=== PATIENT | female | born 1940 | race Caucasian/White ===

== ENCOUNTER 2016-06-19 08:39 | Inpatient (IN) | payer OTHER ==
[~2016-06-19] VITALS: Ht 160 cm; Wt 59.0 kg
[~2016-06-19 08:39] MED LIST: ADVAIR DISKUS1 UNIT INH; ALBUTEROL 3 ML3 ML INH; ALBUTEROL0.09 MG/A1 INH; AMLODIPINE10 MG PO; ASPIRIN81 M1 PO; ASPIRIN81 M4 PO; ATIVAN0.5 MG PO; AVELOX400 MG PO; AZITHROMYCIN250 MG PO; BOOST PO; CARDIZEM CD 12120 MG PO; CARDIZEM CD240 MG PO; COUMADIN 3 MG TA3 MG PO; COUMADIN 5 MG TA5 MG PO; COZAAR100 M1 PO; DILTIAZEM ER120 M2 PO; HYDROCHLOROTHIA25 M1 PO; HYDROCODONE BIT1 T22 PO; LASIX20 MG PO; LEVOFLOXACIN500 MG PO; LOSARTAN POTASS50 M1 PO; MULTI VITAMINS1 TAB PO; Oxygen INH; PAROXETINE HYDR10 MG PO; PAXIL20 MG PO; PERCOCET 325 MG1 TA2 PO; PREDNISONE 10MG10 M1 PO; PREDNISONE 20MG20 MG PO; PREDNISONE10 M2 PO; PREDNISONE10 MG PO; SPIRIVA 18 MCG18 MCG INH; VICODIN 5-3001 EACH PO
[2016-06-19] MEDS ORDERED: FERROUS SULFAT325 M3 PO (08:42)
[2016-06-19] MEDS ORDERED: LYRICA50 M1 PO (08:44)
--- NOTE | 2016-06-19 08:47 | NUR ---
75 Y/O FEMALE BIBA FROM HOME FOR DIFFICULTY BREATHING AND HX OF COPD AND EMPHYSEMA. PT STS SHE AWOKE THIS MORNING AND WAS HAVING DIFFICULTY BREATHIING. PT WAS RECENTLY SEEN HERE AND HAD A LOW H/H AND WAS TO BE ADMITTED BUT REFUSED AND WENT HOME. PT ARRIVES TODAY A/O X2 WITH SOME DROWSINESS AND OXYGEN ON 4L NC AND SATURAING AT 78-82%. PT PLACED ON A 100% NONE REBREATHER AND SATURAING AT 99%. PT DENIES ANY OTHER COMPLAINTS AND NOTED TO BE SPEAKING VERY LOW
[2016-06-19] MEDS ORDERED: AMITRIPTYLINE H25 M2 PO (08:48)
[2016-06-19] MEDS ORDERED: ATORVASTATIN CA10 M1 PO (08:49)
[2016-06-19] MEDS ORDERED: OS-CAL 500+D31 EAC1 PO (08:50)
[2016-06-19] MEDS ORDERED: DILTIAZEM 24HR360 MG PO (08:51)
[2016-06-19] MEDS ORDERED: CYANOCOBAL1000 MCG/2 IM (08:51)
[2016-06-19] MEDS ORDERED: BENADRYL25 MG PO (08:52)
[2016-06-19] MEDS ORDERED: FAMOTIDINE20 M1 PO (08:53)
[2016-06-19] MEDS ORDERED: PAROXETINE HCL40 M1 PO (08:54)
[2016-06-19] MEDS ORDERED: PREDNISONE2.5 M1 PO (08:54)
[2016-06-19] MEDS ORDERED: PREDNISONE10 M2 PO (08:55)
--- NOTE | 2016-06-19 09:01 | ED DYSPNEA/ASTHMA COMPLAINT ---
History of Present Illness General Chief Complaint: Dyspnea (COPD, CHF, Other) Stated Complaint: BIBA FOR SOB Source: patient, old records, EMS Exam Limitations: clinical condition, poor historian Vital Signs & Intake/Output Vital Signs & Intake/Output Vital Signs Date Time Temp Pulse Resp B/P Pulse O2 O2 Flow FiO2 Ox Delivery Rate 06/24 0905 90 170/70 06/24 0821 95 Nasal 2.5L Cannula 06/24 0544 97.9 97 20 176/70 96 Nasal 2.0L Cannula 06/24 0336 92 98 06/24 0116 90 97 06/24 0000 97 BIPAP 35% 06/23 2145 95 98 06/23 2130 98.3 99 22 160/80 97 Nasal Cannula 06/23 2026 98 Nasal 2.5L Cannula 06/23 1703 142/62 06/23 1600 Nasal 3.0L Cannula 06/23 1407 98.4 86 24 176/60 96 Nasal 3.0L Cannula 06/23 1136 92 180/60 ED Intake and Output 06/24 0000 06/23 1200 Intake Total 960 240 Output Total Balance 960 240 Intake, IV 50 Intake, Oral 910 240 Number 0 Bowel Movements Patient 130 lb Weight Allergies Coded Allergies: bacitracin (From NEOSPORIN ([id number])) (rash 09/23/15) neomycin (From NEOSPORIN ([id number])) (rash 09/23/15) penicillin V (SWELLING ALL OVER AND ITCHING 09/23/15) polymyxin B (From NEOSPORIN ([id number])) (rash 09/23/15) cortisone (THRUSH 09/23/15) duloxetine (GI DISTRESS 09/23/15) moxifloxacin (From AVELOX) (STOMACH SICK 09/23/15) Reconcile Medications Albuterol Sulfate (Albuterol Sulfate Hfa) 0.09 MG/Actuation CHELSEA 2 PUFF INH PRN COPD (Reported) 90 MCG PER PUFF Albuterol Sulfate (Proventil) 2.5 MG/3 ML NEB 3 ML INH EVERY 4 HRS/AWAKE PRN COPD Amitriptyline HCl 25 MG TABLET 1 TAB PO QPM UNKNOWN (Reported) Amlodipine Besylate 5 MG TABLET 5 MG PO DAILY blood pressure Aspirin (Aspirin*) 81 MG TAB.CHEW 81 MG PO DAILY HEART HEALTH Atorvastatin Calcium 10 MG TABLET 1 TAB PO DAILY CHOLESTEROL (Reported) Azithromycin 250 MG TABLET 1 TAB PO DAILY copd Calcium Carbonate/Vitamin D3 (Os-Napoleon 500+D3 Caplet) 500 MG-200 TABLET 1 TAB PO BID SUPPLEMENT (Reported) Cyanocobalamin (Vitamin B-12) (Cyanocobalamin Injection) 1,000 MCG/ML VIAL 1 ML IM Q30D SUPPLEMENT (Reported) Diltiazem HCl (Diltiazem 24HR ER) 360 MG CAP.ER.24H 1 CAP PO DAILY HEART ( Reported) Diphenhydramine HCl (Benadryl) 25 MG CAPSULE 1 CAP PO QPM SLEEP (Reported) Famotidine 20 MG TABLET 1 TAB PO BID GI (Reported) Ferrous Sulfate 325 MG (65 MG IRON) TABLET 1 TAB PO DAILY ANEMIA (Reported) Fluticasone-Salmeterol (Advair 500-50 Diskus) 1 UNIT UNIT 1 PUF INH BID COPD (Reported) Hydrochlorothiazide 25 MG TABLET 1 TAB PO DAILY WATER PILL (Reported) Hydrocodone/Acetaminophen (Vicodin 5-300 MG Tablet) 1 EACH TABLET 1 TAB PO DAILY PRN PAIN (Reported) Lorazepam (Ativan) 0.5 MG TAB 1 TAB PO BID ANXIETY (Reported) Losartan (Cozaar) 100 MG TABLET 100 MG PO DAILY HIGH BLOOD PRESSURE Multivitamin (One Daily Multivitamin) 1 TAB TAB 1 TAB PO DAILY SUPPLEMENT ( Reported) Paroxetine HCl 40 MG TABLET 1 TAB PO AT BEDTIME DEPRESSION (Reported) PAROXETINE HCL (Paroxetine Hydrochloride) 10 MG TAB 2 TAB PO DAILY MENTAL HEALTH (Reported) TAKES 20 MG PO Prednisone 2.5 MG TABLET 1 TAB PO DAILY STEROID (Reported) Prednisone 10 MG TABLET 1 TAB PO DAILY STEROID (Reported) Prednisone 10 MG TABLET 1 TAB PO SEE ADMIN CRITERIA copd take 3 TABS X 2 DAYS 2 TABS X 2 DAYS tHEN CONTINUE WITH 10 MG(1 TAB) OF PREDNISONE DAILY FOR copd Pregabalin (Lyrica) 50 MG CAPSULE 0.5 CAP PO BID PAIN (Reported) Stop lyrica on 06/28/16 Tiotropium [place] (Spiriva) 18 MCG CAP 1 CAP INH DAILY COPD (Reported) Triage Nurses Notes Reviewed? yes HPI: Patient presents for evaluation of severe constant and worsening dyspnea that began yesterday. The patient herself is a very poor historian and is able to state only that she is having trouble breathing since yesterday. According to the patient's family she has had altered mental status and dyspnea over that time. Upon arrival the paramedics noted she was hypoxic on 4 L nasal cannula and placed her on 100% nonrebreather and gave her a DuoNeb. Apparently the patient was evaluated at [facility] for low hematocrit and hemoglobin but she refused to to be hospitalized. Past History Travel History Traveled to [place] past 21 day No Medical History Any Pertinent Medical History? see below for history Neurological: NONE EENT: NONE Cardiovascular: PVD, hypertension diastolic dysfunction Respiratory: COPD, bilateral pulmonary nodules HOME 02 DEPENDENT Gastrointestinal: NONE Hepatic: NONE Renal: nephrolithiasis Musculoskeletal: osteomyelitis Psychiatric: anxiety Endocrine: NONE Blood Disorders: NONE Cancer(s): NONE MEAL COOKER/Reproductive: HYSTERECTOMY History of MRSA: No History of VRE: No History of CDIFF: No Pneumonia Vaccine: 05/24/06 Surgical History Surgical History: Right hip ORIF 04/2015 Left 5th toe amputation Left eye lens implant Left hip ORIF Mar 2002 Psychosocial History Who do you live with Patient/Self Services at Home visiting nurse What is your primary language Syriac Family History Family History, If Any: MOTHER FH: diabetes mellitus Hx Contributory? No Review of Systems Review of Systems Constitutional: Reports: no symptoms. EENTM: Reports: no symptoms. Respiratory: Reports: see HPI. Cardiovascular: Reports: no symptoms. GI: Reports: no symptoms. Genitourinary: Reports: no symptoms. Musculoskeletal: Reports: no symptoms. Skin: Reports: no symptoms. Neurological/Psychological: Reports: no symptoms. Hematologic/Endocrine: Reports: no symptoms. Immunologic/Allergic: Reports: no symptoms. All Other Systems: Reviewed and Negative Physical Exam Physical Exam Respiratory: SEE BELOW Comments: Gen.: Well-nourished, well-developed, no acute respiratory distress. Head: Normocephalic, atraumatic. Eyes: Normal inspection bilaterally Ears: Normal inspection bilaterally Nose: Normal inspection Throat/mouth : Moist mucosa Neck: Supple, full range of motion, no goiter Heart: Regular rate and rhythm, no murmurs rubs or gallops Lungs: Decreased air entry over the left chest, and expiratory wheezing and prolonged expiratory phase on the right chest Chest: Nontender Back: Normal range of motion Abdomen: Soft, nontender, nondistended, normal bowel sounds Extremities: Normal range of motion grossly, equal radial pulses, no cyanosis, bilateral lower extremity pitting edema right greater than left, dressings in place for chronic wounds. Calves nontender. Neurologic: Cranial nerves grossly intact, speech is clear Skin: warm and dry, chronic skin changes of the lower extremities Psychiatric: Calm, cooperative, no apparent delusions or hallucinations Core Measures ACS in differential dx? No Severe Sepsis Present: No Septic Shock Present: No Progress Differential Diagnosis: copd/EMPHYSEMA WITH HYPERCARBIA, PNEUMONIA, CONGESTIVE HEART FAILURE, EFFUSION, ANEMIA, OCCULT INFECTION, ELECTROLYTE ABNORMALITY Plan of Care: Orders Procedure Date/time Status Lab Add-on Test 06/24 0907 Active House Staff 06/24 0715 Active MAGNESIUM 06/24 0615 Complete CBC WITHOUT DIFFERENTIAL 06/24 06 Complete BASIC ELECTROLYTES PLUS BUN&CR 06/24 0600 Complete Therapeutic Activities 06/24 UNK Complete Gait Training 06/24 UNK Complete CHF Diet 06/23 D Active AEROSOL CHG 06/23 UNK Complete OXYGEN 06/23 UNK Complete OXYGEN DAILY CHARGE 06/23 UNK Complete CONTIN. POS. AIRWAY PRESS. CHG 06/23 UNK Complete Diet Message 06/23 UNK Active PSYCHIATRIC CONSULT 06/23 UNK Active Current Medications Sig/Roge Start time Last Medication Dose Stop Time Status Admin Amlodipine Besylate 5 MG DAILY 06/24 1000 AC (Norvasc) Acetaminophen 1,000 MG Q6P PRN 06/19 1145 AC (Ofirmev) Laboratory Tests 06/24/16 0615: Anion Gap 4 L, Estimated GFR > 60, BUN/Creatinine Ratio 32.2 H, Magnesium 2.2, CBC w Diff NO MAN DIFF REQ, RBC 3.16 L, MCV 96.6, MCH 30.2, RDW 15.2 H, MPV 8.1, Gran % 87.6 H, Lymphocytes % 5.5 L, Monocytes % 6.8, Eosinophils % 0.1, Basophils % 0 L, Absolute Granulocytes 14.7 H, Absolute Lymphocytes 0.9 L, Absolute Monocytes 1.1 H, Absolute Eosinophils 0, Absolute Basophils 0, PUBS MCHC 31.3 L Diagnostic Imaging: Discussed w/RAD: Radiology Read. Initial ED EKG: NSR, rate (89) Prior EKG: unchanged Comments: 06/19/2016 9:13:49 AM patient desaturated into the upper 80s on nasal cannula at 4 L. We will apply a Ventimask. 06/19/2016 10:05:28 AM 7.34/79/77/93% on [address] the patient on BiPAP. Departure Departure Disposition: STILL A PATIENT Condition: Stable Clinical Impression Primary Impression: COPD exacerbation Referrals: NATALIIA DELVALLE,KAREN Kay (PCP/Family) Departure Forms: Customer Survey General Discharge Information Prescriptions: Current Visit Scripts Amlodipine Besylate 5 MG PO DAILY #30 Azithromycin 1 TAB PO DAILY #1 Prednisone 1 TAB PO SEE ADMIN CRITERIA 30 Days take 3 TABS X 2 DAYS 2 TABS X 2 DAYS tHEN CONTINUE WITH 10 MG(1 TAB) OF PREDNISONE DAILY FOR copd Admission Note Spoke With: SARITA THOMAS MD Documentation of Exam: Documentation of any treatments & extenuating circumstances including Concerns Regarding Discharge (functional status, medication knowledge or non-compliance, living conditions, etc.) that warrant an admission rather than observation: pt is experiencing a copd exacerbation placing her at high risk of resp failure and . she become hypoxic even at rest and requieres o2 supplementation. she now requires treatment with bipap to support ventilation and oxygenation, close monitoring of vital signs and o2 saturations and respiratory effort. given her hypoxia, she would not be able to comply with outpt treatment without placing her at even greater risk of severe hypoxia and resp failure. she will require a multiple day hospitalization. Critical Care Note Critical Care Note Critical Care Time: 30-74 min
--- NOTE | 2016-06-19 09:15 | NUR ---
TWO ATTEMPTS TO ESTABLISHE IV AND NO SUCCESS PT KEEPS HAVE INVOLUNTARY MOVEMENT ANOTHE NURSE WILL ATTEMPT
--- NOTE | 2016-06-19 09:53 | RADIOLOGY REPORT ---
EXAMINATION: XR PORTABLE CHEST CLINICAL INFORMATION: Decreased left-sided breath sounds, wheezing on right COMPARISON: 02/18/2016 TECHNIQUE: Portable view of the chest was obtained. FINDINGS: Lung volumes are symmetric. Upper lung zone emphysema is noted. There are small bilateral pleural effusions with streaky bibasilar opacities. There is mild interstitial prominence bilaterally. No evidence of pneumothorax or overt pulmonary edema. Cardiac size is within normal limits. Calcification is present at the aortic arch. No acute osseous findings are seen. IMPRESSION: Small bilateral pleural effusions with streaky bibasilar opacities suggesting atelectasis; superimposed developing consolidation is difficult to exclude in the proper clinical setting. Mild bilateral interstitial prominence may reflect developing vascular congestion.
[2016-06-19 10:00] LABS: ABSOLUTE BASOPHIL COUNT 0 /CUMM (0.0-0.2); ABSOLUTE EOSINOPHIL COUNT 0.2 /CUMM (0.0-0.7); ABSOLUTE GRANULOCYTE CT 12.9 /CUMM (1.4-6.5); ABSOLUTE LYMPH COUNT 0.8 /CUMM (1.2-3.4); ABSOLUTE MONOCYTE COUNT 1.3 /CUMM (0.10-0.60); BASOPHIL % 0.2 % (0.0-2.0); EOSINOPHIL % 1.4 % (0-5); GRANULOCYTE % 84.9 % (42.2-75.2); HEMATOCRIT 23.3 % (37-47); MEAN CORPUSCULAR HGB 30.3 PG (27.0-31.0); MEAN CORPUSCULAR HGB CONC 31.3 G/DL (33.0-37.0); MEAN CORPUSCULAR VOLUME 96.8 FL (81.0-99.0); MEAN PLATELET VOLUME 7.7 FL (7.4-10.4); PLATELET COUNT 338 /CUMM (130-400); RBC DISTRIBUTION WIDTH 15.1 % (11.5-14.5); WHITE BLOOD CELL COUNT 15.2 /CUMM (4.8-10.8)
--- NOTE | 2016-06-19 10:13 | NUR ---
CRITICAL TEST RESULTS [id number] LILA GRIFFIN 75 F TESTS AND RESULTS: HGB 7.3, HCT 23.3 Results received and read back by: KATARINA PITTS Results received date and time: 06/19/16 1014 The following provider was notified of the results, and read the results back: DR. BALES Notified date and time: 06/19/16 at 1014
--- NOTE | 2016-06-19 10:15 | NUR ---
IV FINALLY ESTABLISHED AND PT MEDICATED ORDERED AND PT PLACED ON BIPAP
--- NOTE | 2016-06-19 11:10 | NUR ---
ASSUMED CARE OF PT AT THIS TIME, PT SLEEPING AT THIS TIME. REG RESP RATE NOTED. PT REMAINS ON BIPAP. SATS 97%. WILL CTM
--- NOTE | 2016-06-19 11:35 | History & Physical ---
See Addendum General Information and HPI MD Statement: I have seen and personally examined LILA GRIFFIN and documented this H&P. The patient is a 75 year old F who presented with a patient stated chief complaint of worsening shortness of breath Source of Information: family, EMS Exam Limitations: not alert/orientated, clinical condition, confusion, poor historian, intoxication History of Present Illness: Patient is a 75-year-old woman with a past medical history significant for stage I diastolic dysfunction, chronic respiratory failure due to end-stage COPD on( prednisone 10 g daily, 2-3 L of oxygen) at baseline, history of alcohol dependence, hypertension, vertigo, PVD, right femoral neck fracture status post mechanical fall status requiring arthroplasty April 2015, left fifth toe amputation due to osteomyelitis, nephrolithiasis of the right requiring ESWL, osteoporosis, and anxiety was brought to the ER for the evaluation of worsening shortness of breath since yesterday. At the time of examination patient was on BiPAP, responding to some of the questions ,so most of the history was obtained from ED staff and son (Kevin: Cell number [phone]). As per Son, patient was having trouble breathing since yesterday both at rest and on ambulation. Denied any chest discomfort/palpitations. Over the course of time she became more dyspneic and altered. The patient fell from her bed today without hitting her head. 911 was called in. Upon arrival the paramedics noted she was hypoxic on 4 L nasal cannula and placed her on 100% nonrebreather and gave her a DuoNeb and was brought to the ER for further assessment. In the ER patient desaturated to 80s on 4 L, was put on Ventimask. ABG done showed pH of 7.34 with PCO2 of 79 and PO2 of 77 and she was put on BiPAP. Patient was seen by Dr. Juarez as an outpatient and she was sent here yesterday to get the blood work done, H&H done on 06/18/2016 was 7.06/14, but endoscopy was postponed until Wednesday06/22/2016 due to her worsening respiratory status In the ER, she was supposed to get blood transfusion but the patient refused it. Allergies/Medications Allergies: Coded Allergies: bacitracin (From NEOSPORIN ([id number])) (rash 09/23/15) neomycin (From NEOSPORIN ([id number])) (rash 09/23/15) penicillin V (SWELLING ALL OVER AND ITCHING 09/23/15) polymyxin B (From NEOSPORIN ([id number])) (rash 09/23/15) cortisone (THRUSH 09/23/15) duloxetine (GI DISTRESS 09/23/15) moxifloxacin (From AVELOX) (STOMACH SICK 09/23/15) Home Med list Albuterol Sulfate (Albuterol Sulfate Hfa) 0.09 MG/Actuation CHELSEA 2 PUFF INH PRN COPD (Reported) 90 MCG PER PUFF Albuterol Sulfate (Proventil) 2.5 MG/3 ML NEB 3 ML INH EVERY 4 HRS/AWAKE PRN COPD Amitriptyline HCl 25 MG TABLET 1 TAB PO QPM UNKNOWN (Reported) Aspirin (Aspirin*) 81 MG TAB.CHEW 81 MG PO DAILY HEART HEALTH Atorvastatin Calcium 10 MG TABLET 1 TAB PO DAILY CHOLESTEROL (Reported) Calcium Carbonate/Vitamin D3 (Os-Napoleon 500+D3 Caplet) 500 MG-200 TABLET 1 TAB PO BID SUPPLEMENT (Reported) Cyanocobalamin (Vitamin B-12) (Cyanocobalamin Injection) 1,000 MCG/ML VIAL 1 ML IM Q30D SUPPLEMENT (Reported) Diltiazem HCl (Diltiazem 24HR ER) 360 MG CAP.ER.24H 1 CAP PO DAILY HEART ( Reported) Diphenhydramine HCl (Benadryl) 25 MG CAPSULE 1 CAP PO QPM SLEEP (Reported) Famotidine 20 MG TABLET 1 TAB PO BID GI (Reported) Ferrous Sulfate 325 MG (65 MG IRON) TABLET 1 TAB PO BID SUPPLEMENT (Reported) Fluticasone-Salmeterol (Advair 500-50 Diskus) 1 UNIT UNIT 1 PUF INH BID COPD (Reported) Hydrochlorothiazide 25 MG TABLET 1 TAB PO DAILY WATER PILL (Reported) Hydrocodone/Acetaminophen (Vicodin 5-300 MG Tablet) 1 EACH TABLET 1 TAB PO DAILY PRN PAIN (Reported) Lorazepam (Ativan) 0.5 MG TAB 1 TAB PO BID ANXIETY (Reported) Losartan (Cozaar) 100 MG TABLET 100 MG PO DAILY HIGH BLOOD PRESSURE Multivitamin (One Daily Multivitamin) 1 TAB TAB 1 TAB PO DAILY SUPPLEMENT ( Reported) PAROXETINE HCL (Paroxetine Hydrochloride) 10 MG TAB 2 TAB PO DAILY MENTAL HEALTH (Reported) TAKES 20 MG PO Paroxetine HCl 40 MG TABLET 1 TAB PO DAILY MENTAL HEALTH (Reported) Prednisone 2.5 MG TABLET 1 TAB PO DAILY STEROID (Reported) Prednisone 10 MG TABLET 1 TAB PO DAILY STEROID (Reported) Pregabalin (Lyrica) 50 MG CAPSULE 1 CAP PO BID PAIN (Reported) Tiotropium [place] (Spiriva) 18 MCG CAP 1 CAP INH DAILY COPD (Reported) Past History Travel History Traveled to [place] past 21 day No Medical History Neurological: NONE EENT: NONE Cardiovascular: PVD, hypertension diastolic dysfunction Respiratory: COPD, bilateral pulmonary nodules HOME 02 DEPENDENT Gastrointestinal: NONE Hepatic: NONE Renal: nephrolithiasis Musculoskeletal: osteomyelitis Psychiatric: anxiety Endocrine: NONE Blood Disorders: NONE Cancer(s): NONE DIRECTOR CLIENT SERVICES/Reproductive: HYSTERECTOMY History of MRSA: No History of VRE: No History of CDIFF: No Pneumonia Vaccine: 05/24/06 Surgical History Surgical History: Right hip ORIF 04/2015 Left 5th toe amputation Left eye lens implant Left hip ORIF Mar 2002 Past Family/Social History Family History Relations & Conditions if any MOTHER FH: diabetes mellitus Psychosocial History Who Do You Live With? self Services at Home: visiting nurse Primary Language: Georgian ETOH Use: denies use Illicit Drug Use: denies illicit drug use Living Will? In progress Power of Duralumin Metalworker/HCP? yes Name of POA/HCP: Marco and Kevin Gunter of the 3sons. Functional Ability ADLs Independent: dressing, eating, toileting, bathing. Ambulation: Rolling walker with sit IADLs Independent: telephone. Needs Assist: shopping, housework, finances, food prep, transportation, medication admin. Review of Systems Review of Systems Constitutional: Denies: see HPI. EENTM: Denies: see HPI. Cardiovascular: Denies: see HPI. Respiratory: Denies: see HPI. GI: Denies: see HPI. Genitourinary: Denies: see HPI. Musculoskeletal: Denies: see HPI. Skin: Denies: see HPI. Neurological/Psychological: Denies: see HPI. Hematologic/Endocrine: Denies: see HPI. Immunologic/Allergic: Denies: see HPI. Exam & Diagnostic Data Last 24 Hrs of Vital Signs/I&O Vital Signs Date Time Temp Pulse Resp B/P Pulse O2 O2 Flow FiO2 Ox Delivery Rate 06/19 1131 76 24 147/67 95 BIPAP 06/19 1035 95 BIPAP 35% 06/19 1026 91 92 06/19 1000 96 Nasal 3.0L Cannula 06/19 09 98 Nasal 4.0L Cannula 06/19 0921 97.1 90 19 164/70 98 Nasal 4.0L Cannula Intake & Output 06/19 1600 06/19 0800 06/19 0000 Intake Total Output Total Balance Patient 130 lb Weight Physical Exam General Appearance Mild Distress, not oriented in time place and person Skin No Rashes, No Breakdown Cardiovascular systolic murmur in the second right sternal space Lungs clear to auscultation with some crackles at the bases Abdomen Normal Bowel Sounds, Soft, No Tenderness Neurological Normal Speech, Strength at 5/5 X4 Ext, Normal Tone Extremities No Clubbing, No Cyanosis, No Edema Last 24 Hrs of Labs/Gt: Laboratory Tests 06/19/16 0945: pH 7.34 L, pCO2 79 *H, pO2 77 L, HCO3 42 H, ABG O2 Sat (Measured) 93.0 L, P- 50 (Temp Corrected) N, Carboxyhemoglobin 0.8 L, O2 Concentration % 3LPM, O2 Delivery Method NC, Phlebotomy Draw Site LEFT RADIAL 06/19/16 0940: Anion Gap 8, Estimated GFR > 60, BUN/Creatinine Ratio 31.1 H, Glucose 98, Calcium 9.3, Troponin I 0.07, Vfa-B-Rwuvquuynpe Pept 913 H, CBC w Diff MAN DIFF ORDERED, RBC 2.40 L, MCV 96.8, MCH 30.3, RDW 15.1 H, MPV 7.7, Gran % 84.9 H, Lymphocytes % 5.1 L, Monocytes % 8.4, Eosinophils % 1.4, Basophils % 0.2, Absolute Granulocytes 12.9 H, Absolute Lymphocytes 0.8 L, Absolute Monocytes 1.3 H, Absolute Eosinophils 0.2, Absolute Basophils 0, Platelet Estimate VERIFIED BY SMEAR, Polychromasia 1+, Hypochromic-Microcytic 2+, Poikilocytosis 2 +, Anisocytosis 1+, Ovalocytes 1+, Stomatocytes 2+, PUBS MCHC 31.3 L Assessment/Plan Assessment: Patient is a 75-year-old woman with a past medical history significant for stage I diastolic dysfunction, end-stage COPD on 2-3 L of oxygen at baseline, history of alcohol dependence, hypertension, vertigo, PVD, right femoral neck fracture status post mechanical fall status requiring arthroplasty April 2015, left fifth toe amputation due to osteomyelitis, nephrolithiasis of the right requiring ESWL, osteoporosis, and anxiety was brought to the ER for any evidence for the evaluation of worsening shortness of breath since yesterday. Vitals on admission temperature 97.1, pulse 90, respiratory rate 19, blood pressure 164/70 on 4 L, Now on BiPAP. Pertinent labs on admission: Leukocytosis 15.2 without any bandemia H&H low 7.3/23.3(baseline 10.3/32.8), MCV 96.8, sodium 136, BUN/creatinine 2 8/0.9. Elevated proBNP 913. ABG done showed pH of 7.34 with PCO2 of 79 and PO2 of 77 and she was put on BiPAP. First troponin 0.07 with EKG showed normal sinus rhythm VT interval of 156 QTC 458. Chest x-ray: Small bilateral pleural effusions with streaky bibasilar opacities suggesting atelectasis; superimposed developing consolidation is difficult to exclude in the proper clinical setting. Mild bilateral interstitial prominence may reflect developing vascular congestion. Echo done in November 2015 : Showed Normal size left ventricle. Mild concentric left ventricular hypertrophy. No obvious regional wall motion abnormalities. Normal left ventricular ejection fraction visually estimated at > 55 %. Normal left ventricular diastolic filling pattern for age. Assessment and plan 1.Acute hypoxic hypercarbic respiratory failure due to chronic respiratory failure from end-stage COPD: * We'll admit the patient to telemetry for continuous pulse ox * Continue with BiPAP * Repeat ABG in 1 hr * Pathology consult Dr. Morataya has been obtained. * Leukocytosis with Chest x-ray is inconsistent with a developing infiltrate we' ll start the patient empirically on antibiotics to cover for community acquired pneumonia ceftriaxone and azithromycin. * Send pancultures. * Start the patient on IV Solu-Medrol 40 mg every 8. * Continue TRC nebs * Continue Spiriva and Symbicort * Watch for any hemodynamic instability 2. Acute on chronic blood loss anemia(guaiac positive possible GI bleed): * Patient was seen by Dr. Juarez as an outpatient and she was sent here yesterday to get the blood work done, H&H done on 06/18/2016 was 7.1/22, but endoscopy was postponed until Wednesday06/22/2016 due to her worsening respiratory status. * H&H today is 7.08/13, will check iron studies including ferritin, iron, TIBC, reticulocyte count. * We'll transfuse her 1 unit of packed RBCs. * Hold aspirin for now * Repeat H&H later during the day * Watch for any active signs of bleeding * We talked to Dr. Ríos was allied health professional today, hopefully her respiratory status will improve within 24-48 ours after getting IV antibiotics and steroids and will plan for possible endoscopy on Wednesday. Keep her nothing by mouth Wednesday night. * Hold omeprazole 40 mg and famotidine before dinner, continue with IV Protonix 40 mg daily 3. History of stage I diastolic heart failure: * Continue with hydrochlorothiazide 25 mg daily and losartan 100 mg daily. 4. History of peripheral vascular disease, hypertension and hyperlipidemia * Continue atorvastatin 10 mg daily, Cardizem 360 mg daily. 5. History of mood disorder * Continue paroxetine 40 mg daily, pregabalin, amitriptyline. 6. DVT prophylaxis with Alps due to acute GI bleed 7. Mild pain pathway with Tylenol 8. Patient is full code As Ranked By This Provider Problem List: 1. Acute and chronic respiratory failure Core Measures/Miscellaneous Acute Coronary Syndrome ACS Diagnosis: No Cerebrovascular Accident CVA/TIA Diagnosis: No Congestive Heart Failure CHF Diagnosis: No Venous Thromboembolism VTE Risk Factors: Acute medical illness, Age > 40 VTE Prophylaxis Ordered Inpt: Mechanical (ALPS/TEDS) No Mech VTE prophylaxis d/t: No contraindications No VTE Pharm Prophylaxis d/t: No contraindications VTE Diagnosis: No VTE Type: NONE VTE Confirmed by (Test): NONE Severe Sepsis Severe Sepsis Present: No Septic Shock Septic Shock Present: No Miscellaneous Documentation Attending Case Discussed With: MARTHA DELVALLE,SARITA Brown Primary Care Physician: NATALIIA DELVALLE,KAREN Kay Patient sees these Specialists Dr. Larry Forrest Level of Patient Care: Telemetry
--- NOTE | 2016-06-19 11:42 | NUR ---
HOSUE STAFF AT BEDSIDE
--- NOTE | 2016-06-19 12:00 | NUR ---
DR SAUNDERS AT BEDSIDE AT THIS TIME
--- NOTE | 2016-06-19 12:10 | Cons- Pulmonary ---
General Information and HPI Consulting Request Date of Consult: 06/19/16 Requested By: Caroline Reason for Consult: Respiratory failure History of Present Illness: Patient is 75-year-old with end-stage oxygen-dependent COPD seen in the emergency room for weakness shortness breath and found to be profoundly anemic however refused admission she returns today with increasing shortness of breath and found to be in chronic hypercapnic respiratory failure. She is placed on BiPAP and is presently awake alert and saturating well on 35% FiO2. She denies chest pain or hemoptysis fevers or chills. Allergies/Medications Allergies: Coded Allergies: bacitracin (From NEOSPORIN ([id number])) (rash 09/23/15) neomycin (From NEOSPORIN ([id number])) (rash 09/23/15) penicillin V (SWELLING ALL OVER AND ITCHING 09/23/15) polymyxin B (From NEOSPORIN ([id number])) (rash 09/23/15) cortisone (THRUSH 09/23/15) duloxetine (GI DISTRESS 09/23/15) moxifloxacin (From AVELOX) (STOMACH SICK 09/23/15) Home Med List: Albuterol Sulfate (Albuterol Sulfate Hfa) 0.09 MG/Actuation CHELSEA 2 PUFF INH PRN COPD (Reported) 90 MCG PER PUFF Albuterol Sulfate (Proventil) 2.5 MG/3 ML NEB 3 ML INH EVERY 4 HRS/AWAKE PRN COPD Amitriptyline HCl 25 MG TABLET 1 TAB PO QPM UNKNOWN (Reported) Aspirin (Aspirin*) 81 MG TAB.CHEW 81 MG PO DAILY HEART HEALTH Atorvastatin Calcium 10 MG TABLET 1 TAB PO DAILY CHOLESTEROL (Reported) Calcium Carbonate/Vitamin D3 (Os-Napoleon 500+D3 Caplet) 500 MG-200 TABLET 1 TAB PO BID SUPPLEMENT (Reported) Cyanocobalamin (Vitamin B-12) (Cyanocobalamin Injection) 1,000 MCG/ML VIAL 1 ML IM Q30D SUPPLEMENT (Reported) Diltiazem HCl (Diltiazem 24HR ER) 360 MG CAP.ER.24H 1 CAP PO DAILY HEART ( Reported) Diphenhydramine HCl (Benadryl) 25 MG CAPSULE 1 CAP PO QPM SLEEP (Reported) Famotidine 20 MG TABLET 1 TAB PO BID GI (Reported) Ferrous Sulfate 325 MG (65 MG IRON) TABLET 1 TAB PO BID SUPPLEMENT (Reported) Fluticasone-Salmeterol (Advair 500-50 Diskus) 1 UNIT UNIT 1 PUF INH BID COPD (Reported) Hydrochlorothiazide 25 MG TABLET 1 TAB PO DAILY WATER PILL (Reported) Hydrocodone/Acetaminophen (Vicodin 5-300 MG Tablet) 1 EACH TABLET 1 TAB PO DAILY PRN PAIN (Reported) Lorazepam (Ativan) 0.5 MG TAB 1 TAB PO BID ANXIETY (Reported) Losartan (Cozaar) 100 MG TABLET 100 MG PO DAILY HIGH BLOOD PRESSURE Multivitamin (One Daily Multivitamin) 1 TAB TAB 1 TAB PO DAILY SUPPLEMENT ( Reported) PAROXETINE HCL (Paroxetine Hydrochloride) 10 MG TAB 2 TAB PO DAILY MENTAL HEALTH (Reported) TAKES 20 MG PO Paroxetine HCl 40 MG TABLET 1 TAB PO DAILY MENTAL HEALTH (Reported) Prednisone 2.5 MG TABLET 1 TAB PO DAILY STEROID (Reported) Prednisone 10 MG TABLET 1 TAB PO DAILY STEROID (Reported) Pregabalin (Lyrica) 50 MG CAPSULE 1 CAP PO BID PAIN (Reported) Tiotropium [place] (Spiriva) 18 MCG CAP 1 CAP INH DAILY COPD (Reported) Review of Systems Review of Systems Constitutional: Reports: weakness. Denies: chills, fever. Cardiovascular: Denies: chest pain, peripheral edema. Respiratory: Reports: cough, short of breath, wheezing. Denies: hemoptysis. GI: Denies: abdominal pain, diarrhea. Past History Travel History Traveled to [place] past 21 day No Medical History Neurological: NONE EENT: NONE Cardiovascular: PVD, hypertension diastolic dysfunction Respiratory: COPD, bilateral pulmonary nodules HOME 02 DEPENDENT Gastrointestinal: NONE Hepatic: NONE Renal: nephrolithiasis Musculoskeletal: osteomyelitis Psychiatric: anxiety Endocrine: NONE Blood Disorders: NONE Cancer(s): NONE SIGNAL MECHANIC/Reproductive: HYSTERECTOMY Surgical History Surgical History: Right hip ORIF 04/2015 Left 5th toe amputation Left eye lens implant Left hip ORIF Mar 2002 Family History Relations & Conditions If Any: MOTHER FH: diabetes mellitus Psychosocial History Who Do You Live With? self Services at Home: visiting nurse Primary Language: Hungarian ETOH Use: denies use Illicit Drug Use: denies illicit drug use Living Will? In progress Power of Mortgage Counselor/HCP? yes Name of POA/HCP: Marco and Kevin Gunter of the 3sons. Functional Ability ADLs Independent: dressing, eating, toileting, bathing. Ambulation: Rolling walker with sit IADLs Independent: telephone. Needs Assist: shopping, housework, finances, food prep, transportation, medication admin. Exam & Diagnostic Data Last 24 Hrs of Vital Signs/I&O Vital Signs Date Time Temp Pulse Resp B/P Pulse O2 O2 Flow FiO2 Ox Delivery Rate 06/19 1131 76 24 147/67 95 BIPAP 06/19 1035 95 BIPAP 35% 06/19 1026 91 92 06/19 1000 96 Nasal 3.0L Cannula 06/19 0923 98 Nasal 4.0L Cannula 06/19 0921 97.1 90 19 164/70 98 Nasal 4.0L Cannula Intake & Output 06/19 1600 06/19 0800 06/19 0000 Intake Total Output Total Balance Patient 130 lb Weight Oxygen saturation FiO2 35% 94% patient appears chronically ill and cachectic exam for chest shows faint expiratory wheezing cardiac exam shows a regular S1 and S2 abdominal exam is soft nontender extremities without edema but there are multiple evidence of skin tears and Last 48 Hrs of Labs/Gt: Laboratory Tests 06/19/16 0945: pH 7.34 L, pCO2 79 *H, pO2 77 L, HCO3 42 H, ABG O2 Sat (Measured) 93.0 L, P- 50 (Temp Corrected) N, Carboxyhemoglobin 0.8 L, O2 Concentration % 3LPM, O2 Delivery Method NC, Phlebotomy Draw Site LEFT RADIAL 06/19/16 0940: Anion Gap 8, Estimated GFR > 60, BUN/Creatinine Ratio 31.1 H, Glucose 98, Calcium 9.3, Troponin I 0.07, Ynx-A-Vzczfltbgcj Pept 913 H, CBC w Diff MAN DIFF ORDERED, RBC 2.40 L, MCV 96.8, MCH 30.3, RDW 15.1 H, MPV 7.7, Gran % 84.9 H, Lymphocytes % 5.1 L, Monocytes % 8.4, Eosinophils % 1.4, Basophils % 0.2, Absolute Granulocytes 12.9 H, Absolute Lymphocytes 0.8 L, Absolute Monocytes 1.3 H, Absolute Eosinophils 0.2, Absolute Basophils 0, Platelet Estimate VERIFIED BY SMEAR, Polychromasia 1+, Hypochromic-Microcytic 2+, Poikilocytosis 2 +, Anisocytosis 1+, Ovalocytes 1+, Stomatocytes 2+, PUBS MCHC 31.3 L Assessment/Plan Impression/Plan: 75-year-old with end-stage COPD chronic hypercapnic respiratory failure based on bicarbonate 41 with acute hypoxic respiratory failure. Chest x-ray suggests possible early infiltrates and patient is profoundly anemic leukocytosis Recommendations: Fully culture begin empiric antibiotics continue BiPAP repeat ABGs in 1 hour Taper FiO2 his saturations allow IV Solu-Medrol 40 mg every 8 hours valuate for marked anemia. Once patient's mental status and acute status has improved will pursue discussions regarding goals of care Consult Acknowledgment - Thank you for your consult request.
--- NOTE | 2016-06-19 12:17 | NUR ---
BED 185-1
--- NOTE | 2016-06-19 12:36 | NUR ---
REPORT GIVEN TO FLOOR.
--- NOTE | 2016-06-19 13:01 | NUR ---
RESP AT BEDSIDE FOR REPEAT ABG.
--- NOTE | 2016-06-19 13:30 | NUR ---
PT OFF BIPAP AND PLACED ON 3LPM NC O2 SATS 87%, FIO2 INCREASE TO 6LPM NC O2 SATS 91%. PER DR. ORELLANA OK TO TAKE PT OFF BIPAP. PT TRANSPORTED TO [facility]. PT BECAME SOB UPON ARRIVAL TO ROOM. PT PLACED BACK ON BIPAP
--- NOTE | 2016-06-19 13:57 | Admission Certification ---
Admission Certification Certification Statement - As attending physician, I certify that at the time of - admission, based on clinical presentation, severity of - symptoms, need for further diagnostic testing and - therapeutic interventions, and risk of adverse outcomes - without in-hospital treatment, in my clinical assessment, - this patient requires an acute hospital stay for a minimum - of two nights or longer. I have also considered psychsocial - factors such as support system, advanced age, financial - issues, cognitive issues, and failed out-patient treatments, - past re-admission history, safety of patient, and lack of - compliance as applicable. Specific rationale supporting this admission is: Acute hypoxemic and hypercapnic respiratory failure with severe anemia.
--- NOTE | 2016-06-19 14:00 | PN- Att Addend ---
Attending Addendum Attending Brief Note 75-year-old female with severe end-stage COPD on chronic steroid therapy and chronic O2 therapy. She has chronic respiratory failure and peripheral vascular disease with carotid disease with stage I diastolic dysfunction. She is here with severe acute on chronic hypercapnic respiratory failure and profound anemia. She is guaiac positive and had seen Dr. Carmine Lawson yesterday with gotten blood work. Because of her very fragile respiratory status the tentative plan was an endoscopy on Wednesday. I spoke to Dr. Ríos and explained that I think we should be able to optimize his respiratory status by Wednesday and will keep her tentatively nothing by mouth after midnight on Wednesday night for an endoscopy and Wednesday to evaluate the anemia. We'll add on iron and TIBC reticulocyte count to her blood work and transfuse her 1 unit of blood slowly over 4 hours and closely watch her H&H. We'll hold the aspirin for now put Alps for DVT prophylaxis. Appreciate pulmonary eval and will give IV steroids, IV antibiotics, TRC with nebs. And will check a flu swab. Follow up on the ABG closely.
[2016-06-19 14:02] VITALS: BP 170/60
[2016-06-19 15:42] VITALS: BP 150/62
[2016-06-19 22:27] VITALS: BP 168/54
--- NOTE | 2016-06-20 06:43 | PN- Housestaff ---
ANTONIA ULRICH 06/20/16 0638: Subjective Follow-up For: Acute hypoxic hypercarbic respiratory failure due to chronic respiratory failure from end-stage COPD Acute on chronic blood loss anemia(guaiac positive possible GI bleed) Tele-Events Since Last Visit: Normal sinus rhythm no overnight events Subjective: Patient seen and examined today seems slightly better, on BiPAP. Vitals are stable overnight. Breathing is getting better, we'll repeat ABG in the morning. Patient received 1 unit of packed RBC yesterday, monitor H&H in the morning was very active signs of BLEED. Review of Systems Constitutional: Denies: chills, diaphoresis. EENTM: Denies: blurred vision. Cardiovascular: Denies: chest pain, edema, orthopena. Respiratory: Denies: cough, hemoptysis, orthopnea. Gastrointestinal: Denies: abdominal pain, constipation, diarrhea. Objective Last 24 Hrs of Vital Signs/I&O Vital Signs Date Time Temp Pulse Resp B/P Pulse O2 O2 Flow FiO2 Ox Delivery Rate 06/20 0541 90 93 06/20 0337 79 95 06/20 0133 79 95 06/20 0000 BIPAP 06/19 2227 99.1 87 24 168/54 94 BIPAP 06/19 2129 Nasal 3.0L Cannula 06/19 1600 BIPAP 06/19 1542 98.5 80 22 150/62 94 BIPAP 06/19 1438 BIPAP 35% 06/19 1402 98.3 86 24 170/60 92 BIPAP 35% 06/19 1353 77 92 06/19 1313 98.6 82 26 136/84 96 BIPAP 35% 06/19 1250 88 94 06/19 1131 76 24 147/67 95 BIPAP 06/19 1035 95 BIPAP 35% 06/19 1026 91 92 06/19 1000 96 Nasal 3.0L Cannula 06/19 0923 98 Nasal 4.0L Cannula 06/19 0921 97.1 90 19 164/70 98 Nasal 4.0L Cannula Intake & Output 06/20 0800 06/20 0000 06/19 1600 Intake Total Output Total Balance Patient 130 lb Weight Physical Exam General Appearance: Alert, Oriented X3 Skin: No Rashes, No Breakdown Cardiovascular: SYSTOLIC MURMUR Lungs: Clear to Auscultation Assessment/Plan Assessment: Patient is a 75-year-old woman with a past medical history significant for stage I diastolic dysfunction, end-stage COPD on 2-3 L of oxygen at baseline, history of alcohol dependence, hypertension, vertigo, PVD, right femoral neck fracture status post mechanical fall status requiring arthroplasty April 2015, left fifth toe amputation due to osteomyelitis, nephrolithiasis of the right requiring ESWL, osteoporosis, and anxiety was brought to the ER for any evidence for the evaluation of worsening shortness of breath since yesterday. Vitals on admission temperature 97.1, pulse 90, respiratory rate 19, blood pressure 164/70 on 4 L, Now on BiPAP. Pertinent labs on admission: Leukocytosis 15.2 without any bandemia H&H low 7.3/23.3(baseline 10.3/32.8), MCV 96.8, sodium 136, BUN/creatinine 2 8/0.9. Elevated proBNP 913. ABG done showed pH of 7.34 with PCO2 of 79 and PO2 of 77 and she was put on BiPAP. First troponin 0.07 with EKG showed normal sinus rhythm KS interval of 156 QTC 458. Chest x-ray: Small bilateral pleural effusions with streaky bibasilar opacities suggesting atelectasis; superimposed developing consolidation is difficult to exclude in the proper clinical setting. Mild bilateral interstitial prominence may reflect developing vascular congestion. Echo done in November 2015 : Showed Normal size left ventricle. Mild concentric left ventricular hypertrophy. No obvious regional wall motion abnormalities. Normal left ventricular ejection fraction visually estimated at > 55 %. Normal left ventricular diastolic filling pattern for age. Assessment and plan 1.Acute hypoxic hypercarbic respiratory failure due to chronic respiratory failure from end-stage COPD: * Continue to monitor on telemetry for continuous pulse ox * Continue with BiPAP * Repeat ABG in the mornings are pending * Pathology consult Dr. Morataya has been obtained. * Leukocytosis with Chest x-ray is inconsistent with a developing infiltrate , continue ceftriaxone and azithromycin for community-acquired pneumonia. * pancultures. Pending * Continue with IV Solu-Medrol 40 mg every 8. * Continue TRC nebs * Continue Spiriva and Symbicort * Watch for any hemodynamic instability 2. Acute on chronic blood loss anemia(guaiac positive possible GI bleed): * Patient was seen by Dr. Juarez as an outpatient and she was sent here yesterday to get the blood work done, H&H done on 06/18/2016 was 7.06/14, but endoscopy was postponed until Wednesday06/22/2016 due to her worsening respiratory status. * H&H today is 7.08/13, will check iron studies including ferritin, iron, TIBC, reticulocyte count. * We'll transfuse her 1 unit of packed RBCs. * Hold aspirin for now * Repeat H&H later during the day * Watch for any active signs of bleeding * We talked to Dr. Ríos was reproduction production manager today, hopefully her respiratory status will improve within 24-48 ours after getting IV antibiotics and steroids and will plan for possible endoscopy on Wednesday. Keep her nothing by mouth Wednesday night. * Hold omeprazole 40 mg and famotidine before dinner, continue with IV Protonix 40 mg daily 3. History of stage I diastolic heart failure: * Continue with hydrochlorothiazide 25 mg daily and losartan 100 mg daily. 4. History of peripheral vascular disease, hypertension and hyperlipidemia * Continue atorvastatin 10 mg daily, Cardizem 360 mg daily. 5. History of mood disorder * Continue paroxetine 40 mg daily, pregabalin, amitriptyline. 6. DVT prophylaxis with Alps due to acute GI bleed 7. Mild pain pathway with Tylenol 8. Patient is full code Problem List: 1. COPD (chronic obstructive pulmonary disease) 2. Hypertension Pain Ratin Pain Location: NO PAIN this time Pain Goal: Remain pain free Pain Plan: When necessary Tylenol Tomorrow's Labs & Rationales: CBC and BEP tomorrow BRIAN GANDHI MD 06/20/16 2208: Attending Review Statement Attending Statement Attending MD Statement: examined this patient, discuss w/resident/PA/NEON SIGN ERECTOR, agreed w/resident/PA/NEON SIGN ERECTOR, reviewed EMR data (avail), discussed with nursing, amended to note Attending Assessment/Plan: The patient was seen and discussed with house staff. Appreciate pulmonary input. Improved ABG's noted on nasal oxygen.
[2016-06-20 09:00] VITALS: BP 170/52
[2016-06-20 10:19] LABS: ABSOLUTE BASOPHIL COUNT 0 /CUMM (0.0-0.2); ABSOLUTE EOSINOPHIL COUNT 0 /CUMM (0.0-0.7); ABSOLUTE GRANULOCYTE CT 18.5 /CUMM (1.4-6.5); ABSOLUTE LYMPH COUNT 0.8 /CUMM (1.2-3.4); ABSOLUTE MONOCYTE COUNT 0.6 /CUMM (0.10-0.60); BASOPHIL % 0 % (0.0-2.0); EOSINOPHIL % 0 % (0-5); HEMATOCRIT 26.6 % (37-47); MEAN CORPUSCULAR HGB CONC 32.4 G/DL (33.0-37.0); MEAN CORPUSCULAR VOLUME 95.5 FL (81.0-99.0); MEAN PLATELET VOLUME 8.2 FL (7.4-10.4); PLATELET COUNT 324 /CUMM (130-400); RBC DISTRIBUTION WIDTH 15.4 % (11.5-14.5); RED BLOOD CELL CT 2.78 /CUMM (4.20-5.40); WHITE BLOOD CELL COUNT 19.8 /CUMM (4.8-10.8)
[2016-06-20 11:17] LABS: GRANULOCYTE % 93.3 % (42.2-75.2)
--- NOTE | 2016-06-20 14:11 | PN- Pulmonary ---
Subjective HPI/Critical Care Issues: The patient is awake and alert. She is now off BiPAP. She reports that her breathing is better however she continues to have ongoing shortness of breath. She also has an ongoing cough. She is having difficulty with expectoration. She remains the most concern over the fact that she has difficulty walking. Objective Current Medications: Current Medications Sig/Roge Start time Last Medication Dose Route Stop Time Status Admin Acetaminophen 650 MG Q6P PRN 06/19 1145 AC PO Acetaminophen 1,000 MG Q6P PRN 06/19 1145 AC IV Albuterol Sulfate 3 ML TID 06/19 1600 AC 06/20 INH 1330 Amitriptyline HCl 25 MG QPM 06/19 2200 AC 06/19 PO 2111 Atorvastatin Calcium 10 MG DAILY@1700 06/19 1700 AC 06/19 PO 1751 Azithromycin 500 MG DAILY 06/19 1345 AC 06/20 Dextrose/Water 250 ML IV 0901 Budesonide/ 2 PUF BID 06/19 1403 AC 06/20 Formoterol Fumarate INH 0902 Ceftriaxone Sodium 1,000 MG DAILY 06/19 1343 DC IV Diltiazem HCl 360 MG DAILY 06/20 1000 AC 06/20 PO 0903 Ferrous Sulfate 325 MG BID 06/20 1145 AC 06/20 PO 1321 Hydrochlorothiazide 25 MG DAILY 06/20 1000 AC 06/20 PO 0903 Lorazepam 0.5 MG BID 06/19 2200 AC 06/20 PO 06/26 2159 0905 Losartan Potassium 100 MG DAILY 06/20 1000 AC 06/20 PO 0903 Methylprednisolone 40 MG Q8 06/19 1345 AC 06/20 IV 1321 Pantoprazole Sodium 40 MG DAILY 06/19 1430 AC 06/20 IV 0902 Paroxetine HCl 40 MG DAILY 06/20 1000 AC 06/20 PO 0902 Paroxetine HCl 20 MG 0800 06/20 0800 CAN PO Polyethylene Glycol 17 GM DAILY PRN 06/20 1330 DC PO Polyethylene Glycol 17 GM DAILY PRN 06/20 1330 AC PO Pregabalin 50 MG BID 06/19 2200 AC 06/20 PO 0905 Vital Signs & I&O Last 24 Hrs of Vitals and I&O: Vital Signs Date Time Temp Pulse Resp B/P Pulse O2 O2 Flow FiO2 Ox Delivery Rate 06/20 1334 93 Nasal 4.0L Cannula 06/20 0903 101 166/60 06/20 0900 98.8 101 22 170/52 91 Nasal 3.0L Cannula 06/20 0800 94 Nasal 3.0L Cannula 06/20 0754 94 Nasal 3.0L Cannula 06/20 0541 90 93 06/20 0337 79 95 06/20 0133 79 95 06/20 0000 BIPAP 06/19 2227 99.1 87 24 168/54 94 BIPAP 06/19 2129 Nasal 3.0L Cannula 06/19 1600 BIPAP 06/19 1542 98.5 80 22 150/62 94 BIPAP 06/19 1438 BIPAP 35% 06/19 1402 98.3 86 24 170/60 92 BIPAP 35% Intake & Output 06/20 1600 06/20 0800 06/20 0000 Intake Total 100 Output Total Balance 100 Intake, Oral 100 Patient 130 lb Weight Exam General Appearance: comfortable, chronically ill-appearing Head: atraumatic, normal appearance Neck: supple Respiratory: quiet respiration, faint expiratory wheezes heard Cardiovascular: regular rate/rhythm (systolic murmur present) Abdomen: normal bowel sounds, soft, non-tender Extremities: no edema Skin: intact, warm/dry Results Last 24 Hrs of Lab Results: Laboratory Tests 06/20/16 1000: pH 7.53 H, pCO2 45, pO2 55 L, HCO3 36 H, ABG O2 Sat (Measured) 89.0 L, Carboxyhemoglobin 0.7 L, O2 Concentration % 3L, O2 Delivery Method NC, Phlebotomy Draw Site LEFT RADIAL 06/20/16 0850: CBC w Diff NO MAN DIFF REQ, RBC 2.78 L, MCV 95.5, MCH 31.0, RDW 15.4 H, MPV 8.2, Gran % 93.3 H, Lymphocytes % 3.9 L, Monocytes % 2.8, Eosinophils % 0, Basophils % 0 L, Absolute Granulocytes 18.5 H, Absolute Lymphocytes 0.8 L, Absolute Monocytes 0.6, Absolute Eosinophils 0, Absolute Basophils 0, PUBS MCHC 32.4 L 06/20/16 0700: Anion Gap 9, Estimated GFR 54 L, BUN/Creatinine Ratio 30.0 H, Phosphorus 3.0, Magnesium 1.9 Impression/Plan Impression/Plan Impression/Plan: 1. Acute exacerbation of COPD. 2. Acute respiratory failure, improved. 3. Possible multifocal pneumonia. 4. Anemia with guaiac positive stools, status post transfusion. Recommendations: * Check urine for strep pneumo and Legionella. * Continue BiPAP at night, and as needed during the daytime. * No need for Diamox at present. * Continue nebs/TRC, and Symbicort. * Continue IV Solu-Medrol. * Follow-up cultures. * Continue empiric antibiotics - would continue azithromycin and resume ceftriaxone, noting the patient's chest x-ray demonstrates bilateral opacities. * Chest x-ray tomorrow morning. * DVT prophylaxis.
[2016-06-20 15:30] VITALS: BP 138/58
--- NOTE | 2016-06-20 15:45 | Cons- Gastroenterology ---
General Information and HPI Consulting Request Date of Consult: 06/20/16 Requested By: SARITA THOMAS MD Reason for Consult: Iron deficiency anemia. 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 Interview was slightly limited because the patient was seen in nebulizer but she could make herself understood. GI perspective she was seen by Dr. Juarez on June 18 because of shortness of breath and was found to be anemic. Dr. Juarez asked her to go to the ER for further evaluation and transfusion but the patient refused to do so on that day. She did however come to the ER the following day on primarily because of her respiratory symptoms. She does not have any nausea vomiting abdominal discomfort dysphagia odynophagia reflux. She does not have any bright red blood per rectum, but has brown stool that is guaiac-positive. Allergies/Medications Allergies: Coded Allergies: bacitracin (From NEOSPORIN ([id number])) (rash 09/23/15) neomycin (From NEOSPORIN ([id number])) (rash 09/23/15) penicillin V (SWELLING ALL OVER AND ITCHING 09/23/15) polymyxin B (From NEOSPORIN ([id number])) (rash 09/23/15) cortisone (THRUSH 09/23/15) duloxetine (GI DISTRESS 09/23/15) moxifloxacin (From AVELOX) (STOMACH SICK 09/23/15) Home Med List: Albuterol Sulfate (Albuterol Sulfate Hfa) 0.09 MG/Actuation CHELSEA 2 PUFF INH PRN COPD (Reported) 90 MCG PER PUFF Albuterol Sulfate (Proventil) 2.5 MG/3 ML NEB 3 ML INH EVERY 4 HRS/AWAKE PRN COPD Amitriptyline HCl 25 MG TABLET 1 TAB PO QPM UNKNOWN (Reported) Aspirin (Aspirin*) 81 MG TAB.CHEW 81 MG PO DAILY HEART HEALTH Atorvastatin Calcium 10 MG TABLET 1 TAB PO DAILY CHOLESTEROL (Reported) Calcium Carbonate/Vitamin D3 (Os-Napoleon 500+D3 Caplet) 500 MG-200 TABLET 1 TAB PO BID SUPPLEMENT (Reported) Cyanocobalamin (Vitamin B-12) (Cyanocobalamin Injection) 1,000 MCG/ML VIAL 1 ML IM Q30D SUPPLEMENT (Reported) Diltiazem HCl (Diltiazem 24HR ER) 360 MG CAP.ER.24H 1 CAP PO DAILY HEART ( Reported) Diphenhydramine HCl (Benadryl) 25 MG CAPSULE 1 CAP PO QPM SLEEP (Reported) Famotidine 20 MG TABLET 1 TAB PO BID GI (Reported) Ferrous Sulfate 325 MG (65 MG IRON) TABLET 1 TAB PO BID SUPPLEMENT (Reported) Fluticasone-Salmeterol (Advair 500-50 Diskus) 1 UNIT UNIT 1 PUF INH BID COPD (Reported) Hydrochlorothiazide 25 MG TABLET 1 TAB PO DAILY WATER PILL (Reported) Hydrocodone/Acetaminophen (Vicodin 5-300 MG Tablet) 1 EACH TABLET 1 TAB PO DAILY PRN PAIN (Reported) Lorazepam (Ativan) 0.5 MG TAB 1 TAB PO BID ANXIETY (Reported) Losartan (Cozaar) 100 MG TABLET 100 MG PO DAILY HIGH BLOOD PRESSURE Multivitamin (One Daily Multivitamin) 1 TAB TAB 1 TAB PO DAILY SUPPLEMENT ( Reported) PAROXETINE HCL (Paroxetine Hydrochloride) 10 MG TAB 2 TAB PO DAILY MENTAL HEALTH (Reported) TAKES 20 MG PO Paroxetine HCl 40 MG TABLET 1 TAB PO DAILY MENTAL HEALTH (Reported) Prednisone 2.5 MG TABLET 1 TAB PO DAILY STEROID (Reported) Prednisone 10 MG TABLET 1 TAB PO DAILY STEROID (Reported) Pregabalin (Lyrica) 50 MG CAPSULE 1 CAP PO BID PAIN (Reported) Tiotropium [place] (Spiriva) 18 MCG CAP 1 CAP INH DAILY COPD (Reported) Past History Travel History Traveled to [place] past 21 day No Medical History Blood Transfusion Hx: Yes Neurological: NONE EENT: NONE Cardiovascular: PVD, hypertension diastolic dysfunction Respiratory: COPD, bilateral pulmonary nodules HOME 02 DEPENDENT Gastrointestinal: NONE Hepatic: NONE Renal: nephrolithiasis Musculoskeletal: osteomyelitis Psychiatric: anxiety Endocrine: NONE Blood Disorders: NONE Cancer(s): NONE 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 Home Who Do You Live With? self Services at Home: visiting nurse Primary Language: Malagasy Smoking Status: Former Smoker ETOH Use: denies use Illicit Drug Use: denies illicit drug use Living Will? In progress Power of Security Messenger/HCP? yes Name of POA/HCP: Marco and Kevin Gunter of the 3sons. Functional Ability ADLs Independent: dressing, eating, toileting, bathing. Ambulation: Rolling walker with sit IADLs Independent: telephone. Needs Assist: shopping, housework, finances, food prep, transportation, medication admin. Review of Systems Review of Systems: Shortness of breath palpitations. No fever chills right goers. No chest pain. Exam & Diagnostic Data Vital Signs and I&O Vital Signs Date Time Temp Pulse Resp B/P Pulse O2 O2 Flow FiO2 Ox Delivery Rate 06/20 1334 93 Nasal 4.0L Cannula 06/20 0903 101 166/60 06/20 0900 98.8 101 22 170/52 91 Nasal 3.0L Cannula 06/20 0800 94 Nasal 3.0L Cannula 06/20 0754 94 Nasal 3.0L Cannula 06/20 0541 90 93 06/20 0337 79 95 06/20 0133 79 95 06/20 0000 BIPAP 06/19 2227 99.1 87 24 168/54 94 BIPAP 06/19 2129 Nasal 3.0L Cannula 06/19 1600 BIPAP Intake & Output 06/20 1600 06/20 0400 06/19 1600 06/19 0400 06/18 1600 06/18 0400 Intake Total 340 Output Total Balance 340 Intake, Oral 340 Patient 130 lb Weight General Appearance Mild Distress, not oriented in time place and person Skin No Rashes, No Breakdown Cardiovascular systolic murmur in the second right sternal space Lungs clear to auscultation with some crackles at the bases Abdomen Normal Bowel Sounds, Soft, No Tenderness Neurological Normal Speech, Strength at 5/5 X4 Ext, Normal Tone Extremities No Clubbing, No Cyanosis, No Edema Assessment/Plan Assessment/Recommendations: In summary we have a 75-year-old lady with severe COPD on steroids. In addition to her respiratory problem she is also presenting with an iron deficiency anemia. There are no localizing symptoms but this is most likely a chronic upper GI bleed likely contributed to by her steroids. We will plan for an upper endoscopy on Wednesday morning. Please keep her nothing by mouth from Alvaro night. He still be finely evaluated on Wednesday morning and will be dependent on her respiratory status. Consult Acknowledgment - Thank you for your consult request.
[2016-06-20 23:23] VITALS: BP 136/52
--- NOTE | 2016-06-21 07:45 | PN- Housestaff ---
Assessment/Plan Assessment: Patient is a 75-year-old woman with a past medical history significant for stage I diastolic dysfunction, end-stage COPD on 2-3 L of oxygen at baseline, history of alcohol dependence, hypertension, vertigo, PVD, right femoral neck fracture status post mechanical fall status requiring arthroplasty April 2015, left fifth toe amputation due to osteomyelitis, nephrolithiasis of the right requiring ESWL, osteoporosis, and anxiety was brought to the ER for any evidence for the evaluation of worsening shortness of breath since yesterday. Vitals on admission temperature 97.1, pulse 90, respiratory rate 19, blood pressure 164/70 on 4 L, Now on BiPAP. Pertinent labs on admission: Leukocytosis 15.2 without any bandemia H&H low 7.3/23.3(baseline 10.3/32.8), MCV 96.8, sodium 136, BUN/creatinine 2 8/0.9. Elevated proBNP 913. ABG done showed pH of 7.34 with PCO2 of 79 and PO2 of 77 and she was put on BiPAP. First troponin 0.07 with EKG showed normal sinus rhythm IL interval of 156 QTC 458. Chest x-ray: Small bilateral pleural effusions with streaky bibasilar opacities suggesting atelectasis; superimposed developing consolidation is difficult to exclude in the proper clinical setting. Mild bilateral interstitial prominence may reflect developing vascular congestion. Echo done in November 2015 : Showed Normal size left ventricle. Mild concentric left ventricular hypertrophy. No obvious regional wall motion abnormalities. Normal left ventricular ejection fraction visually estimated at > 55 %. Normal left ventricular diastolic filling pattern for age. Assessment and plan 1.Acute hypoxic hypercarbic respiratory failure due to chronic respiratory failure from end-stage COPD: * Continue to monitor on telemetry for continuous pulse ox * Continue with BiPAP * Repeat ABG in the mornings are pending * Pathology consult Dr. Morataya has been obtained. * Leukocytosis with Chest x-ray is inconsistent with a developing infiltrate , continue ceftriaxone and azithromycin for community-acquired pneumonia. * pancultures. Pending * Continue with IV Solu-Medrol 40 mg every 8. * Continue TRC nebs * Continue Spiriva and Symbicort * Watch for any hemodynamic instability 2. Acute on chronic blood loss anemia(guaiac positive possible GI bleed): * Patient was seen by Dr. Juarez as an outpatient and she was sent here yesterday to get the blood work done, H&H done on 06/18/2016 was 7.06/14, but endoscopy was postponed until Wednesday06/22/2016 due to her worsening respiratory status. * H&H today is 7.08/13, will check iron studies including ferritin, iron, TIBC, reticulocyte count. * We'll transfuse her 1 unit of packed RBCs. * Hold aspirin for now * Repeat H&H later during the day * Watch for any active signs of bleeding * We talked to Dr. Ríos was automation software engineer today, hopefully her respiratory status will improve within 24-48 ours after getting IV antibiotics and steroids and will plan for possible endoscopy on Wednesday. Keep her nothing by mouth Wednesday night. * Hold omeprazole 40 mg and famotidine before dinner, continue with IV Protonix 40 mg daily 3. History of stage I diastolic heart failure: * Continue with hydrochlorothiazide 25 mg daily and losartan 100 mg daily. 4. History of peripheral vascular disease, hypertension and hyperlipidemia * Continue atorvastatin 10 mg daily, Cardizem 360 mg daily. 5. History of mood disorder * Continue paroxetine 40 mg daily, pregabalin, amitriptyline. 6. DVT prophylaxis with Alps due to acute GI bleed 7. Mild pain pathway with Tylenol 8. Patient is full code
[2016-06-21 08:14] VITALS: BP 124/78; BP 150/82
[2016-06-21 08:30] LABS: ABSOLUTE BASOPHIL COUNT 0 /CUMM (0.0-0.2); ABSOLUTE EOSINOPHIL COUNT 0 /CUMM (0.0-0.7); ABSOLUTE GRANULOCYTE CT 25.2 /CUMM (1.4-6.5); ABSOLUTE LYMPH COUNT 0.6 /CUMM (1.2-3.4); ABSOLUTE MONOCYTE COUNT 0.8 /CUMM (0.10-0.60); BASOPHIL % 0 % (0.0-2.0); EOSINOPHIL % 0 % (0-5); HEMATOCRIT 27.4 % (37-47); MEAN CORPUSCULAR HGB 31.1 PG (27.0-31.0); MEAN CORPUSCULAR HGB CONC 32.5 G/DL (33.0-37.0); MEAN CORPUSCULAR VOLUME 95.7 FL (81.0-99.0); MEAN PLATELET VOLUME 8.2 FL (7.4-10.4); PLATELET COUNT 325 /CUMM (130-400); RBC DISTRIBUTION WIDTH 15.2 % (11.5-14.5); RED BLOOD CELL CT 2.87 /CUMM (4.20-5.40); WHITE BLOOD CELL COUNT 26.6 /CUMM (4.8-10.8)
[2016-06-21 09:23] LABS: GRANULOCYTE % 94.8 % (42.2-75.2)
--- NOTE | 2016-06-21 10:35 | PN- Pulmonary ---
Subjective HPI/Critical Care Issues: The patient is awake and alert. She is feeling better overall. She is less short of breath. She continues to have a congestive cough however this has improved as well. She tolerated BiPAP overnight with no issues. She denies any new complaints today. Objective Current Medications: Current Medications Sig/Roge Start time Last Medication Dose Route Stop Time Status Admin Acetaminophen 650 MG Q6P PRN 06/19 1145 AC PO Acetaminophen 1,000 MG Q6P PRN 06/19 1145 AC IV Albuterol Sulfate 3 ML TID 06/19 1600 AC 06/21 INH 0902 Amitriptyline HCl 25 MG QPM 06/19 2200 AC 06/20 PO 2131 Atorvastatin Calcium 10 MG DAILY@1700 06/19 1700 AC 06/20 PO 1650 Azithromycin 500 MG DAILY 06/19 1345 AC 06/20 Dextrose/Water 250 ML IV 0901 Budesonide/ 2 PUF BID 06/19 1403 AC 06/20 Formoterol Fumarate INH 2132 Ceftriaxone Sodium 1,000 MG DAILY@1800 06/20 1800 AC 06/20 IV 1940 Diltiazem HCl 360 MG DAILY 06/20 1000 AC 06/20 PO 0903 Ferrous Sulfate 325 MG BID 06/20 1145 AC 06/20 PO 2131 Hydrochlorothiazide 25 MG DAILY 06/20 1000 AC 06/20 PO 0903 Lorazepam 0.5 MG BID 06/19 2200 AC 06/20 PO 06/26 2159 2132 Losartan Potassium 100 MG DAILY 06/20 1000 AC 06/20 PO 0903 Methylprednisolone 40 MG Q8 06/19 1345 AC 06/21 IV 0502 Pantoprazole Sodium 40 MG DAILY 06/19 1430 AC 06/20 IV 0902 Paroxetine HCl 40 MG DAILY 06/20 1000 AC 06/20 PO 0902 Polyethylene Glycol 17 GM DAILY PRN 06/20 1330 DC PO Polyethylene Glycol 17 GM DAILY PRN 06/20 1330 AC 06/20 PO 1441 Pregabalin 50 MG BID 06/19 2200 AC 06/20 PO 2132 Vital Signs & I&O Last 24 Hrs of Vitals and I&O: Vital Signs Date Time Temp Pulse Resp B/P Pulse O2 O2 Flow FiO2 Ox Delivery Rate 06/21 0904 92 Nasal 3.5L Cannula 06/21 0814 98.2 92 24 124/78 100 Nasal 4.0L Cannula 06/21 0800 92 Nasal 3.5L Cannula 06/21 0002 75 94 06/21 0000 BIPAP 06/20 2323 98.0 73 24 136/52 95 BIPAP 35% 06/20 2229 85 92 06/20 1825 93 Nasal 4.0L Cannula 06/20 1600 92 Nasal 4.0L Cannula 06/20 1530 98.3 86 20 138/58 90 Nasal 4.0L Cannula 06/20 1334 93 Nasal 4.0L Cannula Intake & Output 06/21 1600 06/21 0800 06/21 0000 Intake Total 252 400 Output Total 300 Balance 252 100 Intake, IV 12 Intake, Oral 240 400 Output, Urine 300 Exam General Appearance: comfortable, chronically ill-appearing Head: atraumatic, normal appearance Neck: supple Respiratory: quiet respiration, faint expiratory wheezes heard Cardiovascular: regular rate/rhythm (systolic murmur present) Abdomen: normal bowel sounds, soft, non-tender Extremities: no edema Skin: intact, warm/dry Results Last 24 Hrs of Lab Results: Laboratory Tests 06/21/16 0640: Anion Gap 6, Estimated GFR 36 L, BUN/Creatinine Ratio 26.4 H, CBC w Diff NO MAN DIFF REQ, RBC 2.87 L, MCV 95.7, MCH 31.1 H, RDW 15.2 H, MPV 8.2, Gran % 94.8 H, Lymphocytes % 2.1 L, Monocytes % 3.1, Eosinophils % 0, Basophils % 0 L, Absolute Granulocytes 25.2 H, Absolute Lymphocytes 0.6 L, Absolute Monocytes 0.8 H, Absolute Eosinophils 0, Absolute Basophils 0, PUBS MCHC 32.5 L Impression/Plan Impression/Plan Impression/Plan: 1. Acute exacerbation of COPD with increased bicarb. 2. Acute respiratory failure, improved. 3. Possible multifocal pneumonia. 4. Anemia with guaiac positive stools, status post transfusion. 5. Increased leukocytosis, likely secondary to steroids. 6. Increased BUN and creatinine, likely prerenal. Recommendations: * Continue BiPAP at night, and as needed during the daytime. * Give Diamox 250 mg today. * Continue nebs/TRC, and Symbicort. * Continue IV Solu-Medrol. * Follow-up cultures. * Continue azithromycin and ceftriaxone, follow up cultures. * Follow up CXR results. * DVT prophylaxis.
--- NOTE | 2016-06-21 14:17 | PN- Gastroenterology ---
Assessment/Plan Assessment/Recommendations: Relatively uneventful night. Some improvement in shortness of breath and cough. No abdominal pain or visible GI blood loss. Subjective Subjective: Shortness of breath. Mildly productive cough. No abdominal pain diarrhea chest pain nausea vomiting Objective Vital Signs and I&Os Vital Signs Date Time Temp Pulse Resp B/P Pulse O2 O2 Flow FiO2 Ox Delivery Rate 06/21 1036 101 172/70 06/21 0904 92 Nasal 3.5L Cannula 06/21 0814 98.2 92 24 124/78 100 Nasal 4.0L Cannula 06/21 0800 92 Nasal 3.5L Cannula 06/21 0002 75 94 06/21 0000 BIPAP 06/20 2323 98.0 73 24 136/52 95 BIPAP 35% 06/20 2229 85 92 06/20 1825 93 Nasal 4.0L Cannula 06/20 1600 92 Nasal 4.0L Cannula 06/20 1530 98.3 86 20 138/58 90 Nasal 4.0L Cannula Intake & Output 06/21 1600 06/21 0400 06/20 1600 06/20 0400 06/19 1600 06/19 0400 Intake Total 982 400 340 Output Total 450 300 Balance 532 100 340 Intake, IV 262 Intake, Oral 720 400 340 Number 1 Bowel Movements Output, Urine 450 300 Patient 130 lb Weight Exam General Appearance: Chronically ill-appearing. Wearing BiPAP mask Head: atraumatic, normal appearance Neck: supple Respiratory: quiet respiration, faint expiratory wheezes heard Cardiovascular: regular rate/rhythm (systolic murmur present) Abdomen: normal bowel sounds, soft, non-tender Extremities: no edema Skin: intact, warm/dry In summary we have a 75-year-old lady with severe COPD on steroids. In addition to her respiratory problem she is also presenting with an iron deficiency anemia. There are no localizing symptoms but this is most likely a chronic upper GI bleed likely contributed to by her steroids. We will plan for an upper endoscopy on Wednesday morning. Please keep her nothing by mouth from Wednesday night. There is no urgency to the upper endoscopy and this could certainly be delayed for a few days or more. Appreciate recommendations from respiratory team regarding timing of upper endoscopy in relation to improvement in her current COPD exacerbation. Results Pertinent Lab Results: Laboratory Tests 06/21 06/20 0640 1000 Blood Gas pH (7.35 - 7.45 PH) 7.53 H pCO2 (35 - 45 TORR) 45 pO2 (80 - 100 TORR) 55 L HCO3 (21 - 28 MEQ/L) 36 H ABG O2 Sat (Measured) (>96.0 %) 89.0 L Carboxyhemoglobin (1.5 - 5.0 %) 0.7 L O2 Concentration % 3L O2 Delivery Method NC Chemistry Sodium (137 - 145 mmol/L) 134 L Potassium (3.5 - 5.1 mmol/L) 3.8 Chloride (98 - 107 mmol/L) 85 L Carbon Dioxide (22 - 30 mmol/L) 43 H Anion Gap (5 - 16) 6 BUN (7 - 17 mg/dL) 37 H Creatinine (0.5 - 1.0 mg/dL) 1.4 H Estimated GFR (>60 ml/min) 36 L BUN/Creatinine Ratio (7 - 25 %) 26.4 H Hematology CBC w Diff NO MAN DIFF REQ WBC (4.8 - 10.8 /CUMM) 26.6 H RBC (4.20 - 5.40 /CUMM) 2.87 L Hgb (12.0 - 16.0 G/DL) 8.9 L Hct (37 - 47 %) 27.4 L MCV (81.0 - 99.0 FL) 95.7 MCH (27.0 - 31.0 PG) 31.1 H RDW (11.5 - 14.5 %) 15.2 H Plt Count (130 - 400 /CUMM) 325 MPV (7.4 - 10.4 FL) 8.2 Gran % (42.2 - 75.2 %) 94.8 H Lymphocytes % (20.5 - 51.1 %) 2.1 L Monocytes % (1.7 - 9.3 %) 3.1 Eosinophils % (0 - 5 %) 0 Basophils % (0.0 - 2.0 %) 0 L Absolute Granulocytes (1.4 - 6.5 /CUMM) 25.2 H Absolute Lymphocytes (1.2 - 3.4 /CUMM) 0.6 L Absolute Monocytes (0.10 - 0.60 /CUMM) 0.8 H Absolute Eosinophils (0.0 - 0.7 /CUMM) 0 Absolute Basophils (0.0 - 0.2 /CUMM) 0 PUBS MCHC (33.0 - 37.0 G/DL) 32.5 L Miscellaneous Phlebotomy Draw Site LEFT RADIAL 01/28 01/28 01/27 0850 0700 1255 Blood Gas pH (7.35 - 7.45 PH) 7.41 pCO2 (35 - 45 TORR) 61 *H pO2 (80 - 100 TORR) 76 L HCO3 (21 - 28 MEQ/L) 39 H ABG O2 Sat (Measured) (>96.0 %) 94.0 L P-50 (Temp Corrected) N Carboxyhemoglobin (1.5 - 5.0 %) 1.3 L O2 Concentration % 35% Respiration Rate (BPM) 24 O2 Delivery Method BIPAP Vent Mode ST Expiratory Pressure (CM H2O P) 6 Inspiratory Pressure (CM H2O P) 14 Chemistry Sodium (137 - 145 mmol/L) 135 L Potassium (3.5 - 5.1 mmol/L) 3.9 Chloride (98 - 107 mmol/L) 86 L Carbon Dioxide (22 - 30 mmol/L) 40 H Anion Gap (5 - 16) 9 BUN (7 - 17 mg/dL) 30 H Creatinine (0.5 - 1.0 mg/dL) 1.0 Estimated GFR (>60 ml/min) 54 L BUN/Creatinine Ratio (7 - 25 %) 30.0 H Phosphorus (2.5 - 4.5 mg/dL) 3.0 Magnesium (1.6 - 2.3 mg/dL) 1.9 Hematology CBC w Diff NO MAN DIFF REQ WBC (4.8 - 10.8 /CUMM) 19.8 H RBC (4.20 - 5.40 /CUMM) 2.78 L Hgb (12.0 - 16.0 G/DL) 8.6 L Hct (37 - 47 %) 26.6 L MCV (81.0 - 99.0 FL) 95.5 MCH (27.0 - 31.0 PG) 31.0 RDW (11.5 - 14.5 %) 15.4 H Plt Count (130 - 400 /CUMM) 324 MPV (7.4 - 10.4 FL) 8.2 Gran % (42.2 - 75.2 %) 93.3 H Lymphocytes % (20.5 - 51.1 %) 3.9 L Monocytes % (1.7 - 9.3 %) 2.8 Eosinophils % (0 - 5 %) 0 Basophils % (0.0 - 2.0 %) 0 L Absolute Granulocytes (1.4 - 6.5 /CUMM) 18.5 H Absolute Lymphocytes (1.2 - 3.4 /CUMM) 0.8 L Absolute Monocytes (0.10 - 0.60 /CUMM) 0.6 Absolute Eosinophils (0.0 - 0.7 /CUMM) 0 Absolute Basophils (0.0 - 0.2 /CUMM) 0 PUBS MCHC (33.0 - 37.0 G/DL) 32.4 L Miscellaneous Phlebotomy Draw Site LEFT RADIAL 06/19 06/19 0971 0940 Blood Gas pH (7.35 - 7.45 PH) 7.34 L pCO2 (35 - 45 TORR) 79 *H pO2 (80 - 100 TORR) 77 L HCO3 (21 - 28 MEQ/L) 42 H ABG O2 Sat (Measured) (>96.0 %) 93.0 L P-50 (Temp Corrected) N Carboxyhemoglobin (1.5 - 5.0 %) 0.8 L O2 Concentration % 3LPM O2 Delivery Method NC Chemistry Sodium (137 - 145 mmol/L) 136 L Potassium (3.5 - 5.1 mmol/L) 4.3 Chloride (98 - 107 mmol/L) 87 L Carbon Dioxide (22 - 30 mmol/L) 41 H Anion Gap (5 - 16) 8 BUN (7 - 17 mg/dL) 28 H Creatinine (0.5 - 1.0 mg/dL) 0.9 Estimated GFR (>60 ml/min) > 60 BUN/Creatinine Ratio (7 - 25 %) 31.1 H Glucose (65 - 99 mg/dL) 98 Calcium (8.4 - 10.2 mg/dL) 9.3 Iron (37 - 170 ug/dL) 26 L TIBC (265 - 497 ug/dL) 343 Ferritin (11.1 - 264 ng/mL) 55.0 Troponin I (< 0.11 ng/ml) 0.07 Gri-L-Aogakjjlabe Pept (<125 pg/mL) 913 H Hematology CBC w Diff MAN DIFF ORDERED WBC (4.8 - 10.8 /CUMM) 15.2 H RBC (4.20 - 5.40 /CUMM) 2.40 L Hgb (12.0 - 16.0 G/DL) 7.3 *L Hct (37 - 47 %) 23.3 L MCV (81.0 - 99.0 FL) 96.8 MCH (27.0 - 31.0 PG) 30.3 RDW (11.5 - 14.5 %) 15.1 H Plt Count (130 - 400 /CUMM) 338 MPV (7.4 - 10.4 FL) 7.7 Gran % (42.2 - 75.2 %) 84.9 H Lymphocytes % (20.5 - 51.1 %) 5.1 L Monocytes % (1.7 - 9.3 %) 8.4 Eosinophils % (0 - 5 %) 1.4 Basophils % (0.0 - 2.0 %) 0.2 Absolute Granulocytes (1.4 - 6.5 /CUMM) 12.9 H Absolute Lymphocytes (1.2 - 3.4 /CUMM) 0.8 L Absolute Monocytes (0.10 - 0.60 /CUMM) 1.3 H Absolute Eosinophils (0.0 - 0.7 /CUMM) 0.2 Absolute Basophils (0.0 - 0.2 /CUMM) 0 Platelet Estimate (ADEQUATE) VERIFIED BY SMEAR Polychromasia 1+ Hypochromic-Microcytic 2+ Poikilocytosis 2+ Anisocytosis 1+ Ovalocytes 1+ Stomatocytes 2+ PUBS MCHC (33.0 - 37.0 G/DL) 31.3 L Retic Count (0.5 - 2.0 %) 4.45 H Miscellaneous Phlebotomy Draw Site LEFT RADIAL
[2016-06-21 15:30] VITALS: BP 116/72
--- NOTE | 2016-06-21 17:14 | RADIOLOGY REPORT ---
EXAMINATION: XR CHEST CLINICAL INFORMATION: Shortness of breath and cough. Evaluate for pneumonia. COMPARISON: Chest x-ray 06/19/2016. TECHNIQUE: PA and lateral views of the chest were obtained. FINDINGS: PA and lateral views of the chest demonstrate mild pulmonary hypoinflation. Interval improved aeration of the bilateral lung bases, suggestive of interval decrease in size of the previously visualized bilateral pleural effusions. Cardiac and mediastinal contours are stable. No pneumothoraces. No acute osseous or soft tissue abnormality. IMPRESSION: Interval improved aeration of the bilateral lung bases, which may be secondary to interval decrease in size of the previously identified small bilateral pleural effusions. Right basilar opacification is likely secondary to atelectasis although superimposed infection cannot be excluded in the appropriate clinical setting.
--- NOTE | 2016-06-21 19:47 | PN- Att Addend ---
Attending Addendum Attending Brief Note S: The patient states she is feeling better. Improvement in breathing- on nasal oxygen. Is OOB at present in chair and appears comfortable. O: VS: Vital Signs Date Time Temp Pulse Resp B/P Pulse O2 O2 Flow FiO2 Ox Delivery Rate 06/21 1600 92 Nasal 3.5L Cannula 06/21 1530 97.3 89 20 116/72 94 Nasal 3.5L Cannula 06/21 1036 101 172/70 06/21 0904 92 Nasal 3.5L Cannula 06/21 0814 98.2 92 24 124/78 100 Nasal 4.0L Cannula 06/21 0800 92 Nasal 3.5L Cannula 06/21 0002 75 94 06/21 0000 BIPAP 06/20 2323 98.0 73 24 136/52 95 BIPAP 35% 06/20 2229 85 92 Intake & Output 06/21 1600 06/21 0800 06/21 0000 Intake Total 730 252 400 Output Total 450 300 Balance 280 252 100 Intake, IV 250 12 Intake, Oral 480 240 400 Number 1 Bowel Movements Output, Urine 450 300 Physical Exam: HEENT: irineo- dry mucosa Neck: supple w/o JVD or bruits Chest: diffuse severely diminished breath sounds Cor: RRR, nl S1, S2 w/o murm Abd: BS+, soft NT Ext: no edema Labs: Laboratory Tests 06/21/16 0640: Anion Gap 6, Estimated GFR 36 L, BUN/Creatinine Ratio 26.4 H, CBC w Diff NO MAN DIFF REQ, RBC 2.87 L, MCV 95.7, MCH 31.1 H, RDW 15.2 H, MPV 8.2, Gran % 94.8 H, Lymphocytes % 2.1 L, Monocytes % 3.1, Eosinophils % 0, Basophils % 0 L, Absolute Granulocytes 25.2 H, Absolute Lymphocytes 0.6 L, Absolute Monocytes 0.8 H, Absolute Eosinophils 0, Absolute Basophils 0, PUBS MCHC 32.5 L Microbiology 06/20 2109 URINE ROUT: Legionella Antigen - COMP 06/20 2109 URINE ROUT: Streptococcus pneumoniae Antigen (M - COMP Impression/Plan: #Acute on Chronic Hypoxic & Hypercarbic Respiratory Failure/COPD- some improvement with current therapy. Now on nasal oxygen. Pulmonary input appreciated. Plan: * Continue to monitor on telemetry for continuous pulse ox * Continue with BiPAP if needed * Continue with IV Solu-Medrol 40 mg & nebs . #CAP- no infiltrate on CXR, however treating as CAP. Plan: Continue Ceftriaxone/Zithromax. #Acute on chronic blood loss anemia(guaiac positive possible GI bleed)- H/H stable. Plan: * Patient to have EGD tomorrow. * Hold omeprazole 40 mg and famotidine before dinner, continue with IV Protonix 40 mg daily #Leukocytosis- WBC increasing and is 26.6 today. Possibly secondary to steroids. Plan: Continue Antibiotics (Ceftriaxone/Zitrhomax) and follow-up WBC. #History of stage I diastolic heart failure- stable Plan: Will hold hydrochlorothiazide 25 mg daily. #H/O peripheral vascular disease, hypertension and hyperlipidemia. Stable. Plan: Continue atorvastatin 10 mg daily, Cardizem 360 mg daily. #History of mood disorder- stable Plan: Continue paroxetine 40 mg daily, pregabalin, amitriptyline. Problem List: 1. COPD (chronic obstructive pulmonary disease) 2. Hypertension
[2016-06-22 00:28] VITALS: BP 120/72
--- NOTE | 2016-06-22 08:05 | PN- Housestaff ---
ANTONIA ULRICH 06/22/16 0758: Subjective Follow-up For: Acute hypoxic hypercarbic respiratory failure due to chronic respiratory failure from end-stage COPD Acute on chronic blood loss anemia(guaiac positive possible GI bleed) Tele-Events Since Last Visit: Normal sinus rhythm heart rate in the range of 80s to 90s, with some PACs and PVCs overnight. No acute events Subjective: Patient is seen and examined today, seems better slept well overnight. Breathing improved, Off BiPAP, saturating more than 92% on nasal cannula. Denies any chest discomfort or palpitations. H&H improved after getting 1 unit of packed RBC. Patient is nothing by mouth for endoscopy in the morning. Discontinue court recording monitor, once patient comes back from endoscopy research the patient to by mouth prednisone Review of Systems Constitutional: Denies: chills, diaphoresis, fever, malaise. EENTM: Denies: blurred vision, double vision, visual changes, eye pain, eye drainage. Cardiovascular: Denies: chest pain, edema, orthopena. Respiratory: Denies: cough, hemoptysis, orthopnea. Gastrointestinal: Denies: abdominal pain, bloating, constipation, diarrhea. Genitourinary: Denies: discharge, dysuria, frequency. Musculoskeletal: Denies: back pain, gout, joint pain. Skin: Denies: cysts, change in hair/nails, dryness. Neurological/Psychological: Denies: anxiety, ataxia, cognitive dysfunction, confusion. Objective Last 24 Hrs of Vital Signs/I&O Vital Signs Date Time Temp Pulse Resp B/P Pulse O2 O2 Flow FiO2 Ox Delivery Rate 06/22 0554 98 93 06/22 0254 96 92 06/22 0028 97.8 94 20 120/72 96 CPAP 06/22 0017 81 94 06/22 0000 Nasal 3.0L Cannula 06/21 2234 92 93 06/21 2130 96 Nasal 3.5L Cannula 06/21 1600 92 Nasal 3.5L Cannula 06/21 1530 97.3 89 20 116/72 94 Nasal 3.5L Cannula 06/21 1036 101 172/70 06/21 0904 92 Nasal 3.5L Cannula 06/21 0814 98.2 92 24 124/78 100 Nasal 4.0L Cannula Intake & Output 06/22 1600 06/22 0800 06/22 0000 Intake Total 100 450 Output Total 150 300 Balance -50 150 Intake, Oral 100 450 Output, Urine 150 300 Physical Exam General Appearance: Alert, Oriented X3 Skin: No Rashes, No Breakdown HEENT: Atraumatic, PERRLA Neck: No JVD, No thryomegaly Cardiovascular: Regular Rate, Normal S1, Normal S2 Lungs: Clear to Auscultation Abdomen: Normal Bowel Sounds, Soft, No Tenderness Neurological: Normal Speech, Strength at 5/5 X4 Ext, Normal Tone Extremities: No Clubbing, No Cyanosis, No Edema Current Medications: Current Medications Sig/Roge Start time Last Medication Dose Route Stop Time Status Admin Acetaminophen 650 MG Q6P PRN 06/19 1145 AC PO Acetaminophen 1,000 MG Q6P PRN 06/19 1145 AC IV Acetazolamide 250 MG ONCE ONE 06/21 1130 DC 06/21 PO 06/21 1131 1221 Albuterol Sulfate 3 ML TID 06/19 1600 AC 06/21 INH 2130 Amitriptyline HCl 25 MG QPM 06/19 2200 AC 06/21 PO 2153 Atorvastatin Calcium 10 MG DAILY@1700 06/19 1700 AC 06/21 PO 1914 Azithromycin 500 MG DAILY 06/19 1345 AC 06/21 Dextrose/Water 250 ML IV 1034 Budesonide/ 2 PUF BID 06/19 1403 AC 06/21 Formoterol Fumarate INH 2205 Ceftriaxone Sodium 1,000 MG DAILY@1800 06/20 1800 AC 06/21 IV 1949 Diltiazem HCl 360 MG DAILY 06/20 1000 AC 06/21 PO 1033 Ferrous Sulfate 325 MG BID 06/20 1145 AC 06/21 PO 2153 Hydrochlorothiazide 25 MG DAILY 06/20 1000 DC 06/21 PO 1034 Lorazepam 0.5 MG BID 06/19 2200 AC 06/21 PO 06/26 2159 2154 Losartan Potassium 100 MG DAILY 06/20 1000 DC 06/21 PO 1036 Methylprednisolone 40 MG Q8 06/19 1345 AC 06/22 IV 0528 Pantoprazole Sodium 40 MG DAILY 06/19 1430 AC 06/21 IV 1034 Paroxetine HCl 40 MG DAILY 06/20 1000 AC 06/21 PO 1034 Polyethylene Glycol 17 GM DAILY PRN 06/20 1330 AC 06/20 PO 1441 Pregabalin 50 MG BID 06/19 2200 AC 06/21 PO 2154 Assessment/Plan Assessment: Patient is a 75-year-old woman with a past medical history significant for stage I diastolic dysfunction, end-stage COPD on 2-3 L of oxygen at baseline, history of alcohol dependence, hypertension, vertigo, PVD, right femoral neck fracture status post mechanical fall status requiring arthroplasty April 2015, left fifth toe amputation due to osteomyelitis, nephrolithiasis of the right requiring ESWL, osteoporosis, and anxiety was brought to the ER for any evidence for the evaluation of worsening shortness of breath since yesterday. Vitals on admission temperature 97.1, pulse 90, respiratory rate 19, blood pressure 164/70 on 4 L, Now on BiPAP. Pertinent labs on admission: Leukocytosis 15.2 without any bandemia H&H low 7.3/23.3(baseline 10.3/32.8), MCV 96.8, sodium 136, BUN/creatinine 2 8/0.9. Elevated proBNP 913. ABG done showed pH of 7.34 with PCO2 of 79 and PO2 of 77 and she was put on BiPAP. First troponin 0.07 with EKG showed normal sinus rhythm CA interval of 156 QTC 458. Chest x-ray: Small bilateral pleural effusions with streaky bibasilar opacities suggesting atelectasis; superimposed developing consolidation is difficult to exclude in the proper clinical setting. Mild bilateral interstitial prominence may reflect developing vascular congestion. Echo done in November 2015 : Showed Normal size left ventricle. Mild concentric left ventricular hypertrophy. No obvious regional wall motion abnormalities. Normal left ventricular ejection fraction visually estimated at > 55 %. Normal left ventricular diastolic filling pattern for age. Assessment and plan 1.Acute hypoxic hypercarbic respiratory failure due to chronic respiratory failure from end-stage COPD: * Off BiPAP * No acute events we'll discontinue court recording monitor. * We'll switch the patient to by mouth prednisone taper dose until 10 mg daily * WBC count trending up most likely due to steroids . * continue ceftriaxone and azithromycin for community-acquired pneumonia. * Continue TRC nebs * Continue Spiriva and Symbicort * Watch for any hemodynamic instability 2. Acute on chronic blood loss anemia(guaiac positive possible GI bleed): * H&H improved after getting 1 unit of packed RBC. * Respiratory status stable .Patient is currently nothing by mouth for endoscopy. * Hold aspirin for now * Hold omeprazole 40 mg and famotidine before dinner, continue with IV Protonix 40 mg daily 3. History of stage I diastolic heart failure: * Continue with hydrochlorothiazide 25 mg daily and losartan 100 mg daily. 4. History of peripheral vascular disease, hypertension and hyperlipidemia * Continue atorvastatin 10 mg daily, Cardizem 360 mg daily. 5. History of mood disorder * Continue paroxetine 40 mg daily, pregabalin, amitriptyline. 6. DVT prophylaxis with Alps due to acute GI bleed 7. Mild pain pathway with Tylenol 8. Patient is full code Problem List: 1. Anemia 2. Atypical pneumonia Pain Ratin Pain Location: When necessary Tylenol Pain Goal: Remain pain free Pain Plan: Tylenol Tomorrow's Labs & Rationales: CBC BEP tomorrow SARITA THOMAS MD 06/22/16 1121: Attending MD Review Statement Attending Statement Attending MD Statement: examined this patient, discuss w/resident/PA/SURVEILLANCE OBSERVER, agreed w/resident/PA/SURVEILLANCE OBSERVER, reviewed EMR data (avail), discussed with nursing, discussed with case mgmt Attending Assessment/Plan: Patient appears much better today than on Wednesday. She is 76-year-old with severe end-stage COPD who is here with acute on chronic hypercapnic respiratory failure and hypoxic respiratory failure with anemia. We transfused her. Her crit is stable and the plan is endoscopy today. We've weaned her down to 3 L of oxygen and after the endoscopy will likely start tapering the by mouth prednisone. Needs a PT eval and follow-up.
--- NOTE | 2016-06-22 08:17 | PN- Pulmonary ---
Subjective HPI/Critical Care Issues: Patient is awake alert comfortable on nasal oxygen off BiPAP hypercapnia has resolved Objective Current Medications: Current Medications Sig/Roge Start time Last Medication Dose Route Stop Time Status Admin Acetaminophen 650 MG Q6P PRN 06/19 1145 AC PO Acetaminophen 1,000 MG Q6P PRN 06/19 1145 AC IV Acetazolamide 250 MG ONCE ONE 06/21 1130 DC 06/21 PO 06/21 1131 1221 Albuterol Sulfate 3 ML TID 06/19 1600 AC 06/21 INH 2130 Amitriptyline HCl 25 MG QPM 06/19 2200 AC 06/21 PO 2153 Atorvastatin Calcium 10 MG DAILY@1700 06/19 1700 AC 06/21 PO 1914 Azithromycin 500 MG DAILY 06/19 1345 AC 06/21 Dextrose/Water 250 ML IV 1034 Budesonide/ 2 PUF BID 06/19 1403 AC 06/21 Formoterol Fumarate INH 2205 Ceftriaxone Sodium 1,000 MG DAILY@1800 06/20 1800 AC 06/21 IV 1949 Diltiazem HCl 360 MG DAILY 06/20 1000 AC 06/21 PO 1033 Ferrous Sulfate 325 MG BID 06/20 1145 AC 06/21 PO 2153 Hydrochlorothiazide 25 MG DAILY 06/20 1000 DC 06/21 PO 1034 Lorazepam 0.5 MG BID 06/19 2200 AC 06/21 PO 06/26 2159 2154 Losartan Potassium 100 MG DAILY 06/20 1000 DC 06/21 PO 1036 Methylprednisolone 40 MG Q8 06/19 1345 AC 06/22 IV 0528 Pantoprazole Sodium 40 MG DAILY 06/19 1430 AC 06/21 IV 1034 Paroxetine HCl 40 MG DAILY 06/20 1000 AC 06/21 PO 1034 Polyethylene Glycol 17 GM DAILY PRN 06/20 1330 AC 06/20 PO 1441 Pregabalin 50 MG BID 06/19 2200 AC 06/21 PO 2154 Vital Signs & I&O Last 24 Hrs of Vitals and I&O: Vital Signs Date Time Temp Pulse Resp B/P Pulse O2 O2 Flow FiO2 Ox Delivery Rate 06/22 0554 98 93 06/22 0254 96 92 06/22 0028 97.8 94 20 120/72 96 CPAP 06/22 0017 81 94 06/22 0000 Nasal 3.0L Cannula 06/21 2234 92 93 06/21 2130 96 Nasal 3.5L Cannula 06/21 1600 92 Nasal 3.5L Cannula 06/21 1530 97.3 89 20 116/72 94 Nasal 3.5L Cannula 06/21 1036 101 172/70 06/21 0904 92 Nasal 3.5L Cannula Intake & Output 06/22 1600 06/22 0800 06/22 0000 Intake Total 100 450 Output Total 150 300 Balance -50 150 Intake, Oral 100 450 Output, Urine 150 300 Action saturation 3 L 93% exam for chest shows diminished breath sounds and wheezes cardiac exam showed regular S1 and S2 without murmurs Impression/Plan Impression/Plan Impression/Plan: 75-year-old with end-stage COPD chronic hypercapnic respiratory failure .pt is improved endoscopy pending Recommendations: post endoscopy transition to po steroids antibiotics pt eval taoer O2 as sats allow
[2016-06-22 08:24] VITALS: BP 180/80
[2016-06-22 09:15] LABS: ABSOLUTE BASOPHIL COUNT 0 /CUMM (0.0-0.2); ABSOLUTE EOSINOPHIL COUNT 0 /CUMM (0.0-0.7); ABSOLUTE GRANULOCYTE CT 20.2 /CUMM (1.4-6.5); ABSOLUTE LYMPH COUNT 0.2 /CUMM (1.2-3.4); ABSOLUTE MONOCYTE COUNT 0.8 /CUMM (0.10-0.60); BASOPHIL % 0 % (0.0-2.0); EOSINOPHIL % 0.1 % (0-5); HEMATOCRIT 29.3 % (37-47); MEAN CORPUSCULAR HGB 30.5 PG (27.0-31.0); MEAN CORPUSCULAR HGB CONC 31.8 G/DL (33.0-37.0); MEAN CORPUSCULAR VOLUME 95.8 FL (81.0-99.0); MEAN PLATELET VOLUME 8.2 FL (7.4-10.4); PLATELET COUNT 345 /CUMM (130-400); RBC DISTRIBUTION WIDTH 15.5 % (11.5-14.5); RED BLOOD CELL CT 3.05 /CUMM (4.20-5.40); WHITE BLOOD CELL COUNT 21.2 /CUMM (4.8-10.8)
[2016-06-22 10:00] VITALS: BP 160/80
[2016-06-22 10:17] LABS: GRANULOCYTE % 95.4 % (42.2-75.2)
--- NOTE | 2016-06-22 13:16 | NUR ---
REPORT GIVEN TO HUE, PT GOING TO BE TRANSFERRED TO [facility] AFTER EGD, GI INFORMED PT GOING TO [facility], NOT TELE AFTER EGD, [facility]INGINGS SENT TO RM 230
--- NOTE | 2016-06-22 13:57 | Discharge Summary ---
See Addendum Visit Information Visit Dates Admission Date: 06/19/16 Discharge Date: 06/25/16 Hospital Course Course Attending Physician: MARTHA DELVALLE,SARITA Brown Primary Care Phys[facility] Patient is a 75-year-old woman with a past medical history significant for stage I diastolic dysfunction, chronic respiratory failure due to end-stage COPD on( prednisone 10 g daily, 2-3 L of oxygen) at baseline, history of alcohol dependence, hypertension, vertigo, PVD, right femoral neck fracture status post mechanical fall status requiring arthroplasty April 2015, left fifth toe amputation due to osteomyelitis, nephrolithiasis of the right requiring ESWL, osteoporosis, and anxiety was brought to the ER for the evaluation of worsening shortness of breath. Vitals on admission temperature 97.1, pulse 90, respiratory rate 19, blood pressure 164/70 on 4 L, Now on BiPAP. Pertinent labs on admission: Leukocytosis 15.2 without any bandemia H&H low 7.3/23.3(baseline 10.3/32.8), MCV 96.8, sodium 136, BUN/creatinine 2 8/0.9. Elevated proBNP 913. ABG done showed pH of 7.34 with PCO2 of 79 and PO2 of 77 and she was put on BiPAP. First troponin 0.07 with EKG showed normal sinus rhythm VA interval of 156 QTC 458. Chest x-ray: Small bilateral pleural effusions with streaky bibasilar opacities suggesting atelectasis; superimposed developing consolidation is difficult to exclude in the proper clinical setting. Mild bilateral interstitial prominence may reflect developing vascular congestion. Echo done in November 2015 : Showed Normal size left ventricle. Mild concentric left ventricular hypertrophy. No obvious regional wall motion abnormalities. Normal left ventricular ejection fraction visually estimated at > 55 %. Normal left ventricular diastolic filling pattern for age. Following problems were addressed while patient was admitted to telemetry floor: 1.Acute hypoxic hypercarbic respiratory failure due to chronic respiratory failure from end-stage COPD: Patient was admitted to telemetry floor for continuous pulse ox. BiPAP was continued. Pulmonology consult was obtained as per recommendations patient was started on IV steroids that were later transitioned to by mouth prednisone. Also she received IV antibiotics including ceftriaxone and azithromycin with a concern of possible developing infiltrate. TRC nebs were continued . Her respiratory status improved within 24-48 hours. She was weaned off BiPAP and was back to her baseline(that is 2-3 L of oxygen). Blood cultures came negative strep pneumo and Legionella antigens were negative. IV ceftriaxone was discontinued, and patient was switched to by mouth azithromycin for a total of 5 days. 2. Acute on chronic blood loss anemia(guaiac positive possible GI bleed): H&H improved after getting 1 unit of packed RBC on admission. IV Protonix were continued. Aspirin was held on admission. Iron studies showed low iron with normal ferritin and TIBC levels. Once her respiratory status was stable patient had endoscopy done that showed atrophic gastritis without any evidence of active bleed. Biopsies were taken at the time of procedure Oral ferrous sulfate and oral omeprazole was resumed. Patient was advised to follow-up for pathology results and small bowel PillCam for further evaluation of anemia as an outpatient. As per physical therapy recommendations patient was discharged to short-term rehabilitation. Advised to get CBC done within 1 week after discharge. 3. History of stage I diastolic heart failure: Home dose of hydrochlorothiazide and losartan were continued in the hospital. 4. History of peripheral vascular disease, hypertension and hyperlipidemia Atorvastatin 10 mg daily and Cardizem 360 mg daily for continued. Aspirin 81 mg daily was continued on discharge. 5. History of mood disorder. Paroxetine pregabalin and amitriptyline were continued. 6. DVT prophylaxis with Alps due to GI bleed 7. Mild pain pathway with Tylenol 8. Patient is full code 9. Norvasc 5 mg daily by mouth was added for high blood pressures. Can increase to 10mg as needed for BP control 10. She will be tapered off the Lyrica and she should discontinue it on 06/28/16 as per CMR 11. Chronic constipation - Pt goes every 2-3 days, encourage fluids and bowel regimen Allergies: Coded Allergies: bacitracin (From NEOSPORIN ([id number])) (rash 09/23/15) neomycin (From NEOSPORIN ([id number])) (rash 09/23/15) penicillin V (SWELLING ALL OVER AND ITCHING 09/23/15) polymyxin B (From NEOSPORIN ([id number])) (rash 09/23/15) cortisone (THRUSH 09/23/15) duloxetine (GI DISTRESS 09/23/15) moxifloxacin (From AVELOX) (STOMACH SICK 09/23/15) Significant Procedures: Medical History: unchanged (see meditech consult) Mental Status: alert/oriented Heart/Lung Eval Prior to Sedation: within normal limits Candidate for Sedation? Yes Procedure Date: 06/22/16 Procedure Type: EGD w/biopsy Artist Relationship Manager: Sruthi Devi MD ASA Classification: IV Indications: Unexplained iron deficiency anemia. Instrument: diagnostic gastroscope Meds Received: MAC Patient's Tolerance: good Complications: none Extent Reached: second part of duodenum Procedure: After getting written informed consent the patient was placed in the left lateral decubitus position with pulse oximetry, cardiac monitoring, and supplemental oxygen given. A bite block was inserted and IV sedation was given until the desired effect was achieved. A high definition upper Olympus endoscope was then inserted into the mouth and advanced to the second portion of the duodenum with little difficulty. Retroflexed views and photodocumentation was obtained. Findings: Esophagus: The esophageal mucosa was grossly normal in appearance and there was a normal-appearing Z line at 40 cm from the incisors. Stomach: The gastric mucosa was diffusely erythematous and atrophic in appearance, but there were no ulcers, erosions, or masses appreciated. Distention and peristalsis of the stomach appeared normal. Retroflexed views were normal and did not reveal a significant hiatal hernia. Random biopsies were obtained from the antrum with cold biopsy forceps and were sent to pathology for further evaluation. Duodenum: The duodenal bulb, sweep, and folds were grossly normal in appearance. There was bile appreciated throughout to the second portion of the duodenum and there were no AVMs appreciated within the duodenum. Random biopsies were obtained from the second portion of the duodenum and were sent to pathology for further evaluation. Impression: 1. Atrophic gastritis status post gastric biopsies. 2. Grossly normal small bowel folds status post random biopsies. Recommendations: 1. She should use H2 RA's or [id number] PPIs as needed for dyspeptic symptoms or heartburn. 2. She should avoid NSAIDs. 3. She should follow up the pathology results with me as an outpatient. 4. She should resume oral iron supplementation. 5. She should follow-up as an outpatient for a small bowel PillCam for further evaluation of her anemia. CC: KAREN WILLIAM MD DICTATED BY: SRUTHI DEVI MD DATE/TIME DICTATED:01/[id number] MORNING SHOW HOST:KIMI DATE/TIME TRANSCRIBED:06/22/161403 REPORT NUMBER:[id number] CONFIDENTIAL, DO NOT COPY WITHOUT APPROPRIATE AUTHORIZATION. CC: Report Status: Draft Report #: [id number] Page[p pg] Disposition Summary Disposition Principal Diagnosis: Acute hypoxic hypercarbic respiratory failure due to chronic respiratory failure from end-stage COPD: Additional Diagnosis: 2. Acute on chronic blood loss anemia(guaiac positive possible GI bleed) Discharge Disposition: SNF Discharge Instructions General Discharge Information Code Status: Full Code Patient's Diet: Heart healthy diet Patient's Activity: As tolerated Follow-Up Instructions/Appts: 1. Please follow-up with your PCP within 1-2 weeks after discharge 2. Please follow-up with your train operations manager for path report results and small bowel PillCam for further evaluation of anemia as an outpatient. 3 follow-up CBC within 1 week 4. Avoid narcotics/sedatives 5 Return to the ER if symtoms get worse after discharge. Medications at Discharge Discharge Medications: Stop taking the following medications: PAROXETINE HCL (Paroxetine Hydrochloride) 10 MG TAB ORAL DAILY Qty = 90 Hydrocodone/Acetaminophen (Vicodin 5-300 MG Tablet) 1 EACH TABLET ORAL DAILY as needed for PAIN Diphenhydramine HCl (Benadryl) 25 MG CAPSULE ORAL Every night Famotidine (Famotidine) 20 MG TABLET ORAL TWICE DAILY Prednisone (Prednisone) 2.5 MG TABLET ORAL DAILY Qty = 30 Prednisone (Prednisone) 10 MG TABLET ORAL DAILY Continue taking these medications: Fluticasone-Salmeterol (Advair 500-50 Diskus) 1 UNIT UNIT 1 Puff Inhale through mouth TWICE DAILY Qty = 60 Comments: SYMBICORT GIVEN 07/11/15 @1000AM Tiotropium [place] (Spiriva) 18 MCG CAP 1 Capsule Inhale through mouth DAILY Qty = 30 Comments: Last Taken: 07/11/15 Time: 1000AM Hydrochlorothiazide (Hydrochlorothiazide) 25 MG TABLET 1 Tablet ORAL DAILY Comments: Last Taken:06/24/16 Time:0900 Lorazepam (Ativan) 0.5 MG TAB 1 Tablet ORAL TWICE DAILY Qty = 180 Comments: Last Taken: 07/11/15 Time: 1000AM Albuterol Sulfate (Albuterol Sulfate Hfa) 0.09 MG/Actuation CHELSEA 2 PUFF Inhale through mouth as needed for COPD Qty = 9 Instructions: 90 MCG PER PUFF Comments: NOT GIVEN IN HOSPITAL Multivitamin (One Daily Multivitamin) 1 TAB TAB 1 Tablet ORAL DAILY Comments: Last Taken: 07/11/15 Time: 1000AM Albuterol Sulfate (Proventil) 2.5 MG/3 ML NEB 3 Milliliters Inhale through mouth EVERY 4 HRS WHILE AWAKE as needed for COPD Days = 30 Comments: Last Taken: 07/11/15 Time: 0800AM Aspirin (Aspirin*) 81 MG TAB.CHEW 81 Milligram ORAL DAILY Days = 30 Comments: Last Taken: NOT GIVEN IN HOSPITAL Time: Losartan (Cozaar) 100 MG TABLET 100 Milligram ORAL DAILY Days = 30 Comments: Last Taken:NOT GIVEN IN HOSPITAL Time: Ferrous Sulfate (Ferrous Sulfate) 325 MG (65 MG IRON) TABLET 1 Tablet ORAL DAILY Comments: Last Taken:06/24/16 Time:0900 Pregabalin (Lyrica) 50 MG CAPSULE 0.5 Capsule ORAL TWICE DAILY Qty = 60 Instructions: Stop lyrica on 06/28/16 Comments: Last Taken:06/24/16 Time:0900 Amitriptyline HCl (Amitriptyline HCl) 25 MG TABLET 1 Tablet ORAL Every night Qty = 30 Comments: Last Taken:06/23/16 Time:205 Atorvastatin Calcium (Atorvastatin Calcium) 10 MG TABLET 1 Tablet ORAL DAILY Qty = 30 Comments: Last Taken:06/23/16 Time:1614 Calcium Carbonate/Vitamin D3 (Os-Napoleon 500+D3 Caplet) 500 MG-200 TABLET 1 Tablet ORAL TWICE DAILY Comments: Last Taken:NOT GIVEN IN HOSPITAL Time: Cyanocobalamin (Vitamin B-12) (Cyanocobalamin Injection) 1,000 MCG/ML VIAL 1 Milliliters INTRAMUSC ONCE A MONTH Qty = 3 Comments: Last Taken:NOT GIVEN IN HOSPITAL Time: Diltiazem HCl (Diltiazem 24HR ER) 360 MG CAP.ER.24H 1 Capsule ORAL DAILY Qty = 90 Comments: Last Taken:06/24/16 Time:0900 Paroxetine HCl (Paroxetine HCl) 40 MG TABLET 1 Tablet ORAL AT BEDTIME Qty = 90 Comments: Last Taken:06/24/16 Time:0900 Start taking the following new medications: Prednisone (Prednisone) 10 MG TABLET 1 Tablet ORAL SEE INSTRUCTIONS Days = 30 No Refills Instructions: take 3 TABS X 2 DAYS 2 TABS X 2 DAYS tHEN CONTINUE WITH 10 MG(1 TAB) OF PREDNISONE DAILY FOR copd Comments: Last Taken:06/24/16 Time:0900 Omeprazole (Omeprazole) 20 MG CAPSULE.DR 1 Capsule ORAL DAILY Qty = 30 No Refills Comments: Last Taken:NOT GIVEN IN HOSPITAL Time: Amlodipine Besylate (Amlodipine Besylate) 5 MG TABLET 5 Milligram ORAL DAILY Qty = 30 No Refills Comments: Last Taken:06/24/16 Time:1130 Copies To: REYNA DELVALLE,GIRISH Scott; SRUTHI DEVI MD; KAREN WILLIAM MD Copies To: KAREN WILLIAM MD
--- NOTE | 2016-06-22 14:05 | Proc Note Endoscopy ---
Endoscopy Procedure Medical History: unchanged (see meditech consult) Mental Status: alert/oriented Heart/Lung Eval Prior to Sedation: within normal limits Candidate for Sedation? Yes Procedure Date: 06/22/16 Procedure Type: EGD w/biopsy Buildings Painter: Juni Devi MD ASA Classification: IV Indications: Unexplained iron deficiency anemia. Instrument: diagnostic gastroscope Meds Received: MAC Patient's Tolerance: good Complications: none Extent Reached: second part of duodenum Procedure: After getting written informed consent the patient was placed in the left lateral decubitus position with pulse oximetry, cardiac monitoring, and supplemental oxygen given. A bite block was inserted and IV sedation was given until the desired effect was achieved. A high definition upper Olympus endoscope was then inserted into the mouth and advanced to the second portion of the duodenum with little difficulty. Retroflexed views and photodocumentation was obtained. Findings: Esophagus: The esophageal mucosa was grossly normal in appearance and there was a normal-appearing Z line at 40 cm from the incisors. Stomach: The gastric mucosa was diffusely erythematous and atrophic in appearance, but there were no ulcers, erosions, or masses appreciated. Distention and peristalsis of the stomach appeared normal. Retroflexed views were normal and did not reveal a significant hiatal hernia. Random biopsies were obtained from the antrum with cold biopsy forceps and were sent to pathology for further evaluation. Duodenum: The duodenal bulb, sweep, and folds were grossly normal in appearance. There was bile appreciated throughout to the second portion of the duodenum and there were no AVMs appreciated within the duodenum. Random biopsies were obtained from the second portion of the duodenum and were sent to pathology for further evaluation. Impression: 1. Atrophic gastritis status post gastric biopsies. 2. Grossly normal small bowel folds status post random biopsies. Recommendations: 1. She should use H2 RA's or [id number] PPIs as needed for dyspeptic symptoms or heartburn. 2. She should avoid NSAIDs. 3. She should follow up the pathology results with me as an outpatient. 4. She should resume oral iron supplementation. 5. She should follow-up as an outpatient for a small bowel PillCam for further evaluation of her anemia. CC: NATALIIA DELVALLE,KAREN Kay
[2016-06-22 15:05] VITALS: BP 162/72
--- NOTE | 2016-06-22 15:25 | Patient Discharge Instructions ---
Discharge Instructions General Discharge Information You were seen/treated for: Acute hypoxic hypercarbic respiratory failure due to chronic respiratory failure from end-stage COPD: Acute on chronic blood loss anemia(guaiac positive possible GI bleed Special Instructions: 1. Please follow-up with your PCP within 1-2 weeks after discharge 2. Please follow-up with your dinkey press operator Dr Devi for path report results and small bowel PillCam for further evaluation of anemia as an outpatient. 3 follow-up CBC within 1 week 4. Avoid narcotics/sedatives 5 F/U with Dr Rangel 6. Return to the erythematous symptoms get worse after discharge. Diet Recommended Diet: Heart Healthy Activity Activity Self Limited: Yes Acute Coronary Syndrome Inclusion Criteria At DC or during hospital stay patient has or had the following: ACS DIAGNOSIS No Discharge Core Measures Meds if any: Prescribed or Continued at Discharge Meds if any: NOT Prescribed or Continued at Discharge Congestive Heart Failure Inclusion Criteria At DC or during hospital stay patient has or had the following: CHF DIAGNOSIS No Discharge Core Measures Meds if any: Prescribed or Continued at Discharge Meds if any: NOT Prescribed or Continued at Discharge Cerebrovascular accident Inclusion Criteria At DC or during hospital stay patient has or had the following: CVA/TIA Diagnosis No Discharge Core Measures Meds if any: Prescribed or Continued at Discharge Meds if any: NOT Prescribed or Continued at Discharge Venous thromboembolism Inclusion Criteria VTE Diagnosis No VTE Type NONE VTE Confirmed by (Test) NONE Discharge Core Measures - Per Current guidelines, there needs to be overlap - treatment for the first 5 days of Warfarin therapy. - If discharged on Warfarin prior to 5 days of - overlap therapy, the patient will need to be - assessed for post discharge needs including - *Post discharge parental anticoagulation - *Warfarin and/or parental anticoagulation education - *Follow up date to check INR post discharge At least 5 days overlap therapy as Inpatient No Meds if any: Prescribed or Continued at Discharge Note: Overlap Therapy is Warfarin and Anticoagulant Meds if any: NOT Prescribed or Continued at Discharge
[2016-06-22] MEDS ORDERED: AZITHROMYCIN250 M1 PO (15:28)
[2016-06-22] MEDS ORDERED: PREDNISONE10 M2 PO (15:31)
[2016-06-22] MEDS ORDERED: OMEPRAZOLE20 M2 PO (15:31)
--- NOTE | 2016-06-22 18:00 | Event Note ---
Event Note Event Note: Notified by the nursing staff about the hematoma wound that opened up. Noted by the nursing staff after the patient arrived to the floor s/p the endoscopy today. Patient was seen and examined. She has a 3 x 8 cm wound in the proximal RUE with an incision and controlled bleeding. No active hemorrhage or drainage. Patient denies any tenderness. Discontinued aspirin for now as per GI rec. Pressure packing and coag studies ordered.
[2016-06-22 19:27] LABS: PT 10.8 SEC (9.4-12.5); PTT 24 SEC (25-37)
--- NOTE | 2016-06-22 20:25 | NUR ---
15:05- PT ARRIVED TO FLOOR VIA STRETCHER FROM GI. REPORT REC'D FROM HONG RN/TELE WELL HINA RN/ GI. PT HAD EGD WITH 4 BIOPSIES WITH NO EVIDENCE OF BLEED. PT WENT FROM TELE TO GI SUITE AND NOW TO FLOOR. PER HINA IN GI, R FOREARM HEMATOMA OPENED UP IN GI SUITE AND WAS COVERED WITH DRESSING. DRESSING REMOVED AND REVEALED 4CM OPENING TO HEMATOMA WITH 2 CM SMALLER SLITS IN HEMATOMA WITH THICK COAGULATED BLOOD PRESENT. NO ACTIVE BLEEDING. ABOVE REPORTED TO DR. PEACOCK, WHO WILL ASSESS AT BEDSIDE. VSS. PT ON 3L NC WITH BIPAP AT NIGHT. MULTIPLE SKIN TEARS ON EXTREMITIES WITH DRESSINGS TO BLE. BED ALARM IN PLACE. ORIENTED TO ROOM AND CALL LIGHT.
[2016-06-22 22:43] VITALS: BP 190/72
[2016-06-23 06:56] VITALS: BP 190/74
--- NOTE | 2016-06-23 07:22 | PN- Housestaff ---
ANTONIA ULRICH 06/23/16 0722: Subjective Follow-up For: 1. Acute hypoxic hypercarbic respiratory failure due to chronic respiratory failure from end-stage COPD 2.Acute on chronic blood loss anemia(guaiac positive possible GI bleed) Subjective: Patient seen and examined today, seems better slept well overnight. Blood pressure in the morning elevated 190/74, hydrochlorothiazide has been resumed. Today's labs are pending if creatinine improved Will restart her home dose of losartan 100 mg daily. EGD done yesterday did not reveal any acute evidence of bleeding except for atrophic gastritis patient will follow-up as an outpatient for pathology results and small bowel pill cam studies. Patient will work with physical therapy today, will follow-up the recommendations. If stable will be discharged today. Review of Systems Constitutional: Denies: chills, diaphoresis, fever, malaise. EENTM: Denies: blurred vision, double vision, visual changes, eye pain. Cardiovascular: Denies: chest pain, edema, orthopena, palpitations. Respiratory: Reports: short of breath. Denies: cough, hemoptysis. Gastrointestinal: Denies: abdominal pain, bloating, constipation. Genitourinary: Denies: discharge, dysuria, frequency. Musculoskeletal: Denies: back pain, gout, joint pain. Skin: Denies: change in skin color, change in hair/nails, dryness, erythema. Neurological/Psychological: Denies: anxiety, ataxia, cognitive dysfunction. Objective Last 24 Hrs of Vital Signs/I&O Vital Signs Date Time Temp Pulse Resp B/P Pulse O2 O2 Flow FiO2 Ox Delivery Rate 06/23 0656 97.6 100 22 190/74 93 Nasal Cannula 06/23 0339 95 96 06/23 0143 88 98 06/23 0000 BIPAP 06/22 2243 98.2 95 24 190/72 95 BIPAP 06/22 2138 97 98 06/22 1830 97 Nasal 3.0L Cannula 06/22 1600 96 Nasal 3.0L Cannula 06/22 1505 98.1 88 20 162/72 93 Nasal 3.0L Cannula 06/22 1000 160/80 Intake & Output 06/23 1600 06/23 0800 06/23 0000 Intake Total 240 240 Output Total 400 Balance 240 -160 Intake, Oral 240 240 Output, Urine 400 Physical Exam General Appearance: Alert, Oriented X3 Skin: No Rashes, No Breakdown Cardiovascular: Regular Rate, Normal S1, Normal S2 Lungs: Clear to Auscultation, Normal Air Movement Neurological: Normal Speech, Strength at 5/5 X4 Ext, Normal Tone Extremities: No Clubbing, No Cyanosis Current Medications: Current Medications Sig/Roge Start time Last Medication Dose Route Stop Time Status Admin Acetaminophen 650 MG Q6P PRN 06/19 1145 AC 06/23 PO 0611 Acetaminophen 1,000 MG Q6P PRN 06/19 1145 AC IV Albuterol Sulfate 3 ML TID 06/19 1600 AC 06/22 INH 1830 Amitriptyline HCl 25 MG QPM 06/19 2200 AC 06/22 PO 2111 Aspirin 81 MG DAILY 06/23 1000 CAN PO Atorvastatin Calcium 10 MG DAILY@1700 06/19 1700 AC 06/22 PO 1715 Azithromycin 250 MG DAILY 06/23 1000 AC PO Azithromycin 500 MG DAILY 06/19 1345 DC 06/22 Dextrose/Water 250 ML IV 0821 Benzocaine 1 GEOVANY .STK-MED ONE 06/22 1434 DC TOP 06/22 1435 Budesonide/ 2 PUF BID 06/19 1403 AC 06/22 Formoterol Fumarate INH 0820 Ceftriaxone Sodium 1,000 MG DAILY@1800 06/20 1800 DC 06/21 IV 1949 Chlorhexidine 1 GM .STK-MED ONE 06/22 1434 DC Gluconate TOP 06/22 1435 Diltiazem HCl 360 MG DAILY 06/20 1000 AC 06/22 PO 0820 Ferrous Sulfate 325 MG BID 06/20 1145 AC 06/22 PO 2111 Hydrochlorothiazide 25 MG DAILY 06/22 1530 AC 06/23 PO 0427 Lorazepam 0.5 MG BID 06/19 2200 AC 06/22 PO 06/26 2159 2111 Losartan Potassium 100 MG DAILY 06/23 0800 AC PO Methylprednisolone 40 MG Q8 06/19 1345 DC 06/22 IV 06/22 2300 2111 Pantoprazole Sodium 40 MG DAILY 06/19 1430 AC 06/22 IV 0820 Paroxetine HCl 40 MG DAILY 06/20 1000 AC 06/22 PO 0820 Polyethylene Glycol 17 GM DAILY PRN 06/20 1330 AC 06/20 PO 1441 Potassium Chloride 20 MEQ ONCE ONE 06/22 1200 DC 06/22 PO 06/22 1201 1528 Prednisone 40 MG DAILY 06/23 1000 AC PO Pregabalin 75 MG .STK-MED ONE 06/22 2106 DC PO 06/22 2107 Pregabalin 50 MG BID 06/19 2199 AC 06/22 PO 2110 Last 24 Hrs of Lab/Gt Results Last 24 Hrs of Labs/Mics: Laboratory Tests 06/23/16 0650: CBC w Diff Pending, WBC Pending, RBC Pending, Hgb Pending, Hct Pending, MCV Pending, MCH Pending, RDW Pending, Plt Count Pending, MPV Pending, PUBS MCHC Pending 06/22/16 1900: PT 10.8, INR 1.03, APTT 24 L Assessment/Plan Assessment: Patient is a 75-year-old woman with a past medical history significant for stage I diastolic dysfunction, end-stage COPD on 2-3 L of oxygen at baseline, history of alcohol dependence, hypertension, vertigo, PVD, right femoral neck fracture status post mechanical fall status requiring arthroplasty April 2015, left fifth toe amputation due to osteomyelitis, nephrolithiasis of the right requiring ESWL, osteoporosis, and anxiety was brought to the ER for any evidence for the evaluation of worsening shortness of breath since yesterday. Vitals on admission temperature 97.1, pulse 90, respiratory rate 19, blood pressure 164/70 on 4 L, Now on BiPAP. Pertinent labs on admission: Leukocytosis 15.2 without any bandemia H&H low 7.3/23.3(baseline 10.3/32.8), MCV 96.8, sodium 136, BUN/creatinine 2 8/0.9. Elevated proBNP 913. ABG done showed pH of 7.34 with PCO2 of 79 and PO2 of 77 and she was put on BiPAP. First troponin 0.07 with EKG showed normal sinus rhythm VT interval of 156 QTC 458. Chest x-ray: Small bilateral pleural effusions with streaky bibasilar opacities suggesting atelectasis; superimposed developing consolidation is difficult to exclude in the proper clinical setting. Mild bilateral interstitial prominence may reflect developing vascular congestion. Echo done in November 2015 : Showed Normal size left ventricle. Mild concentric left ventricular hypertrophy. No obvious regional wall motion abnormalities. Normal left ventricular ejection fraction visually estimated at > 55 %. Normal left ventricular diastolic filling pattern for age. Assessment and plan 1.Acute hypoxic hypercarbic respiratory failure due to chronic respiratory failure from end-stage COPD: * Off BiPAP * [facility] * IV Solu-Medrol has been discontinued patient has been started on a taper to prednisone dose till 10 mg daily for her COPD. * Continue by mouth azithromycin for a total of 5 days * Continue TRC nebs * Continue Spiriva and Symbicort * Watch for any hemodynamic instability 2. Acute on chronic blood loss anemia(guaiac positive possible GI bleed): * H&H improved after 1 unit of packed RBC * Endoscopy done that showed atrophic gastritis without any evidence of active bleed. Biopsies were taken at the time of procedure * Oral ferrous sulfate and oral omeprazole has been resumed. * Patient has been advised to follow-up for pathology results and small bowel PillCam for further evaluation of anemia as an outpatient. 3. History of stage I diastolic heart failure: * Continue with hydrochlorothiazide 25 mg daily. * Resume losartan once creatinine improves losartan 100 mg daily. 4. History of peripheral vascular disease, hypertension and hyperlipidemia * Continue atorvastatin 10 mg daily, Cardizem 360 mg daily. 5. History of mood disorder * Continue paroxetine 40 mg daily, pregabalin, amitriptyline. 6. DVT prophylaxis with Alps due to acute GI bleed 7. Mild pain pathway with Tylenol 8. Patient is full code Problem List: 1. Anemia 2. Acute and chronic respiratory failure Pain Ratin Pain Location: No pain at this time Pain Goal: Remain pain free Pain Plan: When necessary Tylenol Tomorrow's Labs & Rationales: Need of labs as patient will be discharged today MARTHA DELVALLE,SARITA 06/23/16 1340: Attending MD Review Statement Attending Statement Attending MD Statement: examined this patient, discuss w/resident/PA/MACHINE II COREMAKER, agreed w/resident/PA/MACHINE II COREMAKER, discussed with family, reviewed EMR data (avail), discussed with nursing, reviewed images Attending Assessment/Plan: Overall patient is doing okay. We sat down and spoke to her daughter at length was very concerned about her mentation and the need for rehabilitation. We explained her end-stage COPD, acute hypoxic and hypercapnic respiratory failure, profound anemia with the endoscopy showing atrophic gastritis. We also highly recommended changing the CODE STATUS given her end-stage COPD. The daughter agrees but wants to talk to her brothers and will give us a decision soon. She is very concerned that the Lyrica is contributing to her change in mentation so we are going to taper this off. We've minimized sedatives and hypnotics to the minimum amount and we are looking for and STR bed.
--- NOTE | 2016-06-23 08:09 | PN- Pulmonary ---
Subjective HPI/Critical Care Issues: Patient is awake alert tolerated endoscopy shortness breath is improved Objective Current Medications: Current Medications Sig/Roge Start time Last Medication Dose Route Stop Time Status Admin Acetaminophen 650 MG Q6P PRN 06/19 1145 AC 06/23 PO 0611 Acetaminophen 1,000 MG Q6P PRN 06/19 1145 AC IV Albuterol Sulfate 3 ML TID 06/19 1600 AC 06/22 INH 1830 Amitriptyline HCl 25 MG QPM 06/19 2200 AC 06/22 PO 2111 Aspirin 81 MG DAILY 06/23 1000 CAN PO Atorvastatin Calcium 10 MG DAILY@1700 06/19 1700 AC 06/22 PO 1715 Azithromycin 250 MG DAILY 06/23 1000 AC PO Azithromycin 500 MG DAILY 06/19 1345 DC 06/22 Dextrose/Water 250 ML IV 0821 Benzocaine 1 GEOVANY .STK-MED ONE 06/22 1434 DC TOP 06/22 1435 Budesonide/ 2 PUF BID 06/19 1403 AC 06/22 Formoterol Fumarate INH 0820 Ceftriaxone Sodium 1,000 MG DAILY@1800 06/20 1800 DC 06/21 IV 1949 Chlorhexidine 1 GM .STK-MED ONE 06/22 1434 DC Gluconate TOP 06/22 1435 Diltiazem HCl 360 MG DAILY 06/20 1000 AC 06/22 PO 0820 Ferrous Sulfate 325 MG BID 06/20 1145 AC 06/22 PO 2111 Hydrochlorothiazide 25 MG DAILY 06/22 1530 AC 06/23 PO 0427 Lorazepam 0.5 MG BID 06/19 2200 AC 06/22 PO 06/26 2159 2111 Losartan Potassium 100 MG DAILY 06/23 0800 UNVr PO Methylprednisolone 40 MG Q8 06/19 1345 DC 06/22 IV 06/22 2300 2111 Pantoprazole Sodium 40 MG DAILY 06/19 1430 AC 06/22 IV 0820 Paroxetine HCl 40 MG DAILY 06/20 1000 AC 06/22 PO 0820 Polyethylene Glycol 17 GM DAILY PRN 06/20 1330 AC 06/20 PO 1441 Potassium Chloride 20 MEQ ONCE ONE 06/22 1200 DC 06/22 PO 06/22 1201 1528 Prednisone 40 MG DAILY 06/23 1000 AC PO Pregabalin 75 MG .STK-MED ONE 06/22 2107 DC PO 06/22 2108 Pregabalin 50 MG BID 06/19 2200 AC 06/22 PO 2111 Vital Signs & I&O Last 24 Hrs of Vitals and I&O: Vital Signs Date Time Temp Pulse Resp B/P Pulse O2 O2 Flow FiO2 Ox Delivery Rate 06/23 0656 97.6 100 22 190/74 93 Nasal Cannula 06/23 0339 95 96 06/23 0143 88 98 06/23 0000 BIPAP 06/22 2243 98.2 95 24 190/72 95 BIPAP 06/22 2138 97 98 06/22 1830 97 Nasal 3.0L Cannula 06/22 1600 96 Nasal 3.0L Cannula 06/22 1505 98.1 88 20 162/72 93 Nasal 3.0L Cannula 06/22 1000 160/80 06/22 0824 98.3 98 20 180/80 95 Nasal 3.0L Cannula 06/22 0822 94 Nasal 3.5L Cannula Intake & Output 06/23 1600 06/23 0800 06/23 0000 Intake Total 240 240 Output Total 400 Balance 240 -160 Intake, Oral 240 240 Output, Urine 400 Oxygen saturation on 3 L 93% exam for chest shows diminished breath sounds are no wheezes or crackles heard cardiac exam shows normal S1 and S2 without murmurs Impression/Plan Impression/Plan Impression/Plan: 75-year-old with end-stage COPD chronic hypercapnic respiratory failure respiratory status improved but she continues to appear weak and would likely benefit from short-term rehabilitation Recommendations: Slow steroid taper. Evaluate for short-term rehabilitation. Complete course of antibiotics.
[2016-06-23 09:00] VITALS: BP 180/80
[2016-06-23 09:04] LABS: ABSOLUTE BASOPHIL COUNT 0 /CUMM (0.0-0.2); ABSOLUTE EOSINOPHIL COUNT 0.2 /CUMM (0.0-0.7); ABSOLUTE GRANULOCYTE CT 14.8 /CUMM (1.4-6.5); ABSOLUTE LYMPH COUNT 0.7 /CUMM (1.2-3.4); ABSOLUTE MONOCYTE COUNT 0.5 /CUMM (0.10-0.60); BASOPHIL % 0 % (0.0-2.0); EOSINOPHIL % 0.9 % (0-5); HEMATOCRIT 29.8 % (37-47); MEAN CORPUSCULAR HGB 30.4 PG (27.0-31.0); MEAN CORPUSCULAR HGB CONC 31.9 G/DL (33.0-37.0); MEAN CORPUSCULAR VOLUME 95.5 FL (81.0-99.0); MEAN PLATELET VOLUME 8.1 FL (7.4-10.4); PLATELET COUNT 325 /CUMM (130-400); RBC DISTRIBUTION WIDTH 14.8 % (11.5-14.5); RED BLOOD CELL CT 3.12 /CUMM (4.20-5.40); WHITE BLOOD CELL COUNT 16.3 /CUMM (4.8-10.8)
[2016-06-23 10:24] LABS: GRANULOCYTE % 91.3 % (42.2-75.2)
[2016-06-23 14:07] VITALS: BP 176/60
--- NOTE | 2016-06-23 14:55 | NUR ---
WOUND CARE: REQUESTED BY NURSING TO EVALUATE PT FOR SKIN TEAR WITH HEMATOMA TO RIGHT POSTERIOR FOREARM - PT UNABLE TO RECALL ETIOLOGY - 7.5 X 4.5 CM OPEN HEMATOMA WITH THICK COAGULATED BLOOD AT SURFACE - NO INDURATION OR UNDERMINING - PT ALSO NOTED WITH MULTIPLE SKIN TEARS TO BLE WTIH SLOUGH COVERING BASE - RIGHT ANTERIOR LEG 5 X 2.5 CM, AND LEFT LEG 2.5 X 1 CM AND 1X1 CM SUPERIFICIAL SLOUGH THROUGHOUT RECOMMENDATION: CLEANSE ALL WOUNDS WITH NS FB ADAPTIC TELFA AND KERLIX DAILY - IF FAILURE TO IMPROVE CONSIDER SURGICAL CONSULT TO EVACUATE HEMATOMA
[2016-06-23] MEDS ORDERED: PREDNISONE10 M2 PO (15:18)
[2016-06-23 17:03] VITALS: BP 142/62
--- NOTE | 2016-06-23 17:04 | NUR ---
PT BP 142/62, MD ULRICH AWARE. WILL CONTINUE TO MONITOR.
[2016-06-23 21:30] VITALS: BP 160/80
[2016-06-24 05:44] VITALS: BP 176/70
--- NOTE | 2016-06-24 07:25 | PN- Housestaff ---
See Addendum RICHIE DELVALLE,OLIVER 06/24/16 0716: Subjective Follow-up For: Hypercarbic respiratory failure from end-stage COPD GI bleed leading to anemia Complaints: no complaints Subjective: Patient seen and examined at bedside this morning. States that she slept well overnight, offers no complaints. Continues to work with physical therapy, likely discharge to [facility] today if bed available. Review of Systems Constitutional: Reports: see HPI. Objective Last 24 Hrs of Vital Signs/I&O Vital Signs Date Time Temp Pulse Resp B/P Pulse O2 O2 Flow FiO2 Ox Delivery Rate 06/24 0544 97.9 97 20 176/70 96 Nasal 2.0L Cannula 06/24 0336 92 98 06/24 0116 90 97 06/23 2145 95 98 06/23 2130 98.3 99 22 160/80 97 Nasal Cannula 06/23 2026 98 Nasal 2.5L Cannula 06/23 1703 142/62 06/23 1600 Nasal 3.0L Cannula 06/23 1407 98.4 86 24 176/60 96 Nasal 3.0L Cannula 06/23 1136 92 180/60 06/23 1033 Nasal 2.5L Cannula 06/23 0900 100 180/80 06/23 0841 95 Nasal 2.5L Cannula 06/23 0800 93 Nasal 3.0L Cannula Intake & Output 06/24 0800 06/24 0000 06/23 1600 Intake Total 360 600 Output Total Balance 360 600 Intake, IV 50 Intake, Oral 360 550 Number 0 Bowel Movements Patient 130 lb Weight Physical Exam General Appearance: Alert, Oriented X3, Cooperative Skin: No Rashes, No Breakdown HEENT: Atraumatic, PERRLA Cardiovascular: Regular Rate, Normal S1, Normal S2 Lungs: decreased air entry b/l Abdomen: Normal Bowel Sounds, Soft, No Tenderness Extremities: multiple ecchymoses on b/l LE, ulcer on RUE Current Medications: Current Medications Sig/Roge Start time Last Medication Dose Route Stop Time Status Admin Acetaminophen 650 MG Q6P PRN 06/19 1145 AC 06/23 PO 0611 Acetaminophen 1,000 MG Q6P PRN 06/19 1145 AC IV Albuterol Sulfate 3 ML TID 06/19 1600 AC 06/23 INH 2023 Amitriptyline HCl 25 MG QPM 06/19 2199 AC 06/23 PO 2052 Atorvastatin Calcium 10 MG DAILY@1700 06/19 1700 AC 06/23 PO 1614 Azithromycin 250 MG DAILY 06/23 1000 AC 06/23 PO 0902 Budesonide/ 2 PUF BID 06/19 1403 AC 06/23 Formoterol Fumarate INH 2053 Diltiazem HCl 360 MG DAILY 06/20 1000 AC 06/23 PO 0903 Ferrous Sulfate 325 MG BID 06/20 1145 AC 06/23 PO 205 Hydrochlorothiazide 25 MG DAILY 06/22 1530 AC 06/23 PO 0427 Lorazepam 0.5 MG BID 06/19 2200 AC 06/23 PO 06/26 2159 205 Losartan Potassium 100 MG DAILY 06/23 0800 AC 06/23 PO 1136 Pantoprazole Sodium 40 MG DAILY 06/19 1430 AC 06/23 IV 0902 Paroxetine HCl 40 MG DAILY 06/20 1000 AC 06/23 PO 0903 Patient Medication 1 ED .STK-MED ONE 06/23 1409 DC Teaching ED 06/23 1410 Polyethylene Glycol 17 GM DAILY PRN 06/20 1330 AC 06/20 PO 1441 Potassium Chloride 40 MEQ ONCE ONE 06/23 1215 DC 06/23 PO 06/23 1216 1405 Potassium Chloride 10 MEQ ONCE ONE 06/23 1115 DC 06/23 IV 06/23 1116 1158 Prednisone 40 MG DAILY 06/23 1000 AC 06/23 PO 0903 Pregabalin 25 MG BID 06/23 2200 AC 06/23 PO 2052 Pregabalin 50 MG BID 06/19 2200 DC 06/23 PO 0902 Last 24 Hrs of Lab/Gt Results Last 24 Hrs of Labs/Mics: Laboratory Tests 06/24/16 0615: Sodium Pending, Potassium Pending, Chloride Pending, Carbon Dioxide Pending, Anion Gap Pending, BUN Pending, Creatinine Pending, BUN/Creatinine Ratio Pending , CBC w Diff Pending, WBC Pending, RBC Pending, Hgb Pending, Hct Pending, MCV Pending, MCH Pending, RDW Pending, Plt Count Pending, MPV Pending, PUBS MCHC Pending Assessment/Plan Assessment: 75-year-old woman with a past medical history significant for stage I diastolic dysfunction, end-stage, end stage COPD on 2-3 L of oxygen at baseline, hx of alcohol dependence, hypertension, was admitted for worsening shortness of breath thought to be secondary to her end-stage COPD. Subsequently she was also found to be anemic, underwent an endoscopy showing erosive gastritis. Transfused 1 unit PRBC. On BiPAP overnight, currently on 2 L nasal cannula saturating well. Assessment- 1. Acute hypoxic and hypercarbic respiratory failure secondary to end-stage COPD 2. Acute on chronic blood loss anemia 3. Diastolic heart failure 4. Hypertension 5. Hyperlipidemia 6. Mood disorder Plan- IV antibiotics and Solu-Medrol have been discontinued; continue slow prednisone taper and by mouth azithromycin, cultures have been negative Continue oxygen supplementation through nasal cannula, BiPAP at night Status post endoscopy in 1 unit PRBC transfusion, continue antireflux regimen and iron supplements, avoid NSAIDs Continue losartan and hydrochlorothiazide given that her creatinine has improved Continue statin Continue Cardizem Awaiting family's decision on CODE STATUS and their wishes in terms of rehospitalization Continue to taper off Lyrica, continue Ativan Awaiting bed placement at [facility] Problem List: 1. Anemia 2. Atypical pneumonia 3. Acute and chronic respiratory failure 4. Hypertension Pain Ratin Pain Location: none Pain Goal: Remain pain free Pain Plan: per emr Tomorrow's Labs & Rationales: none
--- NOTE | 2016-06-24 07:55 | PN- Pulmonary ---
Subjective HPI/Critical Care Issues: Patient continues to slowly improve is agreeable to short-term rehabilitation Objective Current Medications: Current Medications Sig/Roge Start time Last Medication Dose Route Stop Time Status Admin Acetaminophen 650 MG Q6P PRN 06/19 1145 AC 06/23 PO 0611 Acetaminophen 1,000 MG Q6P PRN 06/19 1145 AC IV Albuterol Sulfate 3 ML TID 06/19 1600 AC 06/23 INH 2024 Amitriptyline HCl 25 MG QPM 06/19 2200 AC 06/23 PO 2053 Atorvastatin Calcium 10 MG DAILY@1700 06/19 1700 AC 06/23 PO 1614 Azithromycin 250 MG DAILY 06/23 1000 AC 06/23 PO 0902 Budesonide/ 2 PUF BID 06/19 1403 AC 06/23 Formoterol Fumarate INH 2052 Diltiazem HCl 360 MG DAILY 06/20 1000 AC 06/23 PO 0903 Ferrous Sulfate 325 MG BID 06/20 1145 AC 06/23 PO 2052 Hydrochlorothiazide 25 MG DAILY 06/22 1530 AC 06/23 PO 0427 Lorazepam 0.5 MG BID 06/19 2200 AC 06/23 PO 06/26 215 205 Losartan Potassium 100 MG DAILY 06/23 0800 AC 06/23 PO 1136 Pantoprazole Sodium 40 MG DAILY 06/19 1430 AC 06/23 IV 0902 Paroxetine HCl 40 MG DAILY 06/20 1000 AC 06/23 PO 0903 Patient Medication 1 ED .STK-MED ONE 06/23 1409 DC Teaching ED 06/23 1410 Polyethylene Glycol 17 GM DAILY PRN 06/20 1330 AC 06/20 PO 1441 Potassium Chloride 40 MEQ ONCE ONE 06/23 1215 DC 06/23 PO 06/23 1216 1405 Potassium Chloride 10 MEQ ONCE ONE 06/23 1115 DC 06/23 IV 06/23 1116 1158 Prednisone 40 MG DAILY 06/23 1000 AC 06/23 PO 0903 Pregabalin 25 MG BID 06/23 2200 AC 06/23 PO 205 Pregabalin 50 MG BID 06/19 2200 DC 06/23 PO 0902 Vital Signs & I&O Last 24 Hrs of Vitals and I&O: Vital Signs Date Time Temp Pulse Resp B/P Pulse O2 O2 Flow FiO2 Ox Delivery Rate 06/24 0544 97.9 97 20 176/70 96 Nasal 2.0L Cannula 06/24 0336 92 98 06/24 0116 90 97 06/23 2145 95 98 06/23 2130 98.3 99 22 160/80 97 Nasal Cannula 06/23 2026 98 Nasal 2.5L Cannula 06/23 1703 142/62 06/23 1600 Nasal 3.0L Cannula 06/23 1407 98.4 86 24 176/60 96 Nasal 3.0L Cannula 06/23 1136 92 180/60 06/23 1033 Nasal 2.5L Cannula 06/23 0900 100 180/80 06/23 0841 95 Nasal 2.5L Cannula 06/23 08 93 Nasal 3.0L Cannula Intake & Output 06/24 0800 06/24 0000 06/23 1600 Intake Total 360 600 Output Total Balance 360 600 Intake, IV 50 Intake, Oral 360 550 Number 0 Bowel Movements Patient 130 lb Weight Oxygen saturation 2 L 9698% exam for chest shows diminished breath sounds there are no wheezes cardiac exam shows regular S1 and S2 without murmurs Impression/Plan Impression/Plan Impression/Plan: 75-year-old with end-stage COPD chronic hypercapnic respiratory failure respiratory status improved but she continues to appear weak and would likely benefit from short-term rehabilitation Recommendations: Slow steroid taper. Evaluate for short-term rehabilitation. Complete course of antibiotics. Patient will be seen in follow-up after discharge from short-term rehabilitation
[2016-06-24 08:10] LABS: ABSOLUTE BASOPHIL COUNT 0 /CUMM (0.0-0.2); ABSOLUTE EOSINOPHIL COUNT 0 /CUMM (0.0-0.7); ABSOLUTE GRANULOCYTE CT 14.7 /CUMM (1.4-6.5); ABSOLUTE LYMPH COUNT 0.9 /CUMM (1.2-3.4); ABSOLUTE MONOCYTE COUNT 1.1 /CUMM (0.10-0.60); BASOPHIL % 0 % (0.0-2.0); EOSINOPHIL % 0.1 % (0-5); HEMATOCRIT 30.5 % (37-47); MEAN CORPUSCULAR HGB 30.2 PG (27.0-31.0); MEAN CORPUSCULAR HGB CONC 31.3 G/DL (33.0-37.0); MEAN CORPUSCULAR VOLUME 96.6 FL (81.0-99.0); MEAN PLATELET VOLUME 8.1 FL (7.4-10.4); PLATELET COUNT 313 /CUMM (130-400); RBC DISTRIBUTION WIDTH 15.2 % (11.5-14.5); RED BLOOD CELL CT 3.16 /CUMM (4.20-5.40); WHITE BLOOD CELL COUNT 16.8 /CUMM (4.8-10.8)
[2016-06-24 09:05] LABS: GRANULOCYTE % 87.6 % (42.2-75.2)
[2016-06-24] MEDS ORDERED: AMLODIPINE BESYL5 M1 PO (09:27)
[2016-06-24 14:22] VITALS: BP 122/68
[2016-06-24 16:01] VITALS: BP 122/68
[2016-06-24 22:28] VITALS: BP 190/70
[2016-06-25 01:21] VITALS: BP 186/70
[2016-06-25 06:48] VITALS: BP 180/60
--- NOTE | 2016-06-25 07:22 | PN- Housestaff ---
RICHIE DELVALLE,OLIVER 06/25/16 0714: Subjective Follow-up For: Hypercarbic respiratory failure from end-stage COPD GI bleed leading to anemia Complaints: no complaints Subjective: Patient seen and examined at bedside this morning. Offers no complaints today, states she slept well. Is looking forward to being discharged today. Bed search to [facility] is pending. Review of Systems Constitutional: Reports: see HPI. Objective Last 24 Hrs of Vital Signs/I&O Vital Signs Date Time Temp Pulse Resp B/P Pulse O2 O2 Flow FiO2 Ox Delivery Rate 06/25 0648 97.8 97 23 180/60 97 Nasal 2.0L Cannula 06/25 0212 101 98 06/25 0121 100 186/70 97 Nasal 2.0L Cannula 06/25 0004 190/70 06/25 0000 Nasal 2.0L Cannula 06/24 2302 103 97 06/24 2228 98.0 97 24 190/70 97 Nasal 2.0L Cannula 06/24 1900 97 Nasal 2.5L Cannula 06/24 1601 98.2 80 20 122/68 06/24 1600 Nasal 2.5L Cannula 06/24 1422 98.2 80 20 122/68 95 02/01 1128 88 174/80 02/ 1044 Nasal 2.5L Cannula 06/24 0905 90 170/70 06/24 0821 95 Nasal 2.5L Cannula 06/24 0800 96 Nasal 2.5L Cannula Intake & Output 06/25 0800 06/25 0000 06/24 1600 Intake Total 120 450 600 Output Total 350 Balance 120 450 250 Intake, Oral 120 450 600 Output, Urine 350 Physical Exam General Appearance: Alert, Oriented X3, Cooperative, No Acute Distress Skin: multiple ecchymoses on b/l LE, right upper forearm healing wound, wrapped in dry sterile bandage HEENT: Atraumatic, PERRLA, EOMI Cardiovascular: Regular Rate, Normal S1, Normal S2 Lungs: decreased air entry b/l Abdomen: Normal Bowel Sounds, Soft, No Tenderness Extremities: No Clubbing, No Cyanosis, No Edema Current Medications: Current Medications Sig/Roge Start time Last Medication Dose Route Stop Time Status Admin Acetaminophen 650 MG .STK-MED ONE 06/24 181 DC PO 06/24 181 Acetaminophen 650 MG Q6P PRN 06/19 1145 AC 06/24 PO 1819 Acetaminophen 1,000 MG Q6P PRN 06/19 1145 AC IV Albuterol Sulfate 3 ML TID 06/19 1600 AC 06/24 INH 1900 Amitriptyline HCl 25 MG QPM 06/19 2200 AC 06/24 PO 2216 Amlodipine Besylate 5 MG ONCE ONE 06/24 2315 DC 06/25 PO 06/24 2316 0004 Amlodipine Besylate 5 MG DAILY 06/24 1000 AC 06/24 PO 1128 Atorvastatin Calcium 10 MG DAILY@1700 06/19 1700 AC 06/24 PO 1819 Azithromycin 250 MG DAILY 06/23 1000 DC 06/24 PO 0906 Budesonide/ 2 PUF BID 06/19 1403 AC 06/24 Formoterol Fumarate INH 2218 Diltiazem HCl 360 MG DAILY 06/20 1000 AC 06/24 PO 0905 Ferrous Sulfate 325 MG BID 06/20 1145 AC 06/24 PO 2216 Hydrochlorothiazide 25 MG DAILY 06/22 1530 AC 06/24 PO 0905 Ibuprofen 400 MG ONCE ONE 06/24 1030 DC 06/24 PO 06/24 1031 1049 Lorazepam 0.5 MG BID 06/19 2200 AC 06/24 PO 06/26 2159 2216 Losartan Potassium 100 MG DAILY 06/23 0800 AC 06/24 PO 0905 Pantoprazole Sodium 40 MG DAILY 06/19 1430 AC 06/24 IV 0906 Paroxetine HCl 40 MG DAILY 06/20 1000 AC 06/24 PO 0905 Patient Medication 1 ED .STK-MED ONE 06/24 1404 DC Teaching ED 06/24 1405 Polyethylene Glycol 17 GM DAILY PRN 06/20 1330 AC 06/24 PO 2216 Potassium Chloride 40 MEQ ONCE ONE 06/24 0915 DC 06/24 PO 06/24 0916 0916 Prednisone 40 MG DAILY 06/23 1000 AC 06/24 PO 0906 Pregabalin 25 MG BID 06/23 2200 AC 06/24 PO 2216 Assessment/Plan Assessment: 75-year-old woman with a history significant for CHF, end stage COPD on 2-3 L of oxygen at baseline, hypertension, was admitted for worsening shortness of breath thought to be secondary to her end-stage COPD. Subsequently she was also found to be anemic, underwent an endoscopy showing erosive gastritis. Transfused 1 unit PRBC. On BiPAP overnight, currently on 2 L nasal cannula saturating well. Assessment- 1. Acute hypoxic and hypercarbic respiratory failure secondary to end-stage COPD 2. Acute on chronic blood loss anemia 3. Diastolic heart failure 4. Hypertension 5. Hyperlipidemia 6. Mood disorder Plan- IV antibiotics and Solu-Medrol have been discontinued; continue slow prednisone taper Completed 5 day course of Azithromysin Continue oxygen supplementation through nasal cannula, BiPAP at night Status post endoscopy in 1 unit PRBC transfusion, continue antireflux regimen and iron supplements, avoid NSAIDs Continue losartan and hydrochlorothiazide given that her creatinine has improved Yesterday during the day, we started her on 5 mg of Norvasc, her blood pressure did improve on it. The team and night had to give her another 5 mg of Norvasc due to systolic blood pressure in the 170s Continue statin Continue Cardizem Continue to taper off Lyrica, d/c on 06/28/16 Awaiting bed placement at [facility] Problem List: 1. Anemia 2. Atypical pneumonia 3. Hypokalemia 4. Hypertension 5. Chronic pain Pain Ratin Pain Location: none Pain Goal: Remain pain free Pain Plan: per emr Tomorrow's Labs & Rationales: none Attending MD Review Statement Attending Statement Attending MD Statement: examined this patient, discuss w/resident/PA/DAT INSTRUCTOR, agreed w/resident/PA/DAT INSTRUCTOR, reviewed EMR data (avail), discussed with nursing, discussed with case mgmt Attending Assessment/Plan: Pt is doing okay. Earlier today she had an episode of hypertension but after she got her meds she is doing okay. She is on hydrochlorothiazide with losartan and we recently added Norvasc and have clearly stated in the discharge summary that the Norvasc can be titrated upwards for hypertension. She is a right posterior forearm hematoma that was seen by wound care and we are going to continue with Xeroform dressings there and to her lower extremities she has a follow-up wound care appointment. She is going to get nocturnal BiPAP, slow prednisone taper and is stable for discharge to [facility] with close outpatient follow -up. MARTHA DELVALLE,SARITA 06/25/16 1444: Attending MD Review Statement Attending Statement Attending MD Statement: examined this patient, discuss w/resident/PA/DAT INSTRUCTOR, agreed w/resident/PA/DAT INSTRUCTOR, reviewed EMR data (avail), discussed with nursing, discussed with case mgmt, reviewed images
--- NOTE | 2016-06-25 08:40 | PN- Pulmonary ---
Subjective HPI/Critical Care Issues: Patient continues to slowly improve awaiting discharged to short-term rehabilitation Objective Current Medications: Current Medications Sig/Roge Start time Last Medication Dose Route Stop Time Status Admin Acetaminophen 650 MG .STK-MED ONE 06/24 1815 DC PO 06/24 1816 Acetaminophen 650 MG Q6P PRN 06/19 1145 AC 06/24 PO 1819 Acetaminophen 1,000 MG Q6P PRN 06/19 1145 AC IV Albuterol Sulfate 3 ML TID 06/19 1600 AC 06/24 INH 1900 Amitriptyline HCl 25 MG QPM 06/19 2200 AC 06/24 PO 2216 Amlodipine Besylate 5 MG ONCE ONE 06/24 2315 DC 06/25 PO 06/24 2316 0004 Amlodipine Besylate 5 MG DAILY 06/24 1000 AC 06/25 PO 0834 Atorvastatin Calcium 10 MG DAILY@1700 06/19 1700 AC 06/24 PO 1819 Azithromycin 250 MG DAILY 06/23 1000 DC 06/24 PO 0906 Budesonide/ 2 PUF BID 06/19 1403 AC 06/25 Formoterol Fumarate INH 0831 Diltiazem HCl 360 MG DAILY 06/20 1000 AC 06/25 PO 0833 Ferrous Sulfate 325 MG BID 06/20 1145 AC 06/25 PO 0834 Hydrochlorothiazide 25 MG DAILY 06/22 1530 AC 06/25 PO 0834 Ibuprofen 400 MG ONCE ONE 06/24 1030 DC 06/24 PO 06/24 1031 1049 Lorazepam 0.5 MG BID 06/19 2200 AC 06/25 PO 06/26 2159 0831 Losartan Potassium 100 MG DAILY 06/23 0800 AC 06/25 PO 0833 Pantoprazole Sodium 40 MG DAILY 06/19 1430 AC 06/25 IV 0829 Paroxetine HCl 40 MG DAILY 06/20 1000 AC 06/25 PO 0834 Patient Medication 1 ED .STK-MED ONE 06/24 1404 DC Teaching ED 06/24 1405 Polyethylene Glycol 17 GM DAILY PRN 06/20 1330 AC 06/24 PO 2216 Potassium Chloride 40 MEQ ONCE ONE 06/24 0915 DC 06/24 PO 06/24 0916 0916 Prednisone 40 MG DAILY 06/23 1000 AC 06/25 PO 0835 Pregabalin 25 MG BID 06/23 2200 AC 06/25 PO 0831 Vital Signs & I&O Last 24 Hrs of Vitals and I&O: Vital Signs Date Time Temp Pulse Resp B/P Pulse O2 O2 Flow FiO2 Ox Delivery Rate 06/25 0834 100 184/62 02 0833 100 184/62 06/25 0648 97.8 97 23 180/60 97 Nasal 2.0L Cannula 06/25 0212 101 98 06/25 0121 100 186/70 97 Nasal 2.0L Cannula 06/25 0004 190/70 06/25 0000 Nasal 2.0L Cannula 06/24 2302 103 97 06/24 2228 98.0 97 24 190/70 97 Nasal 2.0L Cannula 06/24 1900 97 Nasal 2.5L Cannula 06/24 1601 98.2 80 20 122/68 02/ 1600 Nasal 2.5L Cannula 06/24 1422 98.2 80 20 122/68 95 02/ 1128 88 174/80 02/ 1044 Nasal 2.5L Cannula 06/24 0905 90 170/70 Intake & Output 06/25 1600 06/25 0800 06/25 0000 Intake Total 120 450 Output Total Balance 120 450 Intake, Oral 120 450 Ox and saturation 2 L 97% exam for chest shows diminished breath sounds are no wheezes or crackles cardiac exam shows normal S1 and S2 without murmurs Impression/Plan Impression/Plan Impression/Plan: 75-year-old with end-stage COPD chronic hypercapnic respiratory failure respiratory status improved but she continues to appear weak and would likely benefit from short-term rehabilitation Recommendations: Slow steroid taper. Await placement to short-term rehabilitation. Complete course of antibiotics. Patient will be seen in follow-up after discharge from short-term rehabilitation
[2016-06-25 11:53] VITALS: BP 186/62
[2016-06-25 13:38] VITALS: BP 156/68
[2016-06-25 14:50] VITALS: BP 122/68
[2016-06-25 15:19] VITALS: BP 160/60
== END 2016-06-25 16:07 | DRG 189 ==
LOC: ENRESERVDT → ENRESERVTM → ERH 08:39 → 1NO 11:12 → ENPENDDIS 11:12 → ERHI 11:12 → DELPENDDIS 11:12 → 1NO 13:37 → 2NA 06-22 13:28
PROVIDERS: Emergency Medicine; Student in an Organized Health Care Education/Training Program; ADMIT Internal Medicine
PROC: 0DB68ZX Excision of Stomach, Via Natural or Artificial Opening Endoscopic, Diagnostic (ICD-10-PCS; principal; 2016-06-22)
PROC: 0DB98ZX Excision of Duodenum, Via Natural or Artificial Opening Endoscopic, Diagnostic (ICD-10-PCS; principal; 2016-06-22)
DX: J96.21 Acute and chronic respiratory failure with hypoxia (principal); K92.2 Gastrointestinal hemorrhage, unspecified; J44.1 Chronic obstructive pulmonary disease with (acute) exacerbation; I11.0 Hypertensive heart disease with heart failure; I50.32 Chronic diastolic (congestive) heart failure; D62 Acute posthemorrhagic anemia; Z99.81 Dependence on supplemental oxygen; J96.22 Acute and chronic respiratory failure with hypercapnia; I73.9 Peripheral vascular disease, unspecified; M81.0 Age-related osteoporosis without current pathological fracture; F41.9 Anxiety disorder, unspecified; E78.5 Hyperlipidemia, unspecified
CPT/HCPCS: 1NSP; 2NASP; 36415; 82436; 86920; 87040; 87070; 87086; 87449; 87450; 87804; 87804-59; 88305; 88312; 93005; 93010; 96374; 97001-GP; 97116-GO; 97162-GP; 97530-GO; 99291; J0131; J0456; J0696; J2920; J2930; J3490; J7060; P9016

== ENCOUNTER 2016-06-28 23:07 | Emergency (ER) | payer OTHER ==
[~2016-06-28] VITALS: Ht 160 cm; Wt 56.2 kg
[~2016-06-28 23:07] MED LIST changes: +AMITRIPTYLINE H25 M2 PO; +AMLODIPINE BESYL5 M1 PO; +ATORVASTATIN CA10 M1 PO; +AZITHROMYCIN250 M1 PO; +BENADRYL25 MG PO; +CYANOCOBAL1000 MCG/2 IM; +DILTIAZEM 24HR360 MG PO; +FAMOTIDINE20 M1 PO; +FERROUS SULFAT325 M3 PO; +LYRICA50 M1 PO; +OMEPRAZOLE20 M2 PO; +OS-CAL 500+D31 EAC1 PO; +PAROXETINE HCL40 M1 PO; +PREDNISONE2.5 M1 PO
--- NOTE | 2016-06-28 23:32 | ED UPPER/LOWER EXTREMITY COMPL ---
History of Present Illness General Chief Complaint: Lower Extremity Problems Stated Complaint: BIBA LEG PAIN, R/O DVT Source: patient Exam Limitations: no limitations Vital Signs & Intake/Output Vital Signs & Intake/Output Vital Signs Date Time Temp Pulse Resp B/P Pulse O2 O2 Flow FiO2 Ox Delivery Rate 06/28 2312 97.4 90 18 163/53 95 Nasal 2.0L Cannula ED Intake and Output 06/29 0000 06/28 1200 Intake Total Output Total Balance Patient 124 lb Weight Allergies Coded Allergies: bacitracin (From NEOSPORIN ([id number])) (rash 09/23/15) neomycin (From NEOSPORIN ([id number])) (rash 09/23/15) penicillin V (SWELLING ALL OVER AND ITCHING 09/23/15) polymyxin B (From NEOSPORIN ([id number])) (rash 09/23/15) cortisone (THRUSH 09/23/15) duloxetine (GI DISTRESS 09/23/15) moxifloxacin (From AVELOX) (STOMACH SICK 09/23/15) Reconcile Medications Albuterol Sulfate (Albuterol Sulfate Hfa) 0.09 MG/Actuation CHELSEA 2 PUFF INH PRN COPD (Reported) 90 MCG PER PUFF Albuterol Sulfate (Proventil) 2.5 MG/3 ML NEB 3 ML INH EVERY 4 HRS/AWAKE PRN COPD Amitriptyline HCl 25 MG TABLET 1 TAB PO QPM UNKNOWN (Reported) Amlodipine Besylate 5 MG TABLET 5 MG PO DAILY blood pressure Aspirin (Aspirin*) 81 MG TAB.CHEW 81 MG PO DAILY HEART HEALTH Atorvastatin Calcium 10 MG TABLET 1 TAB PO DAILY CHOLESTEROL (Reported) Calcium Carbonate/Vitamin D3 (Os-Napoleon 500+D3 Caplet) 500 MG-200 TABLET 1 TAB PO BID SUPPLEMENT (Reported) Cyanocobalamin (Vitamin B-12) (Cyanocobalamin Injection) 1,000 MCG/ML VIAL 1 ML IM Q30D SUPPLEMENT (Reported) Diltiazem HCl (Diltiazem 24HR ER) 360 MG CAP.ER.24H 1 CAP PO DAILY HEART ( Reported) Ferrous Sulfate 325 MG (65 MG IRON) TABLET 1 TAB PO DAILY ANEMIA (Reported) Fluticasone-Salmeterol (Advair 500-50 Diskus) 1 UNIT UNIT 1 PUF INH BID COPD (Reported) Hydrochlorothiazide 25 MG TABLET 1 TAB PO DAILY WATER PILL (Reported) Lorazepam (Ativan) 0.5 MG TAB 1 TAB PO BID ANXIETY (Reported) Losartan (Cozaar) 100 MG TABLET 100 MG PO DAILY HIGH BLOOD PRESSURE Multivitamin (One Daily Multivitamin) 1 TAB TAB 1 TAB PO DAILY SUPPLEMENT ( Reported) Omeprazole 20 MG CAPSULE.DR 1 CAP PO DAILY HEARTBURN Paroxetine HCl 40 MG TABLET 1 TAB PO AT BEDTIME DEPRESSION (Reported) Prednisone 10 MG TABLET 1 TAB PO SEE ADMIN CRITERIA copd take 3 TABS X 2 DAYS 2 TABS X 2 DAYS tHEN CONTINUE WITH 10 MG(1 TAB) OF PREDNISONE DAILY FOR copd Pregabalin (Lyrica) 50 MG CAPSULE 0.5 CAP PO BID PAIN (Reported) Stop lyrica on 06/28/16 Tiotropium Mellen (Spiriva) 18 MCG CAP 1 CAP INH DAILY COPD (Reported) Triage Note: [facility] TO [facility]. C/O PAIN TO R SALDANA ON PALPATION, R SALDANA WARM TO TOUCH. HX OF HTN,PVD,COPD. PT ON O2 3L NC AT BASELINE, O2SAT 95% ON 2L NC IN TRIAGE. VSS. ALSO PT HAS WOUND TO R FOREARM COVERED WITH DRESSING. PT WOULD LIKE TO GET IT CHECKED. Triage Nurses Notes Reviewed? yes Onset: Gradual Duration: day(s): Timing: recent history Severity: mild Pain/Injury Location: Right: Leg. Method of Injury: unknown Modifying Factors: Improves With: rest. HPI: 76-year-old woman history of peripheral vascular disease and chronic home oxygen , presents with right leg pain for the past 3 weeks. She does not note any trauma, swelling, redness. She notes, "the pain comes and goes for the past few weeks." She is otherwise well and has no other concerns. Past History Travel History Traveled to [place] past 21 day No Medical History Any Pertinent Medical History? see below for history Neurological: NONE EENT: NONE Cardiovascular: PVD, hypertension diastolic dysfunction Respiratory: COPD, bilateral pulmonary nodules HOME 02 DEPENDENT Gastrointestinal: NONE Hepatic: NONE Renal: nephrolithiasis Musculoskeletal: osteomyelitis Psychiatric: anxiety Endocrine: NONE Blood Disorders: NONE Cancer(s): NONE EXCAVATOR OPERATOR/Reproductive: HYSTERECTOMY History of MRSA: No History of VRE: No History of CDIFF: No Surgical History Surgical History: Right hip ORIF 04/2015 Left 5th toe amputation Left eye lens implant Left hip ORIF Mar 2002 SAMUEL HIP REPLACEMENTS Psychosocial History Who do you live with Patient/Self Services at Home visiting nurse What is your primary language Romanian Tobacco Use: Quit >30 days ago Family History Family History, If Any: MOTHER FH: diabetes mellitus Hx Contributory? No Review of Systems Review of Systems Constitutional: Reports: no symptoms. EENTM: Reports: no symptoms. Respiratory: Reports: no symptoms. Cardiovascular: Reports: no symptoms. Gastrointestinal/Abdominal: Reports: no symptoms. Genitourinary: Reports: no symptoms. Musculoskeletal: Reports: no symptoms. Skin: Reports: no symptoms. Neurological/Psychological: Reports: no symptoms. Hematologic/Endocrine: Reports: no symptoms. Immunological: Reports: no symptoms. All Other Systems: Reviewed and Negative Physical Exam Physical Exam General Appearance: well developed/nourished, mild distress Head: atraumatic Eyes: Bilateral: normal appearance. Ears, Nose, Throat: normal pharynx, normal ENT inspection, hearing grossly normal Neck: normal inspection, supple Cardiovascular/Respiratory: regular rate/rhythm Back: normal inspection Leg Right: multiple ecchymoses. No edema bilaterally. Both legs are warm distally with 1-2+ distal pulses bilaterally. Range of motion is normal. There is mild muscle spasm in the right calf muscles. Negative Homans sign Skin: intact, normal color, warm/dry Lymphatic: no anterior cervical radha Progress Differential Diagnosis: contusion, DVT, sprain Plan of Care: Bedside ultrasound by EDMD does not reveal any obvious DVT. I discussed this with the patient. I referred her to have a radiologic Doppler ultrasound in the department later on this morning. Departure Departure Disposition: HOME OR SELF CARE Condition: Stable Clinical Impression Primary Impression: Muscle spasm Secondary Impressions: Right leg pain Referrals: NATALIIA DELVALLE,KAREN Kay (PCP/Family) Departure Forms: Customer Survey General Discharge Information
[2016-06-29 01:50] VITALS: BP 156/60
== END 2016-06-29 02:05 ==
LOC: ERH 23:07
DX: M62.838 Other muscle spasm (principal); M79.604 Pain in right leg

== ENCOUNTER 2016-07-07 10:36 | Inpatient (IN) | payer OTHER ==
[~2016-07-07] VITALS: Ht 160 cm; Wt 58.1 kg
--- NOTE | 2016-07-07 10:53 | ED DYSPNEA/ASTHMA COMPLAINT ---
History of Present Illness General Chief Complaint: Dyspnea (COPD, CHF, Other) Stated Complaint: SOB Source: patient, family, old records Exam Limitations: no limitations Vital Signs & Intake/Output Vital Signs & Intake/Output Vital Signs Date Time Temp Pulse Resp B/P Pulse O2 O2 Flow FiO2 Ox Delivery Rate 07/07 1747 98.1 112 24 96 Nasal 3.0L Cannula 07/07 1706 Nasal 3.0L Cannula 07/07 1705 120 24 144/68 97 Venti Mask 40% 07/07 1345 94 26 145/86 93 Nasal 3.0L Cannula 07/07 1319 100.2 124 18 92 Nasal 3.0L Cannula 07/07 1149 98 Nasal 3.5L Cannula 07/07 1051 98.8 125 20 193/80 95 Room Air Allergies Coded Allergies: bacitracin (From NEOSPORIN ([id number])) (rash 09/23/15) neomycin (From NEOSPORIN ([id number])) (rash 09/23/15) penicillin V (SWELLING ALL OVER AND ITCHING 09/23/15) polymyxin B (From NEOSPORIN ([id number])) (rash 09/23/15) cortisone (THRUSH 09/23/15) duloxetine (GI DISTRESS 09/23/15) moxifloxacin (From AVELOX) (STOMACH SICK 09/23/15) Triage Nurses Notes Reviewed? yes Onset: Gradual Duration: getting worse Timing: recent history Severity: severe Activities at Onset: none Prior Episodes/Possible Cause: frequent episodes, chronic episodes HPI: Patient is a 76-year-old female with a past medical history of COPD currently on 4 L of oxygen at all times, diastolic stage I CHF, chronic respiratory failure, alcohol dependency, hypertension, peripheral vascular disease, vertigo, nephrolithiasis, who is a former smoker who presents to emergency room with concerns of dyspnea fevers chills and cough. Patient presents from [facility] for concerns of hypoxia noted to be shaking using accessory muscles to breathe heart rate 130s oxygen saturation 85% on 4 L nebulizer treatment improved SPO2 however patient still has continued dyspnea. Patient complains of productive yellow green cough. Chills and fevers. Denies any chest pain arm pain jaw pain nausea vomiting leg swelling hemoptysis. (TINO MARLEY,ELIEZER) Reconcile Medications Albuterol Sulfate (Albuterol Sulfate Hfa) 0.09 MG/Actuation CHELSEA 2 PUFF INH PRN COPD (Reported) 90 MCG PER PUFF Albuterol Sulfate (Proventil) 2.5 MG/3 ML NEB 3 ML INH EVERY 4 HRS/AWAKE PRN COPD Amitriptyline HCl 25 MG TABLET 1 TAB PO QPM depression (Reported) Amlodipine Besylate 5 MG TABLET 5 MG PO DAILY blood pressure Aspirin (Aspirin*) 81 MG TAB.CHEW 81 MG PO DAILY HEART HEALTH Atorvastatin Calcium 10 MG TABLET 1 TAB PO DAILY CHOLESTEROL (Reported) Calcium Carbonate/Vitamin D3 (Os-Napoleon 500+D3 Caplet) 500 MG-200 TABLET 1 TAB PO BID SUPPLEMENT (Reported) Cyanocobalamin (Vitamin B-12) (Cyanocobalamin Injection) 1,000 MCG/ML VIAL 1 ML IM Q30D SUPPLEMENT (Reported) Diltiazem HCl (Diltiazem 24HR ER) 360 MG CAP.ER.24H 1 CAP PO DAILY HEART ( Reported) Ferrous Sulfate 325 MG (65 MG IRON) TABLET 1 TAB PO DAILY ANEMIA (Reported) Fluticasone-Salmeterol (Advair 500-50 Diskus) 1 UNIT UNIT 1 PUF INH BID COPD (Reported) Hydrochlorothiazide 25 MG TABLET 1 TAB PO DAILY WATER PILL (Reported) Lorazepam (Ativan) 0.5 MG TAB 1 TAB PO BID ANXIETY (Reported) Losartan (Cozaar) 100 MG TABLET 100 MG PO DAILY HIGH BLOOD PRESSURE Multivitamin (One Daily Multivitamin) 1 TAB TAB 1 TAB PO DAILY SUPPLEMENT ( Reported) Omeprazole 20 MG CAPSULE.DR 1 CAP PO DAILY HEARTBURN Paroxetine HCl 40 MG TABLET 1 TAB PO AT BEDTIME DEPRESSION (Reported) Prednisone 10 MG TABLET 1 TAB PO SEE ADMIN CRITERIA copd take 3 TABS X 2 DAYS 2 TABS X 2 DAYS tHEN CONTINUE WITH 10 MG(1 TAB) OF PREDNISONE DAILY FOR copd Pregabalin (Lyrica) 50 MG CAPSULE 0.5 CAP PO BID PAIN (Reported) Stop lyrica on 06/28/16 Tiotropium [place] (Spiriva) 18 MCG CAP 1 CAP INH DAILY COPD (Reported) (WASHINGTON CORREA DO) Past History Travel History Traveled to [place] past 21 day No Medical History Any Pertinent Medical History? 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 No (ELIEZER GUAMAN) Review of Systems Review of Systems Constitutional: Reports: no symptoms. EENTM: Reports: no symptoms. Respiratory: Reports: see HPI, short of breath, wheezing. Cardiovascular: Reports: no symptoms. GI: Reports: no symptoms. Genitourinary: Reports: no symptoms. Musculoskeletal: Reports: no symptoms. Skin: Reports: no symptoms. Neurological/Psychological: Reports: no symptoms. Hematologic/Endocrine: Reports: no symptoms. Immunologic/Allergic: Reports: no symptoms. All Other Systems: Reviewed and Negative (ELIEZER GUAMAN) Physical Exam Physical Exam General Appearance: cachetic, mild distress Respiratory: respiratory distress (MILD) Comments: HEENT: Normal EENT exam, Neck: Supple, no lymphadenopathy, normal range of motion without pain or tenderness Back: Nontender, no CVA tenderness. Cardiovascular: Tachycardia no murmurs rubs or gallops, normal JVP Abdomen: Soft, nontender nondistended, no appreciable organomegaly. Normal bowel sounds. No ascites Extremity: No edema, no calf tenderness to palpation, normal and equal pulses. Neuro: Alert oriented x3, motor sensory normal, Skin: No appreciable rash on exposed skin, skin is warm and dry. Psych: Mood and affect is normal, memory and judgment is normal. Core Measures ACS in differential dx? No Severe Sepsis Present: No Septic Shock Present: No (ELIEZER GUAMAN) Progress Differential Diagnosis: asthma, AMI, bronchitis, costochondritis, CHF, COPD, musculoskeletal pain, pericarditis, pulmonary embolism, pneumonia, pneumothorax, rib fracture, unstable angina Plan of Care: Orders Procedure Date/time Status CBC WITHOUT DIFFERENTIAL 07/08 06 Active BASIC ELECTROLYTES PLUS BUN&CR 07/08 599 Active Heart Healthy Diet 07/07 D Active Pathway - chart 02/14 1717 Active RT: Evaluation 07/07 1705 Active TRC EVALUATION (GEN) 07/07 1459 Complete Pathway - chart 07/07 1453 Active URINALYSIS 07/07 1453 Active Admit to inpatient 07/07 1436 Active Vital Signs 07/07 1436 Active Code Status 07/07 1436 Active Patient Data 07/07 1352 Active Telemetry/Applications Support Analyst 07/07 1055 Active RAPID VIRAL INFLUENZA A 07/07 1054 Active LOWER RESPIRATORY CULTURE 07/07 1054 Active BLOOD CULTURE 07/07 1054 Active B-TYPE NATRIURETIC PEP (BNP) 07/07 1052 Complete TROPONIN LEVEL 07/07 1037 Complete COMPREHENSIVE METABOLIC PANEL 07/07 1037 Complete CBC WITHOUT DIFFERENTIAL 07/07 1037 Complete EKG 07/07 1037 Active THERAPIST ORDERS 07/07 UNK Complete House Staff 07/07 UNK Active VTE Mechanical Prophylaxis 07/07 UNK Active Intake & Output 07/07 UNK Active PHYSICIAN CONSULT 07/07 UNK Active Current Medications Sig/Roge Start time Last Medication Dose Stop Time Status Admin Amlodipine Besylate 5 MG DAILY 07/08 1000 UNVr (Norvasc) Aspirin 81 MG DAILY 07/08 1000 UNVr (Aspirin) Atorvastatin Calcium 10 MG DAILY 07/08 1000 UNVr (Lipitor) Azithromycin 500 MG DAILY 07/08 1000 AC (Zithromax) Dextrose/Water 250 ML (D5W) Ceftriaxone Sodium 1,000 MG DAILY 07/08 1000 CAN (Rocephin) Diltiazem HCl 360 MG DAILY 07/08 1000 UNVr (Cardizem CD) Enoxaparin Sodium 40 MG DAILY 07/08 1000 AC (Lovenox) Ferrous Sulfate 325 MG DAILY 07/08 1000 UNVr (Feosol) Losartan Potassium 100 MG DAILY 07/08 1000 UNVr (Cozaar) Multivitamins 1 TAB DAILY 07/08 1000 UNVr Therapeutic (Theragran-M Vitamins Tabs) Omeprazole 20 MG DAILY 07/08 1000 UNVr (Prilosec) Tiotropium [place] 1 PUF DAILY 07/08 1000 UNVr (Spiriva) Methylprednisolone 40 MG Q8 07/08 0600 AC (Solumedrol) Amitriptyline HCl 25 MG QPM 07/07 2200 UNVr (Elavil 25 Mg. Tablet) Calcium/Vitamin D 1 TAB BID 07/07 2200 UNVr (Caltrate 600 + D) Paroxetine HCl 40 MG AT BEDTIME 02/14 2200 UNVr (Paxil) Pregabalin 25 MG BID 07/07 2199 UNVr (Lyrica) Albuterol Sulfate 3 ML EVERY 4 HRS/AWAKE 07/07 1999 UNV (Proventil) Acetaminophen 650 MG Q6P PRN 07/07 173 UNVr (Tylenol) Ibuprofen 600 MG Q6P PRN 07/07 173 UNVr (Motrin) Oxycodone/ 1 TAB Q6P PRN 07/07 173 UNVr Acetaminophen (Percocet) Lorazepam 0.5 MG BID PRN 07/07 171 UNVr (Ativan) 07/14 1713 Albuterol Sulfate 3 ML EVERY 4 HRS/AWAKE .. 07/07 1530 AC (Proventil) Budesonide/ 2 PUF BID 07/07 1518 AC Formoterol Fumarate (Symbicort) Laboratory Tests 07/07/16 1054: Zvf-M-Khjmgwqurft Pept Cancelled 07/07/16 1052: Anion Gap 8, Estimated GFR > 60, BUN/Creatinine Ratio 44.3 H, Glucose 103 H, Calcium 8.6, Total Bilirubin 0.3, AST 35, ALT 34, Alkaline Phosphatase 67, Troponin I 0.06, Bts-L-Gbvinmcwwbp Pept 845 H, Total Protein 6.0 L, Albumin 3.6, Globulin 2.4, Albumin/Globulin Ratio 1.5, CBC w Diff NO MAN DIFF REQ, RBC 2.70 L, MCV 94.1, MCH 30.0, RDW 14.5, MPV 8.1, Gran % 84.3 H, Lymphocytes % 7.9 L, Monocytes % 6.3, Eosinophils % 1.5, Basophils % 0 L, Absolute Granulocytes 6.6 H, Absolute Lymphocytes 0.6 L, Absolute Monocytes 0.5, Absolute Eosinophils 0.1, Absolute Basophils 0, PUBS MCHC 31.9 L Microbiology 07/07 1119 BLOOD: Blood Culture - RECD 07/07 1054 LOWER RESP: Respiratory Culture - ORD 07/07 1054 LOWER RESP: Gram Stain - ORD 07/07 1052 BLOOD: Blood Culture - RECD Patient initially presented with mild respiratory distress and significant wheezing noted. Patient was given nebulizer treatments and steroids with no resolution high flow oxygen was administered at 6 L patient's oxygen saturation was 89% in which patient did respond to 92%. Patient will be admitted for concerns of COPD exacerbation with concerns of bronchitis. Outpatient treatment at this time would be medically harmful due to failed outpatient treatment of steroids and nebulizer treatments and concerns of comorbidities. (ELIEZER GUAMAN) Diagnostic Imaging: Viewed by Me: Radiology Read. Radiology Impression: SEE COMMENTS Initial ED EKG: SINUS TACHYCARDIA 112 BPM Comments: PATIENT: LILA GRIFFIN PRESENT AGE: 76 PATIENT ACCOUNT NO: [id number] : 38 LOCATION: [facility] ORDERING PHYSICIAN: ELIEZER MARLEY SERVICE DATE: 07/07/16 EXAM TYPE: RAD - XRY-PORTABLE CHEST XRAY EXAMINATION: XR PORTABLE CHEST CLINICAL INFORMATION: Shortness of breath. COMPARISON: 06/21/2016 TECHNIQUE: AP portable upright view of the chest FINDINGS: Lungs are hyperexpanded. Small pleural effusions are again likely present with adjacent atelectasis. Superimposed consolidation is possible. Cardiac silhouette remains prominent, unchanged. There is pulmonary venous congestion without dominique pulmonary edema. No pneumothorax. Bones are osteopenic. Chronic changes of a right rotator cuff tear are evident. IMPRESSION: 1. Pulmonary venous congestion, small pleural effusions and mild bibasilar atelectasis. No significant pulmonary edema. Superimposed consolidation in the lung bases is possible. 2. Hyperexpanded lungs, unchanged. (ELIEZER GUAMAN) Departure Departure Disposition: STILL A PATIENT Condition: Guarded Clinical Impression Primary Impression: COPD (chronic obstructive pulmonary disease) Secondary Impressions: Bronchitis Referrals: ISELA NATION MD (PCP/Family) Departure Forms: Customer Survey General Discharge Information Admission Note Spoke With: DANIEL MUNSON MD Documentation of Exam: Documentation of any treatments & extenuating circumstances including Concerns Regarding Discharge (functional status, medication knowledge or non-compliance, living conditions, etc.) that warrant an admission rather than observation: [ Discussed patient with Dr. DERAS who agrees with general medicine admission for this is COPD and bronchitis. Patient requires IV steroids, nebulizer treatments , pulmonary consultation IV antibiotics and repeat labs. Outpatient treatment at this time due to comorbidities and respiratory distress and failed outpatient treatment of COPD would be medically harmful] (ELIEZER GUAMAN) PA/POWER DIGGER OPERATOR Co-Sign Statement Statement: ED Attending supervision documentation- [X] I saw and evaluated the patient. I have also reviewed all the pertinent lab results and diagnostic results. I agree with the findings and the plan of care as documented in the PA's/POWER DIGGER OPERATOR's documentation. [] I have reviewed the ED Record and agree with the PA's/POWER DIGGER OPERATOR's documentation. [] Additions or exceptions (if any) to the PAs/POWER DIGGER OPERATOR's note and plan are summarized below: [] (MADELINE WISE,WASHINGTON Gutierrez) Critical Care Note Critical Care Note Critical Care Time: 30-74 min (ELIEZER GUAMAN)
[2016-07-07 11:07] LABS: ABSOLUTE BASOPHIL COUNT 0 /CUMM (0.0-0.2); ABSOLUTE EOSINOPHIL COUNT 0.1 /CUMM (0.0-0.7); ABSOLUTE GRANULOCYTE CT 6.6 /CUMM (1.4-6.5); ABSOLUTE LYMPH COUNT 0.6 /CUMM (1.2-3.4); ABSOLUTE MONOCYTE COUNT 0.5 /CUMM (0.10-0.60); BASOPHIL % 0 % (0.0-2.0); EOSINOPHIL % 1.5 % (0-5); GRANULOCYTE % 84.3 % (42.2-75.2); MEAN CORPUSCULAR HGB CONC 31.9 G/DL (33.0-37.0); MEAN CORPUSCULAR VOLUME 94.1 FL (81.0-99.0); MEAN PLATELET VOLUME 8.1 FL (7.4-10.4); PLATELET COUNT 199 /CUMM (130-400); RBC DISTRIBUTION WIDTH 14.5 % (11.5-14.5); WHITE BLOOD CELL COUNT 7.9 /CUMM (4.8-10.8)
[2016-07-07 11:25] LABS: HEMATOCRIT 25.4 % (37-47)
--- NOTE | 2016-07-07 12:20 | RADIOLOGY REPORT ---
EXAMINATION: XR PORTABLE CHEST CLINICAL INFORMATION: Shortness of breath. COMPARISON: 06/21/2016 TECHNIQUE: AP portable upright view of the chest FINDINGS: Lungs are hyperexpanded. Small pleural effusions are again likely present with adjacent atelectasis. Superimposed consolidation is possible. Cardiac silhouette remains prominent, unchanged. There is pulmonary venous congestion without dominique pulmonary edema. No pneumothorax. Bones are osteopenic. Chronic changes of a right rotator cuff tear are evident. IMPRESSION: 1. Pulmonary venous congestion, small pleural effusions and mild bibasilar atelectasis. No significant pulmonary edema. Superimposed consolidation in the lung bases is possible. 2. Hyperexpanded lungs, unchanged.
--- NOTE | 2016-07-07 14:58 | History & Physical ---
SHAUNNA MARTINEZ 07/07/16 1458: General Information and HPI MD Statement: I have seen and personally examined LILA HAYS and documented this H&P. The patient is a 76 year old F who presented with a patient stated chief complaint of shortness of breath, fever, chills, cough Source of Information: patient, old records Exam Limitations: no limitations History of Present Illness: Mrs. Hays is a 76-year-old woman who was known to be in her usual state of health until 3 days ago. She has a past medical history of COPD (3 L home oxygen), HFpEF, peripheral vascular disease, osteoporosis, anxiety, recent admission to [facility] approximately 2 weeks ago for COPD exacerbation. She was brought from [facility] with a chief concern of shortness of breath, fever, cough 2-3 days. As per the patient, she did not have any complaints after she was discharged from [facility] to [facility]. Approximately 3 days ago, she developed acute onset of shortness of breath on exertion (walking indoors) which progressed to shortness of breath at rest. Also was concerned about cough (chronic), productive, noted color change recently from colorless to yellow-green. Reported fever (recorded temperature 99.2), associated with chills. Reported decreased by mouth intake. No abdominal pain, no change in bowel or bladder habits. No nausea or vomiting. Reports sick contacts. No chest pain, palpitation. No malnea, No brbpr. As per ER notes, oxygen saturation (recorded) was 85% on 4 L and heart rate 130 at [facility] this am, and hence the patient was brought to the emergency room for evaluation. Former smoker. Sees Dr. Forrest (cardiology), Dr. Alfaro (pulmonology), Dr Oviedo (vascular), Dr Hernandez (PCP). Allergies/Medications Allergies: Coded Allergies: bacitracin (From NEOSPORIN ([id number])) (rash 09/23/15) neomycin (From NEOSPORIN ([id number])) (rash 09/23/15) penicillin V (SWELLING ALL OVER AND ITCHING 09/23/15) polymyxin B (From NEOSPORIN ([id number])) (rash 09/23/15) cortisone (THRUSH 09/23/15) duloxetine (GI DISTRESS 09/23/15) moxifloxacin (From AVELOX) (STOMACH SICK 09/23/15) Home Med list Albuterol Sulfate (Albuterol Sulfate Hfa) 0.09 MG/Actuation CHELSEA 2 PUFF INH PRN COPD (Reported) 90 MCG PER PUFF Albuterol Sulfate (Proventil) 2.5 MG/3 ML NEB 3 ML INH EVERY 4 HRS/AWAKE PRN COPD Amitriptyline HCl 25 MG TABLET 1 TAB PO QPM depression (Reported) Amlodipine Besylate 5 MG TABLET 5 MG PO DAILY blood pressure Aspirin (Aspirin*) 81 MG TAB.CHEW 81 MG PO DAILY HEART HEALTH Atorvastatin Calcium 10 MG TABLET 1 TAB PO DAILY CHOLESTEROL (Reported) Calcium Carbonate/Vitamin D3 (Os-Napoleon 500+D3 Caplet) 500 MG-200 TABLET 1 TAB PO BID SUPPLEMENT (Reported) Cyanocobalamin (Vitamin B-12) (Cyanocobalamin Injection) 1,000 MCG/ML VIAL 1 ML IM Q30D SUPPLEMENT (Reported) Diltiazem HCl (Diltiazem 24HR ER) 360 MG CAP.ER.24H 1 CAP PO DAILY HEART ( Reported) Ferrous Sulfate 325 MG (65 MG IRON) TABLET 1 TAB PO DAILY ANEMIA (Reported) Fluticasone-Salmeterol (Advair 500-50 Diskus) 1 UNIT UNIT 1 PUF INH BID COPD (Reported) Hydrochlorothiazide 25 MG TABLET 1 TAB PO DAILY WATER PILL (Reported) Lorazepam (Ativan) 0.5 MG TAB 1 TAB PO BID ANXIETY (Reported) Losartan (Cozaar) 100 MG TABLET 100 MG PO DAILY HIGH BLOOD PRESSURE Multivitamin (One Daily Multivitamin) 1 TAB TAB 1 TAB PO DAILY SUPPLEMENT ( Reported) Omeprazole 20 MG CAPSULE.DR 1 CAP PO DAILY HEARTBURN Paroxetine HCl 40 MG TABLET 1 TAB PO AT BEDTIME DEPRESSION (Reported) Prednisone 10 MG TABLET 1 TAB PO SEE ADMIN CRITERIA copd take 3 TABS X 2 DAYS 2 TABS X 2 DAYS tHEN CONTINUE WITH 10 MG(1 TAB) OF PREDNISONE DAILY FOR copd Pregabalin (Lyrica) 50 MG CAPSULE 0.5 CAP PO BID PAIN (Reported) Stop lyrica on 06/28/16 Tiotropium [place] (Spiriva) 18 MCG CAP 1 CAP INH DAILY COPD (Reported) Past History Travel History Traveled to [place] past 21 day No Medical History Neurological: NONE EENT: NONE Cardiovascular: CAD, diastolic CHF, PVD, hypertension diastolic dysfunction Respiratory: COPD, bilateral pulmonary nodules HOME 02 DEPENDENT Gastrointestinal: NONE Hepatic: NONE Renal: nephrolithiasis (s/p ESWL) Musculoskeletal: osteomyelitis, osteoporosis Psychiatric: anxiety Endocrine: NONE Blood Disorders: NONE Cancer(s): NONE DOCUMENTATION SPEC/Reproductive: HYSTERECTOMY History of MRSA: No History of VRE: No History of CDIFF: No Surgical History Surgical History: Right hip ORIF Left 5th toe amputation Left eye lens implant Left hip ORIF Mar 2002 SAMUEL HIP REPLACEMENTS Past Family/Social History Family History Relations & Conditions if any MOTHER FH: diabetes mellitus Psychosocial History Who Do You Live With? self Services at Home: visiting nurse Primary Language: Paraguayan Living Will? In progress Power of Chocolate Packer/HCP? yes Name of POA/HCP: Marco and Kevin Gunter of the 3sons. Functional Ability ADLs Independent: dressing, eating, toileting, bathing. Ambulation: Rolling walker with sit IADLs Independent: telephone. Needs Assist: shopping, housework, finances, food prep, transportation, medication admin. Review of Systems Review of Systems Constitutional: Reports: see HPI, chills, fever. EENTM: Denies: visual changes. Cardiovascular: Denies: chest pain, edema, palpitations, syncope. Respiratory: Reports: cough. Denies: hemoptysis, orthopnea. GI: Denies: abdominal pain, diarrhea, melena, nausea, bloody stool. Genitourinary: Denies: dysuria. Musculoskeletal: Denies: back pain, muscle pain. Skin: Denies: jaundice. Neurological/Psychological: Reports: anxiety. Denies: headache, paresthesia. Hematologic/Endocrine: Denies: bruising, bleeding. Exam & Diagnostic Data Last 24 Hrs of Vital Signs/I&O Vital Signs Date Time Temp Pulse Resp B/P Pulse O2 O2 Flow FiO2 Ox Delivery Rate 07/07 1706 Nasal 3.0L Cannula 07/07 1705 120 24 144/68 97 Venti Mask 40% 07/07 1345 94 26 145/86 93 Nasal 3.0L Cannula 07/07 1319 100.2 124 18 92 Nasal 3.0L Cannula 07/07 1149 98 Nasal 3.5L Cannula 07/07 1051 98.8 125 20 193/80 95 Room Air Intake & Output 07/07 1600 07/07 0800 07/07 0000 Intake Total 250 Output Total Balance 250 Intake, IV 250 Physical Exam General Appearance Alert, Oriented X3, Cooperative, Mild Distress Skin No Rashes HEENT Atraumatic, PERRLA, EOMI, Mucous Membr. moist/pink Neck Supple, No JVD, No thryomegaly, +2 Carotid Pulse wo Bruit Lymphatic Cervical nl Cardiovascular Regular Rate, Normal S1, Normal S2, No Murmurs, tachycardia Lungs decreased air entry b/l ronchi both inspiratory and expiratory rales b/l, accessory muscle use Abdomen Normal Bowel Sounds, Soft, No Tenderness, No Hepatospenomegaly, No Masses Neurological Normal Gait, Normal Speech, Strength at 5/5 X4 Ext, Normal Tone, Sensation Intact, Cranial Nerves 3-12 NL, Reflexes 2+ Extremities No Clubbing, No Cyanosis, No Edema, Normal Pulses Vascular ABSENT PULSES B/L DORSALIS PEDIS Body Front and Back (Adult) 1) ulcer on the lower extremity 2) echymoses Diagnostic Data EKG Results Pulse rate-112, MN interval 136, QTC 443, no ST-T wave changes. CXR Results RAD - XRY-PORTABLE CHEST XRAY 1. Pulmonary venous congestion, small pleural effusions and mild bibasilar atelectasis. No significant pulmonary edema. Superimposed consolidation in the lung bases is possible. 2. Hyperexpanded lungs, unchanged. Other Results CAT - CT CHEST WO IV CONTRAST 1. Emphysematous change of lung. 2. Bibasilar atelectasis. Reticular and tree-in-bud opacities in the lung bases bilaterally consistent with endobronchial disease. 3. Stable bilateral calcified granuloma and small lung nodules. Assessment/Plan Assessment: She is an older woman with a past history of COPD (end-stage),HFpEF, peripheral vascular disease is being evaluated for acute onset of shortness of breath, cough and fever. Found to be hypoxemic-85% on 4 L prior to admission. At the time of admission, vitals-temperature 98.8, pulse rate 125 (improved to 94), respiratory rate 20, blood pressure 193/80 (improved to 144/68), on lung examination-low air entry bilaterally, associated with bilateral rhonchi and rales. Lab findings indicated WBC 7.9, hemoglobin 8.1 (9.7-lymoannz-xvhblf anemia of chronic disease), platelets 199 (baseline 300), normal electrolytes-sodium 139, potassium 3.5, bicarbonate 38 (baseline 40-likely because of metabolic compensation due to COPD), normal renal function-BU and 31, serum creatinine 0.7. Urine function test-AST 35, AST 34, alkaline phosphatase 67, normal cardiac enzymes troponin 0.01, proBNP 845-slightly elevated (913 baseline). Iron 19, ferritin 71.9, TIBC 288, MCV-94.1 (normocytic normochromic anemia). Radiological findings-chest x-ray reviewed pulmonary venous congestion, small pleural effusion with superimposed consolidation and hyperexpanded lungs. CT chest revealed emphysematous changes, likely endobronchial disease pattern, calcified granuloma. Last echocardiogram done in 2016 deviate left ventricular ejection fraction of 55% and right ventricular pressure of 34. EKG revealed normal sinus rhythm, pulse rate 112, QTc 443, no ST-T wave changes were noted. Differential diagnosis: #1 COPD exacerbation #2 infections bronchiolitis Below the problem list and plan: #1 shortness of breath, cough-acute hypoxic respiratory failure, physical examination findings and CT findings are suggestive of COPD exacerbation and or infective bronchiolitis. Patient has been started on intravenous steroids-Solu- Medrol. Change to 40 mg every 8 in the a.m. Continue azithromycin IV. TRC nebs. Sputum cultures, blood cultures. Pulmonary consult to be obtained in the a.m. for advice. Elevated bicarbonate, continue to monitor. Oral prednisone on hold. #2 lower extremity ulcers-likely due to peripheral vascular disease. May consider getting bilateral lower extremity arterial Dopplers. Wound care consult. Patient currently on 10 mg Lipitor, which could be increased to high- intensity statin. Continue aspirin low-dose. Consider evaluation by vascular surgeon, after reviewing the results. #3 hypertension-continue losartan, and Cardizem 360 mg by mouth daily (unsure of the reason for choice of Cardizem, likely explanation is to avoid a beta dev perhaps). Hydrochlorothiazide held at this time. #4 anemia-likely anemia of chronic disease. Low iron, ferritin, normal TIBC with normal reticulocyte count. MCV 94. Patient has been taking iron supplement. #5 DVT prophylaxis-Lovenox. As Ranked By This Provider Problem List: 1. COPD (chronic obstructive pulmonary disease) 2. Hypertension 3. Bronchitis 4. Anemia Core Measures/Miscellaneous Acute Coronary Syndrome ACS Diagnosis: No Cerebrovascular Accident CVA/TIA Diagnosis: No Congestive Heart Failure CHF Diagnosis: No Venous Thromboembolism VTE Risk Factors: Acute medical illness, Age > 40 VTE Prophylaxis Ordered Inpt: Pharm- Lovenox No Mech VTE prophylaxis d/t: No contraindications No VTE Pharm Prophylaxis d/t: No contraindications VTE Diagnosis: No VTE Type: NONE VTE Confirmed by (Test): NONE Severe Sepsis Severe Sepsis Present: No Septic Shock Septic Shock Present: No Miscellaneous Documentation Attending Case Discussed With: DANIEL MUNSON MD Primary Care Physician: ISELA NATION MD Patient sees these Specialists Dr. Rangel Level of Patient Care: General Medicine PAO DELVALLE,YONI 07/07/16 2306: Resident Review Statement Resident Statement: examined this patient, discussed with planner internship, agreed with planner internship, discussed with family, reviewed EMR data (avail), discussed with nursing , discussed with case mgmt, reviewed images, amended to note Other Findings: 76 yo female with pmh of end-stage COPD on 3L oxygen with chronic prednisone 10mg, diastolic HF (EF 55%), HTN, PVD, anxiety, vertigo who was recently discharged to [facility] on 06/25 after treated with COPD exacerbation came from [facility] due to shortness of breath for 2 days and profound hypoxia 88% on 3L at [facility]. She c/o fever/chills, yellowish sputum and dyspnea on rest for 2 days. She had mild fever of 100.2F in ED, lung sounds bilaterall wheezing with corase breathing sound, chest x-ray shows pulmonary venous congestion, small pleural effusions, possible consolidation. Will admit pt to [facility] for acute on chronic resp. failure likely secondary to COPD exacerbation, check CT chest to evaluate pulmonary congestions and possible pneumonia. Continue IV azithromycin, IV solumedrol 40mg Q8 for COPD exacerbation management. Consider IV lasix, if CT chest shows any pulmonary contestion/effusion. Add IV ceftriaxone if CT chest shows evidence of pneumonia. F/U sputum/blood cultures, check UA. She has known anemia with EGD showing gastritis/duodenitis. f/u CBC, Pulmonary/wound care consult in AM. DVT ppx: SC lovenox, full code. CELIA DELVALLE,CHAPARRO 07/08/16 1143: Attending MD Review Statement Attending Statement Attending MD Statement: examined this patient, discuss w/resident/PA/PRODUCT SAFETY CONSULTANT, agreed w/resident/PA/PRODUCT SAFETY CONSULTANT, reviewed EMR data (avail), discussed with nursing, reviewed images, amended to note Attending Assessment/Plan: See my addendum.
--- NOTE | 2016-07-07 16:23 | PN- Att Addend ---
Attending Addendum Attending Brief Note 76 y/o F with pmh sig for stage I diastolic dysfunction, chronic respiratory failure due to end-stage COPD on(prednisone 10 g daily, 2-3 L of oxygen) at baseline, history of alcohol dependence, hypertension, vertigo, PVD, right femoral neck fracture status post mechanical fall status requiring arthroplasty April 2015, left fifth toe amputation due to osteomyelitis, nephrolithiasis of the right requiring ESWL, osteoporosis, and anxiety, recent admission to [facility] with acute resp failure, [facility] to having difficulty breathing. Patient claims that she has been feeling short of breath for last couple of days but this morning she just could not breathe. According to the report from the emergency room physician veterinary assistant technician she had an anxiety attack also at that time. In the emergency room patient was found to be hypoxic and required increased amount of oxygen. Her chest x-ray shows pleural effusions, possible consolidation. She also has a low -grade fever in ER. Vital Signs Date Time Temp Pulse Resp B/P Pulse O2 O2 Flow FiO2 Ox Delivery Rate 07/07 1345 94 26 145/86 93 Nasal 3.0L Cannula 07/07 1319 100.2 124 18 92 Nasal 3.0L Cannula 07/07 1149 98 Nasal 3.5L Cannula 07/07 1051 98.8 125 20 193/80 95 Room Air on exam; aox3, mild- mod distress 2/2 to sob. cv; s1,s2, rrr, tachycardic. resp; + wheeze with decreased bs b/l bases with mild crackles, positive use of accessory muscles. abd; soft, nt, bs+ ext; no edema skin: multiple bruising and bones likely secondary to peripheral vascular disease. Laboratory Tests 07/07 07/07 1054 1052 Chemistry Sodium (137 - 145 mmol/L) 139 Potassium (3.5 - 5.1 mmol/L) 3.5 Chloride (98 - 107 mmol/L) 93 L Carbon Dioxide (22 - 30 mmol/L) 38 H Anion Gap (5 - 16) 8 BUN (7 - 17 mg/dL) 31 H Creatinine (0.5 - 1.0 mg/dL) 0.7 Estimated GFR (>60 ml/min) > 60 BUN/Creatinine Ratio (7 - 25 %) 44.3 H Glucose (65 - 99 mg/dL) 103 H Calcium (8.4 - 10.2 mg/dL) 8.6 Total Bilirubin (0.2 - 1.3 mg/dL) 0.3 AST (14 - 36 U/L) 35 ALT (9 - 52 U/L) 34 Alkaline Phosphatase (<127 U/L) 67 Troponin I (< 0.11 ng/ml) 0.06 Jxe-I-Pdibozjgfks Pept (<125 pg/mL) Cancelled 845 H Total Protein (6.3 - 8.2 g/dL) 6.0 L Albumin (3.5 - 5.0 g/dL) 3.6 Globulin (1.9 - 4.2 gm/dL) 2.4 Albumin/Globulin Ratio (1.1 - 2.2 %) 1.5 Hematology CBC w Diff NO MAN DIFF REQ WBC (4.8 - 10.8 /CUMM) 7.9 RBC (4.20 - 5.40 /CUMM) 2.70 L Hgb (12.0 - 16.0 G/DL) 8.1 L Hct (37 - 47 %) 25.4 L MCV (81.0 - 99.0 FL) 94.1 MCH (27.0 - 31.0 PG) 30.0 RDW (11.5 - 14.5 %) 14.5 Plt Count (130 - 400 /CUMM) 199 MPV (7.4 - 10.4 FL) 8.1 Gran % (42.2 - 75.2 %) 84.3 H Lymphocytes % (20.5 - 51.1 %) 7.9 L Monocytes % (1.7 - 9.3 %) 6.3 Eosinophils % (0 - 5 %) 1.5 Basophils % (0.0 - 2.0 %) 0 L Absolute Granulocytes (1.4 - 6.5 /CUMM) 6.6 H Absolute Lymphocytes (1.2 - 3.4 /CUMM) 0.6 L Absolute Monocytes (0.10 - 0.60 /CUMM) 0.5 Absolute Eosinophils (0.0 - 0.7 /CUMM) 0.1 Absolute Basophils (0.0 - 0.2 /CUMM) 0 PUBS MCHC (33.0 - 37.0 G/DL) 31.9 L EKG>>> sinus tachycardia. CXR: IMPRESSION: 1. Pulmonary venous congestion, small pleural effusions and mild bibasilar atelectasis. No significant pulmonary edema. Superimposed consolidation in the lung bases is possible. 2. Hyperexpanded lungs, unchanged. A/P: 76 y/o F with pmh sig for stage I diastolic dysfunction, chronic respiratory failure due to end-stage COPD on(prednisone 10 g daily, 2-3 L of oxygen) at baseline, history of alcohol dependence, hypertension, vertigo, PVD, right femoral neck fracture status post mechanical fall status requiring arthroplasty April 2015, left fifth toe amputation due to osteomyelitis, nephrolithiasis of the right requiring ESWL, osteoporosis, and anxiety, recent admission to [facility] with acute resp failure admitted a can with acute on chronic respiratory failure possibly secondary to acute bronchitis or pneumonia. Also we need to consider the possibility off fluid overload. Patient admitted to medicine. Will obtain a dry CT of the chest to exactly assess for pneumonia or fluid overload. Patient will be started on azithromycin and IV steroids. We'll decide about adding ceftriaxone after we get the CT chest. Please obtain sputum cultures. Will also decide about the diurese his after weak at the CT chest. Patient will be seen by pulmonology in the morning. Will also consult Dr. Morataya for the wound care. Patient be started on TRC nebs as well as continue her inhalers. Patient also has chronic anemia. Last admission she had an endoscopy done which showed atrophic gastritis as well as duodenitis. H&H will be monitored and PPI should be continued. Can continue aspirin if it was already [facility]. DVT prophylaxis: Lovenox and monitoring of H&H closely. Patient is full code.
--- NOTE | 2016-07-07 17:38 | CT SCAN REPORT ---
EXAMINATION: CT CHEST WITHOUT CONTRAST CLINICAL INFORMATION: Acute on chronic respiratory failure. COPD exacerbation. Concern for pneumonia. COMPARISON: Portable chest 07/07/2016. CT of the chest 11/27/2015, CT chest 05/21/2015. TECHNIQUE: Multidetector volumetric CT imaging of the chest was done. Axial MIP volume rendering provided. Sagittal and coronal reformatted images were obtained. DLP: 191.26 mGy-cm FINDINGS: LUNGS: There is severe ballesteros emphysematous changes of lung primarily effecting upper lobes . There is bibasilar consolidation/atelectasis. This is not as severe as the CAT scan of 11/27/2015. There are scattered reticular and tree-in-bud opacities in the anterior lingula and at both lung bases greater on right than left consistent with endobronchial disease. Multiple calcified granuloma; superior segment left lower lobe, image 147 (4), left upper lobe image 56, left upper lobe image 105. Stable 3 mm nodule left upper lobe image 8 (63). This is unchanged since CAT scan 05/21/2015. There is an irregular linear nodule right upper lobe measuring 6 x 2 x 3 mm image 70 (4), sagittal image 72. This is unchanged since CAT scan of 11/27/2015. Linear morphology suggests this is scar. This has retracted in size since the CAT scan of 05/21/2015, image 9 (3). No new lung nodules. MEDIASTINUM: Small subcentimeter lymph nodes in the pretracheal retrovascular space and AP window and subcarinal. No bulky lymphadenopathy. Heavy vascular calcification of the thoracic aorta and coronary arteries. No aneurysm of the aorta. Calcification of the splenic artery in the upper abdomen PLEURA: There is no pleural effusion. No pleural mass or thickening. AXILLA: No lymphadenopathy. UPPER ABDOMEN: Multiple small nonobstructive renal calculi in both kidneys. Pedunculated small cyst at the upper pole left kidney. Several small calcified granuloma within the spleen. Stable small hepatic cyst at dome of liver. OSSEOUS STRUCTURES: There is multilevel compression deformities throughout the thoracic and upper lumbar spine IMPRESSION: 1. Emphysematous change of lung. 2. Bibasilar atelectasis. Reticular and tree-in-bud opacities in the lung bases bilaterally consistent with endobronchial disease. 3. Stable bilateral calcified granuloma and small lung nodules.
[2016-07-07 18:33] VITALS: BP 138/60
[2016-07-07 21:51] VITALS: BP 136/60
[2016-07-08 06:31] VITALS: BP 150/80
[2016-07-08 07:50] LABS: ABSOLUTE BASOPHIL COUNT 0 /CUMM (0.0-0.2); ABSOLUTE EOSINOPHIL COUNT 0 /CUMM (0.0-0.7); ABSOLUTE GRANULOCYTE CT 5.8 /CUMM (1.4-6.5); ABSOLUTE LYMPH COUNT 0.6 /CUMM (1.2-3.4); ABSOLUTE MONOCYTE COUNT 0.7 /CUMM (0.10-0.60); BASOPHIL % 0 % (0.0-2.0); EOSINOPHIL % 0.1 % (0-5); GRANULOCYTE % 81.6 % (42.2-75.2); HEMATOCRIT 24.9 % (37-47); MEAN CORPUSCULAR HGB 30.7 PG (27.0-31.0); MEAN CORPUSCULAR HGB CONC 32.5 G/DL (33.0-37.0); MEAN CORPUSCULAR VOLUME 94.2 FL (81.0-99.0); MEAN PLATELET VOLUME 8.3 FL (7.4-10.4); PLATELET COUNT 213 /CUMM (130-400); RBC DISTRIBUTION WIDTH 15.2 % (11.5-14.5); RED BLOOD CELL CT 2.65 /CUMM (4.20-5.40); WHITE BLOOD CELL COUNT 7.1 /CUMM (4.8-10.8)
--- NOTE | 2016-07-08 07:59 | PN- Housestaff ---
SHAUNNA MARTINEZ 07/08/16 0758: Subjective Follow-up For: COPD exacerbation Subjective: She remained afebrile overnight. Has been requiring 3 L oxygen, to maintain oxygen saturation above 92%. She appeared in moderate distress when I walked into her room this morning. She was more comfortable after she received nebulization. Had a conversation with her family, and discussed with them about the prognosis. Review of Systems Constitutional: Reports: see HPI. Objective Last 24 Hrs of Vital Signs/I&O Vital Signs Date Time Temp Pulse Resp B/P Pulse O2 O2 Flow FiO2 Ox Delivery Rate 07/08 0631 98.1 111 20 150/80 95 Nasal 3.0L Cannula 07/08 0144 92 Nasal 3.0L Cannula 07/08 0000 92 Nasal 3.0L Cannula 07/07 2151 97.6 103 20 136/60 96 Nasal Cannula 07/07 1850 Nasal 3.0L Cannula 07/07 1833 98.8 117 22 138/60 93 Nasal Cannula 07/07 1747 98.1 112 24 96 Nasal 3.0L Cannula 07/07 1706 Nasal 3.0L Cannula 07/07 1705 120 24 144/68 97 Venti Mask 40% 07/07 1345 94 26 145/86 93 Nasal 3.0L Cannula 07/07 1319 100.2 124 18 92 Nasal 3.0L Cannula 07/07 1149 98 Nasal 3.5L Cannula 07/07 1051 98.8 125 20 193/80 95 Room Air Intake & Output 07/08 0800 07/08 0000 07/07 1600 Intake Total 0 480 250 Output Total 250 Balance -250 480 250 Intake, IV 0 250 Intake, Oral 0 480 Number 0 Bowel Movements Output, Urine 250 Patient 128 lb Weight Physical Exam General Appearance: No Acute Distress Other Physical Findings: General Exam: AAOx3, mild distress, Skin: No rashes, ulcers on left lower extremity. HEENT: PERRLA, EOMI Neck: Supple, No JVD No cervical lymphadenopathy CVS: Reg Rate, Normal S1,S2, No MGR Resp: Low air entry bilaterally, rhonchi and rales bilateral chest. Abdomen: Soft, No tenderness, Normal Bowel Sounds Neuro: Normal Speech, Strength 5/5 b/l x 4 extremities, Sensation intact, CN III -XII NL, Reflexes 2+ Extremities: No cyanosis, pedal edema, no dorsalis pedis or posterior tibialis pulses found. Current Medications: Current Medications Sig/Roge Start time Last Medication Dose Route Stop Time Status Admin Acetaminophen 650 MG Q6P PRN 07/07 1730 AC PO Albuterol Sulfate 3 ML EVERY 4 HRS/AWAKE 07/07 2000 AC 07/08 INH 0118 Albuterol Sulfate 3 ML EVERY 4 HRS/AWAKE .. 07/07 1530 AC INH Albuterol Sulfate 3 ML ONCE ONE 07/07 1100 DC 07/07 INH 07/07 1101 1111 Amitriptyline HCl 25 MG QPM 07/07 2200 AC 07/07 PO 2043 Amlodipine Besylate 5 MG DAILY 07/08 1000 AC PO Aspirin 81 MG DAILY 07/08 1000 AC PO Atorvastatin Calcium 10 MG DAILY@1700 07/08 1700 AC PO Azithromycin 500 MG DAILY 07/08 1000 AC Dextrose/Water 250 ML IV Azithromycin 500 MG ONCE ONE 07/07 1100 DC 07/07 Dextrose/Water 250 ML IV 07/07 1159 1205 Budesonide/ 2 PUF BID 07/07 1518 AC 07/07 Formoterol Fumarate INH 2044 Calcium/Vitamin D 1 TAB BID 07/07 2200 AC 07/07 PO 2043 Ceftriaxone Sodium 1,000 MG DAILY 07/08 1000 CAN IV Diltiazem HCl 360 MG DAILY 07/08 1000 AC PO Enoxaparin Sodium 40 MG DAILY 07/08 1000 AC SC Ferrous Sulfate 325 MG DAILY 07/08 1000 AC PO Ibuprofen 600 MG Q6P PRN 07/07 1730 AC PO Ipratropium Yolyn 2.5 ML ONCE ONE 07/07 1100 DC 07/07 INH 07/07 1101 1111 Lorazepam 0.5 MG BID PRN 07/07 1715 AC 07/07 PO 07/14 1714 2044 Losartan Potassium 100 MG DAILY 07/08 1000 AC PO Melatonin 3 MG ONCE ONE 07/08 0115 DC PO 07/08 0116 Methylprednisolone 40 MG Q8 07/08 0600 AC 07/08 IV 0658 Methylprednisolone 0 .STK-MED ONE 07/07 1155 DC .ROUTE Methylprednisolone 125 MG ONCE ONE 07/07 1100 DC 07/07 IV 07/07 1101 1205 Multivitamins 1 TAB DAILY 07/08 1000 AC Therapeutic PO Omeprazole 20 MG DAILY AC 07/08 0700 AC 07/08 PO 0658 Oxycodone/ 1 TAB Q6P PRN 07/07 1730 AC Acetaminophen PO Paroxetine HCl 40 MG AT BEDTIME 07/07 2199 AC 07/07 PO 2042 Pregabalin 25 MG BID 07/07 2199 AC 07/07 PO 2042 Pregabalin 25 MG .STK-MED ONE 07/07 2038 DC PO 07/07 2039 Tiotropium Yolyn 1 PUF DAILY 07/08 1000 AC INH Last 24 Hrs of Lab/Gt Results Last 24 Hrs of Labs/Mics: Laboratory Tests 07/08/16 0645: Sodium Pending, Potassium Pending, Chloride Pending, Carbon Dioxide Pending, Anion Gap Pending, BUN Pending, Creatinine Pending, BUN/Creatinine Ratio Pending , CBC w Diff NO MAN DIFF REQ, RBC 2.65 L, MCV 94.2, MCH 30.7, RDW 15.2 H, MPV 8.3, Gran % 81.6 H, Lymphocytes % 8.4 L, Monocytes % 9.9 H, Eosinophils % 0.1 , Basophils % 0 L, Absolute Granulocytes 5.8, Absolute Lymphocytes 0.6 L, Absolute Monocytes 0.7 H, Absolute Eosinophils 0, Absolute Basophils 0, PUBS MCHC 32.5 L 07/07/16 1054: Kau-A-Owvivafvlpk Pept Cancelled 07/07/16 1052: Anion Gap 8, Estimated GFR > 60, BUN/Creatinine Ratio 44.3 H, Glucose 103 H, Calcium 8.6, Iron 19 L, TIBC 288, Ferritin 71.9, Total Bilirubin 0.3, AST 35, ALT 34, Alkaline Phosphatase 67, Troponin I 0.06, Aoo-K-Mfuxnatmooy Pept 845 H, Total Protein 6.0 L, Albumin 3.6, Globulin 2.4, Albumin/Globulin Ratio 1.5, CBC w Diff NO MAN DIFF REQ, RBC 2.70 L, MCV 94.1, MCH 30.0, RDW 14.5, MPV 8.1, Gran % 84.3 H, Lymphocytes % 7.9 L, Monocytes % 6.3, Eosinophils % 1.5, Basophils % 0 L, Absolute Granulocytes 6.6 H, Absolute Lymphocytes 0.6 L, Absolute Monocytes 0.5, Absolute Eosinophils 0.1, Absolute Basophils 0, PUBS MCHC 31.9 L , Retic Count 1.34 Microbiology 07/07 2344 LOWER RESP: Respiratory Culture - RECD 07/07 2344 LOWER RESP: Gram Stain - RECD 07/07 1119 BLOOD: Blood Culture - RECD 07/07 1052 BLOOD: Blood Culture - RECD Assessment/Plan Assessment: She is an older woman with a past history of COPD (end-stage),HFpEF, peripheral vascular disease is being evaluated for acute onset of shortness of breath, cough and fever. Found to be hypoxemic-85% on 4 L prior to admission. Radiological findings-chest x-ray reviewed pulmonary venous congestion, small pleural effusion with superimposed consolidation and hyperexpanded lungs. CT chest revealed emphysematous changes, likely endobronchial disease pattern, calcified granuloma. Differential diagnosis: #1 COPD exacerbation #2 infections bronchiolitis Below the problem list and plan: #1 shortness of breath, cough-acute hypoxic respiratory failure, physical examination findings and CT findings are suggestive of COPD exacerbation and or infective bronchiolitis. Continue on intravenous oagrmote-Rkfi-Razybh 40 mg every 8. TRC. Continue azithromycin. Lower respiratory cultures and blood cultures-pending at this time. Oral prednisone on hold. Bicarbonate improving. #2 lower extremity ulcers-likely due to peripheral vascular disease. May consider getting bilateral lower extremity arterial Dopplers. Wound care consult. Patient currently on 10 mg Lipitor, which could be increased to high- intensity statin. Continue aspirin low-dose. #3 hypertension-continue losartan, and Cardizem 360 mg by mouth daily (unsure of the reason for choice of Cardizem, likely explanation is to avoid a beta dev perhaps). Hydrochlorothiazide held at this time. #4 anemia-likely anemia of chronic disease. Low iron, ferritin, normal TIBC with normal reticulocyte count. MCV 94. Patient has been taking iron supplement. #5 DVT prophylaxis-Lovenox. Problem List: 1. Bronchitis 2. Right leg pain 3. Muscle spasm 4. Anemia Pain Ratin Pain Location: None Pain Goal: Pain 4 or less Pain Plan: Tylenol when necessary Oxycodone Ibuprofen Tomorrow's Labs & Rationales: No labs necessary. Patient currently stable. CELIA DELVALLE,CHAPARRO 07/08/16 1144: Attending Review Statement Attending Statement Attending Statement: examined this patient, discuss w/resident/PA/TRACK DRESSER, agreed w/resident/PA/TRACK DRESSER, reviewed EMR data (avail), discussed with nursing, discussed with case mgmt, reviewed images, amended to note Attending Assessment/Plan: Patient seen and examined, not feeling much better. Still very wheezy and short of breath. Chest CT was consistent with extensive emphysematous changes and bronchitis. Vital Signs Date Time Temp Pulse Resp B/P Pulse O2 O2 Flow FiO2 Ox Delivery Rate 07/08 0931 112 140/80 07/08 0931 112 140/80 07/08 0834 86 Nasal 3.0L Cannula 07/08 0800 93 Nasal 4.0L Cannula 07/08 0631 98.1 111 20 150/80 95 Nasal 3.0L Cannula 07/08 0144 92 Nasal 3.0L Cannula 07/08 0000 92 Nasal 3.0L Cannula 07/07 2151 97.6 103 20 136/60 96 Nasal Cannula 07/07 1850 Nasal 3.0L Cannula 07/07 1833 98.8 117 22 138/60 93 Nasal Cannula 07/07 1747 98.1 112 24 96 Nasal 3.0L Cannula 07/07 1706 Nasal 3.0L Cannula 07/07 1705 120 24 144/68 97 Venti Mask 40% 07/07 1345 94 26 145/86 93 Nasal 3.0L Cannula 07/07 1319 100.2 124 18 92 Nasal 3.0L Cannula 07/07 1149 98 Nasal 3.5L Cannula on exam; aox3, mild- mod distress cv; s1,s2 rrr resp; b/l wheeze. abd; soft, nt, bs+ ext; no edema, Laboratory Tests 07/08 07/08 1045 0645 Blood Gas pH (7.35 - 7.45 PH) 7.43 pCO2 (35 - 45 TORR) 49 H pO2 (80 - 100 TORR) 64 L HCO3 (21 - 28 MEQ/L) 32 H ABG O2 Sat (Measured) (>96.0 %) 91.0 L Carboxyhemoglobin (1.5 - 5.0 %) 0.6 L O2 Concentration % 4L O2 Delivery Method NC Chemistry Sodium (137 - 145 mmol/L) 142 Potassium (3.5 - 5.1 mmol/L) 3.8 Chloride (98 - 107 mmol/L) 94 L Carbon Dioxide (22 - 30 mmol/L) 37 H Anion Gap (5 - 16) 11 BUN (7 - 17 mg/dL) 27 H Creatinine (0.5 - 1.0 mg/dL) 0.7 Estimated GFR (>60 ml/min) > 60 BUN/Creatinine Ratio (7 - 25 %) 38.6 H Hematology CBC w Diff NO MAN DIFF REQ WBC (4.8 - 10.8 /CUMM) 7.1 RBC (4.20 - 5.40 /CUMM) 2.65 L Hgb (12.0 - 16.0 G/DL) 8.1 L Hct (37 - 47 %) 24.9 L MCV (81.0 - 99.0 FL) 94.2 MCH (27.0 - 31.0 PG) 30.7 RDW (11.5 - 14.5 %) 15.2 H Plt Count (130 - 400 /CUMM) 213 MPV (7.4 - 10.4 FL) 8.3 Gran % (42.2 - 75.2 %) 81.6 H Lymphocytes % (20.5 - 51.1 %) 8.4 L Monocytes % (1.7 - 9.3 %) 9.9 H Eosinophils % (0 - 5 %) 0.1 Basophils % (0.0 - 2.0 %) 0 L Absolute Granulocytes (1.4 - 6.5 /CUMM) 5.8 Absolute Lymphocytes (1.2 - 3.4 /CUMM) 0.6 L Absolute Monocytes (0.10 - 0.60 /CUMM) 0.7 H Absolute Eosinophils (0.0 - 0.7 /CUMM) 0 Absolute Basophils (0.0 - 0.2 /CUMM) 0 PUBS MCHC (33.0 - 37.0 G/DL) 32.5 L Miscellaneous Phlebotomy Draw Site LEFT RADIAL A/P; 76 y/o F with pmh sig for stage I diastolic dysfunction, chronic respiratory failure due to end-stage COPD on(prednisone 10 g daily, 2-3 L of oxygen) at baseline, history of alcohol dependence, hypertension, vertigo, PVD, right femoral neck fracture status post mechanical fall status requiring arthroplasty April 2015, left fifth toe amputation due to osteomyelitis, nephrolithiasis of the right requiring ESWL, osteoporosis, and anxiety, recent admission to [facility] with acute resp failure admitted a can with acute on chronic respiratory failure secondary to acute bronchitis and COPD exacerbation. Appreciate pulmonology input. Will check blood gas and if shows hypercarbia patient will require BiPAP. Next line continue same dose of steroids and azithromycin for now. Continue other inhalers and TRC nebs. The asked the patient about her peripheral vascular disease as well as chronic wounds. Patient will need a wound consult but she mentions that she has a vascular surgeon Dr. Oviedo and the patient and her vascular doctor have decided not to perform any procedures 2/2 to high risk due to her end-stage COPD. Patient on two CCBs, please clarify with the patient's primary care doctor geological manager. Continue all other current medications. Please obtain a PT consult. For DVT prophylaxis patient is on Lovenox
--- NOTE | 2016-07-08 08:29 | Cons- Pulmonary ---
General Information and HPI Consulting Request Date of Consult: 07/08/16 Requested By: azael Reason for Consult: Exacerbation of COPD History of Present Illness: Patient is 76-year-old with advanced oxygen-dependent COPD congestive heart failure frequent hospital admissions admitted to the hospital with increased shortness of breath tachycardia and low-grade fever. She denies any significant sputum production or chest pain. BMP is elevated but lower than previous. She remains dyspneic. She has been hypercarbic in the past. Allergies/Medications Allergies: Coded Allergies: bacitracin (From NEOSPORIN ([id number])) (rash 09/23/15) neomycin (From NEOSPORIN ([id number])) (rash 09/23/15) penicillin V (SWELLING ALL OVER AND ITCHING 09/23/15) polymyxin B (From NEOSPORIN ([id number])) (rash 09/23/15) cortisone (THRUSH 09/23/15) duloxetine (GI DISTRESS 09/23/15) moxifloxacin (From AVELOX) (STOMACH SICK 09/23/15) Home Med List: Albuterol Sulfate (Albuterol Sulfate Hfa) 0.09 MG/Actuation CHELSEA 2 PUFF INH PRN COPD (Reported) 90 MCG PER PUFF Albuterol Sulfate (Proventil) 2.5 MG/3 ML NEB 3 ML INH EVERY 4 HRS/AWAKE PRN COPD Amitriptyline HCl 25 MG TABLET 1 TAB PO QPM depression (Reported) Amlodipine Besylate 5 MG TABLET 5 MG PO DAILY blood pressure Aspirin (Aspirin*) 81 MG TAB.CHEW 81 MG PO DAILY HEART HEALTH Atorvastatin Calcium 10 MG TABLET 1 TAB PO DAILY CHOLESTEROL (Reported) Calcium Carbonate/Vitamin D3 (Os-Napoleon 500+D3 Caplet) 500 MG-200 TABLET 1 TAB PO BID SUPPLEMENT (Reported) Cyanocobalamin (Vitamin B-12) (Cyanocobalamin Injection) 1,000 MCG/ML VIAL 1 ML IM Q30D SUPPLEMENT (Reported) Diltiazem HCl (Diltiazem 24HR ER) 360 MG CAP.ER.24H 1 CAP PO DAILY HEART ( Reported) Ferrous Sulfate 325 MG (65 MG IRON) TABLET 1 TAB PO DAILY ANEMIA (Reported) Fluticasone-Salmeterol (Advair 500-50 Diskus) 1 UNIT UNIT 1 PUF INH BID COPD (Reported) Hydrochlorothiazide 25 MG TABLET 1 TAB PO DAILY WATER PILL (Reported) Lorazepam (Ativan) 0.5 MG TAB 1 TAB PO BID ANXIETY (Reported) Losartan (Cozaar) 100 MG TABLET 100 MG PO DAILY HIGH BLOOD PRESSURE Multivitamin (One Daily Multivitamin) 1 TAB TAB 1 TAB PO DAILY SUPPLEMENT ( Reported) Omeprazole 20 MG CAPSULE.DR 1 CAP PO DAILY HEARTBURN Paroxetine HCl 40 MG TABLET 1 TAB PO AT BEDTIME DEPRESSION (Reported) Prednisone 10 MG TABLET 1 TAB PO SEE ADMIN CRITERIA copd take 3 TABS X 2 DAYS 2 TABS X 2 DAYS tHEN CONTINUE WITH 10 MG(1 TAB) OF PREDNISONE DAILY FOR copd Pregabalin (Lyrica) 50 MG CAPSULE 0.5 CAP PO BID PAIN (Reported) Stop lyrica on 06/28/16 Tiotropium [place] (Spiriva) 18 MCG CAP 1 CAP INH DAILY COPD (Reported) Review of Systems Review of Systems Constitutional: Reports: chills. Denies: fever. Cardiovascular: Denies: chest pain, peripheral edema. Respiratory: Reports: cough, short of breath, sputum production, wheezing. GI: Denies: abdominal pain, diarrhea, melena. Genitourinary: Denies: dysuria, frequency. Past History Travel History Traveled to [place] past 21 day No Medical History Neurological: NONE EENT: NONE Cardiovascular: CAD, diastolic CHF, PVD, hypertension diastolic dysfunction Respiratory: COPD, bilateral pulmonary nodules HOME 02 DEPENDENT Gastrointestinal: NONE Hepatic: NONE Renal: nephrolithiasis (s/p ESWL) Musculoskeletal: osteomyelitis osteoporosis Psychiatric: anxiety Endocrine: NONE Blood Disorders: NONE Cancer(s): NONE VOICE AND DATA TECHNICIAN/Reproductive: HYSTERECTOMY Surgical History Surgical History: Right hip ORIF Left 5th toe amputation Left eye lens implant Left hip ORIF Mar 2002 SAMUEL HIP REPLACEMENTS Family History Relations & Conditions If Any: MOTHER FH: diabetes mellitus Psychosocial History Where Do You Live? [facility] Who Do You Live With? self Services at Home: visiting nurse Primary Language: Vietnamese Smoking Status: Former Smoker Living Will? In progress Power of Wire Weaver/HCP? yes Name of POA/HCP: Marco and Kevin Gunter of the 3sons. Functional Ability ADLs Independent: dressing, eating, toileting, bathing. Ambulation: Rolling walker with sit IADLs Independent: telephone. Needs Assist: shopping, housework, finances, food prep, transportation, medication admin. Exam & Diagnostic Data Last 24 Hrs of Vital Signs/I&O Vital Signs Date Time Temp Pulse Resp B/P Pulse O2 O2 Flow FiO2 Ox Delivery Rate 07/08 0631 98.1 111 20 150/80 95 Nasal 3.0L Cannula 07/08 0144 92 Nasal 3.0L Cannula 07/08 0000 92 Nasal 3.0L Cannula 07/07 2151 97.6 103 20 136/60 96 Nasal Cannula 07/07 1850 Nasal 3.0L Cannula 07/07 1833 98.8 117 22 138/60 93 Nasal Cannula 07/07 1747 98.1 112 24 96 Nasal 3.0L Cannula 07/07 1706 Nasal 3.0L Cannula 07/07 1705 120 24 144/68 97 Venti Mask 40% 07/07 1345 94 26 145/86 93 Nasal 3.0L Cannula 07/07 1319 100.2 124 18 92 Nasal 3.0L Cannula 07/07 1149 98 Nasal 3.5L Cannula 07/07 1051 98.8 125 20 193/80 95 Room Air Intake & Output 07/08 1600 07/08 0800 07/08 0000 Intake Total 0 480 Output Total 250 Balance -250 480 Intake, IV 0 Intake, Oral 0 480 Number 0 Bowel Movements Output, Urine 250 Patient 128 lb Weight Oxygen saturation 3 L 95% exam for chest shows occasional expiratory wheezes markedly diminished breath sounds cardiac exam shows regular S1 and S2 without murmurs abdominal exam soft nontender extremities have audible areas of bruising and scabs right arm has evidence of the skin Tear approximately 5 x 3 cm Last 48 Hrs of Labs/Gt: Laboratory Tests 07/08/16 0645: Anion Gap 11, Estimated GFR > 60, BUN/Creatinine Ratio 38.6 H, CBC w Diff NO MAN DIFF REQ, RBC 2.65 L, MCV 94.2, MCH 30.7, RDW 15.2 H, MPV 8.3, Gran % 81.6 H, Lymphocytes % 8.4 L, Monocytes % 9.9 H, Eosinophils % 0.1, Basophils % 0 L, Absolute Granulocytes 5.8, Absolute Lymphocytes 0.6 L, Absolute Monocytes 0.7 H, Absolute Eosinophils 0, Absolute Basophils 0, PUBS MCHC 32.5 L 07/07/16 1054: Byf-R-Fwgvudnwjbh Pept Cancelled 07/07/16 1052: Anion Gap 8, Estimated GFR > 60, BUN/Creatinine Ratio 44.3 H, Glucose 103 H, Calcium 8.6, Iron 19 L, TIBC 288, Ferritin 71.9, Total Bilirubin 0.3, AST 35, ALT 34, Alkaline Phosphatase 67, Troponin I 0.06, Mkp-G-Mcjciznlzmm Pept 845 H, Total Protein 6.0 L, Albumin 3.6, Globulin 2.4, Albumin/Globulin Ratio 1.5, CBC w Diff NO MAN DIFF REQ, RBC 2.70 L, MCV 94.1, MCH 30.0, RDW 14.5, MPV 8.1, Gran % 84.3 H, Lymphocytes % 7.9 L, Monocytes % 6.3, Eosinophils % 1.5, Basophils % 0 L, Absolute Granulocytes 6.6 H, Absolute Lymphocytes 0.6 L, Absolute Monocytes 0.5, Absolute Eosinophils 0.1, Absolute Basophils 0, PUBS MCHC 31.9 L , Retic Count 1.34 Assessment/Plan Impression/Plan: 76-year-old woman with advanced COPD history congestive heart failure admitted with increasing shortness of breath. This likely represents COPD exacerbation though evidence of small pleural effusions would be atypical indicate possible concomitant cardiac component. Recommendations: Continue IV steroids and antibiotics. Obtain arterial blood gas. If she is hypercarbic BiPAP can be instituted. Await CT chest results. Taper FiO2 to saturation approximately 92%. Obtain sputum C&S. Assess quick flow. Conversation regarding CODE STATUS was initiated and will be continued Consult Acknowledgment - Thank you for your consult request.
[2016-07-08 14:39] VITALS: BP 120/54
[2016-07-08 22:17] VITALS: BP 130/60
--- NOTE | 2016-07-09 05:50 | PN- Housestaff ---
SHAUNNA MARTINEZ 07/09/16 0549: Subjective Follow-up For: - COPD exacerbation Subjective: She was comfortable this morning when he saw her. Oxygen saturation ranged in between 94-96% on 2 L. Vitals were stable this morning. After she was moved from the bed to chair, she became extremely short of breath after which oxygen saturations dropped in between 86-88%. She was put on Ventimask and high flow oxygen. Oxygen saturations maintained around 96-98%. She was ordered one-time dose of IV furosemide, as per Dr. Acosta recommendation. Since she had acute decompensation, CBC and chest x-ray were ordered. Also arrangements were made for 2 units of blood transfusion, followed by 1 time dose of furosemide IV. Review of Systems Constitutional: Reports: see HPI. Objective Last 24 Hrs of Vital Signs/I&O Vital Signs Date Time Temp Pulse Resp B/P Pulse O2 O2 Flow FiO2 Ox Delivery Rate 07/09 0000 Nasal 3.0L Cannula 07/08 2217 98.0 84 20 130/60 99 Nasal Cannula 07/08 2040 99 Nasal 4.0L Cannula 07/08 1600 Nasal 4.0L Cannula 07/08 1439 98.4 97 20 120/54 97 Nasal 5.0L Cannula 07/08 0931 112 140/80 07/08 0931 112 140/80 07/08 0834 86 Nasal 3.0L Cannula 07/08 0800 93 Nasal 4.0L Cannula 07/08 0631 98.1 111 20 150/80 95 Nasal 3.0L Cannula Intake & Output 07/09 0800 07/09 0000 07/08 1600 Intake Total 480 800 Output Total 500 Balance -20 800 Intake, IV 250 Intake, Oral 480 550 Number 2 Bowel Movements Output, Urine 500 Physical Exam General Appearance: No Acute Distress Other Physical Findings: General Exam: AAOx3, No acute distress, Skin: No rashes, no breakdown HEENT: PERRLA, EOMI Neck: Supple, No JVD No cervical lymphadenopathy CVS: Reg Rate, Normal S1,S2, No MGR Resp: Decreased air entry bilaterally, rhonchi/rales bilaterally. Abdomen: Soft, No tenderness, Normal Bowel Sounds Neuro: Normal Speech, Strength 5/5 b/l x 4 extremities, Sensation intact, CN III -XII NL, Reflexes 2+ Extremities: No cyanosis, no pedal edema, no JVD Current Medications: Current Medications Sig/Roge Start time Last Medication Dose Route Stop Time Status Admin Acetaminophen 650 MG Q6P PRN 07/07 1730 AC PO Albuterol Sulfate 3 ML EVERY 4 HRS/AWAKE 07/07 2000 AC 07/08 INH 2040 Albuterol Sulfate 3 ML EVERY 4 HRS/AWAKE .. 07/07 1530 AC 07/08 INH 1444 Amitriptyline HCl 25 MG QPM 07/07 2200 AC 07/08 PO 2119 Amlodipine Besylate 5 MG DAILY 07/08 1000 AC 07/08 PO 0931 Aspirin 81 MG DAILY 07/08 1000 AC 07/08 PO 0930 Atorvastatin Calcium 10 MG DAILY@1700 07/08 1700 AC 07/08 PO 1629 Azithromycin 500 MG DAILY 07/08 1000 AC 07/08 Dextrose/Water 250 ML IV 0932 Budesonide/ 2 PUF BID 07/07 1518 AC 07/08 Formoterol Fumarate INH 2123 Calcium/Vitamin D 1 TAB BID 07/07 2200 AC 07/08 PO 2119 Diltiazem HCl 360 MG DAILY 07/08 1000 AC 07/08 PO 0930 Enoxaparin Sodium 40 MG DAILY 07/08 1000 AC 07/08 SC 0931 Ferrous Sulfate 325 MG DAILY 07/08 1000 AC 07/08 PO 0931 Ibuprofen 600 MG Q6P PRN 07/07 1730 AC PO Lorazepam 0.5 MG BID PRN 07/07 1715 AC 07/07 PO 07/14 1714 2044 Losartan Potassium 100 MG DAILY 07/08 1000 AC 07/08 PO 0931 Methylprednisolone 40 MG Q8 07/08 0600 AC 07/09 IV 0538 Multivitamins 1 TAB DAILY 07/08 1000 AC 07/08 Therapeutic PO 0931 Omeprazole 20 MG DAILY AC 07/08 0700 AC 07/09 PO 0538 Oxycodone/ 1 TAB Q6P PRN 07/07 1730 AC Acetaminophen PO Paroxetine HCl 40 MG AT BEDTIME 07/07 2200 AC 07/08 PO 211 Patient Medication 1 ED .STK-MED ONE 07/08 1406 DC Teaching ED 07/08 140 Pregabalin 25 MG BID 07/08 2200 AC 07/08 PO 2127 Pregabalin 25 MG .STK-MED ONE 07/08 0814 DC PO 07/08 914 Pregabalin 25 MG BID 07/07 2200 DC 07/08 PO 0931 Tiotropium [place] 1 PUF DAILY 07/08 1000 AC 07/08 INH 0930 Last 24 Hrs of Lab/Gt Results Last 24 Hrs of Labs/Mics: Laboratory Tests 07/08/16 1045: pH 7.43, pCO2 49 H, pO2 64 L, HCO3 32 H, ABG O2 Sat (Measured) 91.0 L, Carboxyhemoglobin 0.6 L, O2 Concentration % 4L, O2 Delivery Method NC, Phlebotomy Draw Site LEFT RADIAL 07/08/16 0645: Anion Gap 11, Estimated GFR > 60, BUN/Creatinine Ratio 38.6 H, CBC w Diff NO MAN DIFF REQ, RBC 2.65 L, MCV 94.2, MCH 30.7, RDW 15.2 H, MPV 8.3, Gran % 81.6 H, Lymphocytes % 8.4 L, Monocytes % 9.9 H, Eosinophils % 0.1, Basophils % 0 L, Absolute Granulocytes 5.8, Absolute Lymphocytes 0.6 L, Absolute Monocytes 0.7 H, Absolute Eosinophils 0, Absolute Basophils 0, PUBS MCHC 32.5 L Assessment/Plan Assessment: She is an older woman with a past history of COPD (end-stage),HFpEF, peripheral vascular disease is being evaluated for acute onset of shortness of breath, cough and fever. Found to be hypoxemic-85% on 4 L prior to admission. Radiological findings-chest x-ray reviewed pulmonary venous congestion, small pleural effusion with superimposed consolidation and hyperexpanded lungs. CT chest revealed emphysematous changes, likely endobronchial disease pattern, calcified granuloma. Differential diagnosis: #1 COPD exacerbation #2 infections bronchiolitis Below the problem list and plan: #1 shortness of breath, cough-acute hypoxic respiratory failure, physical examination findings and CT findings are suggestive of COPD exacerbation and or infective bronchiolitis. Continue on intravenous szisejcf-Jnvq-Gxindc 40 mg every 8 x 3d. TRC. Continue azithromycin. Lower respiratory cultures-shows growth of Staphylococcus aureus (sensitivities to follow), and until then treat with one-time dose of vancomycin-presuming it's MRSA. #2 lower extremity ulcers-likely due to peripheral vascular disease. May consider getting bilateral lower extremity arterial Dopplers. Wound care consult. Patient currently on 10 mg Lipitor, which could be increased to high- intensity statin. Continue aspirin low-dose. #3 hypertension-continue losartan, and Cardizem 360 mg by mouth daily (as per Dr. Forrest, the patient to be continued on Cardizem. No beta blockers, as the patient has severe COPD). Hydrochlorothiazide held at this time. #4 anemia-likely anemia of chronic disease. Low iron, ferritin, normal TIBC with normal reticulocyte count. MCV 94. Guaiac test positive (CASSANDRA done this p.m). 2 units of PRBCs transfused. Lasix 1 pre and post transfusion to avoid fluid overload. GI consult for advice, as the patient had unexplained iron deficiency anemia. Aspirin has been discontinued. #5 DVT prophylaxis-Lovenox. Problem List: 1. Bronchitis 2. Anemia 3. Acute and chronic respiratory failure Pain Ratin Pain Location: Tylenol when necessary Pain Goal: Pain 4 or less Pain Plan: Tylenol when necessary Tomorrow's Labs & Rationales: CBC-to check for H&H. Patient is being transfused with 2 units of PRBCs [facility]5: Attending MD Review Statement Attending Statement Attending MD Statement: examined this patient, discuss w/resident/PA/INVENTORY CONTROL SUPERVISOR, agreed w/resident/PA/INVENTORY CONTROL SUPERVISOR, reviewed EMR data (avail), discussed with nursing, discussed with case mgmt, reviewed images, amended to note Attending Assessment/Plan: Patient seen and examined, not doing well this morning. Requiring high flow oxygen. Still feeling very short of breath. Vital Signs Date Time Temp Pulse Resp B/P Pulse O2 O2 Flow FiO2 Ox Delivery Rate 07/09 1053 98.6 88 24 168/60 07/09 1051 98.9 88 24 168/60 07/09 0814 93 Nasal 4.0L Cannula 07/09 0800 Nasal 4.0L Cannula 07/09 0652 98.5 85 20 140/70 96 Nasal 2.0L Cannula 07/09 0000 Nasal 3.0L Cannula 07/08 2217 98.0 84 20 130/60 99 Nasal Cannula 07/08 2040 99 Nasal 4.0L Cannula 07/08 1600 Nasal 4.0L Cannula 07/08 1439 98.4 97 20 120/54 97 Nasal 5.0L Cannula on exam: aox3, mild-mod distress. cv; s1,s2 rrr. resp; b/l exp wheeze. abd; soft, nt, bs+ ext; no edema skin; multiple wounds and bruising on b/l le 2/2 to PVD. no labs today. 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 Patient is not looking improved at all. She still very wheezy. She is on high flow oxygen with BiPAP off and on for the relief of her work of breathing. ABG did not show evidence off see hypercarbia yesterday and she is welcome when seated with her pH at 7.43. At this point we will continue the oxygen, TRC nebs , continue steroids at present dose as well as azithromycin. She should be continued on her inhalers. I spoke with patient's son over the phone and both patient and family would want her to remain full code. Please confirm with patient's research leader why she is on two CCBs? DVT Px: lovenox
[2016-07-09 06:52] VITALS: BP 140/70
--- NOTE | 2016-07-09 08:30 | PN- Pulmonary ---
Subjective HPI/Critical Care Issues: Patient remains short of breath to the point she has difficulty talking. She is now mildly hypercarbic indicative of hypoxic and hypercarbic respiratory failure. I did discuss with her goals of care reports her son is power of coal cager and he will be calling me Objective Current Medications: Current Medications Sig/Roge Start time Last Medication Dose Route Stop Time Status Admin Acetaminophen 650 MG Q6P PRN 07/07 1730 AC PO Albuterol Sulfate 3 ML EVERY 4 HRS/AWAKE 07/07 2000 AC 07/09 INH 0813 Albuterol Sulfate 3 ML EVERY 4 HRS/AWAKE .. 07/07 1530 AC 07/08 INH 1444 Amitriptyline HCl 25 MG QPM 07/07 2200 AC 07/08 PO 2119 Amlodipine Besylate 5 MG DAILY 07/08 1000 AC 07/08 PO 0931 Aspirin 81 MG DAILY 07/08 1000 AC 07/08 PO 0930 Atorvastatin Calcium 10 MG DAILY@1700 07/08 1700 AC 07/08 PO 1629 Azithromycin 500 MG DAILY 07/08 1000 AC 07/08 Dextrose/Water 250 ML IV 0932 Budesonide/ 2 PUF BID 07/07 1518 AC 07/08 Formoterol Fumarate INH 2123 Calcium/Vitamin D 1 TAB BID 07/07 2200 AC 07/08 PO 2119 Diltiazem HCl 360 MG DAILY 07/08 1000 AC 07/08 PO 0930 Enoxaparin Sodium 40 MG DAILY 07/08 1000 AC 07/08 SC 0931 Ferrous Sulfate 325 MG DAILY 07/08 1000 AC 07/08 PO 0931 Ibuprofen 600 MG Q6P PRN 07/07 1730 AC PO Lorazepam 0.5 MG BID PRN 07/07 1715 AC 07/07 PO 07/14 1714 2044 Losartan Potassium 100 MG DAILY 07/08 1000 AC 07/08 PO 0931 Methylprednisolone 40 MG Q8 07/08 0600 AC 07/09 IV 0538 Multivitamins 1 TAB DAILY 07/08 1000 AC 07/08 Therapeutic PO 0931 Omeprazole 20 MG DAILY AC 07/08 0700 AC 07/09 PO 0538 Oxycodone/ 1 TAB Q6P PRN 07/07 1730 AC Acetaminophen PO Paroxetine HCl 40 MG AT BEDTIME 07/07 2200 AC 07/08 PO 2119 Patient Medication 1 ED .STK-MED ONE 07/08 1406 DC Teaching ED 07/08 1407 Pregabalin 25 MG BID 07/080 AC 07/08 PO 2127 Pregabalin 25 MG .STK-MED ONE 07/08 09 DC PO 07/08 914 Pregabalin 25 MG BID 07/070 DC 07/08 PO 0931 Tiotropium [place] 1 PUF DAILY 07/08 1000 AC 07/08 INH 0930 Vital Signs & I&O Last 24 Hrs of Vitals and I&O: Vital Signs Date Time Temp Pulse Resp B/P Pulse O2 O2 Flow FiO2 Ox Delivery Rate 07/09 08 93 Nasal 4.0L Cannula 07/09 0652 98.5 85 20 140/70 96 Nasal 2.0L Cannula 07/09 0000 Nasal 3.0L Cannula 07/08 2217 98.0 84 20 130/60 99 Nasal Cannula 07/08 2040 99 Nasal 4.0L Cannula 07/08 1600 Nasal 4.0L Cannula 07/08 1439 98.4 97 20 120/54 97 Nasal 5.0L Cannula 07/08 0931 112 140/80 07/08 0931 112 140/80 07/08 0834 86 Nasal 3.0L Cannula Intake & Output 07/09 1600 07/09 0800 07/09 0000 Intake Total 100 480 Output Total 500 Balance 100 -20 Intake, Oral 100 480 Number 2 Bowel Movements Output, Urine 500 Oxygen saturation 4 L 93% exam for chest shows scattered expiratory wheezes cardiac exam shows a regular S1 and S2 without murmurs Impression/Plan Impression/Plan Impression/Plan: 76-year-old woman with advanced COPD history congestive heart failure admitted with increasing shortness of breath. This likely represents COPD exacerbation though evidence of small pleural effusions would be atypical indicate possible concomitant cardiac component. Patient has end-stage COPD and will continue discussions regarding goals of care Recommendations: Continue IV steroids and antibiotics. Can use BiPAP for relief of work of breathing and hypercarbia. Give 1 dose of Lasix 20 mg. Follow-up sputum C&S. Discussion regarding goals of care to be pursued with her son power of coal cager
[2016-07-09 13:50] LABS: ABSOLUTE BASOPHIL COUNT 0 /CUMM (0.0-0.2); ABSOLUTE EOSINOPHIL COUNT 0 /CUMM (0.0-0.7); BASOPHIL % 0 % (0.0-2.0); EOSINOPHIL % 0 % (0-5)
[2016-07-09 13:54] LABS: ABSOLUTE GRANULOCYTE CT 13.9 /CUMM (1.4-6.5); ABSOLUTE LYMPH COUNT 0.5 /CUMM (1.2-3.4); ABSOLUTE MONOCYTE COUNT 0.9 /CUMM (0.10-0.60); GRANULOCYTE % 91.2 % (42.2-75.2); HEMATOCRIT 20.1 % (37-47); MEAN CORPUSCULAR HGB 30.5 PG (27.0-31.0); MEAN CORPUSCULAR HGB CONC 32.3 G/DL (33.0-37.0); MEAN CORPUSCULAR VOLUME 94.4 FL (81.0-99.0); MEAN PLATELET VOLUME 8.4 FL (7.4-10.4); PLATELET COUNT 222 /CUMM (130-400); RED BLOOD CELL CT 2.13 /CUMM (4.20-5.40)
[2016-07-09 13:58] LABS: WHITE BLOOD CELL COUNT 15.2 /CUMM (4.8-10.8)
[2016-07-09 14:00] VITALS: BP 152/80
--- NOTE | 2016-07-09 14:15 | RADIOLOGY REPORT ---
EXAMINATION: XR PORTABLE CHEST CLINICAL INFORMATION: COPD. Being treated for pneumonia. COMPARISON: Chest x-rays from 02/18/2016 and 07/07/2016. CT of the chest done on 07/07/2016. TECHNIQUE: Portable AP portable semierect view of the chest was obtained. FINDINGS: Emphysematous changes are again seen involving upper lobes. This results in some crowding of the bronchovascular structures of the lower lobes. The heart is prominent in size for a patient with COPD. There are persistent small bilateral pleural effusions and some minimal atelectasis in the left lower lobe. IMPRESSION: Emphysema. Minimal atelectasis, left lower lobe. Small effusions.
[2016-07-09 17:30] VITALS: BP 100/70
--- NOTE | 2016-07-09 18:56 | Discharge Summary ---
Visit Information Visit Dates Admission Date: 07/07/16 Discharge Date: 07/14/16 Hospital Course Course Attending Physician: MARTHA DELVALLE,SARITA Brown Primary Care Physician: CHAPIS DELVALLE,[place] Hospital Course: Mrs. Hays is a 76-year-old woman a past medical history of COPD (3 L home oxygen), HFpEF, peripheral vascular disease, osteoporosis, anxiety, recent admission to [facility] approximately 2 weeks ago for COPD exacerbation, was evaluated for acute onset of shortness of breath, cough and fever. Found to be hypoxemic-85% on 4 L prior to admission. At the time of admission, vitals-temperature 98.8, pulse rate 125 (improved to 94), respiratory rate 20, blood pressure 193/80 (improved to 144/68), on lung examination-low air entry bilaterally, associated with bilateral rhonchi and rales. Lab findings indicated WBC 7.9, hemoglobin 8.1 (9.1-ajryjzls-grgzhf anemia of chronic disease), platelets 199 (baseline 300), normal electrolytes-sodium 139, potassium 3.5, bicarbonate 38 (baseline 40-likely because of metabolic compensation due to COPD), normal renal function-BU and 31, serum creatinine 0.7. Urine function test-AST 35, AST 34, alkaline phosphatase 67, normal cardiac enzymes troponin 0.01, proBNP 845-slightly elevated (913 baseline). Iron 19, ferritin 71.9, TIBC 288, MCV-94.1 (normocytic normochromic anemia). Radiological findings-chest x-ray reviewed pulmonary venous congestion, small pleural effusion with superimposed consolidation and hyperexpanded lungs. CT chest revealed emphysematous changes, likely endobronchial disease pattern, calcified granuloma. Last echocardiogram done in 2016 deviate left ventricular ejection fraction of 55% and right ventricular pressure of 34. EKG revealed normal sinus rhythm, pulse rate 112, QTc 443, no ST-T wave changes were noted. Differential diagnosis: #1 COPD exacerbation #2 infections bronchiolitis Below the problem list and plan: #1 shortness of breath, cough-acute hypoxic respiratory failure, physical examination findings and CT findings were suggestive of COPD exacerbation. Patient was started on intravenous dytrheha-Nlem-Iyprkf which was continued during the stay in the hospital. She was initially started on Azithromycin, and was changed to Vacomycin; when LRC showed growth of MRSA. Vancomycin trough was checked to ensure adequate levals. She was also started on BiPAP. She remained extremely anxious during the stay in the hospital, and could not keep the BiPAP mask in place. Considering her severe COPD, and deteriorating clinical condition , even while on antibiotics, steroids and IPPV- Dr. Rangel advised on addressing the goals of care with the family. After reviewing the risks vs benefits, it was deemed prudent to pursue a more coservative approach and, pt was made comfort care. Hospice evaluation was obtained, after a long discussion between hospice team, attending physician and Dr. Rangel. #2 lower extremity ulcers-likely due to peripheral vascular disease. She was continued on aspirin and lipitor, and no further investigation was done to address this at this time. #3 hypertension-continue losartan, Cardizem, and amlodipine. Hydrochlorothiazide held. She was not on any beta blockers. #4 anemia-likely anemia of chronic disease and acute blood loss anemia. She was transfused w/ one unit of PRBC's without any complications. Hemoccult test was positive, likely a GI bleed. Since, previous investigations- UGD did not reveal any clear sources of GI bleed in the past, the pt was closely watched w/ conservative management(iv protonix). H&H remained stable. #5 DVT prophylaxis- Anticoagulants and anti-platelets were discontinued after an evidence of GI bleed was found. Allergies: Coded Allergies: bacitracin (From NEOSPORIN ([id number])) (rash 09/23/15) neomycin (From NEOSPORIN ([id number])) (rash 09/23/15) penicillin V (SWELLING ALL OVER AND ITCHING 09/23/15) polymyxin B (From NEOSPORIN ([id number])) (rash 09/23/15) cortisone (THRUSH 09/23/15) duloxetine (GI DISTRESS 09/23/15) moxifloxacin (From AVELOX) (STOMACH SICK 09/23/15) Pertinent Lab Results: CAT - CT CHEST WO IV CONTRAST 07/07/16- 1. Emphysematous change of lung. 2. Bibasilar atelectasis. Reticular and tree-in-bud opacities in the lung bases bilaterally consistent with endobronchial disease. 3. Stable bilateral calcified granuloma and small lung nodules. RAD - XRY-PORTABLE CHEST XRAY 07/07/16-1055 1. Pulmonary venous congestion, small pleural effusions and mild bibasilar atelectasis. No significant pulmonary edema. Superimposed consolidation in the lung bases is possible. 2. Hyperexpanded lungs, unchanged. RAD - XRY-PORTABLE CHEST XRAY 07/09/16-1310 Emphysema. Minimal atelectasis, left lower lobe. Small effusions. RAD - XRY-PORTABLE CHEST XRAY 07/14/16- 1. COPD with chronic lung markings seen. 2. Superimposed bibasilar opacities are noted, subtly progressing when compared to recent chest x-rays, raising the suspicion of superimposed pneumonia. There may be associated trace pleural effusions. Disposition Summary Disposition Principal Diagnosis: COPD exacerbation Additional Diagnosis: MRSA pneumonia Discharge Disposition: hospice - medical facilit Discharge Instructions General Discharge Information Code Status: Hospice Patient's Diet: regular diet Patient's Activity: as tolerated Follow-Up Instructions/Appts: N/A Copies To: CHAPIS DELVALLE,MURUG[place]ILL Attending MD Review Statement Documenting Attending: MARTHA DELVALLE,SARITA Brown
[2016-07-09 20:31] VITALS: BP 152/60
[2016-07-09 21:53] VITALS: BP 138/70
[2016-07-10 00:03] LABS: ABSOLUTE BASOPHIL COUNT 0 /CUMM (0.0-0.2); ABSOLUTE EOSINOPHIL COUNT 0 /CUMM (0.0-0.7); ABSOLUTE GRANULOCYTE CT 15.4 /CUMM (1.4-6.5); ABSOLUTE LYMPH COUNT 0.4 /CUMM (1.2-3.4); ABSOLUTE MONOCYTE COUNT 0.8 /CUMM (0.10-0.60); BASOPHIL % 0 % (0.0-2.0); EOSINOPHIL % 0 % (0-5); MEAN CORPUSCULAR HGB 29.8 PG (27.0-31.0); MEAN CORPUSCULAR HGB CONC 32.1 G/DL (33.0-37.0); MEAN CORPUSCULAR VOLUME 92.9 FL (81.0-99.0); MEAN PLATELET VOLUME 8.6 FL (7.4-10.4); PLATELET COUNT 230 /CUMM (130-400); WHITE BLOOD CELL COUNT 16.6 /CUMM (4.8-10.8)
[2016-07-10 00:11] LABS: HEMATOCRIT 25.3 % (37-47); RED BLOOD CELL CT 2.72 /CUMM (4.20-5.40)
[2016-07-10 06:31] VITALS: BP 170/50
--- NOTE | 2016-07-10 07:19 | PN- Housestaff ---
SHAUNNA MARTINEZ 07/10/16 0717: Subjective Follow-up For: -COPD exacerbation -Acute blood loss anemia -iron deficiency anemia of unclear reason Subjective: Pt was comfortable this am. She still complained to difficulty breathing, and was in mild distress. Vitals were stable overnight. A few hours after the pt was examined, she was found to be hypoxic, and was in severe distress. She was kept on 55% venti mask. Review of Systems Constitutional: Reports: see HPI. Objective Last 24 Hrs of Vital Signs/I&O Vital Signs Date Time Temp Pulse Resp B/P Pulse O2 O2 Flow FiO2 Ox Delivery Rate 07/10 0631 98.3 92 32 170/50 100 Non ReBreather 07/10 0431 94 Venti Mask 55% 07/09 2235 93 Nasal 45% Cannula 07/09 2153 97.9 79 21 138/70 94 Nasal 45% Cannula 07/09 2031 152/60 07/09 1930 95 Nasal 50% Cannula 07/09 1730 97.7 80 24 100/70 07/09 1645 96 Nasal 50% Cannula 07/09 1600 Nasal 50% Cannula 07/09 1542 Nasal 4.0L Cannula 07/09 1400 80 24 152/80 07/09 1053 98.6 88 24 168/60 07/09 1051 98.9 88 24 168/60 07/09 0814 93 Nasal 4.0L Cannula 07/09 0800 Nasal 4.0L Cannula Intake & Output 07/10 0800 07/10 0000 07/09 1600 Intake Total 1000 Output Total 300 Balance -300 1000 Intake, IV 200 Intake, Oral 800 Number 1 Bowel Movements Output, Urine 300 Physical Exam General Appearance: Moderate Distress Other Physical Findings: General Exam: AAOx3, Skin: No rashes, no breakdown HEENT: PERRLA, EOMI Neck: Supple, No JVD No cervical lymphadenopathy CVS: Reg Rate, Normal S1,S2, No MGR Resp: Decreased air entry bilaterally, ronchi and rales + Abdomen: Soft, No tenderness, Normal Bowel Sounds Neuro: Normal Speech, Strength 5/5 b/l x 4 extremities, Sensation intact, CN III -XII NL, Reflexes 2+ Extremities: No cyanosis, pedal edema, ulcers present Current Medications: Current Medications Sig/Roge Start time Last Medication Dose Route Stop Time Status Admin Acetaminophen 650 MG Q6P PRN 07/07 1730 AC PO Albuterol Sulfate 3 ML EVERY 4 HRS/AWAKE 07/07 2000 AC 07/10 INH 0416 Albuterol Sulfate 3 ML EVERY 4 HRS/AWAKE .. 07/07 1530 AC 07/08 INH 1444 Amitriptyline HCl 25 MG QPM 07/07 2200 AC 07/09 PO 2249 Amlodipine Besylate 5 MG DAILY 07/08 1000 AC 07/09 PO 1053 Aspirin 81 MG DAILY 07/08 1000 DC 07/09 PO 1047 Atorvastatin Calcium 10 MG DAILY@1700 07/08 1700 AC 07/09 PO 1650 Azithromycin 500 MG DAILY 07/08 1000 AC 07/09 Dextrose/Water 250 ML IV 1103 Budesonide/ 2 PUF BID 07/07 1518 AC 07/09 Formoterol Fumarate INH 2250 Calcium/Vitamin D 1 TAB BID 07/07 2200 AC 07/09 PO 2249 Diltiazem HCl 360 MG DAILY 07/08 1000 AC 07/09 PO 1049 Enoxaparin Sodium 40 MG DAILY 07/08 1000 AC 07/09 SC 1102 Ferrous Sulfate 325 MG DAILY 07/08 1000 AC 07/09 PO 1051 Furosemide 40 MG .STK-MED ONE 07/09 1537 DC IV 07/09 1538 Furosemide 20 MG ONCE ONE 07/09 1445 DC IV 07/09 1446 Furosemide 20 MG ONCE ONE 07/09 1315 DC IV 07/09 1316 Ibuprofen 600 MG Q6P PRN 07/07 1730 DC PO Lorazepam 0.5 MG BID PRN 07/07 1715 AC 07/10 PO 07/14 1714 0412 Losartan Potassium 100 MG DAILY 07/08 1000 AC 07/09 PO 1051 Methylprednisolone 40 MG BID 07/09 2200 DC IV Methylprednisolone 40 MG TID 07/09 1600 AC 07/09 IV 2250 Methylprednisolone 40 MG Q8 07/08 0600 DC 07/09 IV 0538 Multivitamins 1 TAB DAILY 07/08 1000 AC 07/09 Therapeutic PO 1053 Omeprazole 20 MG DAILY AC 07/08 0700 DC 07/09 PO 0538 Oxycodone/ 1 TAB Q6P PRN 07/07 1730 AC Acetaminophen PO Pantoprazole Sodium 40 MG BID 07/09 2200 AC 07/09 IV 2249 Paroxetine HCl 40 MG AT BEDTIME 07/07 2200 AC 07/09 PO 2249 Pregabalin 25 MG BID 07/080 DC 07/08 PO 2127 Tiotropium [place] 1 PUF DAILY 07/08 1000 AC 07/09 INH 1100 Vancomycin HCl 1,000 MG 2300 07/09 2300 AC 07/10 Dextrose/Water 250 ML IV 0012 Vancomycin HCl 1,000 MG 1500 07/09 1500 DC 07/09 Dextrose/Water 250 ML IV 1707 Vancomycin HCl 1,000 MG Q12 07/09 1431 DC Dextrose/Water 250 ML IV Last 24 Hrs of Lab/Gt Results Last 24 Hrs of Labs/Mics: Laboratory Tests 07/09/16 2310: CBC w Diff NO MAN DIFF REQ, RBC 2.72 L, MCV 92.9, MCH 29.8, RDW 15.0 H, MPV 8.6, Gran % 93.0 H, Lymphocytes % 2.2 L, Monocytes % 4.8, Eosinophils % 0, Basophils % 0 L, Absolute Granulocytes 15.4 H, Absolute Lymphocytes 0.4 L, Absolute Monocytes 0.8 H, Absolute Eosinophils 0, Absolute Basophils 0, PUBS MCHC 32.1 L 07/09/16 1310: CBC w Diff MAN DIFF ORDERED, RBC 2.13 L, MCV 94.4, MCH 30.5, RDW 15.0 H, MPV 8.4, Gran % 91.2 H, Lymphocytes % 3.2 L, Monocytes % 5.6, Eosinophils % 0, Basophils % 0 L, Absolute Granulocytes 13.9 H, Absolute Lymphocytes 0.5 L, Absolute Monocytes 0.9 H, Absolute Eosinophils 0, Absolute Basophils 0, Hypochromic-Microcytic 1+, Anisocytosis 1+, PUBS MCHC 32.3 L Assessment/Plan Assessment: She is an older woman with a past history of COPD (end-stage),HFpEF, peripheral vascular disease is being evaluated for acute onset of shortness of breath, cough and fever. Found to be hypoxemic-85% on 4 L prior to admission. Laboratory findings in the last 24 hours-lower respiratory cultures revealed growth of MRSA. Slightly elevated BUN-44, serum creatinine 1.0. Hemoglobin 8.7 (after 1 PRBC transfusion). Blood gas analysis revealed pH 7.38, PCO2 60, PO2 87. Differential diagnosis: #1 COPD exacerbation #2 infections bronchiolitis Below the problem list and plan: #1 shortness of breath, cough-acute hypoxic respiratory failure, physical examination findings and CT findings are suggestive of COPD exacerbation and or infective bronchiolitis. Continue on intravenous [id number]-Bjyb-Aieikn 40 mg every 8 x 3d. TRC. Continue vancomycin-renal adjusted dosing. Infectious disease recruiting consultant advising. #2 lower extremity ulcers-likely due to peripheral vascular disease. Patient currently on 10 mg Lipitor, which could be increased to high-intensity statin. Continue aspirin low-dose. #3 hypertension-continue losartan, and Cardizem 360 mg by mouth daily (as per Dr. Forrest, the patient to be continued on Cardizem. No beta blockers, as the patient has severe COPD). Hydrochlorothiazide held at this time. #4 anemia-likely anemia of chronic disease. Low iron, ferritin, normal TIBC with normal reticulocyte count. MCV 94. Guaiac test positive (CASSANDRA done this p.m). 1 units of PRBCs transfused. Lasix 1 pre and post transfusion to avoid fluid overload, which was not administered .GI consult for advice, as the patient had unexplained iron deficiency anemia. Aspirin and Lovenox have been discontinued. #5 DVT prophylaxis-Lovenox. Problem List: 1. Bronchitis 2. Anemia 3. Acute and chronic respiratory failure Pain Ratin Pain Location: Back pain Pain Goal: Pain 4 or less Pain Plan: Tylenol when necessary Tomorrow's Labs & Rationales: Basic electrolyte panel-to monitor for bicarbonate and serum creatinine, BUN. CBC-to monitor H&H. Patient had unexplained iron deficiency anemia. CELIA DELVALLE,[facility] 07/10/16 1218: Attending MD Review Statement Attending Statement Attending Statement: examined this patient, discuss w/resident/PA/BODY BUMPER, agreed w/resident/PA/BODY BUMPER, reviewed EMR data (avail), discussed with nursing, discussed with case mgmt, reviewed images, amended to note Attending Assessment/Plan: Patient seen and examined, not doing well. Very short of breath, ABG now showing worseining hypercarbia. Pt cannot even talk now. Vital Signs Date Time Temp Pulse Resp B/P Pulse O2 O2 Flow FiO2 Ox Delivery Rate 07/10 1115 98 94 07/10 1100 100 164/72 07/10 0823 97 Venti Mask 55% 07/10 0631 98.3 92 32 170/50 100 Non ReBreather 07/10 0431 94 Venti Mask 55% 07/10 0000 Nasal 45% Cannula 07/09 2234 93 Nasal 45% Cannula 07/09 2153 97.9 79 21 138/70 94 Nasal 45% Cannula 07/09 2031 152/60 07/09 1930 95 Nasal 50% Cannula 07/09 1730 97.7 80 24 100/70 07/09 1645 96 Nasal 50% Cannula 07/09 1600 Nasal 50% Cannula 07/09 1542 Nasal 4.0L Cannula 07/09 1400 80 24 152/80 on exam; awake, she is in moderate distress secondary to respiratory distress. cv; s1, s2, rrr. resp; very decreased breath sounds, I did not hear any crackles. abd; soft, nt, bs+ ext; no edema. Laboratory Tests 07/10 07/10 1053 0745 Blood Gas pH (7.35 - 7.45 PH) 7.38 pCO2 (35 - 45 TORR) 60 *H pO2 (80 - 100 TORR) 87 HCO3 (21 - 28 MEQ/L) 34 H ABG O2 Sat (Measured) (>96.0 %) 97.0 P-50 (Temp Corrected) YES Carboxyhemoglobin (1.5 - 5.0 %) 1.0 L O2 Concentration % 6L Temperature (97.0 - 100.0 FARH) 98.3 O2 Delivery Method NEBULIZER Chemistry Sodium (137 - 145 mmol/L) 139 Potassium (3.5 - 5.1 mmol/L) 4.0 Chloride (98 - 107 mmol/L) 95 L Carbon Dioxide (22 - 30 mmol/L) 39 H Anion Gap (5 - 16) 6 BUN (7 - 17 mg/dL) 44 H Creatinine (0.5 - 1.0 mg/dL) 1.0 Estimated GFR (>60 ml/min) 54 L BUN/Creatinine Ratio (7 - 25 %) 44.0 H Hematology CBC w Diff MAN DIFF ORDERED WBC (4.8 - 10.8 /CUMM) 17.7 H RBC (4.20 - 5.40 /CUMM) 2.86 L Hgb (12.0 - 16.0 G/DL) 8.7 L Hct (37 - 47 %) 26.7 L MCV (81.0 - 99.0 FL) 93.3 MCH (27.0 - 31.0 PG) 30.4 RDW (11.5 - 14.5 %) 15.0 H Plt Count (130 - 400 /CUMM) 245 MPV (7.4 - 10.4 FL) 8.4 Gran % (42.2 - 75.2 %) 93.5 H Lymphocytes % (20.5 - 51.1 %) 1.7 L Monocytes % (1.7 - 9.3 %) 4.8 Eosinophils % (0 - 5 %) 0 Basophils % (0.0 - 2.0 %) 0 L Absolute Granulocytes (1.4 - 6.5 /CUMM) 16.5 H Segmented Neutrophils (42.2 - 75.2 %) 86 H Band Neutrophils (0.0 - 5.0 %) 7 H Absolute Lymphocytes (1.2 - 3.4 /CUMM) 0.3 L Lymphocytes (20.5 - 51.1 %) 1 L Monocytes (1.7 - 9.3 %) 6 Absolute Monocytes (0.10 - 0.60 /CUMM) 0.9 H Absolute Eosinophils (0.0 - 0.7 /CUMM) 0 Absolute Basophils (0.0 - 0.2 /CUMM) 0 Platelet Estimate (ADEQUATE) ADEQUATE Polychromasia Hypochromic-Microcytic 1+ Anisocytosis 1+ Ovalocytes FEW PUBS MCHC (33.0 - 37.0 G/DL) 32.6 L Miscellaneous Phlebotomy Draw Site RIGHT RADIAL 07/09 07/09 2310 1310 Hematology CBC w Diff NO MAN DIFF REQ MAN DIFF ORDERED WBC (4.8 - 10.8 /CUMM) 16.6 H 15.2 H RBC (4.20 - 5.40 /CUMM) 2.72 L 2.13 L Hgb (12.0 - 16.0 G/DL) 8.1 L 6.5 *L Hct (37 - 47 %) 25.3 L 20.1 L MCV (81.0 - 99.0 FL) 92.9 94.4 MCH (27.0 - 31.0 PG) 29.8 30.5 RDW (11.5 - 14.5 %) 15.0 H 15.0 H Plt Count (130 - 400 /CUMM) 230 222 MPV (7.4 - 10.4 FL) 8.6 8.4 Gran % (42.2 - 75.2 %) 93.0 H 91.2 H Lymphocytes % (20.5 - 51.1 %) 2.2 L 3.2 L Monocytes % (1.7 - 9.3 %) 4.8 5.6 Eosinophils % (0 - 5 %) 0 0 Basophils % (0.0 - 2.0 %) 0 L 0 L Absolute Granulocytes (1.4 - 6.5 /CUMM) 15.4 H 13.9 H Absolute Lymphocytes (1.2 - 3.4 /CUMM) 0.4 L 0.5 L Absolute Monocytes (0.10 - 0.60 /CUMM) 0.8 H 0.9 H Absolute Eosinophils (0.0 - 0.7 /CUMM) 0 0 Absolute Basophils (0.0 - 0.2 /CUMM) 0 0 Hypochromic-Microcytic 1+ Anisocytosis 1+ PUBS MCHC (33.0 - 37.0 G/DL) 32.1 L 32.3 L A/P: 76 y/o F with pmh sig for stage I diastolic dysfunction, chronic respiratory failure due to end-stage COPD on(prednisone 10 g daily, 2-3 L of oxygen) at baseline, history of alcohol dependence, hypertension, vertigo, PVD, right femoral neck fracture status post mechanical fall status requiring arthroplasty April 2015, 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 Patient also had developed acute blood loss anemia yesterday secondary to likely GI blood loss as her stool guaiac was positive. At this point H&H is stable after transfusion. GI consult will be obtained. Patient is now developing hypercarbic in addition to hypoxic respiratory failure. She has been started on vancomycin as of yesterday. I checked with pharmacy, she is on the right dose. Her respiratory status is getting worse. We'll start her on BiPAP. I had discussed with patient's son yesterday about the goals of care and he wanted everything to be done. At this point will obtain infectious disease consult. Continue vancomycin, steroids IV as well as TRC nebs and inhalers. Patient has been started on IV PPI. At this point I'm going to hold her Lovenox daily make sure that her H&H remains stable and there is no evidence of active bleed. She can be started on ALPS for DVT prophylaxis. Prognosis is gaurded.
--- NOTE | 2016-07-10 07:59 | PN- Pulmonary ---
Subjective HPI/Critical Care Issues: Patient continues to be dyspneic and congested sputum growing staph aureus sensitivity pending. She refused BiPAP. Chest x-rays without evidence pneumonia elevated white count likely related to steroids. Objective Current Medications: Current Medications Sig/Roge Start time Last Medication Dose Route Stop Time Status Admin Acetaminophen 650 MG Q6P PRN 07/07 1730 AC PO Albuterol Sulfate 3 ML EVERY 4 HRS/AWAKE 07/07 2000 AC 07/10 INH 0416 Albuterol Sulfate 3 ML EVERY 4 HRS/AWAKE .. 07/07 1530 AC 07/08 INH 1444 Amitriptyline HCl 25 MG QPM 07/07 2200 AC 07/09 PO 2249 Amlodipine Besylate 5 MG DAILY 07/08 1000 AC 07/09 PO 1053 Aspirin 81 MG DAILY 07/08 1000 DC 07/09 PO 1047 Atorvastatin Calcium 10 MG DAILY@1700 07/08 1700 AC 07/09 PO 1650 Azithromycin 500 MG DAILY 07/08 1000 AC 07/09 Dextrose/Water 250 ML IV 1103 Budesonide/ 2 PUF BID 07/07 1518 AC 07/09 Formoterol Fumarate INH 2250 Calcium/Vitamin D 1 TAB BID 07/07 2200 AC 07/09 PO 2249 Diltiazem HCl 360 MG DAILY 07/08 1000 AC 07/09 PO 1049 Enoxaparin Sodium 40 MG DAILY 07/08 1000 AC 07/09 SC 1102 Ferrous Sulfate 325 MG DAILY 07/08 1000 AC 07/09 PO 1051 Furosemide 40 MG .STK-MED ONE 07/09 1537 DC IV 07/09 1538 Furosemide 20 MG ONCE ONE 07/09 1445 DC IV 07/09 1446 Furosemide 20 MG ONCE ONE 07/09 1315 DC IV 07/09 1316 Ibuprofen 600 MG Q6P PRN 07/07 1730 DC PO Lorazepam 0.5 MG BID PRN 07/07 1715 AC 07/10 PO 07/14 1714 0412 Losartan Potassium 100 MG DAILY 07/08 1000 AC 07/09 PO 1051 Methylprednisolone 40 MG BID 07/09 2200 DC IV Methylprednisolone 40 MG TID 07/09 1600 AC 07/09 IV 2250 Methylprednisolone 40 MG Q8 07/08 0600 DC 07/09 IV 0538 Multivitamins 1 TAB DAILY 07/08 1000 AC 07/09 Therapeutic PO 1053 Omeprazole 20 MG DAILY AC 07/08 0700 DC 07/09 PO 0538 Oxycodone/ 1 TAB Q6P PRN 07/07 1730 AC Acetaminophen PO Pantoprazole Sodium 40 MG BID 07/09 2200 AC 07/09 IV 2249 Paroxetine HCl 40 MG AT BEDTIME 07/07 2200 AC 07/09 PO 2249 Pregabalin 25 MG BID 07/08 2200 DC 07/08 PO 2127 Tiotropium [place] 1 PUF DAILY 07/08 1000 AC 07/09 INH 1100 Vancomycin HCl 1,000 MG 2300 07/09 2300 AC 07/10 Dextrose/Water 250 ML IV 0012 Vancomycin HCl 1,000 MG 1500 07/09 1500 DC 07/09 Dextrose/Water 250 ML IV 1707 Vancomycin HCl 1,000 MG Q12 07/09 1431 DC Dextrose/Water 250 ML IV Vital Signs & I&O Last 24 Hrs of Vitals and I&O: Vital Signs Date Time Temp Pulse Resp B/P Pulse O2 O2 Flow FiO2 Ox Delivery Rate 07/10 0631 98.3 92 32 170/50 100 Non ReBreather 07/10 0431 94 Venti Mask 55% 07/09 2235 93 Nasal 45% Cannula 07/09 2153 97.9 79 21 138/70 94 Nasal 45% Cannula 07/09 2031 152/60 07/09 1930 95 Nasal 50% Cannula 07/09 1730 97.7 80 24 100/70 07/09 1645 96 Nasal 50% Cannula 07/09 1600 Nasal 50% Cannula 07/09 1542 Nasal 4.0L Cannula 07/09 1400 80 24 152/80 07/09 1053 98.6 88 24 168/60 07/09 1051 98.9 88 24 168/60 07/09 0814 93 Nasal 4.0L Cannula 07/09 0800 Nasal 4.0L Cannula Intake & Output 07/10 0800 07/10 0000 07/09 1600 Intake Total 1000 Output Total 300 Balance -300 1000 Intake, IV 200 Intake, Oral 800 Number 1 Bowel Movements Output, Urine 300 FiO2 0.55 saturation 100% exam for chest shows scattered rhonchi cardiac breath sounds cardiac exam regular S1 and S2 without murmurs Impression/Plan Impression/Plan Impression/Plan: 76-year-old woman with advanced COPD history congestive heart failure admitted with increasing shortness of breath. This likely represents COPD exacerbation though evidence of small pleural effusions would be atypical indicate possible concomitant cardiac component. Patient has end-stage COPD and will continue discussions regarding goals of care. Patient is deferred decision to her son who reportedly has power of check grader Recommendations: Continue IV steroids and antibiotics. Spiro remains poor for significant functional recovery. We'll contact her son regarding direction of care
[2016-07-10 09:04] LABS: ABSOLUTE BASOPHIL COUNT 0 /CUMM (0.0-0.2); ABSOLUTE EOSINOPHIL COUNT 0 /CUMM (0.0-0.7); ABSOLUTE GRANULOCYTE CT 16.5 /CUMM (1.4-6.5); ABSOLUTE LYMPH COUNT 0.3 /CUMM (1.2-3.4); ABSOLUTE MONOCYTE COUNT 0.9 /CUMM (0.10-0.60); BASOPHIL % 0 % (0.0-2.0); EOSINOPHIL % 0 % (0-5); GRANULOCYTE % 93.5 % (42.2-75.2); HEMATOCRIT 26.7 % (37-47); MEAN CORPUSCULAR HGB 30.4 PG (27.0-31.0); MEAN CORPUSCULAR HGB CONC 32.6 G/DL (33.0-37.0); MEAN CORPUSCULAR VOLUME 93.3 FL (81.0-99.0); MEAN PLATELET VOLUME 8.4 FL (7.4-10.4); PLATELET COUNT 245 /CUMM (130-400); RED BLOOD CELL CT 2.86 /CUMM (4.20-5.40); WHITE BLOOD CELL COUNT 17.7 /CUMM (4.8-10.8)
--- NOTE | 2016-07-10 12:46 | RADIOLOGY REPORT ---
EXAMINATION: XR PORTABLE CHEST CLINICAL INFORMATION: 76-year-old female with history of severe COPD. No fever or leukocytosis. Evaluate for pneumonia versus atelectasis. COMPARISON: Chest radiograph 07/09/[address] chest 08/04/2016 TECHNIQUE: Portable AP view of the chest was obtained. FINDINGS: Stable cardiomediastinal silhouette. Emphysematous changes are again noted, primarily involving the upper lobes. Slightly increased vascular markings are noted in the lower lobes, unchanged. There is no focal consolidation. Minimal bibasilar atelectasis. No gross pleural effusions or pneumothorax. Osseous structures are intact. IMPRESSION: 1. No significant interval change. No focal consolidation. Slightly increased markings at the lung bases are likely related to crowding of the bronchovascular structures and atelectasis. Follow-up is recommended if there is concern for developing pneumonia. 2. Emphysema.
--- NOTE | 2016-07-10 13:06 | Cons- Infect Disease ---
General Information and HPI Consulting Request Date of Consult: 07/10/16 Requested By: CHAPARRO YANG MD Reason for Consult: antibiotic advice Source of Information: patient, primary team Exam Limitations: clinical condition History of Present Illness: 76-year-old woman formaer smoker, F resident known with past medical history of COPD (3 L home oxygen), HFpEF, peripheral vascular disease, osteoporosis, anxiety, recent admission to [facility] for COPD exacerbation, was brought to the ED on 07/07/16 with worsening shortness of breath, fever, cough for 2-3 prior to admission.. She described developing acute onset of shortness of breath on exertion (walking indoors) which progressed to shortness of breath at rest. Also was concerned about cough (chronic), productive, noted color change recently from clear to yellow-green sputum. Reported feeling feverish, chills, and decreased oral intake. Denies abdominal pain, change in bowel, nausea or vomiting, chest pain, palpitation or urinary symptoms. As per ED notes, oxygen saturation (recorded) was 85% on 4 L and heart rate 130. While in the hospital patient afebrile, has persistent SOB and congested sputum (growing MRSA sputum cx 07/07/16). Patient requiring BiPAP; rapid response called this afternoon. Allergies/Medications Allergies: Coded Allergies: bacitracin (From NEOSPORIN ([id number])) (rash 09/23/15) neomycin (From NEOSPORIN ([id number])) (rash 09/23/15) penicillin V (SWELLING ALL OVER AND ITCHING 09/23/15) polymyxin B (From NEOSPORIN ([id number])) (rash 09/23/15) cortisone (THRUSH 09/23/15) duloxetine (GI DISTRESS 09/23/15) moxifloxacin (From AVELOX) (STOMACH SICK 09/23/15) Home Med List: Albuterol Sulfate (Albuterol Sulfate Hfa) 0.09 MG/Actuation CHELSEA 2 PUFF INH PRN COPD (Reported) 90 MCG PER PUFF Albuterol Sulfate (Proventil) 2.5 MG/3 ML NEB 3 ML INH EVERY 4 HRS/AWAKE PRN COPD Amitriptyline HCl 25 MG TABLET 1 TAB PO QPM depression (Reported) Amlodipine Besylate 5 MG TABLET 5 MG PO DAILY blood pressure Aspirin (Aspirin*) 81 MG TAB.CHEW 81 MG PO DAILY HEART HEALTH Atorvastatin Calcium 10 MG TABLET 1 TAB PO DAILY CHOLESTEROL (Reported) Calcium Carbonate/Vitamin D3 (Os-Napoleon 500+D3 Caplet) 500 MG-200 TABLET 1 TAB PO BID SUPPLEMENT (Reported) Cyanocobalamin (Vitamin B-12) (Cyanocobalamin Injection) 1,000 MCG/ML VIAL 1 ML IM Q30D SUPPLEMENT (Reported) Diltiazem HCl (Diltiazem 24HR ER) 360 MG CAP.ER.24H 1 CAP PO DAILY HEART ( Reported) Ferrous Sulfate 325 MG (65 MG IRON) TABLET 1 TAB PO DAILY ANEMIA (Reported) Fluticasone-Salmeterol (Advair 500-50 Diskus) 1 UNIT UNIT 1 PUF INH BID COPD (Reported) Hydrochlorothiazide 25 MG TABLET 1 TAB PO DAILY WATER PILL (Reported) Lorazepam (Ativan) 0.5 MG TAB 1 TAB PO BID ANXIETY (Reported) Losartan (Cozaar) 100 MG TABLET 100 MG PO DAILY HIGH BLOOD PRESSURE Multivitamin (One Daily Multivitamin) 1 TAB TAB 1 TAB PO DAILY SUPPLEMENT ( Reported) Omeprazole 20 MG CAPSULE.DR 1 CAP PO DAILY HEARTBURN Paroxetine HCl 40 MG TABLET 1 TAB PO AT BEDTIME DEPRESSION (Reported) Prednisone 10 MG TABLET 1 TAB PO SEE ADMIN CRITERIA copd take 3 TABS X 2 DAYS 2 TABS X 2 DAYS tHEN CONTINUE WITH 10 MG(1 TAB) OF PREDNISONE DAILY FOR copd Pregabalin (Lyrica) 50 MG CAPSULE 0.5 CAP PO BID PAIN (Reported) Stop lyrica on 06/28/16 Tiotropium [place] (Spiriva) 18 MCG CAP 1 CAP INH DAILY COPD (Reported) Current Medications: Current Medications Sig/Roge Start time Last Medication Dose Route Stop Time Status Admin Acetaminophen 650 MG Q6P PRN 07/07 1730 AC PO Albuterol Sulfate 3 ML EVERY 4 HRS/AWAKE 07/07 2000 AC 07/10 INH 1046 Albuterol Sulfate 3 ML EVERY 4 HRS/AWAKE .. 07/07 1530 AC 07/08 INH 1444 Amitriptyline HCl 25 MG QPM 07/07 2200 AC 07/09 PO 2249 Amlodipine Besylate 5 MG DAILY 07/08 1000 AC 07/10 PO 1253 Aspirin 81 MG DAILY 07/08 1000 DC 07/09 PO 1047 Atorvastatin Calcium 10 MG DAILY@1700 07/08 1700 AC 07/09 PO 1650 Azithromycin 500 MG DAILY 07/08 1000 AC 07/10 Dextrose/Water 250 ML IV 1059 Budesonide/ 2 PUF BID 07/07 1518 AC 07/09 Formoterol Fumarate INH 2250 Calcium/Vitamin D 1 TAB BID 07/07 2200 AC 07/10 PO 1059 Diltiazem HCl 360 MG DAILY 07/08 1000 AC 07/10 PO 1059 Enoxaparin Sodium 40 MG DAILY 07/08 1000 DC 07/10 SC 1100 Ferrous Sulfate 325 MG DAILY 07/08 1000 AC 07/10 PO 1100 Furosemide 40 MG .STK-MED ONE 07/09 1537 DC IV 07/09 1538 Furosemide 20 MG ONCE ONE 07/09 1445 DC IV 07/09 1446 Furosemide 20 MG ONCE ONE 07/09 1315 DC IV 07/09 1316 Ibuprofen 600 MG Q6P PRN 07/07 1730 DC PO Lorazepam 0.5 MG BID PRN 07/07 1715 AC 07/10 PO 07/14 1714 0412 Losartan Potassium 100 MG DAILY 07/08 1000 AC 07/10 PO 1100 Methylprednisolone 40 MG BID 07/10 2200 DC IV Methylprednisolone 40 MG TID 07/10 1600 AC IV Methylprednisolone 40 MG TID 07/09 1600 DC 07/09 IV 2250 Multivitamins 1 TAB DAILY 07/08 1000 AC 07/10 Therapeutic PO 1100 Omeprazole 20 MG DAILY AC 07/08 0700 DC 07/09 PO 0538 Oxycodone/ 1 TAB Q6P PRN 07/07 1730 AC Acetaminophen PO Pantoprazole Sodium 40 MG BID 07/09 2200 AC 07/10 IV 1058 Paroxetine HCl 40 MG AT BEDTIME 07/07 2200 AC 07/09 PO 2249 Pregabalin 25 MG BID 07/08 2200 DC 07/08 PO 2127 Tiotropium [place] 1 PUF DAILY 07/08 1000 AC 07/09 INH 1100 Vancomycin HCl 1,000 MG 2300 07/09 2300 AC 07/10 Dextrose/Water 250 ML IV 0012 Vancomycin HCl 1,000 MG 1500 07/09 1500 DC 07/09 Dextrose/Water 250 ML IV 1707 Vancomycin HCl 1,000 MG Q12 07/09 1431 DC Dextrose/Water 250 ML IV Past History Travel History Traveled to [place] past 21 day No Medical History Neurological: NONE EENT: NONE Cardiovascular: CAD, diastolic CHF, PVD, hypertension diastolic dysfunction Respiratory: COPD, bilateral pulmonary nodules HOME 02 DEPENDENT Gastrointestinal: NONE Hepatic: NONE Renal: nephrolithiasis (s/p ESWL) Musculoskeletal: osteomyelitis osteoporosis Psychiatric: anxiety Endocrine: NONE Blood Disorders: NONE Cancer(s): NONE CONTROL CHEMIST/Reproductive: HYSTERECTOMY History of MRSA: No History of VRE: No History of CDIFF: No Isolation History: Standard Surgical History Surgical History: Right hip ORIF Left 5th toe amputation Left eye lens implant Left hip ORIF Mar 2002 SAMUEL HIP REPLACEMENTS Family History Relations & Conditions If Any: MOTHER FH: diabetes mellitus Psychosocial History Where Do You Live? Jail Facility Who Do You Live With? self Services at Home: visiting nurse Primary Language: French Smoking Status: Former Smoker Living Will? In progress Power of Imaging Aide/HCP? yes Name of POA/HCP: Marco and Kevin Gunter of the 3sons. Functional Ability ADLs Independent: dressing, eating, toileting, bathing. Ambulation: Rolling walker with sit IADLs Independent: telephone. Needs Assist: shopping, housework, finances, food prep, transportation, medication admin. Review of Systems Comments 12 points reviewed as noted, otherwise negative. Exam & Diagnostic Data Last 24 Hrs of Vital Signs/I&O Vital Signs Date Time Temp Pulse Resp B/P Pulse O2 O2 Flow FiO2 Ox Delivery Rate 07/10 1253 98 164/72 07/10 1115 98 94 07/10 1100 100 164/72 07/10 0823 97 Venti Mask 55% 07/10 0800 94 Venti Mask 55% 07/10 0631 98.3 92 32 170/50 100 Non ReBreather 07/10 0431 94 Venti Mask 55% 07/10 0000 Nasal 45% Cannula 07/09 2235 93 Nasal 45% Cannula 07/09 2153 97.9 79 21 138/70 94 Nasal 45% Cannula 07/09 2031 152/60 07/09 1930 95 Nasal 50% Cannula 07/09 1730 97.7 80 24 100/70 07/09 1645 96 Nasal 50% Cannula 07/09 1600 Nasal 50% Cannula 07/09 1542 Nasal 4.0L Cannula 07/09 1400 80 24 152/80 Intake & Output 07/10 1600 07/10 0800 07/10 0000 Intake Total 350 450 Output Total 300 Balance 350 150 Intake, Blood 350 Product Intake, IV 300 50 Intake, Oral 50 50 Output, Urine 300 Physical Exam Other Physical Findings: General Appearance Alert, Oriented X3, Cooperative, Mild Distress, improved on BiPAP Skin No Rashes, brusing LE's. HEENT Atraumatic, PERRLA, EOMI, Mucous Membr. moist/pink Neck Supple, No JVD, No thryomegaly, +2 Carotid Pulse wo Bruit Lymphatic Cervical nl Cardiovascular Regular Rate, Normal S1, Normal S2, No Murmurs, tachycardia Lungs decreased air entry b/l ronchi Abdomen Normal Bowel Sounds, Soft, No Tenderness Neurological Awake and alert, answering questions appropriately Extremities No Clubbing, No Cyanosis, No Edema Last 24 Hours of Lab Results: Laboratory Tests 07/10 07/10 1053 0745 Blood Gas pH (7.35 - 7.45 PH) 7.38 pCO2 (35 - 45 TORR) 60 *H pO2 (80 - 100 TORR) 87 HCO3 (21 - 28 MEQ/L) 34 H ABG O2 Sat (Measured) (>96.0 %) 97.0 P-50 (Temp Corrected) YES Carboxyhemoglobin (1.5 - 5.0 %) 1.0 L O2 Concentration % 6L Temperature (97.0 - 100.0 FARH) 98.3 O2 Delivery Method NEBULIZER Chemistry Sodium (137 - 145 mmol/L) 139 Potassium (3.5 - 5.1 mmol/L) 4.0 Chloride (98 - 107 mmol/L) 95 L Carbon Dioxide (22 - 30 mmol/L) 39 H Anion Gap (5 - 16) 6 BUN (7 - 17 mg/dL) 44 H Creatinine (0.5 - 1.0 mg/dL) 1.0 Estimated GFR (>60 ml/min) 54 L BUN/Creatinine Ratio (7 - 25 %) 44.0 H Hematology CBC w Diff MAN DIFF ORDERED WBC (4.8 - 10.8 /CUMM) 17.7 H RBC (4.20 - 5.40 /CUMM) 2.86 L Hgb (12.0 - 16.0 G/DL) 8.7 L Hct (37 - 47 %) 26.7 L MCV (81.0 - 99.0 FL) 93.3 MCH (27.0 - 31.0 PG) 30.4 RDW (11.5 - 14.5 %) 15.0 H Plt Count (130 - 400 /CUMM) 245 MPV (7.4 - 10.4 FL) 8.4 Gran % (42.2 - 75.2 %) 93.5 H Lymphocytes % (20.5 - 51.1 %) 1.7 L Monocytes % (1.7 - 9.3 %) 4.8 Eosinophils % (0 - 5 %) 0 Basophils % (0.0 - 2.0 %) 0 L Absolute Granulocytes (1.4 - 6.5 /CUMM) 16.5 H Segmented Neutrophils (42.2 - 75.2 %) 86 H Band Neutrophils (0.0 - 5.0 %) 7 H Absolute Lymphocytes (1.2 - 3.4 /CUMM) 0.3 L Lymphocytes (20.5 - 51.1 %) 1 L Monocytes (1.7 - 9.3 %) 6 Absolute Monocytes (0.10 - 0.60 /CUMM) 0.9 H Absolute Eosinophils (0.0 - 0.7 /CUMM) 0 Absolute Basophils (0.0 - 0.2 /CUMM) 0 Platelet Estimate (ADEQUATE) ADEQUATE Polychromasia Hypochromic-Microcytic 1+ Anisocytosis 1+ Ovalocytes FEW PUBS MCHC (33.0 - 37.0 G/DL) 32.6 L Miscellaneous Phlebotomy Draw Site RIGHT RADIAL 07/09 07/09 2310 1310 Hematology CBC w Diff NO MAN DIFF REQ MAN DIFF ORDERED WBC (4.8 - 10.8 /CUMM) 16.6 H 15.2 H RBC (4.20 - 5.40 /CUMM) 2.72 L 2.13 L Hgb (12.0 - 16.0 G/DL) 8.1 L 6.5 *L Hct (37 - 47 %) 25.3 L 20.1 L MCV (81.0 - 99.0 FL) 92.9 94.4 MCH (27.0 - 31.0 PG) 29.8 30.5 RDW (11.5 - 14.5 %) 15.0 H 15.0 H Plt Count (130 - 400 /CUMM) 230 222 MPV (7.4 - 10.4 FL) 8.6 8.4 Gran % (42.2 - 75.2 %) 93.0 H 91.2 H Lymphocytes % (20.5 - 51.1 %) 2.2 L 3.2 L Monocytes % (1.7 - 9.3 %) 4.8 5.6 Eosinophils % (0 - 5 %) 0 0 Basophils % (0.0 - 2.0 %) 0 L 0 L Absolute Granulocytes (1.4 - 6.5 /CUMM) 15.4 H 13.9 H Absolute Lymphocytes (1.2 - 3.4 /CUMM) 0.4 L 0.5 L Absolute Monocytes (0.10 - 0.60 /CUMM) 0.8 H 0.9 H Absolute Eosinophils (0.0 - 0.7 /CUMM) 0 0 Absolute Basophils (0.0 - 0.2 /CUMM) 0 0 Hypochromic-Microcytic 1+ Anisocytosis 1+ PUBS MCHC (33.0 - 37.0 G/DL) 32.1 L 32.3 L Last 24 Hours of Gt Results: EC #: [id number] ASAEL: 07/07/162345 STATUS: COMP RECD: 07/08/160008 SUBM DR: ELIEZER GUAMAN SOURCE: LOWER RESP ENTR: 07/07/16-[address]: CHAPIS DELVALLE, [facility] SPDESC: SPUTUM ORDERED: LOWER RESPIRATO Procedure Result > GRAM STAIN Final 07/08/16-838 WHITE BLOOD CELLS MANY SQUAMOUS CELLS RARE GRAM POSITIVE COCCI MANY GRAM POSITIVE RODS RARE > LOWER RESPIRATORY CULTURE Final 07/10/16-843 Mixed glen after 2 days with 1. Moderate growth of: METH RESIST STAPH AUREUS 2. Scant growth of: YEAST Called to/Readback by [email or web address] by LAB.GEOK 07/10/16 0838 1. METH RESIST STAPH AUREUS RX ABN ------ --- 1. METH RESIST STAPH AUREUS RX AB ------ -- CEFAZOLIN R AMOXICILLIN/CLAVULINIC ACID R AMPICILLIN/SULBACTAM R TETRACYCLINE S TRIMETHOPRIM/SULFAMETHOXAZOLE S AZITHROMYCIN R CLINDAMYCIN R ERYTHROMYCIN R OXACILLIN R VANCOMYCIN S ATTENTIONATTENTIONPLACE PATIENT ON CONTACT PRECAUTIONS 07/07 x 2 NGTD. Diagnostic Data Recent Imaging Findings: SERVICE DATE: 07/07/16- EXAM TYPE: CAT - CT CHEST WO IV CONTRAST EXAMINATION: CT CHEST WITHOUT CONTRAST CLINICAL INFORMATION: Acute on chronic respiratory failure. COPD exacerbation. Concern for pneumonia. COMPARISON: Portable chest 07/07/2016. CT of the chest 11/27/2015, CT chest 05/21/2015. TECHNIQUE: Multidetector volumetric CT imaging of the chest was done. Axial MIP volume rendering provided. Sagittal and coronal reformatted images were obtained. DLP: 191.26 mGy-cm FINDINGS: LUNGS: There is severe ballesteros emphysematous changes of lung primarily effecting upper lobes . There is bibasilar consolidation/atelectasis. This is not as severe as the CAT scan of 11/27/2015. There are scattered reticular and tree-in-bud opacities in the anterior lingula and at both lung bases greater on right than left consistent with endobronchial disease. Multiple calcified granuloma; superior segment left lower lobe, image 147 (4), left upper lobe image 56, left upper lobe image 105. Stable 3 mm nodule left upper lobe image 8 (63). This is unchanged since CAT scan 05/21/2015. There is an irregular linear nodule right upper lobe measuring 6 x 2 x 3 mm image 70 (4), sagittal image 72. This is unchanged since CAT scan of 11/27/2015. Linear morphology suggests this is scar. This has retracted in size since the CAT scan of 05/21/2015, image 9 (3). No new lung nodules. MEDIASTINUM: Small subcentimeter lymph nodes in the pretracheal retrovascular space and AP window and subcarinal. No bulky lymphadenopathy. Heavy vascular calcification of the thoracic aorta and coronary arteries. No aneurysm of the aorta. Calcification of the splenic artery in the upper abdomen PLEURA: There is no pleural effusion. No pleural mass or thickening. AXILLA: No lymphadenopathy. UPPER ABDOMEN: Multiple small nonobstructive renal calculi in both kidneys. Pedunculated small cyst at the upper pole left kidney. Several small calcified granuloma within the spleen. Stable small hepatic cyst at dome of liver. OSSEOUS STRUCTURES: There is multilevel compression deformities throughout the thoracic and upper lumbar spine IMPRESSION: 1. Emphysematous change of lung. 2. Bibasilar atelectasis. Reticular and tree-in-bud opacities in the lung bases bilaterally consistent with endobronchial disease. 3. Stable bilateral calcified granuloma and small lung nodules. DICTATED BY: CELIA HERRING MD DATE/TIME DICTATED:07/07/161706 COMMUNICATIONS TECHNOLOGIST:SHANNAN DATE/TIME TRANSCRIBED:07/07/161706 SERVICE DATE: 07/10/16 EXAM TYPE: RAD - XRY-PORTABLE CHEST XRAY EXAMINATION: XR PORTABLE CHEST CLINICAL INFORMATION: 76-year-old female with history of severe COPD. No fever or leukocytosis. Evaluate for pneumonia versus atelectasis. COMPARISON: Chest radiograph 07/09/[address] chest 08/04/2016 TECHNIQUE: Portable AP view of the chest was obtained. FINDINGS: Stable cardiomediastinal silhouette. Emphysematous changes are again noted, primarily involving the upper lobes. Slightly increased vascular markings are noted in the lower lobes, unchanged. There is no focal consolidation. Minimal bibasilar atelectasis. No gross pleural effusions or pneumothorax. Osseous structures are intact. IMPRESSION: 1. No significant interval change. No focal consolidation. Slightly increased markings at the lung bases are likely related to crowding of the bronchovascular structures and atelectasis. Follow-up is recommended if there is concern for developing pneumonia. 2. Emphysema. DICTATED BY: DAYAMI CORNELL DO DATE/TIME DICTATED:07/10/161236 COMMUNICATIONS TECHNOLOGIST:SHANNAN DATE/TIME TRANSCRIBED:07/10/161236 Assessment/Plan Assessment/Plan Impression: 76-year-old woman formaer smoker, ECF resident known with past medical history of COPD (3 L home oxygen), HTN. HLD, peripheral vascular disease admitted .OPD exacerbation #2 infections bronchiolitis Acute hypoxic respiratory failure, physical examination findings and CT findings are suggestive of emphysema and infective bronchiolitis. COPD exacerbation Worsening leukocytosis (MRSA lung infection ? developing pneumonia vs bronchitis , also can be related to steroid use). Suggestion: 1. Continue iv Vancomycin started 07/09; f/u vancomycin trough 30 min before 4th dose; goal trough 15-20. 2. Azithromycin 500 mg iv x 3 doses empiric coverage for "atypical organism" ( last dose today)/ 3. Trend CBC, BMP. 4. F/U pulm recom. Case d/w attending physician. Consult Acknowledgment - Thank you for your consult request.
--- NOTE | 2016-07-10 13:43 | Event Note ---
Event Note Event Note: Rapid response was called, when the patient was found to have been off the BiPAP mask. She was in acute distress, when we saw her. Last known to be comfortable , and on BiPAP was at least 5 minutes ago, when she said that she was comfortable. BiPAP mask was placed. Oxygen saturations improved to 96%. ABG was done immediately to assess the response to BiPAP, but since the ABG was done after she had been disconnected from BiPAP, makes me wonder, if the results reflect the right chemistry. Would have to re-evaluate later. Reached out to the family, and discussed in detail with the son, Mr Ayad Hays. He couldnot be physically be present around here, due to his travel, and so the conversation was done over the phone. Explained to him about the worsening respiratory status, and prognosis; and the possibility of intubation. Discussed about the code status, and he wanted to discuss with the other family members before making any decision on code status. He would call back with the decsion as soon as possible in the next few hours.
[2016-07-10 14:57] VITALS: BP 150/70
--- NOTE | 2016-07-10 15:53 | Cons- Gastroenterology ---
General Information and HPI Consulting Request Date of Consult: 07/10/16 Requested By: CHAPARRO YANG MD Reason for Consult: Anemia, Hemoccult positive stool Source of Information: old records Exam Limitations: unable to give history, clinical condition History of Present Illness: Elderly female with known iron deficiency anemia and Hemoccult-positive stool. The patient has end-stage COPD, and is now on BiPAP for respiratory failure, pending further family discussion over goals of care. She has had a drop in hematocrit, and was just transfused 1 unit of packed blood cells. The patient was found to be anemic in May. She denied symptoms such as heartburn, nausea, vomiting, pain, change in bowel habits. There was no evidence of overt bleeding such as melena or bright red blood per rectum. Her stool was Hemoccult positive. She was hospitalized, and underwent EGD demonstrating atrophic gastritis, and no bleeding lesion was identified. Colonoscopy in 2012 demonstrated hyperplastic polyps only, and no potential bleeding lesion. Allergies/Medications Allergies: Coded Allergies: bacitracin (From NEOSPORIN ([id number])) (rash 09/23/15) neomycin (From NEOSPORIN ([id number])) (rash 09/23/15) penicillin V (SWELLING ALL OVER AND ITCHING 09/23/15) polymyxin B (From NEOSPORIN ([id number])) (rash 09/23/15) cortisone (THRUSH 09/23/15) duloxetine (GI DISTRESS 09/23/15) moxifloxacin (From AVELOX) (STOMACH SICK 09/23/15) Home Med List: Albuterol Sulfate (Albuterol Sulfate Hfa) 0.09 MG/Actuation CHELSEA 2 PUFF INH PRN COPD (Reported) 90 MCG PER PUFF Albuterol Sulfate (Proventil) 2.5 MG/3 ML NEB 3 ML INH EVERY 4 HRS/AWAKE PRN COPD Amitriptyline HCl 25 MG TABLET 1 TAB PO QPM depression (Reported) Amlodipine Besylate 5 MG TABLET 5 MG PO DAILY blood pressure Aspirin (Aspirin*) 81 MG TAB.CHEW 81 MG PO DAILY HEART HEALTH Atorvastatin Calcium 10 MG TABLET 1 TAB PO DAILY CHOLESTEROL (Reported) Calcium Carbonate/Vitamin D3 (Os-Napoleon 500+D3 Caplet) 500 MG-200 TABLET 1 TAB PO BID SUPPLEMENT (Reported) Cyanocobalamin (Vitamin B-12) (Cyanocobalamin Injection) 1,000 MCG/ML VIAL 1 ML IM Q30D SUPPLEMENT (Reported) Diltiazem HCl (Diltiazem 24HR ER) 360 MG CAP.ER.24H 1 CAP PO DAILY HEART ( Reported) Ferrous Sulfate 325 MG (65 MG IRON) TABLET 1 TAB PO DAILY ANEMIA (Reported) Fluticasone-Salmeterol (Advair 500-50 Diskus) 1 UNIT UNIT 1 PUF INH BID COPD (Reported) Hydrochlorothiazide 25 MG TABLET 1 TAB PO DAILY WATER PILL (Reported) Lorazepam (Ativan) 0.5 MG TAB 1 TAB PO BID ANXIETY (Reported) Losartan (Cozaar) 100 MG TABLET 100 MG PO DAILY HIGH BLOOD PRESSURE Multivitamin (One Daily Multivitamin) 1 TAB TAB 1 TAB PO DAILY SUPPLEMENT ( Reported) Omeprazole 20 MG CAPSULE.DR 1 CAP PO DAILY HEARTBURN Paroxetine HCl 40 MG TABLET 1 TAB PO AT BEDTIME DEPRESSION (Reported) Prednisone 10 MG TABLET 1 TAB PO SEE ADMIN CRITERIA copd take 3 TABS X 2 DAYS 2 TABS X 2 DAYS tHEN CONTINUE WITH 10 MG(1 TAB) OF PREDNISONE DAILY FOR copd Pregabalin (Lyrica) 50 MG CAPSULE 0.5 CAP PO BID PAIN (Reported) Stop lyrica on 06/28/16 Tiotropium [place] (Spiriva) 18 MCG CAP 1 CAP INH DAILY COPD (Reported) Current Medications: Current Medications Sig/Roge Start time Last Medication Dose Route Stop Time Status Admin Acetaminophen 650 MG Q6P PRN 07/07 1730 AC PO Albuterol Sulfate 3 ML EVERY 4 HRS/AWAKE 07/07 2000 AC 07/10 INH 1046 Albuterol Sulfate 3 ML EVERY 4 HRS/AWAKE .. 07/07 1530 AC 07/08 INH 1444 Amitriptyline HCl 25 MG QPM 07/07 2200 AC 07/09 PO 2249 Amlodipine Besylate 5 MG DAILY 07/08 1000 AC 07/10 PO 1253 Aspirin 81 MG DAILY 07/08 1000 DC 07/09 PO 1047 Atorvastatin Calcium 10 MG DAILY@1700 07/08 1700 AC 07/09 PO 1650 Azithromycin 500 MG DAILY 07/08 1000 DC 07/10 Dextrose/Water 250 ML IV 1059 Budesonide/ 2 PUF BID 07/07 1518 AC 07/09 Formoterol Fumarate INH 2250 Calcium/Vitamin D 1 TAB BID 07/07 2200 AC 07/10 PO 1059 Diltiazem HCl 360 MG DAILY 07/08 1000 AC 07/10 PO 1059 Enoxaparin Sodium 40 MG DAILY 07/08 1000 DC 07/10 SC 1100 Ferrous Sulfate 325 MG DAILY 07/08 1000 AC 07/10 PO 1100 Ipratropium [place] 2.5 ML EVERY 4 HRS/AWAKE 07/10 1600 AC INH Ipratropium [place] 2.5 ML Q4 HRS NEEDED PRN 07/10 1445 DC INH Lorazepam 0.5 MG BID PRN 07/10 1530 AC PO 07/17 1529 Lorazepam 0.25 MG ONCE ONE 07/10 1345 DC 07/10 IV 07/10 1346 1342 Lorazepam 0.5 MG BID PRN 07/07 1715 AC 07/10 PO 07/14 1714 0412 Losartan Potassium 100 MG DAILY 07/08 1000 AC 07/10 PO 1100 Methylprednisolone 40 MG BID 07/10 2200 DC IV Methylprednisolone 40 MG TID 07/10 1600 AC IV Methylprednisolone 40 MG TID 07/09 1600 DC 07/09 IV 2250 Multivitamins 1 TAB DAILY 07/08 1000 AC 07/10 Therapeutic PO 1100 Omeprazole 20 MG DAILY AC 07/08 0700 DC 07/09 PO 0538 Oxycodone/ 1 TAB Q6P PRN 07/07 1730 AC Acetaminophen PO Pantoprazole Sodium 40 MG BID 07/09 2200 AC 07/10 IV 1058 Paroxetine HCl 40 MG AT BEDTIME 07/07 2200 AC 07/09 PO 2249 Tiotropium [place] 1 PUF DAILY 07/08 1000 DC 07/09 INH 1100 Vancomycin HCl 1,000 MG 2300 07/09 2300 AC 07/10 Dextrose/Water 250 ML IV 0012 Vancomycin HCl 1,000 MG 1500 07/09 1500 DC 07/09 Dextrose/Water 250 ML IV 1707 Past History Travel History Traveled to [place] past 21 day No Medical History Neurological: NONE EENT: NONE Cardiovascular: CAD, diastolic CHF, PVD, hypertension diastolic dysfunction Respiratory: COPD, bilateral pulmonary nodules HOME 02 DEPENDENT Gastrointestinal: NONE Hepatic: NONE Renal: nephrolithiasis (s/p ESWL) Musculoskeletal: osteomyelitis osteoporosis Psychiatric: anxiety Endocrine: NONE Blood Disorders: NONE Cancer(s): NONE WIRE WHEELER/Reproductive: HYSTERECTOMY Surgical History Surgical History: Right hip ORIF Left 5th toe amputation Left eye lens implant Left hip ORIF Mar 2002 SAMUEL HIP REPLACEMENTS Family History Relations & Conditions If Any: MOTHER FH: diabetes mellitus Psychosocial History Where Do You Live? Prison Facility Who Do You Live With? self Services at Home: visiting nurse Primary Language: [place] Smoking Status: Former Smoker Living Will? 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 yes Name of POA/HCP: Marco and Kevin Gutner of [employer]. Functional Ability ADLs Independent: dressing, eating, toileting, bathing. Ambulation: Rolling walker with sit IADLs Independent: telephone. Needs Assist: shopping, housework, finances, food prep, transportation, medication admin. Review of Systems Review of Systems: Unobtainable given clinical condition (patient is noncommunicative, and on BiPAP ) Exam & Diagnostic Data Vital Signs and I&O Vital Signs Date Time Temp Pulse Resp B/P Pulse O2 O2 Flow FiO2 Ox Delivery Rate 07/10 1457 98.5 92 29 150/70 93 Non ReBreather 07/10 1415 98 95 07/10 1253 98 164/72 07/10 1115 98 94 07/10 1100 100 164/72 07/10 0823 97 Venti Mask 55% 07/10 0800 94 Venti Mask 55% 07/10 0631 98.3 92 32 170/50 100 Non ReBreather 07/10 0431 94 Venti Mask 55% 07/10 0000 Nasal 45% Cannula 07/09 2235 93 Nasal 45% Cannula 07/09 2153 97.9 79 21 138/70 94 Nasal 45% Cannula 07/09 2031 152/60 07/09 1930 95 Nasal 50% Cannula 07/09 1730 97.7 80 24 100/70 07/09 1645 96 Nasal 50% Cannula 07/09 1600 Nasal 50% Cannula Intake & Output 07/10 1600 07/10 0400 07/09 1600 07/09 0400 07/08 1600 07/08 0400 Intake Total 012 061 2194 480 900 480 Output Total 300 500 200 250 Balance 315 077 1955 -20 700 230 Intake, Blood 350 Product Intake, IV 550 50 200 250 0 Intake, Oral 350 50 900 480 650 480 Number 1 1 2 1 0 Bowel Movements Output, Urine 300 500 200 250 Patient 128 lb Weight Physical Exam: The patient is not communicative. She is on BiPAP. Skin with ecchymoses and abrasions. Sclera anicteric. Positive JVD. Heart with regular rhythm. Lungs with decreased breath sounds, and rhonchi. Abdomen is mildly distended with normal bowel sounds, and without tenderness, mass or organomegaly. No edema. Results Pertinent Lab Results: Laboratory Tests 07/10 07/10 1402 1053 Blood Gas pH (7.35 - 7.45 PH) 7.39 7.38 pCO2 (35 - 45 TORR) 56 H 60 *H pO2 (80 - 100 TORR) 68 L 87 HCO3 (21 - 28 MEQ/L) 33 H 34 H ABG O2 Sat (Measured) (>96.0 %) 92.0 L 97.0 P-50 (Temp Corrected) YES YES Carboxyhemoglobin (1.5 - 5.0 %) 0.7 L 1.0 L O2 Concentration % 35% 6L Temperature (97.0 - 100.0 FARH) 98.3 98.3 Respiration Rate (BPM) 24 O2 Delivery Method BIPAP NEBULIZER Vent Mode ST Expiratory Pressure (CM H2O P) 6 Inspiratory Pressure (CM H2O P) 14 Miscellaneous Phlebotomy Draw Site RIGHT RADIAL RIGHT RADIAL 07/10 07/09 0745 2310 Chemistry Sodium (137 - 145 mmol/L) 139 Potassium (3.5 - 5.1 mmol/L) 4.0 Chloride (98 - 107 mmol/L) 95 L Carbon Dioxide (22 - 30 mmol/L) 39 H Anion Gap (5 - 16) 6 BUN (7 - 17 mg/dL) 44 H Creatinine (0.5 - 1.0 mg/dL) 1.0 Estimated GFR (>60 ml/min) 54 L BUN/Creatinine Ratio (7 - 25 %) 44.0 H Hematology CBC w Diff MAN DIFF ORDERED NO MAN DIFF REQ WBC (4.8 - 10.8 /CUMM) 17.7 H 16.6 H RBC (4.20 - 5.40 /CUMM) 2.86 L 2.72 L Hgb (12.0 - 16.0 G/DL) 8.7 L 8.1 L Hct (37 - 47 %) 26.7 L 25.3 L MCV (81.0 - 99.0 FL) 93.3 92.9 MCH (27.0 - 31.0 PG) 30.4 29.8 RDW (11.5 - 14.5 %) 15.0 H 15.0 H Plt Count (130 - 400 /CUMM) 245 230 MPV (7.4 - 10.4 FL) 8.4 8.6 Gran % (42.2 - 75.2 %) 93.5 H 93.0 H Lymphocytes % (20.5 - 51.1 %) 1.7 L 2.2 L Monocytes % (1.7 - 9.3 %) 4.8 4.8 Eosinophils % (0 - 5 %) 0 0 Basophils % (0.0 - 2.0 %) 0 L 0 L Absolute Granulocytes (1.4 - 6.5 /CUMM) 16.5 H 15.4 H Segmented Neutrophils (42.2 - 75.2 %) 86 H Band Neutrophils (0.0 - 5.0 %) 7 H Absolute Lymphocytes (1.2 - 3.4 /CUMM) 0.3 L 0.4 L Lymphocytes (20.5 - 51.1 %) 1 L Monocytes (1.7 - 9.3 %) 6 Absolute Monocytes (0.10 - 0.60 /CUMM) 0.9 H 0.8 H Absolute Eosinophils (0.0 - 0.7 /CUMM) 0 0 Absolute Basophils (0.0 - 0.2 /CUMM) 0 0 Platelet Estimate (ADEQUATE) ADEQUATE Polychromasia Hypochromic-Microcytic 1+ Anisocytosis 1+ Ovalocytes FEW PUBS MCHC (33.0 - 37.0 G/DL) 32.6 L 32.1 L /16 07/08 1310 1045 Blood Gas pH (7.35 - 7.45 PH) 7.43 pCO2 (35 - 45 TORR) 49 H pO2 (80 - 100 TORR) 64 L HCO3 (21 - 28 MEQ/L) 32 H ABG O2 Sat (Measured) (>96.0 %) 91.0 L Carboxyhemoglobin (1.5 - 5.0 %) 0.6 L O2 Concentration % 4L O2 Delivery Method DE Hematology CBC w Diff MAN DIFF ORDERED WBC (4.8 - 10.8 /CUMM) 15.2 H RBC (4.20 - 5.40 /CUMM) 2.13 L Hgb (12.0 - 16.0 G/DL) 6.5 *L Hct (37 - 47 %) 20.1 L MCV (81.0 - 99.0 FL) 94.4 MCH (27.0 - 31.0 PG) 30.5 RDW (11.5 - 14.5 %) 15.0 H Plt Count (130 - 400 /CUMM) 222 MPV (7.4 - 10.4 FL) 8.4 Gran % (42.2 - 75.2 %) 91.2 H Lymphocytes % (20.5 - 51.1 %) 3.2 L Monocytes % (1.7 - 9.3 %) 5.6 Eosinophils % (0 - 5 %) 0 Basophils % (0.0 - 2.0 %) 0 L Absolute Granulocytes (1.4 - 6.5 /CUMM) 13.9 H Absolute Lymphocytes (1.2 - 3.4 /CUMM) 0.5 L Absolute Monocytes (0.10 - 0.60 /CUMM) 0.9 H Absolute Eosinophils (0.0 - 0.7 /CUMM) 0 Absolute Basophils (0.0 - 0.2 /CUMM) 0 Hypochromic-Microcytic 1+ Anisocytosis 1+ PUBS MCHC (33.0 - 37.0 G/DL) 32.3 L Miscellaneous Phlebotomy Draw Site LEFT RADIAL 07/08 0645 Chemistry Sodium (137 - 145 mmol/L) 142 Potassium (3.5 - 5.1 mmol/L) 3.8 Chloride (98 - 107 mmol/L) 94 L Carbon Dioxide (22 - 30 mmol/L) 37 H Anion Gap (5 - 16) 11 BUN (7 - 17 mg/dL) 27 H Creatinine (0.5 - 1.0 mg/dL) 0.7 Estimated GFR (>60 ml/min) > 60 BUN/Creatinine Ratio (7 - 25 %) 38.6 H Hematology CBC w Diff NO MAN DIFF REQ WBC (4.8 - 10.8 /CUMM) 7.1 RBC (4.20 - 5.40 /CUMM) 2.65 L Hgb (12.0 - 16.0 G/DL) 8.1 L Hct (37 - 47 %) 24.9 L MCV (81.0 - 99.0 FL) 94.2 MCH (27.0 - 31.0 PG) 30.7 RDW (11.5 - 14.5 %) 15.2 H Plt Count (130 - 400 /CUMM) 213 MPV (7.4 - 10.4 FL) 8.3 Gran % (42.2 - 75.2 %) 81.6 H Lymphocytes % (20.5 - 51.1 %) 8.4 L Monocytes % (1.7 - 9.3 %) 9.9 H Eosinophils % (0 - 5 %) 0.1 Basophils % (0.0 - 2.0 %) 0 L Absolute Granulocytes (1.4 - 6.5 /CUMM) 5.8 Absolute Lymphocytes (1.2 - 3.4 /CUMM) 0.6 L Absolute Monocytes (0.10 - 0.60 /CUMM) 0.7 H Absolute Eosinophils (0.0 - 0.7 /CUMM) 0 Absolute Basophils (0.0 - 0.2 /CUMM) 0 PUBS MCHC (33.0 - 37.0 G/DL) 32.5 L Assessment/Plan Assessment/Recommendations: Hemoccult-positive stool, anemia. Appropriate rise in hemoglobin status post transfusion of 1 unit packed red blood cells yesterday. Recent unrevealing EGD. Probable small bowel or colonic lesion. Given the patient's clinical status, there is no role for endoscopy at present. Would continue to monitor CBC and transfuse as necessary to achieve hemoglobin of greater than 8. We will continue to follow with you. Consult Acknowledgment - Thank you for your consult request.
[2016-07-10 22:46] VITALS: BP 140/70
--- NOTE | 2016-07-11 06:00 | PN- Housestaff ---
SHAUNNA MARTINEZ 07/11/16 0559: Subjective Follow-up For: - shortness of breath Subjective: Comfortable this morning. Currently on BiPAP, and signal that she did not have any complaints. Currently on one-to-one sitter. It was ascertained yesterday that, the CODE STATUS of the patient be changed to DNR/DNI. Dr. Frias, discussed with the patient's POA. Overnight, she was stable. Remained afebrile. On BiPAP. Review of Systems Constitutional: Reports: see HPI. Objective Last 24 Hrs of Vital Signs/I&O Vital Signs Date Time Temp Pulse Resp B/P Pulse O2 O2 Flow FiO2 Ox Delivery Rate 07/11 0039 94 92 07/11 0000 92 BIPAP 4.5L 07/10 2246 98.2 98 23 140/70 92 BIPAP 07/10 2214 90 92 07/10 1927 82 91 07/10 1715 91 Nasal 4.5L Cannula 07/10 1615 88 91 07/10 1600 BIPAP 35% 07/10 1457 98.5 92 29 150/70 93 Non ReBreather 07/10 1415 98 95 07/10 1253 98 164/72 07/10 1115 98 94 07/10 1100 100 164/72 07/10 0823 97 Venti Mask 55% 07/10 0800 94 Venti Mask 55% 07/10 0631 98.3 92 32 170/50 100 Non ReBreather Intake & Output 07/11 0800 07/11 0000 07/10 1600 Intake Total 260 550 Output Total Balance 260 550 Intake, IV 20 250 Intake, Oral 240 300 Number 1 Bowel Movements Physical Exam General Appearance: No Acute Distress Other Physical Findings: General Exam: AAOx3, Mild distress, Skin: No rashes, no breakdown HEENT: PERRLA, EOMI Neck: Supple, No JVD No cervical lymphadenopathy CVS: Reg Rate, Normal S1,S2, No MGR Resp: Rales bilaterally. Abdomen: Soft, No tenderness, Normal Bowel Sounds Neuro: Normal Speech, Strength 5/5 b/l x 4 extremities, Reflexes 2+, limited neurological exam. Extremities: No cyanosis, no pedal edema, multiple ulcers on lower extremities. Current Medications: Current Medications Sig/Roge Start time Last Medication Dose Route Stop Time Status Admin Acetaminophen 650 MG Q6P PRN 07/07 1730 AC PO Albuterol Sulfate 3 ML EVERY 4 HRS/AWAKE 07/07 2000 AC 07/10 INH 2035 Albuterol Sulfate 3 ML EVERY 4 HRS/AWAKE .. 07/07 1530 AC 07/08 INH 1444 Amitriptyline HCl 25 MG QPM 07/07 2200 AC 07/10 PO 2135 Amlodipine Besylate 5 MG DAILY 07/08 1000 AC 07/10 PO 1253 Atorvastatin Calcium 10 MG DAILY@1700 07/08 1700 AC 07/10 PO 2135 Azithromycin 500 MG DAILY 07/08 1000 DC 07/10 Dextrose/Water 250 ML IV 1059 Budesonide/ 2 PUF BID 07/07 1518 AC 07/10 Formoterol Fumarate INH 2136 Calcium/Vitamin D 1 TAB BID 07/07 2200 AC 07/10 PO 2135 Diltiazem HCl 360 MG DAILY 07/08 1000 AC 07/10 PO 1059 Enoxaparin Sodium 40 MG DAILY 07/08 1000 DC 07/10 SC 1100 Ferrous Sulfate 325 MG DAILY 07/08 1000 AC 07/10 PO 1100 Ipratropium [place] 2.5 ML EVERY 4 HRS/AWAKE 07/10 1600 AC 07/10 INH 2035 Ipratropium [place] 2.5 ML Q4 HRS NEEDED PRN 07/10 1445 DC INH Lorazepam 0.25 MG BID PRN 07/10 1630 AC 07/11 IV 0207 Lorazepam 0.25 MG .[BIDPRN] 07/10 1615 DC IV Lorazepam 0.5 MG BID PRN 07/10 1530 DC PO 07/17 1529 Lorazepam 0.25 MG ONCE ONE 07/10 1345 DC 07/10 IV 07/10 1346 1342 Lorazepam 0.5 MG BID PRN 07/07 1715 AC 07/10 PO 07/14 1714 0412 Losartan Potassium 100 MG DAILY 07/08 1000 AC 07/10 PO 1100 Methylprednisolone 40 MG BID 07/10 2200 DC IV Methylprednisolone 40 MG TID 07/10 1600 AC 07/10 IV 2132 Methylprednisolone 40 MG TID 07/09 1600 DC 07/09 IV 2250 Morphine Sulfate 1 MG ONCE ONE 07/10 1700 DC 07/10 IV 07/10 1701 2148 Multivitamins 1 TAB DAILY 07/08 1000 AC 07/10 Therapeutic PO 1100 Oxycodone/ 1 TAB Q6P PRN 07/07 1730 AC Acetaminophen PO Pantoprazole Sodium 40 MG BID 07/09 2199 AC 07/10 IV 2132 Paroxetine HCl 40 MG AT BEDTIME 07/07 2199 AC 07/10 PO 213 Tiotropium [place] 1 PUF DAILY 07/08 1000 DC 07/09 INH 1100 Vancomycin HCl 1,000 MG 2300 07/09 2300 AC 07/10 Dextrose/Water 250 ML IV 2224 Last 24 Hrs of Lab/Gt Results Last 24 Hrs of Labs/Mics: Laboratory Tests 07/10/16 1402: pH 7.39, pCO2 56 H, pO2 68 L, HCO3 33 H, ABG O2 Sat (Measured) 92.0 L, P-50 (Temp Corrected) YES, Carboxyhemoglobin 0.7 L, O2 Concentration % 35%, Temperature 98.3, Respiration Rate 24, O2 Delivery Method BIPAP, Vent Mode ST, Expiratory Pressure 6, Inspiratory Pressure 14, Phlebotomy Draw Site RIGHT RADIAL 07/10/16 1053: pH 7.38, pCO2 60 *H, pO2 87, HCO3 34 H, ABG O2 Sat (Measured) 97.0, P-50 (Temp Corrected) YES, Carboxyhemoglobin 1.0 L, O2 Concentration % 6L, Temperature 98.3, O2 Delivery Method NEBULIZER, Phlebotomy Draw Site RIGHT RADIAL 07/10/16 0745: Anion Gap 6, Estimated GFR 54 L, BUN/Creatinine Ratio 44.0 H, CBC w Diff MAN DIFF ORDERED, RBC 2.86 L, MCV 93.3, MCH 30.4, RDW 15.0 H, MPV 8.4, Gran % 93.5 H, Lymphocytes % 1.7 L, Monocytes % 4.8, Eosinophils % 0, Basophils % 0 L, Absolute Granulocytes 16.5 H, Segmented Neutrophils 86 H, Band Neutrophils 7 H, Absolute Lymphocytes 0.3 L, Lymphocytes 1 L, Monocytes 6, Absolute Monocytes 0.9 H, Absolute Eosinophils 0, Absolute Basophils 0, Platelet Estimate ADEQUATE, Polychromasia , Hypochromic-Microcytic 1+, Anisocytosis 1+, Ovalocytes FEW, PUBS MCHC 32.6 L Assessment/Plan Assessment: She is an older woman with a past history of COPD (end-stage),HFpEF, peripheral vascular disease is being evaluated for acute onset of shortness of breath, cough and fever. Found to be hypoxemic-85% on 4 L prior to admission. Differential diagnosis: #1 COPD exacerbation #2 infections bronchiolitis Below the problem list and plan: #1 shortness of breath, cough-acute hypoxic respiratory failure, physical examination findings and CT findings are suggestive of COPD exacerbation and or infective bronchiolitis. Continue on intravenous wocyqzaa-Jcxm-Onyvul 40 mg every 8 x 4th day. TRC. Lower respiratory cultures revealed growth of MRSA. MSRA pneumonia. Continue vancomycin-renal adjusted dosing. Comycin trough ordered for 07/12/2016. Infectious disease portrait consultant advising. #2 lower extremity ulcers-likely due to peripheral vascular disease. Patient currently on 10 mg Lipitor, which could be increased to high-intensity statin. Discontinue aspirin. #3 hypertension-continue losartan, and Cardizem 360 mg by mouth daily (as per Dr. Forrest, the patient to be continued on Cardizem. No beta blockers, as the patient has severe COPD). Hydrochlorothiazide held at this time. #4 anemia-likely anemia of chronic disease. Low iron, ferritin, normal TIBC with normal reticulocyte count. MCV 94. Guaiac test positive. 1 units of PRBCs transfused. Hemoglobin 7.9. Stable. Aspirin and Lovenox have been discontinued. As per hyster driver's recommendation, outpatient workup. #5 DVT prophylaxis-Lovenox. Problem List: 1. COPD (chronic obstructive pulmonary disease) 2. Bronchitis 3. MRSA pneumonia Pain Ratin Pain Location: bck Pain Goal: Pain 4 or less Pain Plan: tylenol pron Tomorrow's Labs & Rationales: cbc- follow leucocytosis and low h&h bep- to monitor elevated BUN [facility]ATHER [facility] 07/11/16 1304: Attending MD Review Statement Attending Statement Attending MD Statement: examined this patient, discuss w/resident/PA/ASP DEVELOPER, agreed w/resident/PA/ASP DEVELOPER, discussed with family, reviewed EMR data (avail), discussed with nursing, discussed with case mgmt, reviewed images, amended to note Attending Assessment/Plan: Currently on high flow oxygen. Resting comfortably. Does not offer any complaint. H&H trending down. Patient has not been seen by GI yet, but with her current respiratory status she may not tolerate GI workup. Monitor H&H. Continue vancomycin.
[2016-07-11 06:11] VITALS: BP 160/70
[2016-07-11 08:17] LABS: ABSOLUTE BASOPHIL COUNT 0 /CUMM (0.0-0.2); ABSOLUTE EOSINOPHIL COUNT 0 /CUMM (0.0-0.7); ABSOLUTE GRANULOCYTE CT 10.5 /CUMM (1.4-6.5); ABSOLUTE LYMPH COUNT 0.2 /CUMM (1.2-3.4); ABSOLUTE MONOCYTE COUNT 0.5 /CUMM (0.10-0.60); BASOPHIL % 0 % (0.0-2.0); EOSINOPHIL % 0 % (0-5); HEMATOCRIT 24.4 % (37-47); MEAN CORPUSCULAR HGB 30.4 PG (27.0-31.0); MEAN CORPUSCULAR HGB CONC 32.5 G/DL (33.0-37.0); MEAN CORPUSCULAR VOLUME 93.4 FL (81.0-99.0); MEAN PLATELET VOLUME 8.7 FL (7.4-10.4); PLATELET COUNT 239 /CUMM (130-400); RBC DISTRIBUTION WIDTH 15.1 % (11.5-14.5); RED BLOOD CELL CT 2.61 /CUMM (4.20-5.40); WHITE BLOOD CELL COUNT 11.2 /CUMM (4.8-10.8)
[2016-07-11 09:25] LABS: GRANULOCYTE % 93.2 % (42.2-75.2)
--- NOTE | 2016-07-11 09:34 | PN- Pulmonary ---
Subjective HPI/Critical Care Issues: Patient is less alert. Ulcers status has deteriorated. Discussion with her son also yesterday has led to a DNR/DNI status. Sputum cultures positive for MRSA now on vancomycin. Patient's respiratory status would preclude any GI intervention. Objective Current Medications: Current Medications Sig/Roge Start time Last Medication Dose Route Stop Time Status Admin Acetaminophen 650 MG Q6P PRN 07/07 1730 AC PO Albuterol Sulfate 3 ML EVERY 4 HRS/AWAKE 07/07 2000 AC 07/11 INH 0831 Albuterol Sulfate 3 ML EVERY 4 HRS/AWAKE .. 07/07 1530 AC 07/08 INH 1444 Amitriptyline HCl 25 MG QPM 07/07 2200 AC 07/10 PO 2135 Amlodipine Besylate 5 MG DAILY 07/08 1000 AC 07/10 PO 1253 Atorvastatin Calcium 10 MG DAILY@1700 07/08 1700 AC 07/10 PO 2135 Azithromycin 500 MG DAILY 07/08 1000 DC 07/10 Dextrose/Water 250 ML IV 1059 Budesonide/ 2 PUF BID 07/07 1518 AC 07/10 Formoterol Fumarate INH 2136 Calcium/Vitamin D 1 TAB BID 07/07 2200 AC 07/10 PO 2135 Diltiazem HCl 360 MG DAILY 07/08 1000 AC 07/10 PO 1059 Enoxaparin Sodium 40 MG DAILY 07/08 1000 DC 07/10 SC 1100 Ferrous Sulfate 325 MG DAILY 07/08 1000 AC 07/10 PO 1100 Ipratropium [place] 2.5 ML EVERY 4 HRS/AWAKE 07/10 1600 AC 07/11 INH 0831 Ipratropium [place] 2.5 ML Q4 HRS NEEDED PRN 07/10 1445 DC INH Lorazepam 0.25 MG BID PRN 07/10 1630 AC 07/11 IV 0207 Lorazepam 0.25 MG .[BIDPRN] 07/10 1615 DC IV Lorazepam 0.5 MG BID PRN 07/10 1530 DC PO 07/17 1529 Lorazepam 0.25 MG ONCE ONE 07/10 1345 DC 07/10 IV 07/10 1346 1342 Lorazepam 0.5 MG BID PRN 07/07 1715 AC 07/10 PO 07/14 1714 0412 Losartan Potassium 100 MG DAILY 07/08 1000 AC 07/10 PO 1100 Methylprednisolone 40 MG BID 07/10 2200 DC IV Methylprednisolone 40 MG TID 07/10 1600 AC 07/10 IV 2132 Morphine Sulfate 1 MG ONCE ONE 07/10 1700 DC 07/10 IV 07/10 1701 2148 Multivitamins 1 TAB DAILY 07/08 1000 AC 07/10 Therapeutic PO 1100 Oxycodone/ 1 TAB Q6P PRN 07/07 1730 AC Acetaminophen PO Pantoprazole Sodium 40 MG BID 07/09 2200 AC 07/10 IV 2133 Paroxetine HCl 40 MG AT BEDTIME 07/07 2200 AC 07/10 PO 2135 Tiotropium [place] 1 PUF DAILY 07/08 1000 DC 07/09 INH 1100 Vancomycin HCl 1,000 MG 2300 07/09 2300 AC 07/10 Dextrose/Water 250 ML IV 2224 Vital Signs & I&O Last 24 Hrs of Vitals and I&O: Vital Signs Date Time Temp Pulse Resp B/P Pulse O2 O2 Flow FiO2 Ox Delivery Rate 07/11 0855 86 99 07/11 0854 98 Nasal 45% Cannula 07/11 0611 98.0 89 26 160/70 94 BIPAP 07/11 0039 94 92 07/11 0000 92 BIPAP 4.5L 07/10 2246 98.2 98 23 140/70 92 BIPAP 07/10 2214 90 92 07/10 1927 82 91 07/10 1715 91 Nasal 4.5L Cannula 07/10 1615 88 91 07/10 1600 BIPAP 35% 07/10 1457 98.5 92 29 150/70 93 Non ReBreather 07/10 1415 98 95 07/10 1253 98 164/72 07/10 1115 98 94 07/10 1100 100 164/72 Intake & Output 07/11 1600 07/11 0800 07/11 0000 Intake Total 140 260 Output Total 1 Balance 139 260 Intake, IV 20 20 Intake, Oral 120 240 Output, Urine 1 FiO2 0.45 saturation 99% exam for chest shows diminished breath sounds occasional rhonchi cardiac exam shows normal S1 and S2 without murmurs abdominal exam is soft nontender lower extremity traumatic wounds are unchanged Impression/Plan Impression/Plan Impression/Plan: 76-year-old woman with advanced COPD history congestive heart failure admitted with increasing shortness of breath and worsening hypercapnic respiratory failure. Patient has declined BiPAP and is now on high flow nasal oxygen. She appears less alert with no significant improvement in her overall status. Recommendations: Increase Solu-Medrol every 6 hours continue vancomycin Taper FiO2 his saturations allow. She fails to make any meaningful progress will pursue further discussions regarding the direction of care and consideration of hospice
--- NOTE | 2016-07-11 11:28 | PN- Infect Dx ---
Subjective Subjective: No fever; worsening SOB. Anxious. Currently off BiPAP Review of Systems Comments: 10 points reviewed as noted, otherwise negative. Objective Last 24 Hrs of Vital Signs/I&O Vital Signs Date Time Temp Pulse Resp B/P Pulse O2 O2 Flow FiO2 Ox Delivery Rate 07/11 1038 164/80 07/11 1037 100 164/80 07/11 0855 86 99 07/11 0854 98 Nasal 45% Cannula 07/11 0800 98 BIPAP 35% 07/11 0611 98.0 89 26 160/70 94 BIPAP 07/11 0039 94 92 07/11 0000 92 BIPAP 4.5L 07/10 2246 98.2 98 23 140/70 92 BIPAP 07/10 2214 90 92 07/10 1927 82 91 07/10 1715 91 Nasal 4.5L Cannula 07/10 1615 88 91 07/10 1600 BIPAP 35% 07/10 1457 98.5 92 29 150/70 93 Non ReBreather 07/10 1415 98 95 07/10 1253 98 164/72 Intake & Output 07/11 1600 07/11 0800 07/11 0000 Intake Total 140 260 Output Total 1 Balance 139 260 Intake, IV 20 20 Intake, Oral 120 240 Output, Urine 1 Physical Exam Other Physical Findings: General Appearance Alert, Oriented X3, Cooperative, Moderate respiratory Distress Skin No Rashes, brusing LE's. HEENT Atraumatic, PERRLA, EOMI, Mucous Membr. moist/pink Neck Supple, No JVD, No thryomegaly, +2 Carotid Pulse wo Bruit Lymphatic Cervical nl Cardiovascular Regular Rate, Normal S1, Normal S2, No Murmurs, tachycardia Lungs decreased air entry b/l ronchi Abdomen Normal Bowel Sounds, Soft, No Tenderness Neurological Awake and alert, answering questions appropriately Extremities No Clubbing, No Cyanosis, No Edema Results Last 24 Hours of Lab Results: Laboratory Tests 07/11 07/10 0710 1402 Blood Gas pH (7.35 - 7.45 PH) 7.39 pCO2 (35 - 45 TORR) 56 H pO2 (80 - 100 TORR) 68 L HCO3 (21 - 28 MEQ/L) 33 H ABG O2 Sat (Measured) (>96.0 %) 92.0 L P-50 (Temp Corrected) YES Carboxyhemoglobin (1.5 - 5.0 %) 0.7 L O2 Concentration % 35% Temperature (97.0 - 100.0 FARH) 98.3 Respiration Rate (BPM) 24 O2 Delivery Method BIPAP Vent Mode ST Expiratory Pressure (CM H2O P) 6 Inspiratory Pressure (CM H2O P) 14 Chemistry Sodium (137 - 145 mmol/L) 142 Potassium (3.5 - 5.1 mmol/L) 4.2 Chloride (98 - 107 mmol/L) 97 L Carbon Dioxide (22 - 30 mmol/L) 44 H Anion Gap (5 - 16) 1 L BUN (7 - 17 mg/dL) 44 H Creatinine (0.5 - 1.0 mg/dL) 0.7 Estimated GFR (>60 ml/min) > 60 BUN/Creatinine Ratio (7 - 25 %) 62.9 H Hematology CBC w Diff NO MAN DIFF REQ WBC (4.8 - 10.8 /CUMM) 11.2 H RBC (4.20 - 5.40 /CUMM) 2.61 L Hgb (12.0 - 16.0 G/DL) 7.9 L Hct (37 - 47 %) 24.4 L MCV (81.0 - 99.0 FL) 93.4 MCH (27.0 - 31.0 PG) 30.4 RDW (11.5 - 14.5 %) 15.1 H Plt Count (130 - 400 /CUMM) 239 MPV (7.4 - 10.4 FL) 8.7 Gran % (42.2 - 75.2 %) 93.2 H Lymphocytes % (20.5 - 51.1 %) 2.2 L Monocytes % (1.7 - 9.3 %) 4.6 Eosinophils % (0 - 5 %) 0 Basophils % (0.0 - 2.0 %) 0 L Absolute Granulocytes (1.4 - 6.5 /CUMM) 10.5 H Absolute Lymphocytes (1.2 - 3.4 /CUMM) 0.2 L Absolute Monocytes (0.10 - 0.60 /CUMM) 0.5 Absolute Eosinophils (0.0 - 0.7 /CUMM) 0 Absolute Basophils (0.0 - 0.2 /CUMM) 0 PUBS MCHC (33.0 - 37.0 G/DL) 32.5 L Miscellaneous Phlebotomy Draw Site RIGHT RADIAL Last 24 Hours of Gt Results: #: [id number] ASAEL: 07/07/162345 STATUS: COMP RECD: 07/08/16-[address]: ELIEZER GUAMAN SOURCE: LOWER RESP ENTR: 07/07/16-[address]: CHAPIS DELVALLE, ISELA SPDESC: SPUTUM ORDERED: LOWER RESPIRATO Procedure Result > GRAM STAIN Final 07/08/16-39 WHITE BLOOD CELLS MANY SQUAMOUS CELLS RARE GRAM POSITIVE COCCI MANY GRAM POSITIVE RODS RARE > LOWER RESPIRATORY CULTURE Final 07/10/16 Mixed glen after 2 days with 1. Moderate growth of: METH RESIST STAPH AUREUS 2. Scant growth of: YEAST Called to/Readback by [email or web address] by LAB.[email or web address] 07/10/16837 1. METH RESIST STAPH AUREUS RX ABN ------ --- 1. METH RESIST STAPH AUREUS RX AB ------ -- CEFAZOLIN R AMOXICILLIN/CLAVULINIC ACID R AMPICILLIN/SULBACTAM R TETRACYCLINE S TRIMETHOPRIM/SULFAMETHOXAZOLE S AZITHROMYCIN R CLINDAMYCIN R ERYTHROMYCIN R OXACILLIN R VANCOMYCIN S ATTENTIONATTENTIONPLACE PATIENT ON CONTACT PRECAUTIONS Recent Imaging Studies: CXR IMPRESSION: 1. No significant interval change. No focal consolidation. Slightly increased markings at the lung bases are likely related to crowding of the bronchovascular structures and atelectasis. Follow-up is recommended if there is concern for developing pneumonia. 2. Emphysema. DICTATED BY: DAYAMI CORNELL DO DATE/TIME DICTATED:07/10/161236 SENIOR APPLICATIONS ENGINEER:SHANNAN DATE/TIME TRANSCRIBED:07/10/161236 Assessment/Plan Impression: 76-year-old woman formaer smoker, F resident known with past medical history of COPD (3 L home oxygen), HTN. HLD, peripheral vascular disease admitted .OPD exacerbation #2 infections bronchiolitis Acute hypoxic respiratory failure, physical examination findings and CT findings are suggestive of emphysema and infective bronchiolitis. COPD exacerbation Leukocytosis/WBC trending down Anemia of chronic disease; stool guaiac positive Suggestion: 1. Continue iv Vancomycin started 07/09; f/u vancomycin trough 30 min before 4th dose; goal trough 15-20. Requiring BIPAP. 2. PPI. 3. Trend CBC, BMP. 4. F/U pulm recom. Case d/w attending physician.
[2016-07-11 14:22] VITALS: BP 150/70
--- NOTE | 2016-07-11 14:46 | PN- Gastroenterology ---
Assessment/Plan Assessment/Recommendations: 76-year-old lady with severe COPD and decompensation on BiPAP. Patient was found to be anemic and guaiac positive. Has received one unit of packed red blood cells 2 days ago. A recent EGD for anemia did not find any cause for bleeding. Patient is comfortable in bed except for baseline respiratory compromise. No nausea vomiting abdominal pain. No evidence of macroscopic GI blood loss in the last 24 hours. In view of the patient's age and severe respiratory status would not advise any endoscopic investigations. For conservative management with intermittent transfusion to maintain hematocrit. Subjective Subjective: Patient is short of breath. No cough phlegm chest pain. No abdominal pain abdominal distention. Objective Vital Signs and I&Os Vital Signs Date Time Temp Pulse Resp B/P Pulse O2 O2 Flow FiO2 Ox Delivery Rate 07/11 1423 92 07/11 1422 98.9 107 24 150/70 95 BIPAP 07/11 1209 93 BIPAP 35% 07/11 1207 92 07/11 1038 164/80 07/11 1037 100 164/80 07/11 0855 86 99 07/11 0854 98 Nasal 45% Cannula 07/11 0800 98 BIPAP 35% 07/11 0611 98.0 89 26 160/70 94 BIPAP 07/11 0039 94 92 07/11 0000 92 BIPAP 4.5L 07/10 2246 98.2 98 23 140/70 92 BIPAP 07/10 2214 90 92 07/10 1927 82 91 07/10 1715 91 Nasal 4.5L Cannula 07/10 1615 88 91 07/10 1600 BIPAP 35% 07/10 1457 98.5 92 29 150/70 93 Non ReBreather Intake & Output 07/11 1600 07/11 0400 07/10 1600 07/10 0400 07/09 1600 07/09 0400 Intake Total 140 260 889 382 7264 480 Output Total 1 300 500 Balance 139 260 642 138 1517 -20 Intake, Blood 350 Product Intake, IV 20 20 550 50 200 Intake, Oral 120 240 350 50 900 480 Number 1 1 2 Bowel Movements Output, Urine 1 300 500 Patient 128 lb Weight Results Pertinent Lab Results: Laboratory Tests 07/11 07/10 0710 1402 Blood Gas pH (7.35 - 7.45 PH) 7.39 pCO2 (35 - 45 TORR) 56 H pO2 (80 - 100 TORR) 68 L HCO3 (21 - 28 MEQ/L) 33 H ABG O2 Sat (Measured) (>96.0 %) 92.0 L P-50 (Temp Corrected) YES Carboxyhemoglobin (1.5 - 5.0 %) 0.7 L O2 Concentration % 35% Temperature (97.0 - 100.0 FARH) 98.3 Respiration Rate (BPM) 24 O2 Delivery Method BIPAP Vent Mode ST Expiratory Pressure (CM H2O P) 6 Inspiratory Pressure (CM H2O P) 14 Chemistry Sodium (137 - 145 mmol/L) 142 Potassium (3.5 - 5.1 mmol/L) 4.2 Chloride (98 - 107 mmol/L) 97 L Carbon Dioxide (22 - 30 mmol/L) 44 H Anion Gap (5 - 16) 1 L BUN (7 - 17 mg/dL) 44 H Creatinine (0.5 - 1.0 mg/dL) 0.7 Estimated GFR (>60 ml/min) > 60 BUN/Creatinine Ratio (7 - 25 %) 62.9 H Hematology CBC w Diff NO MAN DIFF REQ WBC (4.8 - 10.8 /CUMM) 11.2 H RBC (4.20 - 5.40 /CUMM) 2.61 L Hgb (12.0 - 16.0 G/DL) 7.9 L Hct (37 - 47 %) 24.4 L MCV (81.0 - 99.0 FL) 93.4 MCH (27.0 - 31.0 PG) 30.4 RDW (11.5 - 14.5 %) 15.1 H Plt Count (130 - 400 /CUMM) 239 MPV (7.4 - 10.4 FL) 8.7 Gran % (42.2 - 75.2 %) 93.2 H Lymphocytes % (20.5 - 51.1 %) 2.2 L Monocytes % (1.7 - 9.3 %) 4.6 Eosinophils % (0 - 5 %) 0 Basophils % (0.0 - 2.0 %) 0 L Absolute Granulocytes (1.4 - 6.5 /CUMM) 10.5 H Absolute Lymphocytes (1.2 - 3.4 /CUMM) 0.2 L Absolute Monocytes (0.10 - 0.60 /CUMM) 0.5 Absolute Eosinophils (0.0 - 0.7 /CUMM) 0 Absolute Basophils (0.0 - 0.2 /CUMM) 0 PUBS MCHC (33.0 - 37.0 G/DL) 32.5 L Miscellaneous Phlebotomy Draw Site RIGHT RADIAL 07/10 07/10 1053 0745 Blood Gas pH (7.35 - 7.45 PH) 7.38 pCO2 (35 - 45 TORR) 60 *H pO2 (80 - 100 TORR) 87 HCO3 (21 - 28 MEQ/L) 34 H ABG O2 Sat (Measured) (>96.0 %) 97.0 P-50 (Temp Corrected) YES Carboxyhemoglobin (1.5 - 5.0 %) 1.0 L O2 Concentration % 6L Temperature (97.0 - 100.0 FARH) 98.3 O2 Delivery Method NEBULIZER Chemistry Sodium (137 - 145 mmol/L) 139 Potassium (3.5 - 5.1 mmol/L) 4.0 Chloride (98 - 107 mmol/L) 95 L Carbon Dioxide (22 - 30 mmol/L) 39 H Anion Gap (5 - 16) 6 BUN (7 - 17 mg/dL) 44 H Creatinine (0.5 - 1.0 mg/dL) 1.0 Estimated GFR (>60 ml/min) 54 L BUN/Creatinine Ratio (7 - 25 %) 44.0 H Hematology CBC w Diff MAN DIFF ORDERED WBC (4.8 - 10.8 /CUMM) 17.7 H RBC (4.20 - 5.40 /CUMM) 2.86 L Hgb (12.0 - 16.0 G/DL) 8.7 L Hct (37 - 47 %) 26.7 L MCV (81.0 - 99.0 FL) 93.3 MCH (27.0 - 31.0 PG) 30.4 RDW (11.5 - 14.5 %) 15.0 H Plt Count (130 - 400 /CUMM) 245 MPV (7.4 - 10.4 FL) 8.4 Gran % (42.2 - 75.2 %) 93.5 H Lymphocytes % (20.5 - 51.1 %) 1.7 L Monocytes % (1.7 - 9.3 %) 4.8 Eosinophils % (0 - 5 %) 0 Basophils % (0.0 - 2.0 %) 0 L Absolute Granulocytes (1.4 - 6.5 /CUMM) 16.5 H Segmented Neutrophils (42.2 - 75.2 %) 86 H Band Neutrophils (0.0 - 5.0 %) 7 H Absolute Lymphocytes (1.2 - 3.4 /CUMM) 0.3 L Lymphocytes (20.5 - 51.1 %) 1 L Monocytes (1.7 - 9.3 %) 6 Absolute Monocytes (0.10 - 0.60 /CUMM) 0.9 H Absolute Eosinophils (0.0 - 0.7 /CUMM) 0 Absolute Basophils (0.0 - 0.2 /CUMM) 0 Platelet Estimate (ADEQUATE) ADEQUATE Polychromasia Hypochromic-Microcytic 1+ Anisocytosis 1+ Ovalocytes FEW PUBS MCHC (33.0 - 37.0 G/DL) 32.6 L Miscellaneous Phlebotomy Draw Site RIGHT RADIAL 07/09 07/09 2310 1310 Hematology CBC w Diff NO MAN DIFF REQ MAN DIFF ORDERED WBC (4.8 - 10.8 /CUMM) 16.6 H 15.2 H RBC (4.20 - 5.40 /CUMM) 2.72 L 2.13 L Hgb (12.0 - 16.0 G/DL) 8.1 L 6.5 *L Hct (37 - 47 %) 25.3 L 20.1 L MCV (81.0 - 99.0 FL) 92.9 94.4 MCH (27.0 - 31.0 PG) 29.8 30.5 RDW (11.5 - 14.5 %) 15.0 H 15.0 H Plt Count (130 - 400 /CUMM) 230 222 MPV (7.4 - 10.4 FL) 8.6 8.4 Gran % (42.2 - 75.2 %) 93.0 H 91.2 H Lymphocytes % (20.5 - 51.1 %) 2.2 L 3.2 L Monocytes % (1.7 - 9.3 %) 4.8 5.6 Eosinophils % (0 - 5 %) 0 0 Basophils % (0.0 - 2.0 %) 0 L 0 L Absolute Granulocytes (1.4 - 6.5 /CUMM) 15.4 H 13.9 H Absolute Lymphocytes (1.2 - 3.4 /CUMM) 0.4 L 0.5 L Absolute Monocytes (0.10 - 0.60 /CUMM) 0.8 H 0.9 H Absolute Eosinophils (0.0 - 0.7 /CUMM) 0 0 Absolute Basophils (0.0 - 0.2 /CUMM) 0 0 Hypochromic-Microcytic 1+ Anisocytosis 1+ PUBS MCHC (33.0 - 37.0 G/DL) 32.1 L 32.3 L
[2016-07-11 22:25] VITALS: BP 170/64
[2016-07-12 07:27] VITALS: BP 150/70
--- NOTE | 2016-07-12 07:35 | PN- Housestaff ---
SHAUNNA MARTINEZ 07/12/16 0734: Subjective Follow-up For: -COPD -MRSA pneumonia Subjective: She was agitated, and was pulling the maske. Sitter was present. No complaints. she has been getting ativan when she was more agitated. Vitals stable overngiht , and she was on BiPAP overnight. Dr. Rangel spoke to the family and updated them about the clinical condition, and prognosis. Discussed w/ Dr. Rangel that a famly meeting would be needed to address the management plan. Review of Systems Constitutional: Reports: see HPI. Objective Last 24 Hrs of Vital Signs/I&O Vital Signs Date Time Temp Pulse Resp B/P Pulse O2 O2 Flow FiO2 Ox Delivery Rate 07/12 0727 98.6 87 20 150/70 91 07/12 0511 98 Nasal 45% Cannula 07/12 0128 98 Nasal 45% Cannula 07/12 0000 Nasal 45% Cannula 07/11 2225 99.0 91 24 170/64 85 07/11 1652 Nasal 4.0L Cannula 07/11 1600 90 Nasal 50% Cannula 07/11 1423 92 07/11 1422 98.9 107 24 150/70 95 BIPAP 07/11 1209 93 BIPAP 35% 07/11 1207 92 07/11 1038 164/80 07/11 1037 100 164/80 07/11 0855 86 99 07/11 0854 98 Nasal 45% Cannula 07/11 0800 98 BIPAP 35% Intake & Output 07/12 0800 07/12 0000 07/11 1600 Intake Total 600 550 Output Total 250 300 600 Balance -250 300 -50 Intake, Oral 600 550 Output, Urine 250 300 600 Patient 128 lb Weight Physical Exam General Appearance: No Acute Distress Other Physical Findings: General Exam: AAOx3, Moderate distress, Skin: No rashes, no breakdown HEENT: PERRLA, EOMI Neck: Supple, No JVD No cervical lymphadenopathy CVS: Reg Rate, Normal S1,S2, No MGR Resp: Rales bilaterally. Abdomen: Soft, No tenderness, Normal Bowel Sounds Neuro: Normal Speech, Strength 5/5 b/l x 4 extremities, Reflexes 2+, limited neurological exam.(limited examination) Extremities: No cyanosis, no pedal edema, multiple ulcers on lower extremities. Current Medications: Current Medications Sig/Roge Start time Last Medication Dose Route Stop Time Status Admin Acetaminophen 650 MG Q6P PRN 07/07 1730 AC PO Albuterol Sulfate 3 ML EVERY 4 HRS/AWAKE 07/07 2000 AC 07/11 INH 2030 Albuterol Sulfate 3 ML EVERY 4 HRS/AWAKE .. 07/07 1530 AC 07/08 INH 1444 Amitriptyline HCl 25 MG QPM 07/07 2200 AC 07/11 PO 2046 Amlodipine Besylate 5 MG DAILY 07/08 1000 AC 07/11 PO 1037 Atorvastatin Calcium 10 MG DAILY@1700 07/08 1700 AC 07/11 PO 1601 Budesonide/ 2 PUF BID 07/07 1518 AC 07/11 Formoterol Fumarate INH 2047 Calcium/Vitamin D 1 TAB BID 07/07 2200 AC 07/11 PO 2046 Diltiazem HCl 360 MG DAILY 07/08 1000 AC 07/11 PO 1037 Ferrous Sulfate 325 MG DAILY 07/08 1000 AC 07/11 PO 1038 Ipratropium [place] 2.5 ML EVERY 4 HRS/AWAKE 07/10 1600 AC 07/11 INH 2031 Lorazepam 0.25 MG BID PRN 07/10 1630 AC 07/11 IV 1531 Lorazepam 0.5 MG BID PRN 07/07 1715 AC 07/11 PO 07/14 1714 2046 Losartan Potassium 100 MG DAILY 07/08 1000 AC 07/11 PO 1038 Methylprednisolone 40 MG Q6 07/11 1800 AC 07/12 IV 0539 Methylprednisolone 40 MG TID 07/10 1600 DC 07/11 IV 1037 Multivitamins 1 TAB DAILY 07/08 1000 AC 07/11 Therapeutic PO 1037 Oxycodone/ 1 TAB Q6P PRN 07/07 1730 AC Acetaminophen PO Pantoprazole Sodium 40 MG BID 07/09 2200 AC 07/11 IV 2046 Paroxetine HCl 40 MG AT BEDTIME 07/07 2200 AC 07/11 PO 2046 Vancomycin HCl 1,000 MG 2300 07/09 2300 AC 07/11 Dextrose/Water 250 ML IV 2218 Last 24 Hrs of Lab/Gt Results Last 24 Hrs of Labs/Mics: Laboratory Tests 07/12/16 0557: Urine Color Pending, Urine Clarity Pending, Urine pH Pending, Ur Specific [place] Pending, Urine Protein Pending, Urine Ketones Pending, Urine Nitrite Pending, Urine Bilirubin Pending, Urine Urobilinogen Pending, Ur Leukocyte Esterase Pending, Ur Microscopic Pending, Urine Hemoglobin Pending, Urine Glucose Pending 07/11/162108: Urine Color Cancelled, Urine Clarity Cancelled, Urine pH Cancelled, Ur Specific [place] Cancelled, Urine Protein Cancelled, Urine Ketones Cancelled, Urine Nitrite Cancelled, Urine Bilirubin Cancelled, Urine Urobilinogen Cancelled, Ur Leukocyte Esterase Cancelled, Ur Microscopic Cancelled, Urine Hemoglobin Cancelled, Urine Glucose Cancelled Microbiology 07/12 556 URINE ROUT: Urine Culture - RECD 07/11 2108 URINE ROUT: Urine Culture - CAN Cancelled: Cancelled via OE: WILL RE-ORDER AGAIN Assessment/Plan Assessment: She is an older woman with a past history of COPD (end-stage),HFpEF, peripheral vascular disease is being evaluated for acute onset of shortness of breath, cough and fever. Found to be hypoxemic-85% on 4 L prior to admission. Differential diagnosis: #1 COPD exacerbation #2 infections bronchiolitis Below the problem list and plan: #1 shortness of breath, cough-acute hypoxic respiratory failure, physical examination findings and CT findings are suggestive of COPD exacerbation and or infective bronchiolitis. Continue on intravenous iywogooz-Wdil-Spoyoe 40 mg every 8 x 5th day. TRC. Lower respiratory cultures revealed growth of MRSA and yeast. MSRA pneumonia. Continue vancomycin-renal adjusted dosing. Comycin trough ordered for 07/12/2016. Infectious disease healthcare network consultant advising. #2 lower extremity ulcers-likely due to peripheral vascular disease. Patient currently on 10 mg Lipitor, which could be increased to high-intensity statin. Discontinue aspirin. #3 hypertension-continue losartan, and Cardizem 360 mg by mouth daily (as per Dr. Forrest, the patient to be continued on Cardizem. No beta blockers, as the patient has severe COPD). Hydrochlorothiazide held at this time. #4 anemia-likely anemia of chronic disease. Low iron, ferritin, normal TIBC with normal reticulocyte count. MCV 94. Guaiac test positive. 1 units of PRBCs transfused. Hemoglobin 7.5. Stable. Aspirin and Lovenox have been discontinued. As per driver courier's recommendation, outpatient workup. #5 DVT prophylaxis- ALPS Problem List: 1. COPD (chronic obstructive pulmonary disease) 2. MRSA pneumonia 3. Bronchitis 4. Anemia Pain Ratin Pain Location: unable to asess Pain Goal: Pain 4 or less Pain Plan: tylenl prn Tomorrow's Labs & Rationales: cbc- pt has MRSA pna bep- monitor for abnormal kideny, pt on vancomycin. HEATHER DELVALLE,[facility] 07/12/16 1145: Attending MD Review Statement Attending Statement Attending MD Statement: examined this patient, discuss w/resident/PA/POSTDOCTORAL SCIENTIST, agreed w/resident/PA/POSTDOCTORAL SCIENTIST, discussed with family, reviewed EMR data (avail), discussed with nursing, discussed with case mgmt, reviewed images, amended to note Attending Assessment/Plan: Currently on high flow oxygen. Looks anxious. Sitter at bedside. According to the nurse she continuously tries to pull out her BiPAP. H&H stable. Patient seen by GI, does not recommend any scopes with her ongoing respiratory decline. Patient has guarded prognosis. this has been discussed with the family by Dr. Alfaro. We will continue with current care until the family comes to a decision.
[2016-07-12 08:47] LABS: ABSOLUTE BASOPHIL COUNT 0 /CUMM (0.0-0.2); ABSOLUTE EOSINOPHIL COUNT 0 /CUMM (0.0-0.7); ABSOLUTE GRANULOCYTE CT 11.4 /CUMM (1.4-6.5); ABSOLUTE LYMPH COUNT 0.2 /CUMM (1.2-3.4); ABSOLUTE MONOCYTE COUNT 0.6 /CUMM (0.10-0.60); BASOPHIL % 0 % (0.0-2.0); EOSINOPHIL % 0.1 % (0-5); HEMATOCRIT 23.2 % (37-47); MEAN CORPUSCULAR HGB 30.4 PG (27.0-31.0); MEAN CORPUSCULAR HGB CONC 32.4 G/DL (33.0-37.0); MEAN CORPUSCULAR VOLUME 93.9 FL (81.0-99.0); MEAN PLATELET VOLUME 8.4 FL (7.4-10.4); PLATELET COUNT 263 /CUMM (130-400); RBC DISTRIBUTION WIDTH 15.1 % (11.5-14.5); RED BLOOD CELL CT 2.47 /CUMM (4.20-5.40); WHITE BLOOD CELL COUNT 12.2 /CUMM (4.8-10.8)
[2016-07-12 09:25] LABS: GRANULOCYTE % 93.5 % (42.2-75.2)
--- NOTE | 2016-07-12 09:48 | PN- Pulmonary ---
Subjective HPI/Critical Care Issues: Patient remains short of breath requiring sitter because of agitation and removal of oxygen Objective Current Medications: Current Medications Sig/Roge Start time Last Medication Dose Route Stop Time Status Admin Acetaminophen 650 MG Q6P PRN 07/07 1730 AC PO Albuterol Sulfate 3 ML EVERY 4 HRS/AWAKE 07/07 2000 AC 07/12 INH 0748 Albuterol Sulfate 3 ML EVERY 4 HRS/AWAKE .. 07/07 1530 AC 07/08 INH 1444 Amitriptyline HCl 25 MG QPM 07/07 2200 AC 07/11 PO 2046 Amlodipine Besylate 5 MG DAILY 07/08 1000 AC 07/11 PO 1037 Atorvastatin Calcium 10 MG DAILY@1700 07/08 1700 AC 07/11 PO 1601 Budesonide/ 2 PUF BID 07/07 1518 AC 07/11 Formoterol Fumarate INH 2047 Calcium/Vitamin D 1 TAB BID 07/07 2200 AC 07/11 PO 2046 Diltiazem HCl 360 MG DAILY 07/08 1000 AC 07/11 PO 1037 Ferrous Sulfate 325 MG DAILY 07/08 1000 AC 07/11 PO 1038 Ipratropium [place] 2.5 ML EVERY 4 HRS/AWAKE 07/10 1600 AC 07/12 INH 0748 Lorazepam 0.25 MG BID PRN 07/10 1630 AC 07/11 IV 1531 Lorazepam 0.5 MG BID PRN 07/07 1715 AC 07/11 PO 07/14 1714 2046 Losartan Potassium 100 MG DAILY 07/08 1000 AC 07/11 PO 1038 Methylprednisolone 40 MG Q6 07/11 1800 AC 07/12 IV 0539 Methylprednisolone 40 MG TID 07/10 1600 DC 07/11 IV 1037 Multivitamins 1 TAB DAILY 07/08 1000 AC 07/11 Therapeutic PO 1037 Oxycodone/ 1 TAB Q6P PRN 07/07 1730 AC Acetaminophen PO Pantoprazole Sodium 40 MG BID 07/09 2200 AC 07/11 IV 2046 Paroxetine HCl 40 MG AT BEDTIME 07/07 2200 AC 07/11 PO 2046 Vancomycin HCl 1,000 MG 2300 07/09 2300 AC 07/11 Dextrose/Water 250 ML IV 2218 Vital Signs & I&O Last 24 Hrs of Vitals and I&O: Vital Signs Date Time Temp Pulse Resp B/P Pulse O2 O2 Flow FiO2 Ox Delivery Rate 07/12 0627 98.6 87 20 150/70 91 07/12 0511 98 Nasal 45% Cannula 07/12 0128 98 Nasal 45% Cannula 07/12 0000 Nasal 45% Cannula 07/11 2225 99.0 91 24 170/64 85 07/11 1652 Nasal 4.0L Cannula 07/11 1600 90 Nasal 50% Cannula 07/11 1423 92 07/11 1422 98.9 107 24 150/70 95 BIPAP 07/11 1209 93 BIPAP 35% 07/11 1207 92 07/11 1038 164/80 07/11 1037 100 164/80 Intake & Output 07/12 1600 07/12 0800 07/12 0000 Intake Total 600 Output Total 250 300 Balance -250 300 Intake, Oral 600 Output, Urine 250 300 Oxygen saturation 91% on FiO2 0.45 exam for chest shows decreased breath sounds cardiac exam shows normal S1 and S2 without murmurs Impression/Plan Impression/Plan Impression/Plan: 76-year-old woman with advanced COPD history congestive heart failure admitted with increasing shortness of breath and worsening hypercapnic respiratory failure. Patient has declined BiPAP and is now on high flow nasal oxygen. She appears less alert with no significant improvement in her overall status. Recommendations: Increase Solu-Medrol every 6 hours continue vancomycin Taper FiO2 his saturations allow. I discussed her address with her son Ayad Hays who will be visiting later this afternoon after which further discussions regarding possible comfort care and hospice
--- NOTE | 2016-07-12 11:56 | PN- Infect Dx ---
Subjective Subjective: No fever; improved cough; persistent SOB requiring high flow O2. Anxious. Review of Systems Comments: 12 points reviewed as noted, otherwise negative. Objective Last 24 Hrs of Vital Signs/I&O Vital Signs Date Time Temp Pulse Resp B/P Pulse O2 O2 Flow FiO2 Ox Delivery Rate 07/12 1134 104 92 07/12 1020 100 160/70 07/12 1020 100 160/70 07/12 0810 93 Nasal 45% Cannula 07/12 0800 91 Nasal 45% Cannula 07/12 0727 98.6 87 20 150/70 91 07/12 0511 98 Nasal 45% Cannula 07/12 0128 98 Nasal 45% Cannula 07/12 0000 Nasal 45% Cannula 07/11 2225 99.0 91 24 170/64 85 07/11 1652 Nasal 4.0L Cannula 07/11 1600 90 Nasal 50% Cannula 07/11 1423 92 07/11 1422 98.9 107 24 150/70 95 BIPAP 07/11 1209 93 BIPAP 35% 07/11 1207 92 Intake & Output 07/12 1600 07/12 0800 07/12 0000 Intake Total 250 600 Output Total 250 300 Balance 0 300 Intake, IV 250 Intake, Oral 0 600 Number 0 Bowel Movements Output, Urine 250 300 Physical Exam Other Physical Findings: General Appearance Alert, Oriented X3, Cooperative, Mild respiratory Distress Skin No Rashes, brusing LE's. HEENT Atraumatic, PERRLA, EOMI, Mucous Membr. moist/pink Neck Supple, No JVD, No thryomegaly, +2 Carotid Pulse wo Bruit Lymphatic Cervical nl Cardiovascular Regular Rate, Normal S1, Normal S2, No Murmurs, tachycardia Lungs decreased air entry, b/l ronchi, few wheezes Abdomen Normal Bowel Sounds, Soft, No Tenderness Neurological Awake and alert, answering questions appropriately Extremities No Clubbing, No Cyanosis, No Edema Results Last 24 Hours of Lab Results: Laboratory Tests 07/12 07/12 0755 0557 Chemistry Sodium (137 - 145 mmol/L) 143 Potassium (3.5 - 5.1 mmol/L) 4.3 Chloride (98 - 107 mmol/L) 98 Carbon Dioxide (22 - 30 mmol/L) 39 H Anion Gap (5 - 16) 6 BUN (7 - 17 mg/dL) 39 H Creatinine (0.5 - 1.0 mg/dL) 0.9 Estimated GFR (>60 ml/min) > 60 BUN/Creatinine Ratio (7 - 25 %) 43.3 H Hematology CBC w Diff NO MAN DIFF REQ WBC (4.8 - 10.8 /CUMM) 12.2 H RBC (4.20 - 5.40 /CUMM) 2.47 L Hgb (12.0 - 16.0 G/DL) 7.5 L Hct (37 - 47 %) 23.2 L MCV (81.0 - 99.0 FL) 93.9 MCH (27.0 - 31.0 PG) 30.4 RDW (11.5 - 14.5 %) 15.1 H Plt Count (130 - 400 /CUMM) 263 MPV (7.4 - 10.4 FL) 8.4 Gran % (42.2 - 75.2 %) 93.5 H Lymphocytes % (20.5 - 51.1 %) 1.7 L Monocytes % (1.7 - 9.3 %) 4.7 Eosinophils % (0 - 5 %) 0.1 Basophils % (0.0 - 2.0 %) 0 L Absolute Granulocytes (1.4 - 6.5 /CUMM) 11.4 H Absolute Lymphocytes (1.2 - 3.4 /CUMM) 0.2 L Absolute Monocytes (0.10 - 0.60 /CUMM) 0.6 Absolute Eosinophils (0.0 - 0.7 /CUMM) 0 Absolute Basophils (0.0 - 0.2 /CUMM) 0 PUBS MCHC (33.0 - 37.0 G/DL) 32.4 L Urines Urinalysis MANY H Urine Color (YEL,AMB,STR) YEL Urine Clarity (CLEAR) CLEAR Urine pH (5.0 - 8.0) 6.0 Ur Specific [place] (1.001 - 1.035) 1.020 Urine Protein (NEG,<30 MG/DL) TRACE H Urine Ketones (NEG) NEG Urine Nitrite (NEG) NEG Urine Bilirubin (NEG) NEG Urine Urobilinogen (0.1 - 1.0 EU/dl) 0.2 Ur Leukocyte Esterase (NEG) NEG Ur Microscopic SEDIMENT EXAMINED Urine RBC (0 - 5 /HPF) RARE Urine WBC (0 - 2 /HPF) RARE Ur Epithelial Cells (NONE,FEW) FEW Urine Hemoglobin (NEG) NEG Urine Glucose (N MG/DL) 100 H 07/11 2108 Urines Urine Color Cancelled Urine Clarity Cancelled Urine pH Cancelled Ur Specific [place] Cancelled Urine Protein Cancelled Urine Ketones Cancelled Urine Nitrite Cancelled Urine Bilirubin Cancelled Urine Urobilinogen Cancelled Ur Leukocyte Esterase Cancelled Ur Microscopic Cancelled Urine Hemoglobin Cancelled Urine Glucose Cancelled Last 24 Hours of Gt Results: SOURCE: LOWER RESP ENTR: 07/07/16-[address]: CHAPIS DELVALLE, I[facility]LA [facility]: SPUT[place] ORDERED: LOWER RESPIRATO Procedure Result > GRAM STAIN Final 07/08/16-838 WHITE BLOOD CELLS MANY SQUAMOUS CELLS RARE GRAM POSITIVE COCCI MANY GRAM POSITIVE RODS RARE > LOWER RESPIRATORY CULTURE Final 07/10/16 [place] glen after 2 days with 1. Moderate growth of: METH RESIST STAPH AUREUS 2. Scant growth of: YEAST Called to/Readback by [email or web address] by [email or web address] 07/10/16 0838 1. METH RESIST STAPH AUREUS RX ABN ------ --- 1. METH RESIST STAPH AUREUS RX AB ------ -- CEFAZOLIN R AMOXICILLIN/CLAVULINIC ACID R AMPICILLIN/SULBACTAM R TETRACYCLINE S TRIMETHOPRIM/SULFAMETHOXAZOLE S AZITHROMYCIN R CLINDAMYCIN R ERYTHROMYCIN R OXACILLIN R VANCOMYCIN S ATTENTIONATTENTIONPLACE PATIENT ON CONTACT PRECAUTIONS SPEC #: [id number] ASAEL: 07/12/16 STATUS: RECD RECD: 07/12/[address] [facility] [address]: KIMBERLEE DELVALLE, [facility] SOURCE: URINE ROUT ENTR: 07/12/16-[address]: ARPIT DELVALLE,DANIEL [facility]: URINE STRA CELIA DELVALLE,[place] MD, ISELA ORDERED: URINE CULTURE COMMENT: TRIO Procedure Result URINE CULTURE PENDING Recent Imaging Studies: CXR IMPRESSION: 1. No significant interval change. No focal consolidation. Slightly increased markings at the lung bases are likely related to crowding of the bronchovascular structures and atelectasis. Follow-up is recommended if there is concern for developing pneumonia. 2. Emphysema. DICTATED BY: DAYAMI CORNELL DO DATE/TIME DICTATED:07/10/16 / 1237 Assessment/Plan Impression: 76-year-old woman formaer smoker, ECF resident known with past medical history of COPD (3 L home oxygen), HTN. HLD, peripheral vascular disease admitted .OPD exacerbation #2 infections bronchiolitis Acute hypoxic respiratory failure, physical examination findings and CT findings are suggestive of emphysema and infective bronchiolitis. COPD exacerbation Leukocytosis Worsening anemia; stool guaiac positive Suggestion: 1. Continue iv Vancomycin started 07/09; f/u vancomycin trough 30 min before 4th dose; goal trough 15-20. Of note vancomycin trough scheduled for today not received by lab; obtain level 07/13. 2. Trend CBC, BMP. 3. F/U pulm recom.
--- NOTE | 2016-07-12 13:16 | PN- Gastroenterology ---
Assessment/Plan Assessment/Recommendations: 76-year-old lady with severe COPD and decompensation on BiPAP. Patient was found to be anemic and guaiac positive. Has received one unit of packed red blood cells 2 days ago. A recent EGD for anemia did not find any cause for bleeding. Patient is comfortable in bed except for baseline respiratory compromise. No nausea vomiting abdominal pain. No evidence of macroscopic GI blood loss in the last 24 hours. Hematocrit did drift down from 24.4 to 23.2. Subjective Subjective: Patient has shortness of breath, cough. No dysphagia or odynophagia epigastric discomfort or abdominal pain. Objective Vital Signs and I&Os Vital Signs Date Time Temp Pulse Resp B/P Pulse O2 O2 Flow FiO2 Ox Delivery Rate 07/12 1134 104 92 07/12 1020 100 160/70 07/12 1020 100 160/70 07/12 0810 93 Nasal 45% Cannula 07/12 0800 91 Nasal 45% Cannula 07/12 0727 98.6 87 20 150/70 91 07/12 0511 98 Nasal 45% Cannula 07/12 0128 98 Nasal 45% Cannula 07/12 0000 Nasal 45% Cannula 07/11 2225 99.0 91 24 170/64 85 07/11 1652 Nasal 4.0L Cannula 07/11 1600 90 Nasal 50% Cannula 07/11 1423 92 07/11 1422 98.9 107 24 150/70 95 BIPAP Intake & Output 07/12 1600 07/12 0400 07/11 1600 07/11 0400 07/10 1600 07/10 0400 Intake Total 250 600 690 260 900 450 Output Total 250 300 601 300 Balance 0 300 89 260 900 150 Intake, Blood 350 Product Intake, IV 250 20 20 550 50 Intake, Oral 0 600 670 240 350 50 Number 0 1 Bowel Movements Output, Urine 250 300 601 300 Patient 128 lb Weight In view of the patient's age and severe respiratory status would not advise any endoscopic investigations. For conservative management with intermittent transfusion to maintain hematocrit. Results Pertinent Lab Results: Laboratory Tests 07/12 07/12 0755 0557 Chemistry Sodium (137 - 145 mmol/L) 143 Potassium (3.5 - 5.1 mmol/L) 4.3 Chloride (98 - 107 mmol/L) 98 Carbon Dioxide (22 - 30 mmol/L) 39 H Anion Gap (5 - 16) 6 BUN (7 - 17 mg/dL) 39 H Creatinine (0.5 - 1.0 mg/dL) 0.9 Estimated GFR (>60 ml/min) > 60 BUN/Creatinine Ratio (7 - 25 %) 43.3 H Hematology CBC w Diff NO MAN DIFF REQ WBC (4.8 - 10.8 /CUMM) 12.2 H RBC (4.20 - 5.40 /CUMM) 2.47 L Hgb (12.0 - 16.0 G/DL) 7.5 L Hct (37 - 47 %) 23.2 L MCV (81.0 - 99.0 FL) 93.9 MCH (27.0 - 31.0 PG) 30.4 RDW (11.5 - 14.5 %) 15.1 H Plt Count (130 - 400 /CUMM) 263 MPV (7.4 - 10.4 FL) 8.4 Gran % (42.2 - 75.2 %) 93.5 H Lymphocytes % (20.5 - 51.1 %) 1.7 L Monocytes % (1.7 - 9.3 %) 4.7 Eosinophils % (0 - 5 %) 0.1 Basophils % (0.0 - 2.0 %) 0 L Absolute Granulocytes (1.4 - 6.5 /CUMM) 11.4 H Absolute Lymphocytes (1.2 - 3.4 /CUMM) 0.2 L Absolute Monocytes (0.10 - 0.60 /CUMM) 0.6 Absolute Eosinophils (0.0 - 0.7 /CUMM) 0 Absolute Basophils (0.0 - 0.2 /CUMM) 0 PUBS MCHC (33.0 - 37.0 G/DL) 32.4 L Urines Urinalysis MANY H Urine Color (YEL,AMB,STR) YEL Urine Clarity (CLEAR) CLEAR Urine pH (5.0 - 8.0) 6.0 Ur Specific [place] (1.001 - 1.035) 1.020 Urine Protein (NEG,<30 MG/DL) TRACE H Urine Ketones (NEG) NEG Urine Nitrite (NEG) NEG Urine Bilirubin (NEG) NEG Urine Urobilinogen (0.1 - 1.0 EU/dl) 0.2 Ur Leukocyte Esterase (NEG) NEG Ur Microscopic SEDIMENT EXAMINED Urine RBC (0 - 5 /HPF) RARE Urine WBC (0 - 2 /HPF) RARE Ur Epithelial Cells (NONE,FEW) FEW Urine Hemoglobin (NEG) NEG Urine Glucose (N MG/DL) 100 H 07/11 07/11 2109 0710 Chemistry Sodium (137 - 145 mmol/L) 142 Potassium (3.5 - 5.1 mmol/L) 4.2 Chloride (98 - 107 mmol/L) 97 L Carbon Dioxide (22 - 30 mmol/L) 44 H Anion Gap (5 - 16) 1 L BUN (7 - 17 mg/dL) 44 H Creatinine (0.5 - 1.0 mg/dL) 0.7 Estimated GFR (>60 ml/min) > 60 BUN/Creatinine Ratio (7 - 25 %) 62.9 H Hematology CBC w Diff NO MAN DIFF REQ WBC (4.8 - 10.8 /CUMM) 11.2 H RBC (4.20 - 5.40 /CUMM) 2.61 L Hgb (12.0 - 16.0 G/DL) 7.9 L Hct (37 - 47 %) 24.4 L MCV (81.0 - 99.0 FL) 93.4 MCH (27.0 - 31.0 PG) 30.4 RDW (11.5 - 14.5 %) 15.1 H Plt Count (130 - 400 /CUMM) 239 MPV (7.4 - 10.4 FL) 8.7 Gran % (42.2 - 75.2 %) 93.2 H Lymphocytes % (20.5 - 51.1 %) 2.2 L Monocytes % (1.7 - 9.3 %) 4.6 Eosinophils % (0 - 5 %) 0 Basophils % (0.0 - 2.0 %) 0 L Absolute Granulocytes (1.4 - 6.5 /CUMM) 10.5 H Absolute Lymphocytes (1.2 - 3.4 /CUMM) 0.2 L Absolute Monocytes (0.10 - 0.60 /CUMM) 0.5 Absolute Eosinophils (0.0 - 0.7 /CUMM) 0 Absolute Basophils (0.0 - 0.2 /CUMM) 0 PUBS MCHC (33.0 - 37.0 G/DL) 32.5 L Urines Urine Color Cancelled Urine Clarity Cancelled Urine pH Cancelled Ur Specific [place] Cancelled Urine Protein Cancelled Urine Ketones Cancelled Urine Nitrite Cancelled Urine Bilirubin Cancelled Urine Urobilinogen Cancelled Ur Leukocyte Esterase Cancelled Ur Microscopic Cancelled Urine Hemoglobin Cancelled Urine Glucose Cancelled 07/10 07/10 1402 1053 Blood Gas pH (7.35 - 7.45 PH) 7.39 7.38 pCO2 (35 - 45 TORR) 56 H 60 *H pO2 (80 - 100 TORR) 68 L 87 HCO3 (21 - 28 MEQ/L) 33 H 34 H ABG O2 Sat (Measured) (>96.0 %) 92.0 L 97.0 P-50 (Temp Corrected) YES YES Carboxyhemoglobin (1.5 - 5.0 %) 0.7 L 1.0 L O2 Concentration % 35% 6L Temperature (97.0 - 100.0 FARH) 98.3 98.3 Respiration Rate (BPM) 24 O2 Delivery Method BIPAP NEBULIZER Vent Mode ST Expiratory Pressure (CM H2O P) 6 Inspiratory Pressure (CM H2O P) 14 Miscellaneous Phlebotomy Draw Site RIGHT RADIAL RIGHT RADIAL 07/10 07/09 0745 2310 Chemistry Sodium (137 - 145 mmol/L) 139 Potassium (3.5 - 5.1 mmol/L) 4.0 Chloride (98 - 107 mmol/L) 95 L Carbon Dioxide (22 - 30 mmol/L) 39 H Anion Gap (5 - 16) 6 BUN (7 - 17 mg/dL) 44 H Creatinine (0.5 - 1.0 mg/dL) 1.0 Estimated GFR (>60 ml/min) 54 L BUN/Creatinine Ratio (7 - 25 %) 44.0 H Hematology CBC w Diff MAN DIFF ORDERED NO MAN DIFF REQ WBC (4.8 - 10.8 /CUMM) 17.7 H 16.6 H RBC (4.20 - 5.40 /CUMM) 2.86 L 2.72 L Hgb (12.0 - 16.0 G/DL) 8.7 L 8.1 L Hct (37 - 47 %) 26.7 L 25.3 L MCV (81.0 - 99.0 FL) 93.3 92.9 MCH (27.0 - 31.0 PG) 30.4 29.8 RDW (11.5 - 14.5 %) 15.0 H 15.0 H Plt Count (130 - 400 /CUMM) 245 230 MPV (7.4 - 10.4 FL) 8.4 8.6 Gran % (42.2 - 75.2 %) 93.5 H 93.0 H Lymphocytes % (20.5 - 51.1 %) 1.7 L 2.2 L Monocytes % (1.7 - 9.3 %) 4.8 4.8 Eosinophils % (0 - 5 %) 0 0 Basophils % (0.0 - 2.0 %) 0 L 0 L Absolute Granulocytes (1.4 - 6.5 /CUMM) 16.5 H 15.4 H Segmented Neutrophils (42.2 - 75.2 %) 86 H Band Neutrophils (0.0 - 5.0 %) 7 H Absolute Lymphocytes (1.2 - 3.4 /CUMM) 0.3 L 0.4 L Lymphocytes (20.5 - 51.1 %) 1 L Monocytes (1.7 - 9.3 %) 6 Absolute Monocytes (0.10 - 0.60 /CUMM) 0.9 H 0.8 H Absolute Eosinophils (0.0 - 0.7 /CUMM) 0 0 Absolute Basophils (0.0 - 0.2 /CUMM) 0 0 Platelet Estimate (ADEQUATE) ADEQUATE Polychromasia Hypochromic-Microcytic 1+ Anisocytosis 1+ Ovalocytes FEW PUBS MCHC (33.0 - 37.0 G/DL) 32.6 L 32.1 L
[2016-07-12 14:28] VITALS: BP 160/68
[2016-07-12 23:09] VITALS: BP 160/68
--- NOTE | 2016-07-13 05:51 | PN- Housestaff ---
SHAUNNA MARTINEZ 07/13/16 0551: Subjective Follow-up For: - COPD exacerbation Subjective: Patient was agitated, and had nasal cannula (high flow) in place. One-to-one sitter was present at the bedside. She received one-time dose of morphine, when she was more agitated during the day. Vitals remained stable overnight. She was on BiPAP overnight. The family spoke to both Dr. Harper and Dr. Alfaro at length. Discussed about the goals of care. Dr. Alfaro provided the prognosis, and a management plan. She was to be given low-dose morphine, as needed for agitation. Also had Ativan when necessary for anxiety. Clear instructions were provided toout Ativan and morphine to avoid any respiratory decompensation. Review of Systems Constitutional: Reports: see HPI. Objective Last 24 Hrs of Vital Signs/I&O Vital Signs Date Time Temp Pulse Resp B/P Pulse O2 O2 Flow FiO2 Ox Delivery Rate 07/13 0524 98 Nasal 40% Cannula 07/13 0116 100 Nasal 40% Cannula 07/13 0000 Nasal 40% Cannula 07/12 2309 97.0 90 22 160/68 95 07/12 2140 Nasal 4.0L Cannula 07/12 1626 94 Nasal Cannula 07/12 1625 91 94 07/12 1600 Nasal 45% Cannula 07/12 1446 97 93 07/12 1428 98.0 103 22 160/68 94 BIPAP 07/12 1407 100 94 07/12 1134 104 92 07/12 1020 100 160/70 07/12 1020 100 160/70 07/12 0810 93 Nasal 45% Cannula 07/12 0800 91 Nasal 45% Cannula 07/12 0727 98.6 87 20 150/70 91 Intake & Output 07/13 0800 07/13 0000 07/12 1600 Intake Total 650 550 Output Total 200 350 Balance 450 200 Intake, IV 250 Intake, Oral 400 550 Output, Urine 200 350 Physical Exam General Appearance: No Acute Distress Other Physical Findings: General Exam: AAOx3, moderate distress Skin: No rashes, no breakdown HEENT: PERRLA, EOMI Neck: Supple, No JVD No cervical lymphadenopathy CVS: Reg Rate, Normal S1,S2, No MGR Resp: Decreased air entry bilaterally, rhonchi, rales bilaterally. Abdomen: Soft, No tenderness, Normal Bowel Sounds Neuro: Normal Speech, Strength 5/5 b/l x 4 extremities, Sensation intact, CN III -XII NL, Reflexes 2+ (Limited examination). Extremities: No cyanosis, no pedal edema, multiple ulcers noted on the right lower extremity and left upper extremity. Current Medications: Current Medications Sig/Roge Start time Last Medication Dose Route Stop Time Status Admin Acetaminophen 650 MG Q6P PRN 07/07 1730 AC PO Albuterol Sulfate 3 ML EVERY 4 HRS/AWAKE 07/07 2000 AC 07/12 INH 2043 Albuterol Sulfate 3 ML EVERY 4 HRS/AWAKE .. 07/07 1530 AC 07/08 INH 1444 Amitriptyline HCl 25 MG QPM 07/07 2200 AC 07/12 PO 212 Amlodipine Besylate 5 MG DAILY 07/08 1000 AC 07/12 PO 1020 Atorvastatin Calcium 10 MG DAILY@1700 07/08 1700 AC 07/12 PO 1612 Budesonide/ 2 PUF BID 07/07 1518 AC 07/12 Formoterol Fumarate INH 212 Calcium/Vitamin D 1 TAB BID 07/07 2200 AC 07/12 PO 2127 Diltiazem HCl 360 MG DAILY 07/08 1000 AC 07/12 PO 1020 Ferrous Sulfate 325 MG DAILY 07/08 1000 AC 07/12 PO 1015 Ipratropium [place] 2.5 ML EVERY 4 HRS/AWAKE 07/10 1600 AC 07/12 INH 2042 Lorazepam 0.25 MG BID PRN 07/10 1630 AC 07/12 IV 1216 Lorazepam 0.5 MG BID PRN 07/07 1715 AC 07/11 PO 07/14 1714 2046 Losartan Potassium 100 MG DAILY 07/08 1000 AC 07/12 PO 1020 Methylprednisolone 40 MG Q6 07/11 1800 AC 07/13 IV 0116 Multivitamins 1 TAB DAILY 07/08 1000 AC 07/12 Therapeutic PO 1016 Oxycodone/ 1 TAB Q6P PRN 07/07 1730 AC 07/12 Acetaminophen PO 1643 Pantoprazole Sodium 40 MG BID 07/09 2200 AC 07/12 IV 2128 Paroxetine HCl 40 MG AT BEDTIME 07/07 2200 AC 07/12 PO 2127 Vancomycin HCl 1,000 MG 2300 07/09 2300 AC 07/12 Dextrose/Water 250 ML IV 2233 Last 24 Hrs of Lab/Gt Results Last 24 Hrs of Labs/Mics: Laboratory Tests 07/12/162123: Vancomycin Trough 9.5 L 07/12/16 0755: Anion Gap 6, Estimated GFR > 60, BUN/Creatinine Ratio 43.3 H, CBC w Diff NO MAN DIFF REQ, RBC 2.47 L, MCV 93.9, MCH 30.4, RDW 15.1 H, MPV 8.4, Gran % 93.5 H, Lymphocytes % 1.7 L, Monocytes % 4.7, Eosinophils % 0.1, Basophils % 0 L, Absolute Granulocytes 11.4 H, Absolute Lymphocytes 0.2 L, Absolute Monocytes 0.6, Absolute Eosinophils 0, Absolute Basophils 0, PUBS MCHC 32.4 L 07/12/16 0557: Urinalysis MANY H, Urine Color YEL, Urine Clarity CLEAR, Urine pH 6.0, Ur Specific [place] 1.020, Urine Protein TRACE H, Urine Ketones NEG, Urine Nitrite NEG, Urine Bilirubin NEG, Urine Urobilinogen 0.2, Ur Leukocyte Esterase NEG, Ur Microscopic SEDIMENT EXAMINED, Urine RBC RARE, Urine WBC RARE, Ur Epithelial Cells FEW, Urine Hemoglobin NEG, Urine Glucose 100 H Microbiology 07/12 556 URINE ROUT: Urine Culture - RECD Assessment/Plan Assessment: She is an older woman with a past history of COPD (end-stage),HFpEF, peripheral vascular disease is being evaluated for acute onset of shortness of breath, cough and fever. Found to be hypoxemic-85% on 4 L prior to admission. Differential diagnosis: #1 COPD exacerbation #2 MRSA pneumonia Below the problem list and plan: #1 shortness of breath, cough-acute hypoxic respiratory failure, physical examination findings and CT findings are suggestive of COPD exacerbatio. Continue on intravenous tesrfdcz-Molp-Ktrund 40 mg every 8 x 6th day. TRC. Lower respiratory cultures revealed growth of MRSA and yeast. ? MSRA pneumonia. Continue vancomycin-renal adjusted dosing. Vancomycin trough-9.5. Infectious disease obiee consultant advising. #2 lower extremity ulcers-likely due to peripheral vascular disease. Patient currently on 10 mg Lipitor, which could be increased to high-intensity statin. Discontinue aspirin. #3 hypertension-continue losartan, and Cardizem 360 mg by mouth daily. Hydrochlorothiazide held at this time. #4 anemia-likely anemia of chronic disease. Low iron, ferritin, normal TIBC with normal reticulocyte count. MCV 94. Guaiac test positive. 1 units of PRBCs transfused. Hemoglobin 7.6. Stable. Aspirin and Lovenox have been discontinued. As per special tax auditor's recommendation, outpatient workup. #5 DVT prophylaxis- ALPS Problem List: 1. MRSA pneumonia 2. Bronchitis Pain Ratin Pain Location: unable to assess Pain Goal: Pain 4 or less Pain Plan: Tylenol when necessary Tomorrow's Labs & Rationales: CBC-to monitor for leukocytosis, suspected MRSA pneumonia and patient on steroids, low H&H. Basic electrolyte panel-to monitor for elevated bicarbonate and potassium. DVT/Prophylaxis: mechanical MARTHA DELVALLE,SARITA 07/13/16 1340: Attending MD Review Statement Attending Statement Attending MD Statement: examined this patient, discuss w/resident/PA/MANAGER BANKING, agreed w/resident/PA/MANAGER BANKING, discussed with family, reviewed EMR data (avail), discussed with nursing, discussed with case mgmt, reviewed images Attending Assessment/Plan: Patient continues to be very fragile from a respiratory standpoint, appears less alert although she is responsive. We sat down with her son and spoke at length. She is a 76-year-old with advanced end-stage COPD who is here with acute on chronic hypoxemic and hypercapnic respiratory failure with an MRSA pneumonia. She is on high flow oxygen and Dr. Morataya has been actively talking to the family about goals of care and de-escalating CODE STATUS. At this point the are still reluctant to change her CODE STATUS to comfort measures or hospice. They feel that she's been a fighter all her life and has always rallied after every exacerbation and they want to try the IV steroids and antibiotics with high flow oxygen. We do have her on a very low dose of morphine and Ativan when necessary for agitation and the family is comfortable with that.
[2016-07-13 06:05] VITALS: BP 150/60
--- NOTE | 2016-07-13 08:02 | PN- Pulmonary ---
Subjective HPI/Critical Care Issues: Patient continues to struggle with shortness of breath now requiring high flow oxygen. Family discussion yesterday informed them of the severity of her current situation and proposed hospice care if she fails to improve Objective Current Medications: Current Medications Sig/Roge Start time Last Medication Dose Route Stop Time Status Admin Acetaminophen 650 MG Q6P PRN 07/07 1730 AC PO Albuterol Sulfate 3 ML EVERY 4 HRS/AWAKE 07/07 2000 AC 07/12 INH 2043 Albuterol Sulfate 3 ML EVERY 4 HRS/AWAKE .. 07/07 1530 AC 07/08 INH 1444 Amitriptyline HCl 25 MG QPM 07/07 2200 AC 07/12 PO 2127 Amlodipine Besylate 5 MG DAILY 07/08 1000 AC 07/12 PO 1020 Atorvastatin Calcium 10 MG DAILY@1700 07/08 1700 AC 07/12 PO 1612 Budesonide/ 2 PUF BID 07/07 1518 AC 07/12 Formoterol Fumarate INH 2128 Calcium/Vitamin D 1 TAB BID 07/07 2200 AC 07/12 PO 2127 Diltiazem HCl 360 MG DAILY 07/08 1000 AC 07/12 PO 1020 Ferrous Sulfate 325 MG DAILY 07/08 1000 AC 07/12 PO 1015 Ipratropium [place] 2.5 ML EVERY 4 HRS/AWAKE 07/10 1600 AC 07/12 INH 2042 Lorazepam 0.25 MG BID PRN 07/10 1630 AC 07/13 IV 0750 Lorazepam 0.5 MG BID PRN 07/07 1715 AC 07/11 PO 07/14 1714 2046 Losartan Potassium 100 MG DAILY 07/08 1000 AC 07/12 PO 1020 Methylprednisolone 40 MG Q6 07/11 1800 AC 07/13 IV 0632 Multivitamins 1 TAB DAILY 07/08 1000 AC 07/12 Therapeutic PO 1016 Oxycodone/ 1 TAB Q6P PRN 07/07 1730 AC 07/12 Acetaminophen PO 1643 Pantoprazole Sodium 40 MG BID 07/09 2200 AC 07/12 IV 2128 Paroxetine HCl 40 MG AT BEDTIME 07/07 2200 AC 07/12 PO 2127 Vancomycin HCl 1,000 MG 2300 07/09 2300 AC 07/12 Dextrose/Water 250 ML IV 2233 Vital Signs & I&O Last 24 Hrs of Vitals and I&O: Vital Signs Date Time Temp Pulse Resp B/P Pulse O2 O2 Flow FiO2 Ox Delivery Rate 07/13 0605 98.0 94 20 150/60 100 Nasal 4.0L Cannula 07/13 0524 98 Nasal 40% Cannula 07/13 0116 100 Nasal 40% Cannula 07/13 0000 Nasal 40% Cannula 07/12 2309 97.0 90 22 160/68 95 07/12 2140 Nasal 4.0L Cannula 07/12 1626 94 Nasal Cannula 07/12 1625 91 94 07/12 1600 Nasal 45% Cannula 07/12 1446 97 93 07/12 1428 98.0 103 22 160/68 94 BIPAP 07/12 1407 100 94 07/12 1134 104 92 07/12 1020 100 160/70 07/12 1020 100 160/70 07/12 0810 93 Nasal 45% Cannula 07/12 0800 91 Nasal 45% Cannula Intake & Output 07/13 0800 07/13 0000 07/12 1600 Intake Total 650 550 Output Total 200 350 Balance 450 200 Intake, IV 250 Intake, Oral 400 550 Output, Urine 200 350 Oxygen saturation 98 on 40% exam for chest shows occasional rhonchi diminished breath sounds cardiac exam shows normal S1 and S2 without murmurs abdominal exam is soft slightly tympanitic nontender Impression/Plan Impression/Plan Impression/Plan: 76-year-old woman with advanced COPD history congestive heart failure admitted with increasing shortness of breath and worsening hypercapnic respiratory failure. Patient has declined BiPAP and is now on high flow nasal oxygen. She appears less alert with no significant improvement in her overall status. Recommendations: Patient continues to struggle with shortness of breath in the setting of end- stage COPD, complicated by MRSA pneumonia. Continue discussions with family regarding the direction of her care for now continue present level of care
[2016-07-13 08:08] LABS: ABSOLUTE BASOPHIL COUNT 0 /CUMM (0.0-0.2); ABSOLUTE EOSINOPHIL COUNT 0 /CUMM (0.0-0.7); ABSOLUTE GRANULOCYTE CT 12.9 /CUMM (1.4-6.5); ABSOLUTE LYMPH COUNT 0.7 /CUMM (1.2-3.4); ABSOLUTE MONOCYTE COUNT 0.4 /CUMM (0.10-0.60); BASOPHIL % 0 % (0.0-2.0); EOSINOPHIL % 0.1 % (0-5); HEMATOCRIT 23.3 % (37-47); MEAN CORPUSCULAR HGB 30.7 PG (27.0-31.0); MEAN CORPUSCULAR HGB CONC 32.7 G/DL (33.0-37.0); MEAN CORPUSCULAR VOLUME 94.1 FL (81.0-99.0); MEAN PLATELET VOLUME 8.7 FL (7.4-10.4); PLATELET COUNT 300 /CUMM (130-400); RBC DISTRIBUTION WIDTH 15.1 % (11.5-14.5); RED BLOOD CELL CT 2.48 /CUMM (4.20-5.40)
[2016-07-13 09:37] LABS: GRANULOCYTE % 92.2 % (42.2-75.2)
[2016-07-13 14:23] VITALS: BP 150/60
--- NOTE | 2016-07-13 15:53 | PN- Infect Dx ---
Subjective Subjective: Afebrile on steroids. She has been sedated and is unable to provide any history. Events over the past week reviewed with overall deterioration in her respiratory status, now requiring high flow oxygen. Objective Last 24 Hrs of Vital Signs/I&O Vital Signs Date Time Temp Pulse Resp B/P Pulse O2 O2 Flow FiO2 Ox Delivery Rate 07/13 1503 99 Nasal 40% Cannula 07/13 1443 Nasal 4.0L Cannula 07/13 1423 97.9 108 20 150/60 92 07/13 1158 95 Nasal 40% Cannula 07/13 1015 105 180/68 07/13 1015 105 28 180/68 07/13 0830 96 Nasal 40% Cannula 07/13 0605 98.0 94 20 150/60 100 Nasal 4.0L Cannula 07/13 0524 98 Nasal 40% Cannula 07/13 0116 100 Nasal 40% Cannula 07/13 0000 Nasal 40% Cannula 07/12 2309 97.0 90 22 160/68 95 07/12 2140 Nasal 4.0L Cannula 07/12 1626 94 Nasal Cannula 07/12 1625 91 94 07/12 1600 Nasal 45% Cannula Intake & Output 07/13 1600 07/13 0800 07/13 0000 Intake Total 650 Output Total 200 200 Balance -200 450 Intake, IV 250 Intake, Oral 400 Output, Urine 200 200 Physical Exam Other Physical Findings: She is minimally responsive on high flow oxygen Lungs scattered crackles Heart regular rhythm with a 2/6 systolic murmur Extremities no cyanosis, clubbing or edema Results Last 24 Hours of Lab Results: Laboratory Tests 07/13 07/12 0636 2124 Chemistry Sodium (137 - 145 mmol/L) 142 Potassium (3.5 - 5.1 mmol/L) 4.8 Chloride (98 - 107 mmol/L) 96 L Carbon Dioxide (22 - 30 mmol/L) 40 H Anion Gap (5 - 16) 6 BUN (7 - 17 mg/dL) 36 H Creatinine (0.5 - 1.0 mg/dL) 0.9 Estimated GFR (>60 ml/min) > 60 BUN/Creatinine Ratio (7 - 25 %) 40.0 H Hematology CBC w Diff NO MAN DIFF REQ WBC (4.8 - 10.8 /CUMM) 14.0 H RBC (4.20 - 5.40 /CUMM) 2.48 L Hgb (12.0 - 16.0 G/DL) 7.6 L Hct (37 - 47 %) 23.3 L MCV (81.0 - 99.0 FL) 94.1 MCH (27.0 - 31.0 PG) 30.7 RDW (11.5 - 14.5 %) 15.1 H Plt Count (130 - 400 /CUMM) 300 MPV (7.4 - 10.4 FL) 8.7 Gran % (42.2 - 75.2 %) 92.2 H Lymphocytes % (20.5 - 51.1 %) 4.7 L Monocytes % (1.7 - 9.3 %) 3.0 Eosinophils % (0 - 5 %) 0.1 Basophils % (0.0 - 2.0 %) 0 L Absolute Granulocytes (1.4 - 6.5 /CUMM) 12.9 H Absolute Lymphocytes (1.2 - 3.4 /CUMM) 0.7 L Absolute Monocytes (0.10 - 0.60 /CUMM) 0.4 Absolute Eosinophils (0.0 - 0.7 /CUMM) 0 Absolute Basophils (0.0 - 0.2 /CUMM) 0 PUBS MCHC (33.0 - 37.0 G/DL) 32.7 L Toxicology Vancomycin Trough (10.0 - 20.0 ug/mL) 9.5 L Last 24 Hours of Gt Results: Urine culture July 12 negative Urine culture July 13 pending Assessment/Plan Impression: Overall status is poor with worsening respiratory status secondary to end-stage COPD, currently on Vancomycin now Day 4 of treatment for a presumed exacerbation of COPD, with temperatures normal and white blood cell count mildly elevated on steroids. Her Vancomycin trough level of 9.5 should be adequate. Her CT scan of the chest revealed emphysematous changes of the lung with bibasilar atelectasis and reticular and tree-in-bud opacities consistent with endobronchial disease. Suggestion: 1. Await decision regarding overall level of care 2. Continue Vancomycin
[2016-07-13 23:30] VITALS: BP 144/60
--- NOTE | 2016-07-14 05:58 | PN- Housestaff ---
SHAUNNA MARTINEZ 07/14/16 0558: Subjective Follow-up For: - copd Subjective: She seemed in moderate distress this morning. Follows commands, and could not verbalize full Sentences. She was on high flow oxygen when I saw her, with oxygen saturations above 95%. Extensive conversation with the family were being done by both Dr. Alfaro and Dr. Gill about goals of care. There was a consideration for hospice evaluation, by the family. Decreased by mouth intake was reported. Remained afebrile and blood pressure was stable. Review of Systems Constitutional: Reports: see HPI. Objective Last 24 Hrs of Vital Signs/I&O Vital Signs Date Time Temp Pulse Resp B/P Pulse O2 O2 Flow FiO2 Ox Delivery Rate 07/14 0000 99 Nasal 35% Cannula 07/13 2330 97.7 98 22 144/60 99 Nasal 35% Cannula 07/13 2251 98 Nasal 35% Cannula 07/13 1925 98 Nasal 35% Cannula 07/13 1605 99 Nasal 40% Cannula 07/13 1600 98 Nasal 35% Cannula 07/13 1503 99 Nasal 40% Cannula 07/13 1443 Nasal 4.0L Cannula 07/13 1423 97.9 108 20 150/60 92 02 1158 95 Nasal 40% Cannula 07/13 1015 105 180/68 02 1015 105 28 180/68 07/13 0830 96 Nasal 40% Cannula 07/13 0800 100 Nasal 40% Cannula 07/13 0605 98.0 94 20 150/60 100 Nasal 4.0L Cannula Intake & Output 07/14 0800 07/14 0000 07/13 1600 Intake Total 150 110 Output Total 250 450 Balance -100 -340 Intake, IV 100 50 Intake, Oral 50 60 Number 1 Bowel Movements Output, Urine 250 450 Physical Exam General Appearance: Moderate Distress Other Physical Findings: General Exam: AAOx3, mild to moderate distress Skin: No rashes, ulcers on left upper extremity and right lower extremity. HEENT: PERRL, ocular movements could not be tested Neck: Supple, No JVD No cervical lymphadenopathy CVS: Reg Rate, Normal S1,S2, No MGR Resp: Low air entry bilaterally, rhonchi and rales. use of accessory muscles. Abdomen: Soft, No tenderness, Normal Bowel Sounds Neuro: Normal Speech, neurological exam could not be done. Extremities: No cyanosis, no pedal edema Current Medications: Current Medications Sig/Roge Start time Last Medication Dose Route Stop Time Status Admin Acetaminophen 650 MG Q6P PRN 07/07 1730 AC PO Albuterol Sulfate 3 ML EVERY 4 HRS/AWAKE 07/07 1999 AC 07/13 INH 2015 Albuterol Sulfate 3 ML EVERY 4 HRS/AWAKE .. 07/07 1530 AC 07/08 INH 1444 Amitriptyline HCl 25 MG QPM 07/07 2200 AC 07/13 PO 2145 Amlodipine Besylate 5 MG DAILY 07/08 1000 AC 07/13 PO 1015 Atorvastatin Calcium 10 MG DAILY@1700 07/08 1700 AC 07/13 PO 1810 Budesonide/ 2 PUF BID 07/07 1518 AC 07/13 Formoterol Fumarate INH 2145 Calcium/Vitamin D 1 TAB BID 07/07 2200 AC 07/13 PO 2145 Diltiazem HCl 360 MG DAILY 07/08 1000 AC 07/12 PO 1020 Ferrous Sulfate 325 MG DAILY 07/08 1000 AC 07/13 PO 1011 Ipratropium [place] 2.5 ML EVERY 4 HRS/AWAKE 07/10 1600 AC 07/13 INH 2015 Lorazepam 0.25 MG BID PRN 07/10 1630 AC 07/14 IV 0408 Lorazepam 0.5 MG BID PRN 07/07 1715 AC 07/11 PO 07/14 1714 2046 Losartan Potassium 100 MG DAILY 07/08 1000 AC 07/13 PO 1015 Methylprednisolone 40 MG Q6 07/11 1800 AC 07/14 IV 0531 Morphine Sulfate 0.5 MG Q8P PRN 07/13 1415 AC IV Morphine Sulfate 1 MG Q8P PRN 07/13 1115 DC 07/13 IV 1253 Morphine Sulfate 1 MG ONCE ONE 07/13 0945 DC 07/13 IV 07/13 0946 1012 Multivitamins 1 TAB DAILY 07/08 1000 AC 07/13 Therapeutic PO 1011 Oxycodone/ 1 TAB Q6P PRN 07/07 1730 AC 07/12 Acetaminophen PO 1643 Pantoprazole Sodium 40 MG BID 07/09 2200 AC 07/13 IV 2145 Paroxetine HCl 40 MG AT BEDTIME 07/07 2200 AC 07/13 PO 2144 Vancomycin HCl 1,000 MG 2300 07/09 2300 AC 07/13 Dextrose/Water 250 ML IV 2243 Last 24 Hrs of Lab/Gt Results Last 24 Hrs of Labs/Mics: Laboratory Tests 07/13/16 0636: Anion Gap 6, Estimated GFR > 60, BUN/Creatinine Ratio 40.0 H, CBC w Diff NO MAN DIFF REQ, RBC 2.48 L, MCV 94.1, MCH 30.7, RDW 15.1 H, MPV 8.7, Gran % 92.2 H, Lymphocytes % 4.7 L, Monocytes % 3.0, Eosinophils % 0.1, Basophils % 0 L, Absolute Granulocytes 12.9 H, Absolute Lymphocytes 0.7 L, Absolute Monocytes 0.4, Absolute Eosinophils 0, Absolute Basophils 0, PUBS MCHC 32.7 L Microbiology 07/13 1151 URINE ROUT: Urine Culture - RECD Assessment/Plan Assessment: She is an older woman with a past history of COPD (end-stage),HFpEF, peripheral vascular disease is being evaluated for acute onset of shortness of breath, cough and fever. Found to be hypoxemic-85% on 4 L prior to admission. Differential diagnosis: #1 COPD exacerbation #2 MRSA pneumonia Below the problem list and plan: #1 shortness of breath, cough-acute hypoxic respiratory failure, physical examination findings and CT findings are suggestive of COPD exacerbatio. Continue on intravenous rcwqaeaf-Viin-Ascghe 40 mg every 8 x 7th day. TRC. Lower respiratory cultures revealed growth of MRSA and yeast. ? MSRA pneumonia. Continue vancomycin-renal adjusted dosing. Infectious disease design consultant advising. Chest x-ray was ordered this a.m. to assess any fluid build up, as the patient was on steroids for a long time. #2 lower extremity ulcers-likely due to peripheral vascular disease. Continue statin. Discontinue aspirin, since the patient had low H&H and evidence of GI bleed. #3 hypertension-continue losartan, and Cardizem 360 mg by mouth daily. Hydrochlorothiazide held at this time. Blood pressure was elevated last night, which decreased to 140/80 during the day. #4 anemia-likely anemia of chronic disease. Low iron, ferritin, normal TIBC with normal reticulocyte count. MCV 94. Guaiac test positive. 1 units of PRBCs transfused. Hemoglobin 7.6. Stable. Aspirin and Lovenox have been discontinued. As per framing carpenter's recommendation, outpatient workup. #5 DVT prophylaxis- ALPS Problem List: 1. Bronchitis 2. MRSA pneumonia 3. COPD (chronic obstructive pulmonary disease) 4. Hypertension 5. COPD exacerbation Pain Ratin Pain Location: Could not assess Pain Goal: Pain 4 or less Pain Plan: IV morphine Percocet Tomorrow's Labs & Rationales: CBC-patient has low H&H. History of GI bleed Basic electrolyte panel-to monitor for kidney function, HCO3. MARTHA DELVALLE,SARITA 07/14/16 1626: Attending MD Review Statement Attending Statement Attending MD Statement: examined this patient, discuss w/resident/PA/MECHANICAL SHOP LABORER, agreed w/resident/PA/MECHANICAL SHOP LABORER, discussed with family, reviewed EMR data (avail), discussed with nursing, discussed with case mgmt, reviewed images Attending Assessment/Plan: I spoke to the patient's family at length again today. All the siblings arrived and they had multiple conversations with the case specialist and hospice. Given the patient's poor respiratory status, inability to use BiPAP and worsening respiratory failure ,we going to admit her to inpatient hospice care they understand that she is imminently dying and the goal is to keep her comfortable.
[2016-07-14 06:54] VITALS: BP 154/80
--- NOTE | 2016-07-14 08:23 | PN- Pulmonary ---
Subjective HPI/Critical Care Issues: Patient has periods of agitation requiring Ativan and morphine for control of tachypnea. Family meeting yesterday. Family made aware of severity of her underlying lung disease complicated by MRSA infection and chronic respiratory failure. Patient is DNR/DNI but not yet comfort care Objective Current Medications: Current Medications Sig/Roge Start time Last Medication Dose Route Stop Time Status Admin Acetaminophen 650 MG Q6P PRN 07/07 1730 AC PO Albuterol Sulfate 3 ML EVERY 4 HRS/AWAKE 07/07 2000 AC 07/14 INH 0754 Albuterol Sulfate 3 ML EVERY 4 HRS/AWAKE .. 07/07 1530 AC 07/08 INH 1444 Amitriptyline HCl 25 MG QPM 07/07 2200 AC 07/13 PO 2145 Amlodipine Besylate 5 MG DAILY 07/08 1000 AC 07/13 PO 1015 Atorvastatin Calcium 10 MG DAILY@1700 07/08 1700 AC 07/13 PO 1810 Budesonide/ 2 PUF BID 07/07 1518 AC 07/13 Formoterol Fumarate INH 2145 Calcium/Vitamin D 1 TAB BID 07/07 2200 AC 07/13 PO 2145 Diltiazem HCl 360 MG DAILY 07/08 1000 AC 07/12 PO 1020 Ferrous Sulfate 325 MG DAILY 07/08 1000 AC 07/13 PO 1011 Ipratropium [place] 2.5 ML EVERY 4 HRS/AWAKE 07/10 1600 AC 07/14 INH 0754 Lorazepam 0.25 MG BID PRN 07/10 1630 AC 07/14 IV 0408 Lorazepam 0.5 MG BID PRN 07/07 1715 AC 07/11 PO 07/14 1714 2046 Losartan Potassium 100 MG DAILY 07/08 1000 AC 07/13 PO 1015 Methylprednisolone 40 MG Q6 07/11 1800 AC 07/14 IV 0531 Morphine Sulfate 0.5 MG Q8P PRN 07/13 1415 AC IV Morphine Sulfate 1 MG Q8P PRN 07/13 1115 DC 07/13 IV 1253 Morphine Sulfate 1 MG ONCE ONE 07/13 0945 DC 07/13 IV 07/13 0946 1012 Multivitamins 1 TAB DAILY 07/08 1000 AC 07/13 Therapeutic PO 1011 Oxycodone/ 1 TAB Q6P PRN 07/07 1730 AC 07/12 Acetaminophen PO 1643 Pantoprazole Sodium 40 MG BID 07/09 2200 AC 07/13 IV 2145 Paroxetine HCl 40 MG AT BEDTIME 07/07 2199 AC 07/13 PO 2144 Vancomycin HCl 1,000 MG 2300 07/09 2300 AC 07/13 Dextrose/Water 250 ML IV 2243 Vital Signs & I&O Last 24 Hrs of Vitals and I&O: Vital Signs Date Time Temp Pulse Resp B/P Pulse O2 O2 Flow FiO2 Ox Delivery Rate 07/14 0758 99 Nasal 40% Cannula 07/14 0654 98.1 109 24 154/80 99 Nasal Cannula 07/14 0000 99 Nasal 35% Cannula 07/13 2330 97.7 98 22 144/60 99 Nasal 35% Cannula 07/13 2251 98 Nasal 35% Cannula 07/13 1925 98 Nasal 35% Cannula 07/13 1605 99 Nasal 40% Cannula 07/13 1600 98 Nasal 35% Cannula 07/13 1503 99 Nasal 40% Cannula 07/13 1443 Nasal 4.0L Cannula 07/13 1423 97.9 108 20 150/60 92 07/13 1158 95 Nasal 40% Cannula 07/13 1015 105 180/68 07/13 1015 105 28 180/68 07/13 0830 96 Nasal 40% Cannula Intake & Output 07/14 1600 07/14 0800 07/14 0000 Intake Total 100 150 Output Total 300 250 Balance -200 -100 Intake, IV 100 Intake, Oral 100 50 Number 0 Bowel Movements Output, Urine 300 250 Oxygen saturation 40% 99% exam for chest shows occasional rhonchi and diminished breath sounds cardiac exam shows regular S1 and S2 without murmurs Impression/Plan Impression/Plan Impression/Plan: 76-year-old woman with advanced COPD history congestive heart failure admitted with increasing shortness of breath and worsening hypercapnic respiratory failure. Patient has declined BiPAP and is now on high flow nasal oxygen. Patient is somewhat more awake this morning able to take her medicines and liquids. She still remains tachypneic Recommendations: Patient continues to struggle with shortness of breath in the setting of end- stage COPD, complicated by MRSA pneumonia. Continue discussions with family regarding the direction of her care for now continue present level of care. Repeat chest x-ray to exclude complicating congestive heart failure
[2016-07-14 09:10] LABS: ABSOLUTE BASOPHIL COUNT 0 /CUMM (0.0-0.2); ABSOLUTE EOSINOPHIL COUNT 0 /CUMM (0.0-0.7); ABSOLUTE GRANULOCYTE CT 14.6 /CUMM (1.4-6.5); ABSOLUTE LYMPH COUNT 0.2 /CUMM (1.2-3.4); ABSOLUTE MONOCYTE COUNT 0.8 /CUMM (0.10-0.60); BASOPHIL % 0 % (0.0-2.0); EOSINOPHIL % 0 % (0-5); GRANULOCYTE % 93.8 % (42.2-75.2); HEMATOCRIT 24.7 % (37-47); MEAN CORPUSCULAR HGB 29.8 PG (27.0-31.0); MEAN CORPUSCULAR HGB CONC 31.7 G/DL (33.0-37.0); MEAN CORPUSCULAR VOLUME 94.2 FL (81.0-99.0); MEAN PLATELET VOLUME 8.2 FL (7.4-10.4); PLATELET COUNT 319 /CUMM (130-400); RBC DISTRIBUTION WIDTH 14.5 % (11.5-14.5); RED BLOOD CELL CT 2.63 /CUMM (4.20-5.40)
[2016-07-14 09:48] LABS: WHITE BLOOD CELL COUNT 15.5 /CUMM (4.8-10.8)
--- NOTE | 2016-07-14 11:04 | RADIOLOGY REPORT ---
EXAMINATION: XR PORTABLE CHEST CLINICAL INFORMATION: Sudden increase in oxygen requirements. Presumptive diagnosis of pneumonia versus atelectasis. History of severe COPD. No fever or leukocytosis. On Augmentin and steroids now. COMPARISON: Multiple prior chest x-rays, most recent of which is dated 07/10/2016. TECHNIQUE: Portable AP semierect view of the chest was obtained. FINDINGS: The cardiomediastinal silhouette is within normal limits in size. Lungs bilaterally are hyperinflated and there are chronic increased reticular opacities again noted in the medial aspects of both upper lobes and in the lung apices, unchanged. Bibasilar reticular opacities are seen, progressively worse when compared to recent studies dating back to 07/07/2016. There is a stable small nodular density in the right upper lobe, projected over the right fourth rib, unchanged. Diffuse osteopenia is seen. IMPRESSION: 1. COPD with chronic lung markings seen. 2. Superimposed bibasilar opacities are noted, subtly progressing when compared to recent chest x-rays, raising the suspicion of superimposed pneumonia. There may be associated trace pleural effusions.
[2016-07-14 14:32] VITALS: BP 140/80
--- NOTE | 2016-07-14 14:54 | PN- Infect Dx ---
Subjective Subjective: Afebrile on steroids. Objective Last 24 Hrs of Vital Signs/I&O Vital Signs Date Time Temp Pulse Resp B/P Pulse O2 O2 Flow FiO2 Ox Delivery Rate 07/14 1432 98.2 80 20 140/80 91 07/14 0806 110 162/80 07/14 0806 110 162/80 07/14 0800 94 Nasal 35% Cannula 07/14 0758 99 Nasal 40% Cannula 07/14 0654 98.1 109 24 154/80 99 Nasal Cannula 07/14 0000 99 Nasal 35% Cannula 07/13 2330 97.7 98 22 144/60 99 Nasal 35% Cannula 07/13 2251 98 Nasal 35% Cannula 07/13 1925 98 Nasal 35% Cannula 07/13 1605 99 Nasal 40% Cannula 07/13 1600 98 Nasal 35% Cannula 07/13 1503 99 Nasal 40% Cannula Intake & Output 07/14 1600 07/14 0800 07/14 0000 Intake Total 100 150 Output Total 425 300 250 Balance -425 -200 -100 Intake, IV 100 Intake, Oral 100 50 Number 0 Bowel Movements Output, Urine 425 300 250 Physical Exam Other Physical Findings: She is more awake and alert on high flow oxygen Lungs mostly clear with decreased breath sounds Heart regular rhythm with a 2/6 systolic ejection murmur Abdomen is soft, nontender with positive bowel sounds Extremities no cyanosis, clubbing or edema Results Last 24 Hours of Lab Results: Laboratory Tests 07/14 07/14 0820 0730 Chemistry Sodium (137 - 145 mmol/L) 146 H Potassium (3.5 - 5.1 mmol/L) 5.2 H Chloride (98 - 107 mmol/L) 99 Carbon Dioxide (22 - 30 mmol/L) 38 H Anion Gap (5 - 16) 7 BUN (7 - 17 mg/dL) 34 H Creatinine (0.5 - 1.0 mg/dL) 0.8 Estimated GFR (>60 ml/min) > 60 BUN/Creatinine Ratio (7 - 25 %) 42.5 H Hematology CBC w Diff NO MAN DIFF REQ WBC (4.8 - 10.8 /CUMM) 15.5 H RBC (4.20 - 5.40 /CUMM) 2.63 L Hgb (12.0 - 16.0 G/DL) 7.8 L Hct (37 - 47 %) 24.7 L MCV (81.0 - 99.0 FL) 94.2 MCH (27.0 - 31.0 PG) 29.8 RDW (11.5 - 14.5 %) 14.5 Plt Count (130 - 400 /CUMM) 319 MPV (7.4 - 10.4 FL) 8.2 Gran % (42.2 - 75.2 %) 93.8 H Lymphocytes % (20.5 - 51.1 %) 1.3 L Monocytes % (1.7 - 9.3 %) 4.9 Eosinophils % (0 - 5 %) 0 Basophils % (0.0 - 2.0 %) 0 L Absolute Granulocytes (1.4 - 6.5 /CUMM) 14.6 H Absolute Lymphocytes (1.2 - 3.4 /CUMM) 0.2 L Absolute Monocytes (0.10 - 0.60 /CUMM) 0.8 H Absolute Eosinophils (0.0 - 0.7 /CUMM) 0 Absolute Basophils (0.0 - 0.2 /CUMM) 0 PUBS MCHC (33.0 - 37.0 G/DL) 31.7 L Last 24 Hours of Gt Results: Urine culture July 13 negative Recent Imaging Studies: Chest x-ray July 14 reveals chronic increased reticular opacities in the medial aspects of both upper lobes and in the lung apices, unchanged from previous study; bibasilar reticular opacities worse compared to the previous study Assessment/Plan Impression: Overall status remains poor with worsening respiratory status secondary to end- stage COPD, currently on Vancomycin now Day 5 of treatment for a presumed exacerbation of COPD, with the CT scan of the chest negative for any pneumonia, though with the recent chest x-ray revealing progression of her bibasilar opacities. She remains afebrile with white blood cell count remaining elevated, likely secondary to the steroids. Suggestion: 1. Await decision regarding overall level of care 2. Continue Vancomycin
--- NOTE | 2016-07-14 18:08 | PN- Att Addend ---
Attending Addendum Attending Brief Note Hospice Admission H&P Chief Complaint: Admit to hospice Source: Family, medical records Exam Limitations: clinical condition Associated Symptoms: dyspnea, anxiety History of Present Illness: 76-year-old woman a past medical history of COPD (3 L home oxygen), HFpEF, peripheral vascular disease, osteoporosis, anxiety, recent admission to [facility] approximately 2 weeks ago for COPD exacerbation, was admitted 2016 with hypercapnic respiratory failure secondary to MRSA pneumonia and end- stage COPD. Patient has continued to fail despite IV antibiotics, IV steroids, BiPAP and family made decision today for hospice care. Patient also has anemia and was transfused with one unit of packed red blood cells with improvement of H &H. Course has been complicated by family resistance to medicate patients dyspnea and anxiety. Despite her obvious labored breathing and tachycardia today, they report that this is essentially her norm for the past couple of years. Yesterday she had received a small dose of morphine and Ativan and family was reportedly upset that patient was then sleeping. However, according to staff she had a much more comfortable respiratory status. Allergies: Penicillin V, neomycin, bacitracin, polymyxin B, cortisone, moxifloxacin, duloxetine Review of Systems: Unable to answer questions due to respiratory status. Past Medical History: COPD on 3 L oxygen at home, HFrEF, PVD, osteoporosis, anxiety, CAD, HTN, nephrolithiasis, osteomyelitis Past Surgical History: Hysterectomy, left fifth digit metatarsal amputation, bilateral THR Family History: Noncontributory Psychosocial History: Patient lived at home with nursing assistance. 4 children, 3 sons and 1 daughter. Functional Ability: Requires assistance Exam and Diagnostic Data: Vital signs: T-98.2; HR-80; RR-20; BP-140/80 91% on high flow oxygen Physical Exam: General: Sleepy but arousable. Appears to be in moderate respiratory distress. Skin: Warm and dry. HEENT: Normocephalic and atraumatic. Pupils equal and reactive to light. Oral mucosa dry. Neck: Supple, negative JVD. Heart: tachycardic, no murmur appreciated. Lungs: Labored with use of accessory muscles and gasping, no congestion noted. High flow nasal O2 in place. Abdomen: Soft and nontender. Positive bowel sounds. Extremities: No clubbing, cyanosis; edema. Amputation of left fifth metatarsal. Positive pedal pulses bilaterally. Neuro/Psych: Sleepy, minimal interaction. Labs/Imaging: C BC with WBC 15.5, Hgb 7.8, HCT 24.7. Chemistries with sodium 146, K 5.2, BUN 34, creatinine 0.8 Chest x-ray shows COPD with chronic lung markings, superimposed bibasilar opacities noted, subtly progressing when compared to recent chest x-rays, raising suspicion of superimposed pneumonia. May be associated trace pleural effusions. Sputum culture MRSA positive Assessment/Plan: Patient is a 76-year-old female with end-stage COPD, recent COPD exacerbation who is admitted with hypercapnic respiratory failure related to MRSA pneumonia and end-stage COPD, who is now being admitted to hospice care as she has progressively deteriorated despite treatment. Orders are written and discussed with family. Well continue current orders of morphine 0.5 mg IV and change frequency to every 1 hour as needed for pain/ dyspnea. Continue Ativan 0.25 mg IV and change frequency to every 3 hours as needed for anxiety/restlessness. For congestion, when necessary scopolamine and glycopyrrolate are ordered. Well continue oral medications that contribute to her comfort such as, losartan , diltiazem, amlodipine, peroxide teen, Symbicort, amitriptyline, IV Solu-Medrol until she is no longer able to take oral medication or condition deteriorates further. Continue family education and support.
== END 2016-07-14 15:30 | disposition hospice, home (50) | DRG 190 ==
LOC: ENRESERVTM → ENRESERVDT → ERH 10:36 → ERHI 14:36 → 2NA 14:36
PROVIDERS: Emergency Medicine; Internal Medicine; Internal Medicine Endocrinology, Diabetes & Metabolism; ADMIT Internal Medicine
DX: J44.0 Chronic obstructive pulmonary disease with (acute) lower respiratory infection (principal); J15.212 Pneumonia due to Methicillin resistant Staphylococcus aureus; J96.21 Acute and chronic respiratory failure with hypoxia; I11.0 Hypertensive heart disease with heart failure; R64 Cachexia; I50.32 Chronic diastolic (congestive) heart failure; L97.811 Non-pressure chronic ulcer of other part of right lower leg limited to breakdown of skin; Z99.81 Dependence on supplemental oxygen; J44.1 Chronic obstructive pulmonary disease with (acute) exacerbation; Z51.5 Encounter for palliative care; Z68.22 Body mass index [BMI] 22.0-22.9, adult; I73.9 Peripheral vascular disease, unspecified; R19.5 Other fecal abnormalities; M81.0 Age-related osteoporosis without current pathological fracture; F41.9 Anxiety disorder, unspecified
CPT/HCPCS: 2NAP; 87184; 36415; 81001; 82436; 86920; 87040; 87070; 87071; 87086; 87147; 87804; 87804-59; 93005; 93010; 96374; 96375; 97110-GO; 97162-GP; 97530-GO; 99291; J0456; J0696; J1650; J1940; J2920; J2930; J3370; J3490; J7060; P9016

== ENCOUNTER 2016-07-14 15:31 | Inpatient (IN) | payer OTHER ==
--- NOTE | 2016-07-14 16:27 | NUR ---
PT MADE HOSPICE AT THIS TIME. PT IS ALERT, FORETFUL, ON HIFLO O2 AT THIS TIME, 35%, RR 30 AND LABORED. MEDICATED PER EMAR WITH IV MORPHINE. PTS FAMILY AT BEDSIDE AND AGREEABLE TO MEDICATION AT THIS TIME. GANN IN PLACE. ORDER FOR TRC'S AND NEBS. PT RECIEVING NEB NOW. IV SOLUMEDROL GIVEN PER EMAR. SKIN WITH MULTIPLE SKIN TEARS TO BILATERAL LEGS AND RFA, DRESSED WITH XEROFORM AND TELFA. REPOSITIONED FOR COMFORT. SITTER OH'ED AT THIS TIME PER HOSPICE NURSE LORA. WILL CONTINUE TO MONITOR.
--- NOTE | 2016-07-14 17:52 | NUR ---
PTS RR 24 AFTER ADMINISTRATION OF IV MORPHINE, FAMILY AT BEDSIDE REQUESTING THAT PT NOT RECIEVE MORE IV MORPHINE AT THIS TIME PT APPEARS COMFORTABLE, PT STATES SHE IS COMFORTABLE, DENIES PAIN, PT IS MORE CALM, ATE 10% OF MEAL WITH ASSISTANCE OF SON. WILL CONTINUE TO MONITOR.
--- NOTE | 2016-07-14 19:13 | NUR ---
RR 22, PRN MORPHINE IV GIVEN PER EMAR AT THIS TIME, PT DENIES PAIN, LABORED BREATHING WITH USE OF ACCESSORY MUSCLES. WILL CONTINUE TO MONITOR.
--- NOTE | 2016-07-15 00:49 | NUR ---
PATIENT RESTING WITH EYES OPEN. RESTLESS IN BED. PRN IV ATIVAN GIVEN PER EMAR. SCHEDULED IV SOLUMEDROL GIVEN WELL. PT ON HI FLOW 02 AT 35%. RR 20, EVEN AND NON-LABORED. NO S+S OF ANY PAIN OR DISCOMFORT AT THIS TIME. WILL CONTINUE TO CLOSELY MONITOR.
--- NOTE | 2016-07-15 05:30 | NUR ---
PATIENT RESTING WITH EYES CLOSED. CALM, RELAXED. RR 20, EVEN AND NON-LABORED. PT REMAINS ON HI-FLOW 02 NC AT 35%. NO S+S OF ANY PAIN OR DISCOMFORT NOTED. PT DROWSY AROUSABLE. DECENT URINE OUTPUT NOTED, EMPTIED AND MEASURED BY MST. NO DISTRESS NOTED. WILL CONTINUE TO CLOSELY MONITOR.
[2016-07-15 06:27] VITALS: BP 146/70
--- NOTE | 2016-07-15 08:00 | NUR ---
PT APPEARS COMFORTABLE, NO RESP DISTRESS NOTED, SEE SANDI, PT MEDICATED BY NIGHT RN, SAFETY PRECAUTIONS MAINTAINED
--- NOTE | 2016-07-15 11:40 | NUR ---
FAMILY AT BEDSIDE, PLAN OF CARE AND HIGH FLOW 02 REVIEWED, AT THIS TIME, THEY REFUSE TO HAVE PT ON REGULAR O2 VIA N/C, THEY WILL DISCUSS IT, AND LET US KNOW
--- NOTE | 2016-07-15 14:41 | PN- Gen Med ---
Assessment/Plan Assessment: Patient is a 76-year-old female with end-stage COPD, recent COPD exacerbation who is admitted with hypercapnic respiratory failure related to MRSA pneumonia and end-stage COPD, who is now being admitted to hospice care as she has progressively deteriorated despite treatment. Today she appears more comfortable. Problem List: 1. MRSA pneumonia 2. Acute and chronic respiratory failure 3. COPD exacerbation Plan: Schedule morphine 0.5mg every 6 hours, continue prn dosing as well. Oxygen is switched to nasal cannula, 5lnp Subjective Subjective: Son, Bill, and friend at bedside. Past 24 hours pt has required Morphine x 5 and ativan x 2. Overnight she had 10 hr period without morphine, and required more frequent dosing today. Family also considering switching high brad O2 to nasal cannula--respiratory therapy in to help answer questions. Pt without complaints, currently comfortable. Asking family for lobster roll. Review of Systems Constitutional: Reports: see HPI. Objective Last 24 Hrs of Vital Signs/I&O Vital Signs Date Time Temp Pulse Resp B/P Pulse O2 O2 Flow FiO2 Ox Delivery Rate 07/15 1205 Nasal 35% Cannula 07/15 1134 108 164/80 07/15 1134 108 164/80 07/15 0935 Nasal 35% Cannula 07/15 0800 Nasal 35% Cannula 07/15 0627 97.9 108 22 146/70 98 Nasal Cannula 07/15 0100 99 Nasal 35% Cannula 07/15 0000 Nasal 35% Cannula 07/14 2222 99 Nasal 35% Cannula 07/14 1920 97 Nasal 35% Cannula 07/14 1615 96 Nasal 35% Cannula 07/14 1600 Nasal 35% Cannula Intake & Output 07/15 1600 07/15 0800 07/15 0000 Intake Total Output Total 350 400 Balance -350 -400 Number 0 Bowel Movements Output, Urine 350 400 Physical Exam General Appearance: Sleepy but arousable and with periods of alertness. HEENT: Atraumatic, oral mucosa dry Cardiovascular: Regular Rate (tachycardic), Normal S1, Normal S2 Lungs: decreased breath sounds, unlabored, no congestion Extremities: No Edema
--- NOTE | 2016-07-15 23:01 | NUR ---
PATIENT DROWSY BUT AROUSABLE. SOMETIMES ALERT AND AGITATED. PATIENT TURNED AND REPOSITIONED Q 2 HR AND PRN. GANN INTACT, PATENT AND DRAINING YELLOW URINE. SKIN WITN SKIN TEAR TO RFA. MULTIPLE ECCHYMOTIC AREAS TO BUE AND BLE. PATIENT ON SIZE GUERRA MATTRESS. RR RANGE FROM 24 TO 40 AND LABORED. PATIENT MEDICATED WITH MORPHINE AND ATIVAN ORDERED. PATIENT'S SON DECLINED THE 1800 MORPHINE DOSE. PATIENT MORE RELAXED AND COMFORTABLE AT THIS TIME. WILL CONTINUE TO MONITOR.
--- NOTE | 2016-07-16 | NUR ---
PATIENT RESTING COMFORTABLY WITH EYES CLOSED. PT ON 5L NC, RR 20 AT THIS TIME, EVEN AND NON-LABORED. MULTIPLE BRUISES AND SKIN TEARS NOTED TO BUE AND BLE. TELFA DRESSINGS IN PLACE TO 3 DIFFERENT SKIN TEARS. GANN IN PLACE DRAINING DARKENED URINE TO GRAVITY. PT GIVEN SCHEDULED MEDICATIONS AT THIS TIME. WILL CONTINUE TO CLOSELY MONITOR.
--- NOTE | 2016-07-16 04:13 | NUR ---
AT APPROX 0315 PT WAS RESTLESS IN BED. EYES OPEN. AGITATED. THRASHING IN BED. MOANING IN PAIN. RR 26, IRREGULAR AND LABORED. 02 HAD BEEN PULLED OFF. PRN MORPHINE AND ATIVAN GIVEN WITH +EFFECT. 02 PLACED BACK ON PATIENT. AT 0400, PT RESTING COMFORTABLY IN BED. RR 20, REGULAR, NON-LABORED. NO DISTRESS/RESTLESSNESS/PAIN NOTED. WILL CONTINUE TO CLOSELY MONITOR.
[2016-07-16 06:35] VITALS: BP 162/78
--- NOTE | 2016-07-16 08:00 | NUR ---
PT SLEEPING, APPEARS COMFORTABLE, NO FAMILY PRESANT, PT APPEARS COMFORTABLE, CONTINUE TO MONITOR
--- NOTE | 2016-07-16 13:00 | PN- Gen Med ---
Assessment/Plan Assessment: Patient is a 76-year-old female with end-stage COPD, recent COPD exacerbation who is admitted with hypercapnic respiratory failure related to MRSA pneumonia and end-stage COPD, who is now being admitted to hospice care as she has progressively deteriorated despite treatment. Pt. is restless and in mild distress with chest congestion. Problem List: 1. Acute and chronic respiratory failure 2. MRSA pneumonia 3. COPD exacerbation Plan: Schedule ativan 0.25mg every 8 hours, continue prn dosing as well. Increase scopolamine patch to 2 patches every 72 hrs. Subjective Subjective: Friend at bedside. Pt is very restless, mumbling, fidgeting. Responsive when spoken to. Receiving scheduled morphine and prn dose x 3 overnight. Received ativan x 3 overnight, last time at 3am. Eating few bites of pudding, drinking small amnt. liquid. Review of Systems Constitutional: Reports: see HPI. Objective Last 24 Hrs of Vital Signs/I&O Vital Signs Date Time Temp Pulse Resp B/P Pulse O2 O2 Flow FiO2 Ox Delivery Rate 07/16 0809 Nasal 5.0L Cannula 07/16 08 Nasal 5.0L Cannula 07/16 0635 98.2 105 21 162/78 95 Nasal Cannula 07/16 0000 Nasal 5.0L Cannula 07/15 1600 Nasal 5.0L Cannula 07/15 1435 92 Nasal 5.0L Cannula 07/15 1430 95 Nasal 35% Cannula Intake & Output 07/16 1600 07/16 0800 07/16 0000 Intake Total 120 Output Total 400 450 Balance -400 -330 Intake, Oral 120 Output, Urine 400 450 Physical Exam General Appearance: Mild Distress, restless HEENT: Atraumatic, mucous membranes dry Cardiovascular: tachycardic Lungs: Clear to Auscultation (t), tachypneic RR 26, O2 5lnp, congestion noted Extremities: No Edema
--- NOTE | 2016-07-16 14:15 | NUR ---
PT RESTLESS, AGITATED, C/O PAIN, PT'S SON REFUSE TO LET NURSING MEDICATE PT, PT SON STATES " I DON'T WANT YOU TO PUT HER DOWN , RATIONALE FOR MEDS REVIEWED WITH SON, SON STILL REFUSE MEDICATION, SON REQUESTING TO GET PT OOB, SON INFORMED IT IS TO DANGEROUS PT NOT FOLLOWING DIRECTION, PT HIGH FALL RISK. PT NOT SITTING STILL. CONTINUE TO MONITOR
--- NOTE | 2016-07-16 16:57 | NUR ---
PT DROWSY ARROUSABLE, APPEARS COMFORTABLE, RR 28 AND LABORED FAMILY STATING THEY DO NOT WISH FOR HER TO RECIEVE MORPHINE AT THIS TIME PT RECENTLY RECIEVED A DOSE. DR DYSON AT BEDSIDE, ORDER OBTAINED TO INCREASE RUBINOL DOSE PT IS VERY CONGESTED, NO ORAL SECRETIONS. ON 5L NC, GANN DRAINING, SKIN TEARS TO ELIZABETH AND BLE, DRESSED WITH XEROFORM AND TELFA.
--- NOTE | 2016-07-16 17:56 | NUR ---
CALLED TO ROOM BY PT'S FAMILY AT THIS TIME, STATED "I THINK ITS TIME" "I THINK SHE ", PT WITH ABSENSE OF AUDIBLE APICAL PULSE, NO RESPIRATIONS, PUPILS FIXED AND DILATED. FAMILY AT BEDSIDE, GRAND DAUGHTER AT BEDSIDE WITH PT'S SON. FAMILY ASKING IF DR. DYSON CAN COME TO BEDSIDE TO PRONOUNCE. DR DYSON PAGED AND AT BEDSIDE AT THIS TIME TO PRONOUCE. TIME 1737. CALL PLACED TO [facility]. CALL TO ADMITTING AND NURSING SUP.
--- NOTE | 2016-07-21 15:41 | Discharge Summary ---
Visit Information Visit Dates Admission Date: 07/14/16 Discharge Date: 07/16/16 Hospital Course Course Attending Physician: SARITA THOMAS MD Primary Care Physician: CHAPIS DELVALLE,[facility] Course: Patient is a 76-year-old female with end-stage COPD, recent COPD exacerbation who is admitted with hypercapnic respiratory failure related to MRSA pneumonia and end-stage COPD, now being admitted to hospice care as she has progressively deteriorated despite treatment. She was kept comfortable with morphine and ativan until she peacefully. Allergies: Coded Allergies: bacitracin (From NEOSPORIN ([id number])) (rash 09/23/15) neomycin (From NEOSPORIN ([id number])) (rash 09/23/15) penicillin V (SWELLING ALL OVER AND ITCHING 09/23/15) polymyxin B (From NEOSPORIN ([id number])) (rash 09/23/15) cortisone (THRUSH 09/23/15) duloxetine (GI DISTRESS 09/23/15) moxifloxacin (From AVELOX) (STOMACH SICK 09/23/15) Disposition Summary Disposition Principal Diagnosis: Acute on chronic hypercapnic respiratory failure Chronic obstructive pulmonary disease exacerbation Pneumonia-methyl resistant staphylococcus aureus Additional Diagnosis: Chronic obstructive pulmonary disease, end-stage Discharge Disposition: Discharge Instructions General Discharge Information Code Status: Hospice Patient's Diet: N/A Patient's Activity: N/A Follow-Up Instructions/Appts: N/A Copies To: CHAPIS DELVALLE,[facility] [place]
== END 2016-07-16 17:37 | disposition expired | DRG 189 ==
LOC: 2NA 15:31 → ENPENDDIS 15:31 → 2NA 07-16 17:37
PROVIDERS: ADMIT Internal Medicine
DX: J96.22 Acute and chronic respiratory failure with hypercapnia (principal); J15.212 Pneumonia due to Methicillin resistant Staphylococcus aureus; J44.1 Chronic obstructive pulmonary disease with (acute) exacerbation; Z51.5 Encounter for palliative care
CPT/HCPCS: 2NAP; J2270; J2920; J3490